=== PATIENT | male | born 1975 | race Hispanic/Latino ===

== ENCOUNTER 2020-02-06 19:10 | Inpatient (IN) | payer SELFPAY ==
[~2020-02-06] VITALS: Ht 154.9 cm; Wt 101.2 kg
[2020-02-06] MEDS ORDERED: DEXAMETHASONE SOD PHOS INJ 4 MG/ML VIAL IV ONE (19:30)
[2020-02-06] MEDS ORDERED: AZITHROMYCIN 500MG/NS 250 ML 250 ML IV ONE (19:30)
[2020-02-06] MEDS ORDERED: CEFTRIAXONE SOD 1 GM/NS 50 ML 50 ML IV ONE (19:30)
[2020-02-06] MEDS ORDERED: ACETAMINOPHEN 325 MG TAB PO ONE (19:30)
[2020-02-06 19:33] LABS: BASOPHILS % 0.2 % (0.0-1.0); HEMATOCRIT 43.2 % (38.2-49.6); HEMOGLOBIN 14.3 g/dL (14.0-18.0); LYMPHOCYTES # (AUTO) 0.8 (1.0-3.2); LYMPHOCYTES % 14.2 % (18.0-39.1); MEAN CORPUSCULAR HEMOGLOBIN 27.8 pg (28-32); MEAN CORPUSCULAR HGB CONC 33.1 g/dL (31-35); MEAN CORPUSCULAR VOLUME 83.9 fL (81-99); MONOCYTES # (AUTO) 0.2 (0.2-0.8); MONOCYTES % 3.8 % (4.4-11.3); NEUTROPHILS # (AUTO) 4.7 (2.1-6.9); NEUTROPHILS % 80.6 % (38.7-80.0); PLATELET COUNT 208 x10e3/uL (140-360); RED BLOOD COUNT 5.15 x10e6/uL (4.3-5.7); RED CELL DISTRIBUTION WIDTH 13.2 % (11.7-14.4)
[2020-02-06 19:54] LABS: ALANINE AMINOTRANSFERASE 14 IU/L (0-55); ALBUMIN 2.9 g/dL (3.5-5.0); ALBUMIN/GLOBULIN RATIO 0.6 (0.8-2.0); ALKALINE PHOSPHATASE 97 IU/L (40-150); ANION GAP 21.4 mmol/L (8-16); BLOOD UREA NITROGEN 11 mg/dL (7-26); BUN/CREATININE RATIO 9 (6-25); CALCIUM 8.8 mg/dL (8.4-10.2); CARBON DIOXIDE 21 mmol/L (22-29); CHLORIDE 91 mmol/L (98-107); CREATINE KINASE 46 IU/L (30-200); EST GLOMERULAR FILTRATION RATE > 60 ML/MIN (60-); POTASSIUM 4.4 mmol/L (3.5-5.1); SODIUM 129 mmol/L (136-145)
--- NOTE | 2020-02-06 20:02 | NUR ---
ASH PEREZ NOTIFIED AND AWARE OF CRITICAL LAB VALUE, BLOOD GLUCOSE 522.
[2020-02-06 20:08] LABS: GLUCOSE 522 mg/dL (74-118)
--- NOTE | 2020-02-06 20:09 | Emergency Department Note ---
History of Present Illnes History of Present Illness Chief Complaint: COVID PUI History of Present Illness This is a 44 year old male was recently in [facility] 2 wks ago for SOB Dx with PNA. Pt states, "I was just sitting down at home today when I start having SOB & usually it only happen at night time when Im laying down at night. PT ON 02 100% VIA NR AND OXYGEN SATURATION IS 78%. VAPOTHERM ORDERED TO BE PLACED ON PT . Historian: Patient Arrival Mode: [facility] Treatment CYLINDER INSPECTOR: IV, O2 Additional Treatment CYLINDER INSPECTOR: Patient was given Solu-Medrol 125 mg Onset (how long ago): week(s) (2) Location: CHEST Quality: SOB, COUGH Radiation: Reports non-radiation Severity: moderate Onset quality: gradual Duration (how long): week(s) (2) Timing of current episode: constant Progression: worsening Context: Reports recent illness (DIAGNOSED WITH PNEUMONIA AT [facility] 2 WEEKS AGO) Relieving factors: none Exacerbating factors: movement Associated symptoms: Reports cough, Reports fever/chills, Reports shortness of breath Treatments prior to arrival: none Past Medical/Family History Physician Review I have reviewed the patient's past medical and family history. Any updates have been documented here. Past Medical History Recent Fever: No Clinical Suspicion of Infectio: Yes New/Unexplained Change in Ment: No Past Medical History: Hypertension, Diabetes Other Medical History: Pneumonia Epilepsy Past Surgical History: None Social History Smoking Cessation: Never Smoker Alcohol Use: None Any Illegal Drug Use: No Physically hurt or threatened: No Family History Family history of heart diseas: No Other family history HTN, DM Other Last Tetanus: unknown Review of Systems Review of Systems EENTM: Reports no symptoms Cardiovascular: Reports no symptoms Respiratory: Reports as per HPI Gastrointestinal: Reports no symptoms Genitourinary: Reports no symptoms Musculoskeletal: Reports no symptoms Integumentary: Reports no symptoms Neurological: Reports no symptoms Psychological: Reports no symptoms Endocrine: Reports no symptoms Hematological/Lymphatic: Reports no symptoms Physical Exam Related Data Allergies: Coded Allergies: No Known Allergies (Unverified , 08/31/14) Triage Vital Signs Vital Signs Date Time Temp Pulse Resp B/P (MAP) Pulse Ox O2 Delivery O2 Flow Rate FiO2 02/06/20 19:30 97.9 125 25 160/83 100 Vapotherm 40.0 Vital signs reviewed: Yes Physical Exam CONSTITUTIONAL Constitutional: Present well-developed, Present well-nourished HENT HENT: Present normocephalic, Present atraumatic, Present oropharynx clear/elana st, Present nose normal HENT L/R: Present left ext ear normal, Present right ext ear normal EYES Eyes: Reports PERRL, Reports conjunctivae normal NECK Neck: Present ROM normal PULMONARY Pulmonary: Present respiratory distress (MILD WITH TACHYPNEA, RR 30), Present rhonchi (THROUGHOUT ALL 4 LUNG TURPIN) CARDIOVASCULAR Cardiovascular: Present regular rhythm, Present heart sounds normal, Present capillary refill normal, Present tachycardia (RATE 125) GASTROINTESTINAL Abdominal: Present soft, Present nontender, Present bowel sounds normal GENITOURINARY Genitourinary: Present exam deferred SKIN Skin: Present warm, Present dry MUSCULOSKELETAL Musculoskeletal: Present ROM normal NEUROLOGICAL Neurological: Present alert, Present oriented x 3, Present no gross motor or sensory deficits PSYCHOLOGICAL Psychological: Present mood/affect normal, Present judgement normal Results Laboratory Result Diagram: 02/06/201916 Laboratory Laboratory Tests Test 02/06/20 19:48 02/06/20 19:17 White Blood Count 5.78 x10e3/uL (4.8-10.8) Red Blood Count 5.15 x10e6/uL (4.3-5.7) Hemoglobin 14.3 g/dL (14.0-18.0) Hematocrit 43.2 % (38.2-49.6) Mean Corpuscular Volume 83.9 fL (81-99) Mean Corpuscular Hemoglobin 27.8 pg (28-32) Mean Corpuscular Hemoglobin Concent 33.1 g/dL (31-35) Red Cell Distribution Width 13.2 % (11.7-14.4) Platelet Count 208 x10e3/uL (140-360) Neutrophils (%) (Auto) 80.6 % (38.7-80.0) Lymphocytes (%) (Auto) 14.2 % (18.0-39.1) Monocytes (%) (Auto) 3.8 % (4.4-11.3) Eosinophils (%) (Auto) 0.0 % (0.0-6.0) Basophils (%) (Auto) 0.2 % (0.0-1.0) Neutrophils # (Auto) 4.7 (2.1-6.9) Lymphocytes # (Auto) 0.8 (1.0-3.2) Monocytes # (Auto) 0.2 (0.2-0.8) Eosinophils # (Auto) 0.0 (0.0-0.4) Basophils # (Auto) 0.0 (0.0-0.1) Absolute Immature Granulocyte (auto 0.07 x10e3/uL (0-0.1) Sodium Level 129 mmol/L (136-145) Potassium Level 4.4 mmol/L (3.5-5.1) Chloride Level 91 mmol/L (98-107) Carbon Dioxide Level 21 mmol/L (22-29) Anion Gap 21.4 mmol/L (8-16) Blood Urea Nitrogen 11 mg/dL (7-26) Creatinine 1.20 mg/dL (0.72-1.25) Estimat Glomerular Filtration Rate > 60 ML/MIN (60-) BUN/Creatinine Ratio 9 (6-25) Glucose Level 522 mg/dL (74-118) Calcium Level 8.8 mg/dL (8.4-10.2) Total Bilirubin 0.7 mg/dL (0.2-1.2) Aspartate Amino Transf (AST/SGOT) 29 IU/L (5-34) Alanine Aminotransferase (ALT/SGPT) 14 IU/L (0-55) Alkaline Phosphatase 97 IU/L (40-150) Creatine Kinase 46 IU/L (30-200) Creatine Kinase MB 0.60 ng/mL (0-5.0) Troponin I 0.004 ng/mL (0-0.300) Total Protein 7.4 g/dL (6.5-8.1) Albumin 2.9 g/dL (3.5-5.0) Globulin 4.5 g/dL (2.3-3.5) Albumin/Globulin Ratio 0.6 (0.8-2.0) Laboratory Tests Test 02/06/20 19:17 White Blood Count 5.78 x10e3/uL (4.8-10.8) Red Blood Count 5.15 x10e6/uL (4.3-5.7) Hemoglobin 14.3 g/dL (14.0-18.0) Hematocrit 43.2 % (38.2-49.6) Mean Corpuscular Volume 83.9 fL (81-99) Mean Corpuscular Hemoglobin 27.8 pg (28-32) Mean Corpuscular Hemoglobin Concent 33.1 g/dL (31-35) Red Cell Distribution Width 13.2 % (11.7-14.4) Platelet Count 208 x10e3/uL (140-360) Neutrophils (%) (Auto) 80.6 % (38.7-80.0) Lymphocytes (%) (Auto) 14.2 % (18.0-39.1) Monocytes (%) (Auto) 3.8 % (4.4-11.3) Eosinophils (%) (Auto) 0.0 % (0.0-6.0) Basophils (%) (Auto) 0.2 % (0.0-1.0) Neutrophils # (Auto) 4.7 (2.1-6.9) Lymphocytes # (Auto) 0.8 (1.0-3.2) Monocytes # (Auto) 0.2 (0.2-0.8) Eosinophils # (Auto) 0.0 (0.0-0.4) Basophils # (Auto) 0.0 (0.0-0.1) Absolute Immature Granulocyte (auto 0.07 x10e3/uL (0-0.1) Lab results reviewed: Yes Imaging Imaging results reviewed: Yes Impressions Procedure: [id number] DX/CHEST SINGLE (PORTABLE) Exam Date: 02/06/20 Exam Time: 1944 REPORT STATUS: Signed EXAMINATION: CHEST SINGLE (PORTABLE) INDICATION: Shortness of breath and cough. COMPARISON: None FINDINGS: TUBES and LINES: None. LUNGS: Low lung volumes with diffuse patchy airspace opacities. PLEURA: There is probable bilateral pleural effusion. No pneumothorax. HEART AND MEDIASTINUM: The cardiomediastinal silhouette obscured by multifocal airspace opacities. BONES AND SOFT TISSUES: No acute osseous lesion. Soft tissues are unremarkable. UPPER ABDOMEN: No free air under the diaphragm. IMPRESSION: Multifocal patchy airspace opacities throughout both lungs which most likely represents multifocal pneumonia. Recommend follow-up chest radiographs in 6-8 weeks to ensure Signed by: Kirit Jolly MD on 02/06/2020 8:16 PM Procedures 12 Lead ECG Interpretation ECG Interpretation : ECG: ECG 1 Dry Room Operator: Interpreted by ED physician Date: Feb 06, 2020 Time: 19:13 Rhythm: sinus tachycardia Ectopy: infrequent PVC's Rate: tachycardia BPM: 130 QRS axis: normal ST segments normal: Yes T waves normal: Yes Other findings: no other findings Clinical Impression: dysrhythmia - atrial (SINUS TACHYCARDIA) Critical Care Time Critcal care necessary due to: respiratory failure Critcal care time spent by me: blood dram for specimens, develop tx plan w patient/surrogate, discussion w consultants, evaluation patient response to tx, examination of patient, obtaining hx from patient/surrogate, order/perform tx or interventions, order/review laboratory studies, order/review radiographic studies, pulse oximetry, re-evaluation of patient condition Assessment & Plan Medical Decision Making MDM PT WITH REPORTED DIAGNOSIS OF PNEUMONIA 2 WEEKS AGO WITH SOB AND HYPOXIA, HIGHLY SUSPICIOUS FOR COVID 19 VIRAL PNEUMONIA PT OXYGEN SATURATION ON 100% NR IS 78%, PT PLACED ON VAPO THERM FIO2 100% 40LPM AND OXYGEN SATURATION NOW 95 TO 98%. CBC, CMP, BLOOD CULTURES, COVID 19, CXR, EKG, CARDIAC ENZYMES ORDERED TO EVAL FOR VIRAL PNEUMONIA, ELECTROLYTE ABNORMALITY, COVID 19, MYOCARDIAL INFARCTION, PULMONARY EDEMA ROCEPHIN 1 GRAM IV ORDERED ZITHROMAX 500 MG IV ORDERED DEXAMETHASONE 6 MG IV ORDERED TYLENOL 975 MG PO ORDERED PT WITH BLOOD SUGAR OF 522, REGULAR INSULIN 15 UNITS SQ ORDERED I SPOKE WITH DR GALLEGOS, DR MANNING AND DR FERNANDEZ, ADMIT TO ICU Assessment & Plan Final Impression: (1) Viral pneumonia (2) Hypoxemia requiring supplemental oxygen (3) Suspected COVID-19 virus infection Depart Disposition: ADMITTED Last Vital Signs Date Time Temp Pulse Resp B/P (MAP) Pulse Ox O2 Delivery O2 Flow Rate FiO2 02/06/20 19:30 97.9 125 25 160/83 100 Vapotherm 40.0 Home Meds No Active Prescriptions or Reported Meds Medications in the ED Ceftriaxone Sodium 50 ml @ 100 mls/hr ONCE ONCE IV ; Start 02/06/20 at 19:30; Stop 02/06/20 at 19:59; Status DC Acetaminophen 975 mg ONCE ONCE PO ; Start 02/06/20 at 19:30; Stop 02/06/20 at 19:34; Status DC Azithromycin 250 ml @ 200 mls/hr NOW ONCE IV ; Start 02/06/20 at 19:30; Stop 02/06/20 at 20:44 Dexamethasone Sodium Phosphate 6 mg ONCE ONCE IV ; Start 02/06/20 at 19:30; Stop 02/06/20 at 19:34; Status DC FIDENCIO CINTRON MD Feb 06, 2020 20:09
[2020-02-06] MEDS ORDERED: INSULIN REGULAR, HUMAN 100 UNIT/1 ML 3ML VIAL SQ ONE (20:15)
--- NOTE | 2020-02-06 20:20 | Diagnostic Imaging Report ---
EXAMINATION: CHEST SINGLE (PORTABLE) INDICATION: Shortness of breath and cough. COMPARISON: None FINDINGS: TUBES and LINES: None. LUNGS: Low lung volumes with diffuse patchy airspace opacities. PLEURA: There is probable bilateral pleural effusion. No pneumothorax. HEART AND MEDIASTINUM: The cardiomediastinal silhouette obscured by multifocal airspace opacities. BONES AND SOFT TISSUES: No acute osseous lesion. Soft tissues are unremarkable. UPPER ABDOMEN: No free air under the diaphragm. IMPRESSION: Multifocal patchy airspace opacities throughout both lungs which most likely represents multifocal pneumonia. Recommend follow-up chest radiographs in 6-8 weeks to ensure Signed by: Kirit Jolly MD on 02/06/2020 8:16 PM
[2020-02-06] MEDS ORDERED: SODIUM CHLORIDE 0.9% 1000ML 1,000 ML IV ONE (22:15)
[2020-02-06] MEDS ORDERED: DEXTROSE 50% SYRINGE 50 ML IV PRN (22:15)
[2020-02-06] MEDS ORDERED: ACETAMINOPHEN 325 MG TAB PO PRN (22:15)
[2020-02-06] MEDS ORDERED: MELATONIN 5 MG TABLET PO PRN (23:45)
[2020-02-06] MEDS ORDERED: HYDRALAZINE HCL 20 MG/ML VIAL IV PRN (23:45)
[2020-02-06] MEDS ORDERED: DOCUSATE SODIUM 100 MG CAP PO PRN (23:45)
[2020-02-06] MEDS ORDERED: ONDANSETRON HCL INJ 2MG/ML 2ML 2 MG/ML VIAL IV PRN (23:45)
[2020-02-07] VITALS (11 sets, daily range): BP systolic 79–150; BP diastolic 44–103
--- NOTE | 2020-02-07 00:20 | NUR ---
Patient sleeping comfortably on bed, laying at left side. Sats 96% on vapotherm 40L ,100%
[2020-02-07] MEDS: AZITHROMYCIN 500MG/SOD CHL 0.9% 250ML BAG IV SCH ×2 (00:51→23:34)
[2020-02-07] MEDS: PIPER-TAZ 3.375 GM 50 ML IV SCH ×4 (00:59→18:54)
[2020-02-07] MEDS: INSULIN GLARGINE 100 UNITS/ML VIAL SQ SCH ×2 (01:02→08:41)
[2020-02-07] MEDS: ENOXAPARIN 30 MG/0.3 ML SYR SC SCH ×3 (01:06→17:12)
[2020-02-07] MEDS: VANCOMYCIN HCL 1GM/NS 250 ML BAG IV SCH ×2 (02:20→23:24)
[2020-02-07 03:33] LABS: CREATINE KINASE MB 0.5 ng/mL (0-5.0)
[2020-02-07 04:16] LABS: ABG HCO3 24 mmol/L (22-26); ABG PCO2 46 mmHg (35-45); ABG PH 7.33 (7.35-7.45); ABG PO2 47 mmHg (80-105); ABG TCO2 26
--- NOTE | 2020-02-07 07:02 | NUR ---
Handoff report given to Steven READ
[2020-02-07] MEDS: INSULIN REGULAR, HUMAN 100 UNIT/1 ML 3ML VIAL SQ SCH ×2 (08:40→12:22)
[2020-02-07] MEDS: ASCORBIC ACID 500 MG TAB PO SCH ×2 (08:41→16:56)
[2020-02-07 09:16] LABS: BASOPHILS % 0.1 % (0.0-1.0); HEMATOCRIT 46.2 % (38.2-49.6); HEMOGLOBIN 14.9 g/dL (14.0-18.0); LYMPHOCYTES # (AUTO) 0.6 (1.0-3.2); LYMPHOCYTES % 8.7 % (18.0-39.1); MEAN CORPUSCULAR HEMOGLOBIN 27.5 pg (28-32); MEAN CORPUSCULAR HGB CONC 32.3 g/dL (31-35); MEAN CORPUSCULAR VOLUME 85.2 fL (81-99); MONOCYTES # (AUTO) 0.1 (0.2-0.8); MONOCYTES % 1.7 % (4.4-11.3); NEUTROPHILS # (AUTO) 6.1 (2.1-6.9); NEUTROPHILS % 88.6 % (38.7-80.0); PLATELET COUNT 239 x10e3/uL (140-360); RED BLOOD COUNT 5.42 x10e6/uL (4.3-5.7); RED CELL DISTRIBUTION WIDTH 13.4 % (11.7-14.4)
[2020-02-07 09:35] LABS: ALANINE AMINOTRANSFERASE 14 IU/L (0-55); ALBUMIN 2.8 g/dL (3.5-5.0); ALBUMIN/GLOBULIN RATIO 0.6 (0.8-2.0); ALKALINE PHOSPHATASE 97 IU/L (40-150); ANION GAP 20.7 mmol/L (8-16); BLOOD UREA NITROGEN 17 mg/dL (7-26); BUN/CREATININE RATIO 17 (6-25); CALCIUM 8.6 mg/dL (8.4-10.2); CARBON DIOXIDE 23 mmol/L (22-29); CHLORIDE 98 mmol/L (98-107); CREATININE, SERUM 1.03 mg/dL (0.72-1.25); EST GLOMERULAR FILTRATION RATE > 60 ML/MIN (60-); POTASSIUM 4.7 mmol/L (3.5-5.1); SODIUM 137 mmol/L (136-145)
[2020-02-07 09:41] LABS: GLUCOSE 428 mg/dL (74-118)
[2020-02-07 09:47] LABS: CREATINE KINASE 68 IU/L (30-200)
--- NOTE | 2020-02-07 10:40 | NUR ---
covid positive confirmed by phone by [facility] at [phone]
[2020-02-07] MEDS ORDERED: INSULIN GLARGINE 100 UNITS/ML VIAL SQ SCH (12:45)
[2020-02-07] MEDS ORDERED: DEXTROSE 50% SYRINGE 50 ML IV PRN (16:30)
[2020-02-07] MEDS: INSULIN REGULAR, HUMAN 3ML VL 100 UNIT in SODIUM CHLORIDE 0.9% 99 ML IV SCH ×2 (17:11)
[2020-02-07 17:12] LABS: ABG HCO3 24 mmol/L (22-26); ABG PCO2 41 mmHg (35-45); ABG PH 7.38 (7.35-7.45); ABG PO2 43 mmHg (80-105); ABG TCO2 25
[2020-02-07] MEDS ORDERED: MIDAZOLAM HCL 2 MG/2 ML VIAL ONE ×2 (17:37→18:02)
[2020-02-07] MEDS ORDERED: MIDAZOLAM HCL 50 MG in SODIUM CHLORIDE 0.9% 100 ML 90 ML IV PRN (18:30)
[2020-02-07] MEDS ORDERED: SODIUM CHLORIDE 0.9% 1000ML 2,000 ML ONE (18:43)
--- NOTE | 2020-02-07 18:50 | Consultation ---
DATE OF CONSULTATION: REASON FOR CONSULTATION: Respiratory failure. HISTORY OF PRESENT ILLNESS: This patient is a 44-year-old male who was in [facility] two weeks ago with pneumonia. He was given antibiotic and discharged home, he has been okay, but now still has shortness of breath and came back to the emergency room here. He is currently on non-rebreather 100%, admitted to intensive care unit. He is on Vapotherm at present time. PAST MEDICAL HISTORY: Obesity. PAST SURGICAL HISTORY: Denies. ALLERGIES: NKA. SOCIAL HISTORY: There is no smoking, drug abuse, or alcohol abuse. FAMILY HISTORY: Unremarkable. MEDICATIONS: Discussed with the medical team. He is currently on Zosyn, vancomycin, azithromycin, and Lovenox as well as dexamethasone. LABORATORY DATA: White count 6.9 and hemoglobin 14. Sodium 137, potassium 4.4 with a glucose 128. IMPRESSION AND PLAN: 1. Respiratory failure. 2. Diabetes mellitus, controlled. Continue antibiotic as ordered. Continue steroid as well as anticoagulation and strict control of his diabetes. The patient is not a candidate for remdesivir since he has been sick for more than 2 weeks. MD JOSE Torres/MODL /[id number]
--- NOTE | 2020-02-07 19:13 | Diagnostic Imaging Report ---
EXAM: Abdomen Radiograph 1 View(s) INDICATION: Enteric tube placement. COMPARISON: None FINDINGS: No abnormalities in the lower chest. There is an enteric tube which coils within the gastric fundus and terminates in the expected location of the pylorus. Normal volume of stool in the colon. No dilated loops of small bowel. No abnormal abdominal calcifications.. No abnormal soft tissue masses. No radiographic evidence of pneumoperitoneum. No acute osseous abnormality. Mild degenerative changes in the lumbar spine and pelvis. IMPRESSION: 1. Enteric tube which terminates in the expected location of the gastric pylorus. 2. No acute abdominal radiographic abnormality. Signed by: Kirit Jolly MD on 02/07/2020 7:09 PM
--- NOTE | 2020-02-07 19:18 | Diagnostic Imaging Report ---
EXAMINATION: CHEST SINGLE (PORTABLE) INDICATION: Endotracheal tube placement. COMPARISON: Chest x-ray from 02/06/2020. FINDINGS: TUBES and LINES: There has been interval placement of an endotracheal tube. Initial imaging demonstrates terminal point at the level of the michael. The repeat imaging demonstrates terminal point approximately 6 cm above the michael. No interval changes in radiographic appearance of the lungs with multifocal patchy airspace opacities. No interval changes in cardiomediastinal silhouette. No interval changes in osseous or soft tissue structures. IMPRESSION: 1. Interval placement of endotracheal tube. Initial imaging demonstrates terminal point at the level of the michael. However, repeat imaging demonstrates terminal point approximately 6 cm above the michael. 2. No interval change in radiographic appearance of the lungs. Signed by: Kirit Jolly MD on 02/07/2020 7:14 PM
[2020-02-07] MEDS ORDERED: PHENOBARBITAL SOD 65 MG/ML VIAL IV ONE (19:30)
[2020-02-07] MEDS: MIDAZOLAM HCL 2 MG/2 ML VIAL IV SCH ×2 (20:24→21:49)
[2020-02-07] MEDS ORDERED: SODIUM CHLORIDE 0.9% IV ONE (20:30)
[2020-02-07] MEDS ORDERED: PHENOBARBITAL SOD IV ONE (20:30)
[2020-02-07] MEDS: FENTANYL 2000MCG/NS 250 250 ML IV PRN (20:33)
[2020-02-07] MEDS: MIDAZOLAM HCL 5MG/ML 10ML VIAL 100 ML IV PRN ×2 (20:33→21:50)
[2020-02-07] MEDS ORDERED: SODIUM CHLORIDE 0.9% 500ML 500 ML IV ONE ×2 (20:45→21:45)
--- NOTE | 2020-02-07 22:01 | Consultation ---
DATE OF CONSULTATION: Pulmonary Critical Care Consultation CHIEF COMPLAINT: Shortness of breath for 4 to 5 days. HISTORY OF PRESENT ILLNESS: The patient is a 44-year-old man. He has a history of diabetes and takes insulin at home. He reports dyspnea for the past 4 to 5 days. He has a cough. He does not complain of fevers or chest pain. He is not reporting nausea or vomiting. PAST MEDICAL HISTORY: 1. Diabetes. 2. No prior respiratory problems. 3. No prior cardiac disease. PAST SURGICAL HISTORY: No prior surgeries. SOCIAL HISTORY: The patient was a smoker up until several months ago. He is not an active drinker. ALLERGIES: THERE ARE NO KNOWN DRUG ALLERGIES. FAMILY HISTORY: Family history is noncontributory. REVIEW OF SYSTEMS: The patient is a febrile. He does not complain of headache or neck pain. He is not having any chest pain. He does note dyspnea and cough. He is not having any abdominal pain. He has no nausea or vomiting. He has no leg swelling. PHYSICAL EXAMINATION: VITAL SIGNS: The patient is afebrile. The patient is saturating in the mid 80s and his respiratory rate is in the low 30s. His pulse is 106 and his blood pressure is 131/87. He is currently on Vapotherm at 40 L with 100% FiO2. He has a non-rebreather superimposed over the top. HEENT: Shows no facial swelling or erythema. CARDIAC: Reveals regular rate and rhythm with normal S1 and S2. LUNGS: Auscultation of lungs reveals crackles at the bases. There is no wheezing. ABDOMEN: Soft and nontender. There is no rebound or guarding. EXTREMITIES: Shows no leg edema or calf tenderness. There is no cyanosis or clubbing. SKIN: Shows no rashes. NEUROLOGICAL: Shows no focal abnormalities. LABORATORY DATA: White blood cell count is 6.9 and the hemoglobin is 14.9. The platelet count is 239. The BUN to creatinine ratio is 17 to 1.03. Other electrolytes are within normal limits. His anion gap is increased to 20. His blood sugar is 454 and his hemoglobin A1c is 14.7. Albumin is 2.8. RADIOGRAPHIC DATA: Chest x-ray shows patchy bilateral infiltrates. IMPRESSION: 1. Acute respiratory failure. 2. Viral pneumonia and COVID-19 infection. 3. Diabetic ketoacidosis. 4. Acute kidney injury. PLAN: 1. Continue Vapotherm and non-rebreather for now. Check stat ABG. 2. Begin insulin drip. 3. Intravenous fluids. 4. Dexamethasone 6 mg IV daily. 5. Continue current antibiotics. 6. Evaluate the patient for remdesivir. Deshaun Roberson MD LM/MODL /[id number]
[2020-02-07 22:23] LABS: ABG HCO3 26 mmol/L (22-26); ABG PCO2 57 mmHg (35-45); ABG PH 7.26 (7.35-7.45); ABG PO2 59 mmHg (80-105); ABG TCO2 27
[2020-02-07] MEDS: NOREPINEPHRINE 8 MG/D5W 250 ML 250 ML IV SCH (22:55)
--- NOTE | 2020-02-07 23:51 | Operative Report ---
DATE OF PROCEDURE: SURGEON: Deshaun Roberson MD PROCEDURE: Endotracheal intubation with GlideScope. PREOPERATIVE DIAGNOSIS: Respiratory failure. POSTOPERATIVE DIAGNOSIS: Respiratory failure. CONSENT: Consent was obtained from the patient. MEDICATIONS: Versed 1 mg IV, etomidate 20 mg IV, and succinylcholine 100 mg IV. DESCRIPTION OF PROCEDURE: The patient was placed in supine position. He was desaturating into the low 80s despite being on Vapotherm at 40 L with 100% on a non-rebreather superimposed over the Vapotherm. He received 1 mg of Versed. He is Ambu bagging gently. He then received succinylcholine and etomidate. A 3.0 Mac blade was used to visualize the glottis. An 8.0 endotracheal tube was passed on the first attempt. There was good CO2 return and equal breath sounds bilaterally. The patient was then connected to a ventilator at a rate of 28 with a PEEP of 14 and tidal volume of 380. FiO2 is set at 100%. COMPLICATIONS: None. ESTIMATED BLOOD LOSS: None. Deshaun Roberson MD [facility]/MODL /[id number]
[2020-02-08] VITALS (20 sets, daily range): BP systolic 79–140; BP diastolic 45–90
--- NOTE | 2020-02-08 02:36 | Diagnostic Imaging Report ---
EXAMINATION: CHEST SINGLE (PORTABLE) INDICATION: Respiratory failure COMPARISON: same-day chest x-ray FINDINGS: TUBES and LINES: ET tube tip 5.2 cm above michael. Left upper extremity PICC tip in the right atrium. Enteric tube courses into abdomen, tip out of field of view. LUNGS: Extensive bilateral lung haziness. PLEURA: No pleural effusion or pneumothorax. HEART AND MEDIASTINUM: The cardiomediastinal silhouette is unremarkable. BONES AND SOFT TISSUES: No acute osseous lesion. Soft tissues are unremarkable. UPPER ABDOMEN: No free air under the diaphragm. IMPRESSION: ET tube tip 5.2 cm above michael. Left upper extremity PICC tip in the right atrium. Extensive airspace disease. Signed by: Isacc Arredondo DO on 02/08/2020 2:33 AM
--- NOTE | 2020-02-08 02:36 | Diagnostic Imaging Report ---
EXAMINATION: CHEST XRAY LINE PLACEMENT INDICATION: PICC line placement, verify position COMPARISON: Chest x-ray 02/07/2020 FINDINGS: TUBES and LINES: ET tube tip 4.8 cm above michael. New left upper extremity PICC terminates in the right atrium. Enteric tube courses into abdomen, tip out of field of view. LUNGS: Extensive bilateral lung haziness. PLEURA: No pleural effusion or pneumothorax. HEART AND MEDIASTINUM: The cardiomediastinal silhouette is unremarkable. BONES AND SOFT TISSUES: No acute osseous lesion. Soft tissues are unremarkable. UPPER ABDOMEN: No free air under the diaphragm. IMPRESSION: New left upper extremity PICC tip terminates in the right atrium. Extensive airspace disease. Signed by: Isacc Arredondo DO on 02/08/2020 2:33 AM
--- NOTE | 2020-02-08 02:36 | History and Physical ---
CHIEF COMPLAINT: Cough, congestion. The patient was seen and evaluated at noon today at 12 p.m. HISTORY OF PRESENT ILLNESS: This is a 44-year-old male, underlying obesity, has uncontrolled type 2 diabetes. He comes in with cough, congestion, subjective fever, found to have COVID-19 pneumonia. The patient was also found to be hypoxic prompting Pulmonary and ID consultation. The patient was seen and evaluated at bedside on the medical floor. He is currently doing relatively okay, still prompting significant amount of oxygen. REVIEW OF SYSTEMS: Cough, congestion, fever. The rest of 14-point review of systems are reviewed with the patient and are negative. ALLERGIES: NO KNOWN DRUG ALLERGIES. HOME MEDICATIONS: None. PAST MEDICAL HISTORY: Uncontrolled type 2 diabetes. PAST SURGICAL HISTORY: Reports none. FAMILY HISTORY: Hypertension and diabetes. SOCIAL HISTORY: No drugs. No alcohol. Does not smoke. Good social support. PHYSICAL EXAMINATION: VITAL SIGNS: Temperature 98.8, pulse is 105, respiratory rate is 27, blood pressure 132/79. He is on Vapotherm 40 L, FiO2 of 100% with an O2 saturation of 100%. GENERAL: During my evaluation, he was alert, awake, and oriented. He was still requiring significant amount of oxygen. PULMONARY: He was on Vapotherm. He was tachypneic, but he was relatively stable despite having significant amount of oxygen. CARDIOVASCULAR: Positive S1 and S2. No murmurs, rubs, or gallops appreciated. ABDOMEN: Soft, nondistended, and nontender to palpation. Bowel sounds present. MUSCULOSKELETAL: Strength is 5/5 throughout. No evidence of any muscle deficits on examination. No weakness appreciated. NEUROLOGIC: Cranial nerve II through XII grossly intact. No evidence of any neurological deficits on exam. SKIN: Intact. Warm to touch. Good cap refill. PSYCHIATRIC: Normal affect and mood. EXTREMITIES: No edema. Good range of motion throughout. LABORATORY DATA: Show white count 6.9, hemoglobin 14.9, hematocrit is 46, platelets of 339. Chemistry; sodium 137, potassium 4.7, Chloride 98, bicarb 23, anion gap of 20, BUN 17, creatinine is 1, has a glucose of 428, and hemoglobin A1c 14.7. LFTs within normal range. Troponins were all negative. Albumin 2.8. SEROLOGY: Coronavirus is pending. MICROBIOLOGY: Blood cultures were no growth to-date. IMAGING STUDIES: Chest x-ray on admission, multifocal patchy airspace opacities throughout both lungs, which most likely represent multifocal pneumonia. IMPRESSION: 1. Acute respiratory distress, secondary to coronavirus disease-2019 pneumonia. 2. Viral pneumonia secondary to coronavirus disease 2019. 3. Uncontrolled type 2 diabetes. 4. Acute kidney injury. PLAN: At this time, continue with steroids, antibiotics, high doses of vitamins and consult with Pulmonary and ID. Put on full-dose anticoagulation therapy. The patient is on significant amount of oxygen. The patient will eventually be intubated at some point if he does not improve. He is morbidly obese, has uncontrolled type 2 diabetes, and has risk factors. Continue with IV antibiotic therapy. Avoid volume if possible. Continue follow with the rest of the consultants. MD MONICA Luong/MODL /[id number]
--- NOTE | 2020-02-08 02:37 | Diagnostic Imaging Report ---
EXAMINATION: CHEST XRAY LINE PLACEMENT INDICATION: PICC placement, verify position COMPARISON: Same-day chest x-ray FINDINGS: TUBES and LINES: Slight retraction of the left upper extremity PICC, tip now in the superior cavoatrial junction. ET tube and enteric tube unchanged. LUNGS: Extensive bilateral lung haziness. PLEURA: No pleural effusion or pneumothorax. HEART AND MEDIASTINUM: The cardiomediastinal silhouette is unremarkable. BONES AND SOFT TISSUES: No acute osseous lesion. Soft tissues are unremarkable. UPPER ABDOMEN: No free air under the diaphragm. IMPRESSION: Slight retraction of the left upper extremity PICC, tip now in the superior cavoatrial junction. Extensive bilateral airspace disease/pneumonia. Signed by: Isacc Arredondo DO on 02/08/2020 2:34 AM
[2020-02-08] MEDS: MIDAZOLAM HCL 5MG/ML 10ML VIAL 100 ML IV PRN ×3 (03:22→13:06)
[2020-02-08 05:17] LABS: HEMOGLOBIN 12.7 g/dL (14.0-18.0); LYMPHOCYTES # (AUTO) 0.6 (1.0-3.2); MEAN CORPUSCULAR HEMOGLOBIN 30.5 pg (28-32); MEAN CORPUSCULAR HGB CONC 34.3 g/dL (31-35); MEAN CORPUSCULAR VOLUME 88.9 fL (81-99); MONOCYTES # (AUTO) 0.3 (0.2-0.8); MONOCYTES % 3.1 % (4.4-11.3); NEUTROPHILS % 89.3 % (38.7-80.0); PLATELET COUNT 172 x10e3/uL (140-360); RED BLOOD COUNT 4.16 x10e6/uL (4.3-5.7); RED CELL DISTRIBUTION WIDTH 15.3 % (11.7-14.4)
[2020-02-08 05:25] LABS: CLARITY,URINE CLEAR (CLEAR); COLOR,URINE YELLOW (YELLOW)
[2020-02-08 05:27] LABS: LEUKOCYTE ESTERASE ,URINE NEGATIVE (NEGATIVE); NITRITE,URINE NEGATIVE (NEGATIVE); PROTEIN,URINE DIPSTICK 2+ (NEGATIVE)
[2020-02-08 05:28] LABS: BACTERIA,URINE RARE /HPF; BILIRUBIN,URINE SMALL (NEGATIVE); KETONES,URINE NEGATIVE (NEGATIVE); URINE UROBILINOGEN 0.2 mg/dL (0.2 - 1)
[2020-02-08 05:29] LABS: EPITHELIAL CELLS,URINE FEW /LPF
[2020-02-08 05:52] LABS: ALANINE AMINOTRANSFERASE 12 IU/L (0-55); ALBUMIN 2.3 g/dL (3.5-5.0); ALBUMIN/GLOBULIN RATIO 0.6 (0.8-2.0); ALKALINE PHOSPHATASE 83 IU/L (40-150); BLOOD UREA NITROGEN 19 mg/dL (7-26); BUN/CREATININE RATIO 25 (6-25); CALCIUM 7.6 mg/dL (8.4-10.2); CARBON DIOXIDE 26 mmol/L (22-29); CHLORIDE 105 mmol/L (98-107); CREATININE, SERUM 0.75 mg/dL (0.72-1.25); EST GLOMERULAR FILTRATION RATE > 60 ML/MIN (60-); GLUCOSE 212 mg/dL (74-118); SODIUM 137 mmol/L (136-145)
[2020-02-08] MEDS: PIPER-TAZ 3.375 GM 50 ML IV SCH ×3 (06:15→21:16)
[2020-02-08] MEDS: FENTANYL 2000MCG/NS 250 250 ML IV PRN ×2 (07:51→18:31)
--- NOTE | 2020-02-08 08:44 | NUR ---
GAVE PACKET OF INFORMATION WITH [employer] [employer] FOR ASSISTANCE WITH LOW TO NO INCOME TO PATIENT. RESOURCES THAT PATIENT MAY BE ABLE TO FOLLOW UP UPON DISCHARGE. PT EDUCATED ON EACH RESOURCE AND UNDERSTANDING HOW TO FOLLOW UP TO SEE IF QUALIFIED FOR EACH RESOURCE.
[2020-02-08] MEDS ORDERED: ENOXAPARIN 30 MG/0.3 ML SYR SC SCH (09:00)
[2020-02-08] MEDS: DEXAMETHASONE SOD PHOS INJ 4 MG/ML VIAL IV SCH (09:06)
[2020-02-08] MEDS: ENOXAPARIN SOD INJ 40 MG/0.4 ML SYR SC SCH ×2 (09:06→17:09)
[2020-02-08] MEDS: ASCORBIC ACID 500 MG TAB PO SCH ×2 (09:07→17:08)
--- NOTE | 2020-02-08 09:33 | Progress Note ---
DATE: SUBJECTIVE: The patient is currently on a PRVC mode of ventilation at a rate of 28 with a tidal volume of 370 and a PEEP of 13. The FiO2 is set at 90%. He is on Levophed at mcg. He is on fentanyl and Versed. The patient is also on insulin drip. PHYSICAL EXAMINATION: VITAL SIGNS: The blood pressure is 106/70 and the saturation is 97%. The pulse is 94. HEENT: Shows no facial swelling or erythema. LYMPHATIC: Shows no submandibular, cervical, or supraclavicular adenopathy. CARDIAC: Reveals regular rate and rhythm with normal S1 and S2. LUNGS: Auscultation of lungs reveals rhonchorous breath sounds bilaterally. There is no wheezing. ABDOMEN: Soft and nontender. There is no rebound or guarding. EXTREMITIES: Shows some leg edema. LABORATORY DATA: White blood cell count is 8.9, hemoglobin is 12.7. The platelet count is 172. The BUN to creatinine ratio is 19 to 0.75. The other electrolytes are within normal limits. The blood sugars 200 to 215. Albumin is 2.3. RADIOGRAPHIC DATA: Chest x-ray shows bilateral infiltrates. IMPRESSION: 1. Acute respiratory failure. 2. Viral pneumonia and COVID-19 infection. 3. Diabetes controlled. 4. Acute kidney injury. PLAN: 1. Begin rocuronium today in addition to Versed and fentanyl. 2. Place the patient in prone position. 3. Continue Lovenox twice daily. 4. Continue antibiotics. 5. Dexamethasone for 10 days. 6. Evaluate the patient for remdesivir. 7. Case discussed with nursing staff, Respiratory, Infectious Disease, Internal Medicine, and family. Greater than 35 minutes in direct critical care time apart from any procedures performed. Deshaun Roberson MD [facility]/MODL /[id number]
[2020-02-08] MEDS: ROCURONIUM BROMIDE 250 MG in SODIUM CHLORIDE 0.9% 250ML 225 ML IV SCH ×3 (10:01→21:00)
[2020-02-08] MEDS ORDERED: MIDAZOLAM HCL 2 MG/2 ML VIAL ONE (14:12)
[2020-02-08] MEDS ORDERED: ETOMIDATE 2 MG/ML 10 ML INJ IV ONE (14:12)
[2020-02-08] MEDS ORDERED: SUCCINYLCHOLINE CHLORIDE 20 MG/ML 10ML VIAL ONE (14:12)
[2020-02-08] MEDS ORDERED: ROCURONIUM BROMIDE 10 MG/ML 5ML VIAL IV ONE (14:12)
--- NOTE | 2020-02-08 14:48 | NUR ---
Patient's family member Ashley to picker patient's cell phone and hold onto it.
--- NOTE | 2020-02-08 14:52 | NUR ---
Nutrition Intervention Note RD Recommendation(s) for Physician: -Recommend modifying tube feeding to Vital AF 1.2 @ goal rate of 45 mL/hr (provides 1296 kcal, 81 g protein) -Water/fluid management per MD Plan of Care: RD following, monitoring for tolerance and adequacy, tube feed recommendation Nutrition reason for involvement: enteral nutrition RD Assessment (02/08/20) Pt is a 44 year old male admitted with hypoxia, COVID-19, and viral pneumonia. Pt is currently intubated; therefore, unable to obtain nutrition history from pt at this time. Tube feeding was ordered this morning per chart. Recommendations provided. Will continue to monitor. Principal Problems/Diagnoses: hypoxia, COVID-19, and viral pneumonia PMH: uncontrolled type 2 diabetes GI: round, non-tender, soft abdomen, no BM recorded Skin: intact Labs: (02/07) Na 137, K 4.0, BUN 19, Cr 0.75, Glu 212, Ca 7.6 Meds: rocuronium, vitamin C, dexmethasone, fentanyl, antibiotics, norepinephrine, insulin, colace, zofran Ht: 61 in Wt: 219 lbs BMI: 41.4 kg/m2 IBW: 112 lbs Malnutrition Evaluation (02/08/20) Unable to assess due to isolation precautions.. Will re-evaluate at follow-up as appropriate. Nutrition Prescription (Diet Order): Glucerna 1.2 @ 30 mL/hr (provides 864 kcal, 43 g protein Estimated Nutritional Needs: 4567-7828 calories/day (22-25 kcal/kg IBW) 76-102 g protein/day (1.5-2 g pro/kg IBW) Diet Adequacy: Not meeting calorie needs, Not meeting protein needs Tolerance: Tolerance pending Diet Education Needs Assessment: Diet education not indicated, patient is intubated Nutrition Care Level: high Nutrition Diagnosis: Inadequate oral intake related to acute respiratory failure/mechanical ventilation as evidenced by pt requiring enteral nutrition Goal: Patient will meet 75-100% of estimated needs by follow up Progress: N/A Interventions: -Composition, Rate, Route, Recommended Modifications Monitoring/Evaluation: -Total energy intake, Total protein intake, Formula/Solution, Weight change Signed: Marleen Elias RD, S[place]
[2020-02-08 17:42] LABS: ABG HCO3 24 mmol/L (22-26); ABG PCO2 44 mmHg (35-45); ABG PH 7.34 (7.35-7.45); ABG PO2 73 mmHg (80-105); ABG TCO2 25
--- NOTE | 2020-02-08 19:20 | Progress Note ---
DATE: SUBJECTIVE: Mr. Agosto remains in intensive care unit. This is day #2. He is currently intubated and sedated. OBJECTIVE: HEENT: Normocephalic. CHEST: Few crackles. HEART: S1, S2. ABDOMEN: Soft. He is already on vasopressors. IMPRESSION: Respiratory failure, viral pneumonia, and diabetes mellitus. The patient has been sick for 3 weeks before he came here, now with superimposed bacterial pneumonia and he is currently on Zosyn, dexamethasone, azithromycin, and vancomycin. Continue with supportive care. We will follow. MD JOSE Torres/MODL /[id number]
[2020-02-08] MEDS: MIDAZOLAM HCL 2 MG/2 ML VIAL IV SCH (21:00)
[2020-02-08] MEDS: AZITHROMYCIN 500MG/NS 250 ML 250 ML IV SCH (22:57)
[2020-02-08] MEDS: VANCOMYCIN 1GM/NS 250 ML 250 ML IV SCH (23:19)
[2020-02-08] MEDS: NOREPINEPHRINE 8 MG/D5W 250 ML 250 ML IV SCH (23:19)
[2020-02-09] VITALS (26 sets, daily range): BP systolic 101–145; BP diastolic 63–85
[2020-02-09] MEDS: INSULIN REGULAR, HUMAN 3ML VL 100 UNIT in SODIUM CHLORIDE 0.9% 99 ML IV SCH ×2 (00:05)
--- NOTE | 2020-02-09 00:51 | Progress Note ---
DATE: 02/08/2020 Medicine Progress Note SUBJECTIVE: The patient was seen and evaluated approximately 1:50 p.m. this afternoon. The patient is intubated. He is on pressors for blood pressure support. He is relatively doing well. He is still in ICU Critical Care on mechanical ventilator. OBJECTIVE: VITAL SIGNS: Temperature was 97.8, pulse , respiratory rate 20, blood pressure 117/78, pulse ox 100% on mechanical ventilator. GENERAL: Intubated and sedated. PULMONARY: Intubated and sedated. CARDIOVASCULAR: Positive S1 and S2. No murmurs, rubs, or gallops appreciated. ABDOMEN: Soft, nondistended, and nontender to palpation. Bowel sounds were present. MUSCULOSKELETAL: Unable to assess. NEUROLOGICAL: Unable to assess. He is sedated. LABORATORY DATA: CBC reviewed, stable. Chemistry reviewed, stable. Glucose is 263. Blood and urine cultures, no growth to date. Chest x-ray this morning shows PICC line tip in the right atrium. The ETT is 5.2 cm above the michael. IMPRESSION: 1. Acute respiratory failure secondary to COVID-19 pneumonia. 2. Viral pneumonia. 3. Uncontrolled type 2 diabetes. 4. Acute kidney injury. PLAN: At this time, the patient is intubated and sedated. He is on high dose steroid, antibiotics and vitamins. Pulmonary Critical Care and ID is following. His glucose is better controlled. He is on full dose anticoagulation. Continue with IV antibiotic therapy. Continue following with the rest of consultants. He is on IV pressors. We will continue to monitor him very closely. MD MONICA Luong/MODL /[id number]
[2020-02-09] MEDS: MIDAZOLAM HCL 2 MG/2 ML VIAL IV SCH ×2 (03:30→23:54)
[2020-02-09] MEDS: FENTANYL 2000MCG/NS 250 250 ML IV PRN ×3 (03:35→21:00)
[2020-02-09 04:32] LABS: BASOPHILS % 0.1 % (0.0-1.0); HEMATOCRIT 38.8 % (38.2-49.6); HEMOGLOBIN 12.4 g/dL (14.0-18.0); LYMPHOCYTES # (AUTO) 0.5 (1.0-3.2); LYMPHOCYTES % 7.1 % (18.0-39.1); MEAN CORPUSCULAR HEMOGLOBIN 27.7 pg (28-32); MEAN CORPUSCULAR VOLUME 86.6 fL (81-99); MONOCYTES # (AUTO) 0.5 (0.2-0.8); MONOCYTES % 6.6 % (4.4-11.3); NEUTROPHILS # (AUTO) 6.2 (2.1-6.9); NEUTROPHILS % 85.2 % (38.7-80.0); PLATELET COUNT 236 x10e3/uL (140-360); RED BLOOD COUNT 4.48 x10e6/uL (4.3-5.7); RED CELL DISTRIBUTION WIDTH 13.9 % (11.7-14.4)
[2020-02-09 04:54] LABS: ALANINE AMINOTRANSFERASE 10 IU/L (0-55); ALBUMIN 2.2 g/dL (3.5-5.0); ALBUMIN/GLOBULIN RATIO 0.6 (0.8-2.0); ALKALINE PHOSPHATASE 90 IU/L (40-150); ANION GAP 11.3 mmol/L (8-16); BLOOD UREA NITROGEN 18 mg/dL (7-26); BUN/CREATININE RATIO 23 (6-25); CALCIUM 7.5 mg/dL (8.4-10.2); CARBON DIOXIDE 25 mmol/L (22-29); CHLORIDE 109 mmol/L (98-107); CREATININE, SERUM 0.77 mg/dL (0.72-1.25); EST GLOMERULAR FILTRATION RATE > 60 ML/MIN (60-); GLUCOSE 250 mg/dL (74-118); POTASSIUM 4.3 mmol/L (3.5-5.1); SODIUM 141 mmol/L (136-145)
[2020-02-09] MEDS: ROCURONIUM BROMIDE 250 MG in SODIUM CHLORIDE 0.9% 250ML 225 ML IV SCH ×4 (05:00→21:20)
[2020-02-09] MEDS: PIPER-TAZ 3.375 GM 50 ML IV SCH ×3 (06:00→21:31)
[2020-02-09] MEDS: ENOXAPARIN SOD INJ 40 MG/0.4 ML SYR SC SCH ×2 (10:01→17:09)
[2020-02-09] MEDS: ASCORBIC ACID 500 MG TAB PO SCH ×2 (10:01→17:09)
[2020-02-09] MEDS: DEXAMETHASONE SOD PHOS INJ 4 MG/ML VIAL IV SCH (10:01)
[2020-02-09] MEDS: MIDAZOLAM HCL 5MG/ML 10ML VIAL 100 ML IV PRN ×3 (10:03→21:30)
--- NOTE | 2020-02-09 12:48 | Progress Note ---
DATE: SUBJECTIVE: The patient remains on a mechanical ventilator. He is now on a PRVC at a rate of 28 with 75% and PEEP of 12 and a tidal volume of 380. He remains on Versed and fentanyl along with rocuronium. PHYSICAL EXAMINATION: VITAL SIGNS: The patient is afebrile. The blood pressure is 125/71, saturation is still 100% on the above-mentioned settings. There is an oral endotracheal tube. LYMPHATIC: No submandibular, cervical, or supraclavicular adenopathy. CARDIAC: Regular rate and rhythm with normal S1, S2. LUNGS: Auscultation of lungs show rhonchorous breath sounds bilaterally. There is no wheezing. ABDOMEN: Soft, nontender. There is no rebound or guarding. EXTREMITIES: No leg edema or calf tenderness. LABORATORY DATA: White blood cell count is 7.22, hemoglobin is 12.4, and the platelet count is 236. The BUN to creatinine ratio is normal. The other electrolytes are within normal limits. The blood sugars are 240-300. Albumin is 2.2. IMPRESSION: 1. Acute respiratory failure. 2. Viral pneumonia and coronavirus disease-19 infection. 3. Acute kidney injury. 4. Diabetes that is poorly controlled. 5. Anemia, unspecified. PLAN: 1. Continue current ventilator settings. 2. Continue Lovenox. 3. Complete dexamethasone. 4. Complete antibiotics. 5. Continue insulin drip. Greater than 35 minutes in direct critical care time apart from any procedures performed. Deshaun Roberson MD [facility]/MOD[facility] /[id number]
[2020-02-09 13:27] LABS: ABG HCO3 27 mmol/L (22-26); ABG PCO2 46 mmHg (35-45); ABG PH 7.37 (7.35-7.45); ABG PO2 207 mmHg (80-105); ABG TCO2 28
--- NOTE | 2020-02-09 17:18 | NUR ---
he patient remains on a mechanical ventilator. He is now on a PRVC at a rate of 28 with 75% and PEEP of 12 and a tidal volume of 380. He remains on Versed and fentanyl along with rocuronium. PHYSICAL EXAMINATION: VITAL SIGNS: The patient is afebrile. The blood pressure is 125/71, saturation is still 100% on the above-mentioned settings. There is an oral endotracheal tube. LYMPHATIC: No submandibular, cervical, or supraclavicular adenopathy. CARDIAC: Regular rate and rhythm with normal S1, S2. LUNGS: Auscultation of lungs show rhonchorous breath sounds bilaterally. There is no wheezing. ABDOMEN: Soft, nontender. There is no rebound or guarding. EXTREMITIES: No leg edema or calf tenderness. LABORATORY DATA: White blood cell count is 7.22, hemoglobin is 12.4, and the platelet count is 236. The BUN to creatinine ratio is normal. The other electrolytes are within normal limits. The blood sugars are 240-300. Albumin is 2.2. [id number]
[2020-02-09] MEDS: NOREPINEPHRINE 8 MG/D5W 250 ML 250 ML IV SCH (21:31)
[2020-02-09] MEDS: AZITHROMYCIN 500MG/NS 250 ML 250 ML IV SCH (22:30)
[2020-02-09] MEDS: VANCOMYCIN 1GM/NS 250 ML 250 ML IV SCH (23:24)
--- NOTE | 2020-02-09 23:32 | Progress Note ---
DATE: SUBJECTIVE: Mr. Agosto remains in intensive care unit intubated and sedated. OBJECTIVE: VITAL SIGNS: Stable, afebrile. HEENT: He is not icteric. NECK: Supple. CHEST: Few crackles. HEART: S1, S2. No murmurs. ABDOMEN: Soft. IMPRESSION: Remains tachycardic, respiratory failure, coronavirus disease-19, acute kidney injury, diabetes mellitus. Continue supportive care. Discussed with medical team. We will follow. MD JOSE Torres/MODL /[id number]
--- NOTE | 2020-02-09 23:46 | Progress Note ---
DATE: 02/09/2020 Medicine Progress Note SUBJECTIVE: The patient was evaluated a little over after 2 p.m. The patient is still intubated and sedated on a mechanical ventilator. No change from yesterday. PHYSICAL EXAMINATION: VITAL SIGNS: Temperature is 99.5, his pulse was 54, respiratory rate is 28, blood pressure was 131/81, saturating 98% on mechanical ventilator. GENERAL: Intubated and sedated. PULMONARY: Intubated and sedated. CARDIOVASCULAR: Positive S1 and S2. No murmurs, rubs, or gallops appreciated. ABDOMEN: Soft, nondistended, and nontender to palpation. Bowel sounds present. MUSCULOSKELETAL: Unable to assess. NEUROLOGIC: Unable to assess. SKIN: Intact. Warm to touch. Good cap refill. EXTREMITIES: No edema appreciated. LABORATORY FINDINGS: Show white count 7.2, hemoglobin 12.4, hematocrit is 38, platelets of 236. Chemistries; sodium 141, potassium 4.3 chloride 109, bicarb 25, anion gap of 11, BUN is 18, creatinine 0.77, glucose is 250. MICROBIOLOGY: Blood and urine cultures no growth. IMAGING STUDIES: None today. IMPRESSION: 1. Acute respiratory failure secondary to coronavirus disease-2019 pneumonia. 2. Viral pneumonia. 3. Uncontrolled type 2 diabetes. 4. Acute kidney injury. PLAN: At this time, the patient continues to be intubated on the ventilator, on sedation. Continue with steroids, antibiotics, vitamins. Continue with the insulin in relation to his uncontrolled type 2 diabetes. Continue following with Pulmonary/Critical Care and ID. We will continue same plan of care. Monitor closely. He is on Lovenox for DVT prophylaxis. Get a.m. labs. MD MONICA Luong/MODL /[id number]
[2020-02-10] VITALS (25 sets, daily range): BP systolic 116–145; BP diastolic 67–88
[2020-02-10] MEDS: MIDAZOLAM HCL 5MG/ML 10ML VIAL 100 ML IV PRN ×3 (02:30→13:08)
[2020-02-10] MEDS: FENTANYL 2000MCG/NS 250 250 ML IV PRN ×3 (03:00→18:26)
[2020-02-10 04:40] LABS: BASOPHILS % 0.2 % (0.0-1.0); HEMATOCRIT 37.5 % (38.2-49.6); HEMOGLOBIN 11.7 g/dL (14.0-18.0); LYMPHOCYTES # (AUTO) 0.8 (1.0-3.2); LYMPHOCYTES % 12.9 % (18.0-39.1); MEAN CORPUSCULAR HEMOGLOBIN 27.5 pg (28-32); MEAN CORPUSCULAR HGB CONC 31.2 g/dL (31-35); MEAN CORPUSCULAR VOLUME 88.2 fL (81-99); MONOCYTES # (AUTO) 0.5 (0.2-0.8); MONOCYTES % 7.6 % (4.4-11.3); NEUTROPHILS # (AUTO) 4.6 (2.1-6.9); NEUTROPHILS % 78.5 % (38.7-80.0); PLATELET COUNT 215 x10e3/uL (140-360); RED BLOOD COUNT 4.25 x10e6/uL (4.3-5.7)
[2020-02-10 04:58] LABS: ANION GAP 12.5 mmol/L (8-16); BLOOD UREA NITROGEN 17 mg/dL (7-26); BUN/CREATININE RATIO 23 (6-25); CALCIUM 7.6 mg/dL (8.4-10.2); CARBON DIOXIDE 26 mmol/L (22-29); CHLORIDE 111 mmol/L (98-107); CREATININE, SERUM 0.74 mg/dL (0.72-1.25); EST GLOMERULAR FILTRATION RATE > 60 ML/MIN (60-); GLUCOSE 109 mg/dL (74-118); POTASSIUM 3.5 mmol/L (3.5-5.1); SODIUM 146 mmol/L (136-145)
[2020-02-10] MEDS: PIPER-TAZ 3.375 GM 50 ML IV SCH ×3 (05:00→20:33)
[2020-02-10] MEDS: ROCURONIUM BROMIDE 250 MG in SODIUM CHLORIDE 0.9% 250ML 225 ML IV SCH ×3 (06:13→20:47)
[2020-02-10] MEDS: MIDAZOLAM HCL 2 MG/2 ML VIAL IV SCH (07:00)
[2020-02-10] MEDS ORDERED: DEXTROSE 50% SYRINGE 50 ML IV ONE (07:19)
[2020-02-10 07:45] LABS: LYMPHOCYTES % (MANUAL) 14 % (19-48); MONOCYTES % (MANUAL) 5 % (3.4-9.0); NEUTROPHILS % (MANUAL) 81 % (40-74); PLATELET ESTIMATE ADEQUATE; PLATELET MORPHOLOGY COMMENT RARE EDTA CLUMPING; RBC MORPHOLOGY COMMENT NORMAL
[2020-02-10 08:38] LABS: ABG HCO3 27 mmol/L (22-26); ABG PCO2 43 mmHg (35-45); ABG PH 7.41 (7.35-7.45); ABG PO2 162 mmHg (80-105); ABG TCO2 29
[2020-02-10] MEDS: ASCORBIC ACID 500 MG TAB PO SCH ×2 (08:54→18:05)
[2020-02-10] MEDS: ENOXAPARIN SOD INJ 40 MG/0.4 ML SYR SC SCH ×2 (08:54→18:05)
[2020-02-10] MEDS: DEXAMETHASONE SOD PHOS INJ 4 MG/ML VIAL IV SCH (08:54)
--- NOTE | 2020-02-10 08:58 | Progress Note ---
DATE: SUBJECTIVE: The patient has been in the prone position overnight. He remains on Versed, fentanyl, and rocuronium. He is also on the insulin drip. He is on low-dose Levophed. His Levophed has been weaned off. He is on a PRVC mode of ventilation at a rate of 28 with a tidal volume of 370 and PEEP of 12. His FiO2 is at 65%. PHYSICAL EXAMINATION: VITAL SIGNS: Blood pressure is 124/73, pulse rate is 50 to 60. HEENT: Shows no facial swelling or erythema. There is an oral endotracheal tube. LYMPHATIC: Shows no submandibular, cervical, or supraclavicular adenopathy. CARDIAC: Reveals regular rate and rhythm. Normal S1 and S2. LUNGS: Auscultation of lungs reveals crackles at the bases. There is no wheezing. ABDOMEN: Soft and nontender. There is no rebound or guarding. There is no leg edema. LABORATORY DATA: White blood cell count is 5.9 and hemoglobin is 11.7. The platelet count is 215. BUN to creatinine ratio is 17 to 0.74. Sodium is 146. RADIOGRAPHIC DATA: Chest x-ray shows bilateral infiltrates. IMPRESSION: 1. Acute respiratory failure. 2. Viral pneumonia and COVID-19 infection. 3. Diabetic ketoacidosis. 4. Acute kidney injury. 5. Anemia, unspecified. PLAN: 1. Continue to wean oxygen and ventilator settings as tolerated. Repeat ABG. 2. Continue insulin drip with monitoring of blood sugars and anion gap. 3. Continue dexamethasone for a full 10-day course. 4. Complete antibiotics. 5. Place the patient back in the supine position later today. 6. Case discussed with Respiratory, nursing, Internal Medicine, Infectious Disease, and family. Greater than 35 minutes in direct critical care time. Deshaun Roberson MD [facility]/MODL /[id number]
--- NOTE | 2020-02-10 16:02 | NUR ---
Nutrition Intervention Note RD Recommendation(s) for Physician: -Recommend modifying tube feeding to Vital AF 1.2 @ goal rate of 45 mL/hr (provides 1296 kcal, 81 g protein) -Water/fluid management per MD Plan of Care: RD following, monitoring for tolerance and adequacy, tube feed recommendation Nutrition reason for involvement: enteral nutrition RD Assessment 02/09: Follow up. Pt remains intubated and sedated. Pt was in the prone position overnight per chart. Pts last recorded tube feed rate was 20 mL/hr yesterday morning. Current recommendations remain appropriate. Will continue to monitor. (02/08/20) Pt is a 44 year old male admitted with hypoxia, COVID-19, and viral pneumonia. Pt is currently intubated; therefore, unable to obtain nutrition history from pt at this time. Tube feeding was ordered this morning per chart. Recommendations provided. Will continue to monitor. Principal Problems/Diagnoses: hypoxia, COVID-19, and viral pneumonia PMH: uncontrolled type 2 diabetes GI: round, non-tender, soft abdomen, no BM recorded Skin: intact Labs: 02/09: Na 146, K 3.5, BUN 17, Cr 0.74, Glu 109, Ca 7.6 (02/07) Na 137, K 4.0, BUN 19, Cr 0.75, Glu 212, Ca 7.6 Meds: rocuronium, vitamin C, dexmethasone, antibiotics, insulin, norepinephrine, colace, zofran Ht: 61 in Wt: 221 lbs (02/08) 219 lbs (02/07) BMI: 41.4 kg/m2 - using wt of 219 lbs IBW: 112 lbs Malnutrition Evaluation (02/08/20) Unable to assess due to isolation precautions.. Will re-evaluate at follow-up as appropriate. Nutrition Prescription (Diet Order): Glucerna 1.2 @ 30 mL/hr (provides 864 kcal, 43 g protein) infusing at 20 mL/hr Estimated Nutritional Needs: 8845-5779 calories/day (22-25 kcal/kg IBW) 76-102 g protein/day (1.5-2 g pro/kg IBW) Diet Adequacy: Not meeting calorie needs, Not meeting protein needs Tolerance: tolerating TF Diet Education Needs Assessment: Diet education not indicated, patient is intubated Nutrition Care Level: high Nutrition Diagnosis: Inadequate oral intake related to acute respiratory failure/mechanical ventilation as evidenced by pt requiring enteral nutrition Goal: Patient will meet 75-100% of estimated needs by follow up Progress: goal not met Interventions: -Composition, Rate, Route, Recommended Modifications Monitoring/Evaluation: -Total energy intake, Total protein intake, Formula/Solution, Weight change Signed: Marleen Elias RD, LD
--- NOTE | 2020-02-10 16:44 | NUR ---
progress note infectious disease progress note The patient has been in the prone position overnight. He remains on Versed, fentanyl, and rocuronium. He is also on the insulin drip. He is on low-dose Levophed. His Levophed has been weaned off. He is on a PRVC mode of ventilation at a rate of 28 with a tidal volume of 370 and PEEP of 12. His FiO2 is at 65%. PHYSICAL EXAMINATION: VITAL SIGNS: Blood pressure is 124/73, pulse rate is 50 to 60. HEENT: Shows no facial swelling or erythema. There is an oral endotracheal tube. LYMPHATIC: Shows no submandibular, cervical, or supraclavicular adenopathy. CARDIAC: Reveals regular rate and rhythm. Normal S1 and S2. LUNGS: Auscultation of lungs reveals crackles at the bases. There is no wheezing. ABDOMEN: Soft and nontender. There is no rebound or guarding. There is no leg edema. LABORATORY DATA: White blood cell count is 5.9 and hemoglobin is 11.7. The platelet count is 215. BUN to creatinine ratio is 17 to 0.74. Sodium is 146. RADIOGRAPHIC DATA: Chest x-ray shows bilateral infiltrates. IMPRESSION: 1. Acute respiratory failure. 2. Viral pneumonia and COVID-19 infection. 3. Diabetic ketoacidosis. 4. Acute kidney injury. 5. Anemia, unspecified. cont same discussed with medical team
--- NOTE | 2020-02-10 18:28 | NUR ---
TURNED BACK TO SUPINE POSITION 4 RNS AND RT AT [facility] DURING FLIP, PT TOLERATED WELL WILL MONITOR CLOSELY
--- OUTSIDE RECORDS SUMMARY | 2020-02-10 19:01 | XMS REPORT | Continuity of Care Document ---
Author Author [facility] t Organization [facility] t Address [address] [place] [address] Phone Unavailable Care Team Providers Care Home Health Administrator Name Role Phone Nova Wheeler DO PCP DAJHONNY, S JIRIES Attphys Unavailable Zachary Carter Attphys Liam Nova Attphys Dmitry QUIGLEY, Macrina Attphys Unavailable [facility], Iesha Stratton Attphys Anastasiya PEREZ, Zachary Saini Attphys Virgil PEREZ, N Andrea Attphys Moshe PEREZ, Rea Jacobo Attphys Francisco RN, Michelle Graves Attphys Unavailable Alcon PEREZ, Heidi Attphys Giuseppe PEREZ, Raquel Frazier Attphys Dez PEREZ, Yariel Barroso Attphys Tiffani PEREZ, Shelley Attphys ELYariel Admphys Unavailable Payers Payer Name Policy Type Policy Number Effective Date Expiration Date Yariel barraza [facility] [id number] [id number] [place] [address] xxxxxxx 2019 00:00:00 2029 2 3:59:59 [facility] Problems Condition Name Condition Details Condition Category Status Onset Date Resolution Date Last Treatment Date Treating Clinician Comments Source Pneumonia of both lungs due to infectious organism Pne umonia of both lungs due to infectious organism Disease Active [facility] Respiratory acidosis Respiratory acidosis Disease Active [facility] Type 2 diabetes mellitus with hyperglyce alta, with long-term current use of insulin Type 2 diabetes mellitus with hyperglyce alta, with long-term current use of insulin Disease Active [facility] Viral URI with cough Viral URI with cough Disease Active [facility] Morbid obesity due to excess calories Morbid obesity due to excess calories Disease [facility] JUAN treated with BiPAP JUAN treated with BiPAP Disease Active [facility] History of Past Illness Condition Name Condition Details Condition Category Status Onset Date Resolution Date Last Treatment Date Treating Clinician Comments Source Encounter for orogastric (OG) tube placement Encounter for orogastric (OG) tube placement Disease Resolved 2019-09-20 00:00:00 2019-09-26 00:00:00 2 17:35:20 [facility] Respiratory failure with hypoxia and hypercapnia Respi ratory failure with hypoxia and hypercapnia Disease Resolved 2019-09-19 00:00:00 2019 00:00:00 2019-09-26 17:35:25 [facility] assisted ventilation On mechanically assiste d ventilation Disease Resolved 2019-09-26 00:00:00 2019-09-26 17:35:22 [facility] Acute respiratory failure with hypercapnia Acute respi ratory failure with hypercapnia Disease Resolved 2019-09-26 00:00:00 2019-09-26 17:35:25 [facility] Allergies, Adverse Reactions, Alerts Allergy Name Allergy Type Status Severity Reaction(s) Onset Date Inacti ve Date Treating Clinician Comments Source No Known Allergies DA Active U 2019-04-04 00:00:00 [facility] No Known Allergies DA Active U 2018-12-18 00:00:00 [facility] No Known Allergies DA Active U 2017-07-01 00:00:00 [facility] No Known Allergies DA Active U 2015-03-05 00:00:00 [facility] Family History Family Member Diagnosis Comments Start Date Stop Date Source Natural brother Diabetes [facility] Natural brother Hypertension [facility] Social History Social Habit Start Date Stop Date Quantity Comments Source Sex Assigned At [facility] Exposure to SARS-CoV-2 (event) Not sure [facility] Alcohol intake 2019-12-29 00:00:00 2019-12-29 00:00:00 Ex-drinker (fi nding) [facility] History SDOH Food Worry 2019-10-03 00:00:00 2019-10-03 00:00:00 3 [facility] Food Scarcity 2019-10-03 00:00:00 2019-10-03 00:00:00 3 [facility] History of tobacco use 2019-09-04 00:00:00 Current smoker [facility] Tobacco Comment 2017-09-08 00:00:00 2017-09-08 00:00:00 10 cig a week . [facility] Alcohol Comment 2017-09-08 00:00:00 2017-09-08 00:00:00 social [facility] Smoking Status Start Date Stop Date Source Former smoker 2019-12-29 00:00:00 2019-12-29 00:00:00 [facility] Medications Ordered Medication Name Filled Medication Name Start Date Stop Da te Current Medication? Ordering Clinician Indication Dosage Frequency Signature (SIG) Comments Components Source furosemide (LASIX) 20 mg tablet 2019-12-29 00:00:00 Yes Heart failure, unspecified HF chronicity, unspecified heart failure type 20mg QD Take 1 tablet by mouth daily. [facility] ibuprofen (MOTRIN) 800 mg tablet 2019-12-29 00:00:00 Yes Arthralgia, unspecified joint 800mg Take 1 tablet by marcelina th every 8 hours as needed for Pain. [facility] metFORMIN (GLUCOPHAGE XR) 500 mg ER extended release tablet 2019-12-29 00:00:00 Yes Type 2 diabetes mellitus with hyperglycemia, with long-term current use of insulin 500mg Q.5D Take 1 tablet by mouth 2 times jefferson hernández [facility] insulin REGULAR 100 unit/mL injection 2019-12-28 00:00:00 Yes Type 2 diabetes mellitus with hyperglycemia, with long-term current use of insulin 10U [id number] Inject 10 Units under the skin 3 times d aily (before meals). [facility] metFORMIN (GLUCOPHAGE XR) 500 mg ER extended release tablet 2019-12-28 00:00:00 2019-12-29 00:00:00 No Type 2 diabe denise mellitus with hyperglycemia, with long-term current use of insulin 500mg Q.5D Ta ke 1 tablet by mouth 2 times daily. [facility] furosemide (LASIX) 20 mg tablet 2019-12-28 00:00:00 00:00:00 No Heart failure, unspecified HF chronicity, unspecified heart failure type 20mg QD Take 1 tablet by mouth daily. [facility] tropicamide (MYDRIACYL) 0.5 % ophthalmic solution 2019-12-28 00:00:00 2019-12-28 23:59:00 No Type 2 diabetes angie itus with hyperglycemia, with long- term current use of insulin 1[drp] Instill 1 Dr op in each eye once as needed for up to 1 dose (for poor retina scan image). [facility] sertraline (ZOLOFT) 50 mg tablet 2019-12-20 00:00:00 Yes Anxiety 50mg QD Take 1 tablet by mouth daily Half pill daily for one week and then one pill daily. [facility] Nebulizer & Compressor For Neb Sandra 2019-12-08 00:00:00 Yes Bronchospasm 1{device} 1 Device by [facility].(Non-Drug; Combo Route) route 4 times daily. [facility] ipratropium-albuteroL 0.5 mg-3 mg(2.5 mg base)/3 mL Nebu 2019-12-08 00:00:00 Yes Bronchospasm 3mL Inhale 3 mL by mouth every 4 hours as needed for Shortness of Breath or Wheezing (AND JUAN). [facility] gabapentin (NEURONTIN) 100 mg capsule 2019-12-08 00:00:00 Yes Neuropathy 100mg Take 1 capsule by mouth 3 times daily. [facility] ibuprofen (MOTRIN) 800 mg tablet 2019-12-08 00:00:00 2019-12 00:00:00 No Arthralgia, unspecified joint 800mg Take 1 tab let by mouth every 8 hours as needed for Pain. [facility] insulin detemir U-100 (LEVEMIR FLEXTOUCH) 100 unit/mL (3 mL) Pen 2019-12-07 00:00:00 Yes Type 2 diabetes mellitus with hyperglycemia, with long-term current use of insulin 15U Q.5D Inject 15 Units under the skin 2 times daily. [facility] metFORMIN (GLUCOPHAGE XR) 500 mg ER extended release tablet 2019-12-07 00:00:00 2019-12-28 00:00:00 No Type 2 diabe denise mellitus with hyperglycemia, with long-term current use of insulin 500mg QD Ta ke 1 tablet by mouth daily (with breakfast). [facility] insulin REGULAR 100 unit/mL injection 2019-12-07 00:00 :00 2019-12-28 00:00:00 No Type 2 diabetes mellitus wit h hyperglycemia, with long-term current use of insulin 5U [id number] Inject 5 Units un dary the skin 3 times daily (before meals). [facility] losartan (COZAAR) 50 mg tablet 2019-11-30 00:00:00 Yes Heart failure, unspecified HF chronicity, unspecified heart failure type 50mg QD Take 1 tablet by mouth daily. [facility] albuterol 90 mcg/actuation inhaler 2019-11-30 00:00:00 Y es Cough 2{puff} Inhale 2 Puffs by mouth 4 times daily as needed for Shortness of Breath. [facility] insulin detemir U-100 (LEVEMIR FLEXTOUCH) 100 unit/mL (3 mL) Pen 2019-11-30 00:00:00 2019-12-07 00:00:00 No Type 2 diabe denise mellitus with hyperglycemia, with long-term current use of insulin 13U Q.5D In ject 13 Units under the skin 2 times daily. [facility] benzonatate (TESSALON PERLES) 100 mg capsule 202 00:00:00 2019-12-07 23:59:00 No Cough 100mg Take 1 capsule by mouth 3 times daily as needed for up to 7 days for Cough. [facility] pen needle, diabetic 31 gauge x 3/16" needles 2019-11-09 00: 00:00 Yes Type 2 diabetes mellitus with hyperglycemia, with long-term current use of insulin Inject under the skin 4 times daily. [facility] INSULIN SYRINGE 0.5 mL 30GX5/16" (MONOJE CT ULTRACOMFORT INSULIN SYR 0.5ML 30GX5/16") syringe-needle 2019-11-09 00:00:00 Yes Type 2 diabetes mellitus with hyperglycemia, with long-term current use of insulin Use to inject medication 4 times daily. Use a new syringe each time. [facility] insulin REGULAR 100 unit/mL injection 2019-11-09 00:00 :00 2019-12-07 00:00:00 No Type 2 diabetes mellitus wit h hyperglycemia, with long-term current use of insulin 3U [id number] Inject 3 Units un dary the skin 3 times daily (before meals). [facility] insulin detemir U-100 (LEVEMIR FLEXTOUCH) 100 unit/mL (3 mL) Pen 2019-11-09 00:00:00 2019-11-30 00:00:00 No Type 2 diabe denise mellitus with hyperglycemia, with long-term current use of insulin 10U Q.5D In ject 10 Units under the skin 2 times daily. [facility] losartan (COZAAR) 25 mg tablet 2019-11-09 00:00:00 2019-11-12 0 00:00:00 No Heart failure, unspecified HF chronicity, unspecified heart failure type 25mg QD Take 1 tablet by mouth daily. [facility] aspirin (ASPIRIN) 81 mg chewable tablet 2019-09-27 00:00:00 Yes Type 2 diabetes mellitus with hyperglycemia, with long-term current use of insulin 81mg QD Chew and swallow 1 tablet by mouth daily. [facility] atorvastatin (LIPITOR) 20 mg tablet 2019-09-26 00:00:00 Yes Type 2 diabetes mellitus with hyperglycemia, with long-term current use of insulin 20mg Take 1 tablet by mouth at bedtime nightly. [facility] blood glucose test strips 2019-09-26 00:00:00 Yes Type 2 diabetes mellitus with hyperglycemia, with long-term current use of insulin Use 2 times weekly (once per day on Thu,) to test blood sugar. [facility] lancets 28 gauge 2019-09-26 00:00:00 Yes Type 2 diabetes mellitus with hyperglycemia, with long-term current use of insulin by MISCELLANEOUS route 2 times weekly Use 2 times weekly as directed. [facility] insulin detemir U-100 (LEVEMIR FLEXTOUCH) 100 unit/mL (3 mL) Pen 2019-09-26 00:00:00 2019-11-09 00:00:00 No Type 2 diabe denise mellitus with hyperglycemia, with long-term current use of insulin 10U Q.5D In ject 10 Units under the skin 2 times daily. [facility] pen needle, diabetic 31 gauge x 3/16" needles 20 30-09-15 00:00:00 2019-11-09 00:00:00 No Type 2 diabetes angie itus with hyperglycemia, with long-term current use of insulin Inject under the skin 4 times daily . [facility] insulin REGULAR 100 unit/mL injection 2019-09-26 00:00 :00 2019-11-09 00:00:00 No Type 2 diabetes mellitus wit h hyperglycemia, with long-term current use of insulin 3U [id number] Inject 3 Units un dary the skin 3 times daily (before meals). [facility] INSULIN SYRINGE 0.5 mL 30GX5/16" (MONOJE CT ULTRACOMFORT INSULIN SYR 0.5ML 30GX5/16") syringe-needle 2019-09-26 00:00:00 2019-11-09 00:00:00 No Type 2 diabetes mellitus with hyperglycemia, with long-term current use of insulin Use to inject medication 4 times daily. Use a new syringe each time. [facility] dexlansoprazole (DEXILANT) 30 mg delayed release capsule 2017-09-08 00:00:00 Yes Gastroesophageal reflux disease without esophag itis 30mg QD Take 1 capsule by mouth daily. [facility] hydroCHLOROthiazide (HYDRODIURIL) 25 mg tablet 2017-09-08 00 :00:00 Yes Essential hypertension, benign 25mg QD Take 1 tablet by mouth jefferson hernández [facility] sertraline (ZOLOFT) 100 mg tablet 2017-09-08 00:00:00 2019 00:00:00 No Reactive depression 100mg QD Take 1 tablet by mouth daily. [facility] Immunizations Ordered Immunization Name Filled Immunization Name Date Status Comments Source Tdap (Tetanus Toxoid, Reduced Diphtheria Toxoid And Acellular Pertussis, Absorbed) 2017-09-08 00:00:00 Completed [facility] Vital Signs Vital Name Observation Time Observation Value Comments Source Systolic blood pressure 2019-12-08 09:19:00 152 mm[Hg] [facility] Diastolic blood pressure 2019-12-08 09:19:00 82 mm[Hg] [facility] Heart rate 2019-12-08 09:19:00 110 /min [facility] Body temperature 2019-12-08 09:19:00 36.83 Elsy [facility] Respiratory rate 2019-12-08 09:19:00 18 /min Candida is [facility] Body height 2019-12-08 09:19:[address] [facility] Body weight 2019-12-08 09:19:[address] [facility] BMI 2019-12-08 09:19:00 43.84 kg/m2 [facility] Oxygen saturation in Arterial blood by Pulse oximetry 12-07 09:19:00 91 /min [facility] Procedures Procedure Date / Time Performed Performing Clinician Sourc e CREATININE 2019-12-08 10:29:00 Chayito Stahl [facility] ELECTROLYTES 2019-12-08 10:29:00 [facility] HEMO[facility] A1C 2019-12-08 10:29:00 Chayito Sthal [facility] XRAY CHEST 2 VIEWS 2019-11-30 10:37:22 Nova Wheeler alth NONINVASV OXYGEN SATUR;SINGLE 2019-11-30 09:55:51 Nova Wheeler [facility] GLUCOSE POC 2019-09-26 17:48:00 [facility] 2019-09-26 14:59:00 Shelley Nixon [facility] GLUCOSE POC 2019-09-26 13:35:00 Shelley Nixon [facility] GLUCOSE POC 2019-09-26 12:06:00 Shelley Nixon [facility] GLUCOSE POC 2019-09-26 09:01:00 Shelley Nixon [facility] BASIC METABOLIC PANEL 2019-09-26 03:52:00 Franklin Lobo [facility] CBC/DIFF 2019-09-26 03:52:00 Franklin Lobo [facility] MAGNESIUM 2019-09-26 03:52:00 Alejandro Lemos [facility] PHOSPHORUS 2019-09-26 03:52:00 Alejandro Lemos [facility] CBC 2019-09-26 03:52:00 Franklin Lobo [facility] LIPID PROFILE 2019-09-26 03:52:00 Elie David [facility] GLUCOSE POC 2019-09-25 20:41:00 Dez Dharmesh Saldivar [facility] GLUCOSE POC 2019-09-25 16:48:00 Dez Dharmesh Saldivar [facility] SEQUENTIAL COMPRESSION PUMP 2019-09-25 13:06:26 Dez Dharmesh Saldivar [facility] INFUSION PUMP 2019-09-25 13:03:04 Dez Dharmesh Saldivar [facility] GLUCOSE POC 2019-09-25 12:20:00 Dez Dharmesh Saldivar [facility] GLUCOSE POC 2019-09-25 08:09:[address] [facility] BASIC METABOLIC PANEL 2019-09-25 02:05:00 Franklin Lobo [facility] CBC/DIFF 2019-09-25 02:05:00 Franklin Lobo [facility] CBC 2019-09-25 02:05:00 Franklin Lobo [facility] MAGNESIUM 2019-09-25 02:05:00 Alejandro Lemos [facility] PHOSPHORUS 2019-09-25 02:05:00 IluoreAlejandro [facility] GLUCOSE POC 2019-09-24 21:36:[address] [facility] GLUCOSE POC 2019-09-24 17:02:[address] [facility] CORONAVIRUS, COVID-19, SHAKILA 2019-09-24 15:55:00 Sheela Prieto [facility] COMMODE AT BEDSIDE 2019-09-24 14:45:04 Fiorella Prieto [facility] GLUCOSE POC 2019-09-24 12:00:[address] [facility] GLUCOSE POC 2019-09-24 07:30:[address] [facility] BASIC METABOLIC PANEL 2019-09-24 02:26:00 [facility] CBC/DIFF 2019-09-24 02:26:00 Franklin Lobo [facility] CBC 2019-09-24 02:26:00 Franklin Lobo [facility] MAGNESIUM 2019-09-24 02:26:00 Kurt Ashley Mcadams [facility] PHOSPHORUS 2019-09-24 02:26:00 Ashley Hicks [facility] GLUCOSE POC 2019-09-23 21:07:00 Kash Chin [facility]alt GLUCOSE POC 2019-09-23 17:35:00 Kash [facility] GLUCOSE POC 2019-09-23 11:12:00 Kash Chin [facility] GLUCOSE POC 2019-09-23 07:44:00 Kash Chin [facility] ABG POC 2019-09-23 06:55:00 Kash [facility]DIFF 2019-09-23 06:53:00 Franklin Lobo [facility] CBC 2019-09-23 06:53:00 Franklin Lobo [facility] BASIC METABOLIC PANEL 2019-09-23 02:26:00 Franklin Lobo [facility] GLUCOSE POC 2019-09-22 20:58:00 Kash Chin [facility] 2019-09-22 17:34:00 Kash Chin [facility] GLUCOSE POC 2019-09-22 12:13:00 Kash Chin [facility] ABG POC 2019-09-22 11:08:00 Kash Chin [facility] BASIC METABOLIC PANEL 2019-09-22 10:52:00 [facility] LACTATE DEHYDROGENASE (LDH) 2019-09-22 10:52:00 Melina Hanley [facility] B-TYPE NATRIURETIC PEPTIDE (BNP) 2019-09-22 10:52:00 Raquel Hanley [facility] GLUCOSE POC 2019-09-22 06:21:00 Kash Chin [facility] ABG POC 2019-09-22 02:22:00 Kash Chin [facility] VANCOMYCIN, RANDOM 2019-09-22 02:16:00 Shelley Nixon [facility] CBC (WITHOUT DIFFERENTIAL) 2019-09-22 02:16:00 Ashley Hicks [facility] GLUCOSE POC 2019-09-21 23:55:00 Kash Chin ealt GLUCOSE POC 2019-09-21 15:20:00 Kash Chin ealt XRAY CHEST 1 VIEW 2019-09-21 10:28:41 Tiago Mendez He alth ABG POC 2019-09-21 09:33:00 Kash Chin ealth GLUCOSE POC 2019-09-21 09:03:00 Kash Chin ealth GLUCOSE POC 2019-09-21 06:13:00 [facility] ABG POC 2019-09-21 02:09:00 Kash Chin ealth CBC/DIFF 2019-09-21 02:08:00 Tiago Mendez [facility] COMPREHENSIVE METABOLIC PANEL 2019-09-21 02:08:00 Tiago Mendez [facility] CBC 2019-09-21 02:08:00 Tiago Mendez [facility] DIFFERENTIAL, MANUAL-WAM 2019-09-21 02:08:00 Tiago Mendez [facility] GLUCOSE POC 2019-09-21 00:06:00 [facility] LOWER RESPIRATORY CULTURE AND GRAM STAIN 2019-09-20 22:52:00 Tiago Rosen [facility] GLUCOSE POC 2019-09-20 17:40:00 Kash Chin ealt ENTERAL FEEDING PUMP 2019-09-20 16:40:39 Kash Chin [facility] VANCOMYCIN, TROUGH 2019-09-20 16:40:00 Dominick Walter ealth CELL COUNT, FLUID 2019-09-20 13:10:00 Jasper Muir [facility] CELL COUNT, BODY FLUID 2019-09-20 13:10:00 Jasper Muir [facility] DIFFERENTIAL, CELL COUNT 2019-09-20 13:10:00 Jasper Muir [facility] RESPIRATORY VIRUS SCREEN 2019-09-20 13:10:00 [facility] 2019-09-20 13:10:00 Jasper Muir [facility] GLUCOSE POC 2019-09-20 11:36:00 Kash Chin [facility]CHG PULMONARY PROC BRONCHO REGID&FLEX W/BRON ALVEO LAVAGE 2019-09-20 09:09:00 [facility] ECHOCARDIOGRAM 2-D W/O CONTRAST (PROSOLVE) 2019-09-20 08:00:00 Guerda [facility] GLUCOSE POC 2019-09-20 05:14:00 Kash Chin ealt XRAY CHEST 1 VIEW 2019-09-20 03:06:00 Terrance Croft [facility] ABG POC 2019-09-20 02:18:00 Kash Chin [facility] CBC/DIFF 2019-09-20 02:17:00 [facility] BASIC MET[facility]OLIC PANEL 2019-09-20 02:17:00 Guerda [facility] MAGNESIUM 2019-09-20 02:17:00 Terrance Croft [facility] h PT/INR 2019-09-20 02:17:00 Guerda [facility] LIVER PROFILE 2019-09-20 02:17:00 Guerda [facility] CBC 2019-09-20 02:17:00 Guerda [facility] PHOSPHORUS 2019-09-20 02:17:00 Ashley Hicks [facility] DIFFERENTIAL, MANUAL (NO MORPHOLOGY)-WAM 2019-09-20 02:17:00 Trina squires [facility] GLUCOSE POC 2019-09-20 01:44:00 Kash Chin ealth ABG POC 2019-09-20 00:09:00 Kash Chin [facility]alt GLUCOSE POC 2019-09-20 00:06:00 Kash Chin ealth SEQUENTIAL COMPRESSION PUMP 2019-09-19 23:50:14 Hugo Chin i [facility] GLUCOSE POC 2019-09-19 22:19:00 Kash Chin ealt LOWER RESPIRATORY CULTURE AND GRAM STAIN 2019-09-19 21:17:00 Trina squires [facility] INFUSION PUMP 2019-09-19 19:23:47 Kash Chin [facility]alt XRAY CHEST 1 VIEW - POST LINE PLACEMENT 2019-09-19 19:10:00 Kash Hampton [facility] BETA-HYDROXYBUTYRATE 2019-09-19 17:54:00 Guerda [facility] VBG POC 2019-09-19 17:50:00 Kash Chin [facility] LEGIONELLA ANTIGEN, URINE 2019-09-19 17:49:00 Terrance Croft [facility] URINE DRUG SCREEN 2019-09-19 17:45:00 Guerda Terrance [facility] HEMOGLOBIN A1C 2019-09-19 17:42:00 Terrance Croft [facility] STREP PNEUMO AG, UR 2019-09-19 17:39:00 Terrance Croft [facility] URINALYSIS 2019-09-19 17:38:00 Fritz Simental [facility] URINALYSIS 2019-09-19 17:38:00 Fritz Simental [facility] GLUCOSE POC 2019-09-19 17:34:00 Kash Chin [facility]alt INFUSION PUMP 2019-09-19 17:32:43 Kash Chin [facility] CHEST W/O CONTRAST 2019-09-19 16:57:36 Guerda [facility] GLUCOSE POC 2019-09-19 14:43:00 Heidi Rico [facility] XRAY CHEST 1 VIEW 2019-09-19 14:37:07 Heidi Rico [facility] BLOOD CULTURE 2019-09-19 13:26:00 Heidi Rico [facility] h BLOOD CULTURE 2019-09-19 13:25:00 Heidi Rico [facility] h BLOOD GAS, VENOUS 2019-09-19 13:10:00 Heidi Rico [facility] BLOOD GAS, VENOUS 2019-09-19 11:13:00 Heidi Rico [facility] ECHG EKG PROC 12 LEAD EKG; TRACING ONLY 2019-09-19 10:33:09 Mirza nixon [facility] TROPONIN I POC 2019-09-19 10:26:00 [facility] 2019-09-19 10:23[facility] POC 2019-09-19 10:23:00 [facility] BMP POC 2019-09-19 10:22[facility]/RNA AMP PROBE, FLURSV 2019-09-19 10:12:00 [facility]REP S[facility]EN 2019-09-19 10:12:00 Zeinali [facility] THROAT CULTURE 2019-09-19 10:12:00 [facility] CBC/DIFF 2019-09-19 10:11:00 ZeinaliHeidi [facility] h MAGNESIUM 2019-09-19 10:11:00 [facility]Heidi [facility]OS[facility]US 2019-09-19 10:11:00 [facility] CBC 2019-09-19 10:11:00 [facility] DIFFERENTIAL, MANUAL-WAM 2019-09-19 10:11[facility]ACT[facility]ID 2019-09-19 10:10:00 [facility] Plan of Care Planned Activity Planned Date Details Comments Source Future Scheduled Test 2020-12-07 00:00:00 Hemoglobin A1c karyn surement (procedure) [code = 72031741] [facility] Scheduled Test 2020-04-12 00:00:00 IMM Influenza Seas onal Apr to September (>/= 19 yrs) [code = IMM Influenza Seasonal Apr to September (>/= 19 yrs)] [facility] Scheduled Test 1994 00:00:00 DM Foot Exam (Year ly) [code = DM Foot Exam (Yearly)] [facility] Scheduled Test 1994 00:00:00 DM Retinal Exam (Y early) [code = DM Retinal Exam (Yearly)] [facility] Encounters Start Date/Time End Date/Time Encounter Type Admission Type [facility] Care Department Encounter ID Source 2017-10-21 00:00:00 2017-10-21 00:00:[address] [facility] [id number] [facility] 2017-10-14 00:00:00 2017-10-14 00:00:[address] [facility] [id number] [facility] 2017-09-16 00:00:00 2017-09-16 00:00:[address] [facility] [id number] [facility] 2017-09-16 00:00:00 2017-09-16 00:00:[address] [facility] [id number] [facility] 2017-09-16 00:00:00 2017-09-16 00:00:[address] [facility] [id number] [facility] 2017-09-15 00:00:00 2017-09-15 00:00:[address] [facility] [id number] [facility] 2017-09-15 00:00:00 2017-09-15 00:00:[address] [facility] [id number] [facility] 2017-09-15 00:00:00 2017-09-15 00:00:[address] [facility] [id number] [facility] 2017-09-09 00:00:00 2017-09-09 00:00:[address] [facility] [id number] [facility] 2017-09-08 14:11:03 2017-09-08 14:11:[address] [facility] [id number] [facility] 2017-09-08 10:21:02 2017-09-08 10:21:[address] [facility] [id number] [facility] 2017-09-08 00:00:00 2017-09-08 00:00:[address] [facility] [id number] [facility] Results Test Description Test Time Test Comments Results Result Comments Source CHEST XRAY LINE PLACEMENT 2020-02-08 02:33:00 [place] [address] Patient Name: NANCY ROMAN MR #: [id number] : 1975 Age/Sex: 44/M Req #: [id number] [facility] Physician: FAUZIA GALLEGOS MD Ordered by: JUNIOR MANNING MD Report #: [id number] Location: [facility] Room/Bed: [place] [address] Procedure: [id number] DX/CHEST XRAY LINE PLACEMENT Exam Date: 02/08/20 Exam Time: 0115 REPORT STATUS: Signed EXAMINATION: CHEST XRAY LINE PLACEMENT INDICATION: PICC placement, verify position COMPARISON: Same-day chest x-ray FINDINGS: TUBES and LINES: Slight retraction of the left upper extremity PICC, tip now in the superior c avoatrial junction. ET tube and enteric tube unchanged. LUNGS: Extensive bilateral lung haziness. PLEURA: No pleural effusion or pneumothorax. HEART AND MEDIASTINUM: The cardiomediastinal silhouette is unremarkable. BONES AND SOFT TISSUES: No acute osseous lesion. Soft tissues are unremarkable. UPPER ABDOMEN: No free air under the diaphragm. IMPRESSION: Slight retraction of the left upper extremity PICC, tip now in the superior cavoatrial junction. Extensive bilateral airspace disease/pneumonia. Signed by: Isacc Lambert DO on 02/08/2020 2:34 AM Dictated By: ISACC LAMBERT DO 3 Transcribed By: ALEXSANDER on 02/08/20233 COPY TO: JUNIOR MANNING MD CHEST SINGLE (PORTABLE) 2020-02-08 02:30:00 [place] [address] Patient Name: NANCY ROMAN MR #: [id number] : 1975 Age/Sex: 44/M Req #: [id number] Adm Physician: FAUZIA GALLEGOS MD Ordered by: JUNIOR MANNING MD Report #: [id number] Location: [facility] Room/Bed: [place] [address] Procedure: [id number] DX/CHEST SINGLE (PORTABLE) Exam Date: 02/08/20 Exam Time: 0025 REPORT STATUS: Signed EXAMINATION: CHEST SINGLE (PORTABLE) INDICATION: Respiratory failure COMPARISON: same- day chest x-ray FINDINGS: TUBES and LINES: ET tube tip 5.2 cm above michael. Left upper extremity PICC tip in the right atrium. Enteric t ube courses into abdomen, tip out of field of view. LUNGS: Extensive bilateral lung haziness. PLEURA: No pleural effusion or pneumothorax. HEART AND MEDIASTINUM: The cardiomediastinal silhouette is unremarkable. BONES AND SOFT TISSUES: No acute osseous lesion. Soft tissues are unremarkable. UPPER ABDOMEN: No free air under the diaphragm. IMPRESSION: ET tube tip 5.2 cm above michael. Left upper extremity PICC tip in the right atrium. Extensive airspace disease. Signed by: Isacc Lambert DO on 02/08/2020 2:33 AM Dictated By: ISACC LAMBERT DO 2 Transcribed By: ALEXSANDER on 02/08/20232 COPY TO: JUNIOR MANNING MD CHEST XRAY LINE PLACEMENT 2020-02-08 02:28:00 [place] [address] Patient Name: NANCY ROMAN MR #: [id number] : 1975 Age/Sex: 44/M Req #: [id number] [facility] Physician: FAUZIA GALLEGOS MD Ordered by: JUNIOR MANNING MD Report #: [id number] Location: [facility] Room/Bed: [place] [address] Procedure: [id number] DX/CHEST XRAY LINE PLACEMENT Exam Date: 02/08/20 Exam Time: 0030 REPORT STATUS: Signed EXAMINATION: CHEST XRAY LINE PLACEMENT INDICATION: PICC line placement, verify position COMPARISON: Chest x-ray 02/07/2020 FINDINGS: TUBES and LINES: ET tube tip 4.8 cm above michael. New left upper extremity PICC terminates in the right atrium. Enteric tube courses into abdomen, tip out of field of view. LUNGS: Extensive bilateral lung haziness. PLEURA: No pleural effusion or pneumothorax. HEART AND MEDIASTINUM: The cardiomediastinal silhouette is unremarkable. BONES AND SOFT TISSUES: No acute osseous lesion. Soft tissues are unremarkable. UPPER ABDOMEN: No free air under the diaphragm. IMPRESSION: New left upper extremity PICC tip terminates in the right atrium. Extensive airspace disease. Signed by: Isacc Lambert DO on 02/08/2020 2:33 AM Dictated By: ISACC LAMBERT DO 2 Transcribed By: ALEXSANDER on 02/08/20232 COPY TO: JUINOR MANNING MD CHEST SINGLE (PORTABLE) 2020-02-07 19:09:00 [place] [address] Patient Name: NANCY ROMAN MR #: [id number] : 1975 Age/Sex: 44/M Req #: [id number] Adm Physician: FAUZIA GALLEGOS MD Ordered by: JUNIOR MANNING MD Report #: [id number] Location: [facility] Room/Bed: [place] [address] Procedure: [id number] DX/CHEST SINGLE (PORTABLE) Exam Date: 02/07/20 Exam Time: 1844 REPORT STATUS: Signed EXAMINATION: CHEST SINGLE (PORTABLE) INDICATION: Endotracheal tube placement. COMPARISON: Chest x-ray from 02/06/2020. FINDINGS: TUBES and LINES: There has been interval placement of an endotracheal tube. Initial imaging demonstr ates terminal point at the level of the michael. The repeat imaging demonstrates terminal point approximately 6 cm above the michael. No interval changes in radiographic appearance of the lungs with multifocal patchy airspace opacities. No interval changes in cardiomediastinal silhouette. No interval changes in osseous or soft tissue structures. IMPRESSION: 1. Interval placement of endotracheal tube. Initial imaging demonstrates terminal point at the level of the michael. However, repeat imaging demonstrates terminal point approximately 6 cm above the michael. 2. No interval change in radiographic appearance of the lungs. Signed by: Kirit Huerta MD on 02/07/2020 7:14 PM Dictated By: KIRIT HUERTA MD 13 Transcribed By: ALEXSANDER on 02/07/201913 COPY TO: JUNIOR MANNING MD ABDOMEN-1VIEW (KUB) 2020-02-07 19:07:00 [place] [address] Patient Name: NANCY ROMAN MR #: [id number] : 1975 Age/Sex: 44/M Req #: [id number] Adm Physician: FAUZIA GALLEGOS MD Ordered by: JUNIOR MANNING MD Report #: [id number] Location: [facility] Room/Bed: [place] [address] Procedure: [id number] DX/ABDOMEN-1VIEW (KUB) Exam Date: Exam Time: REPORT STATUS: Signed EXAM: Abdomen Radiograph 1 View(s) INDICATION: Enteric tube placement. COMPARISON: None FINDINGS: No abnormalities in the lower chest. There is an enteric tube which coils within the gastric fundus and terminates in the expected location of the pylorus. Normal volume of stool in the colon. No dilated loops of small bowel. No abnormal abdominal calcifications.. No abnormal soft tissue masses. No radiographic evidence of pneumoperitoneum. No acute osseous abnormality. Mild degenerative changes in the lumbar spine and pelvis. IMPRESSION: 1. Enteric tube which terminates in the expected location of the gastric pylo david. 2. No acute abdominal radiographic abnormality. Signed by: Kirit Huerta MD on 02/07/2020 7:09 PM Dictated By: KIRIT HUERTA MD 08 Transcribed By: ALEXSANDER on 02/07/201908 COPY TO: JUNIOR MANNING MD CHEST SINGLE (PORTABLE) 2020-02-06 20:15:00 [place] [address] Patient Name: NANCY ROMAN MR #: [id number] : 1975 Age/Sex: 44/M Req #: [id number] Adm Physician: Ordered by: FIDENCIO CINTRON MD Report #: [id number] Location: ER Room/Bed: Procedure: [id number] DX/CHEST SINGLE (PORTABLE) Exam Date: 02/06/20 Exam Time: 1944 REPORT STATUS: Signed EXAMINATION: CHEST SINGLE (PORTABLE) INDICATION: Shortness of breath and cough. COMPARISON: None FINDINGS: TUBES and LINES: None. LUNGS: Low lung volumes with diffuse patchy airspace opacities. PLEURA: There is probable bilateral pleural effusion. No pneumothorax. HEART AND MEDIASTINUM: The cardiomediastinal silhouette obscured by multifocal airspace opacities. BONES AND SOFT TISSUES: No acute osseous lesion. Soft tissues are unremarkable. UPPER ABDOMEN: No free air under the diaphragm. IMPRESSION: Multifocal patchy airspace opacities throughout both lungs which most likely represents multifocal pneumonia. Recommend follow-up chest radiographs in 6-8 weeks to ensure Signed by: Kirit Huerta MD on 02/06/2020 8:16 PM Dictated By: KIRIT HUERTA MD 15 Transcribed By: ALEXSANDER on 02/06/202015 COPY TO: FIDENCIO CINTRON MD XRAY CHEST 2 VIEWS 2019-11-30 14:01:28 IMPRESSIO N: No acute thoracic abnormality. Dictated By: Tevin Barron MD, 11/30/2019 10:45 AM I have reviewed the study and agree with the findings in this report. Signed By: Domi Esteban MD, 11/30/2019 2:01 PM Interface, Rad/Mammog In - 11/30/2019 2:06 PM CDTEXAMINATION: XRAY CHEST 2 VIEWS INDICATION: chronic cough COMPARISON: Chest x-ray 09/21/2019 FINDINGS: PA and lateral viewsTUBES and LINES: NoneLUNGS: Low lung volumes. No consolidations or edema. PLEURA: No effusions. No pneumothorax. HEART AND MEDIASTINUM: Normal for technique. BONES AND SOFT TISSUES: The bones are unremarkable. Soft tissues areunremarkable.UPPER ABDOMEN: No free air under the diaphragm. IMPRESSIONIMPRESSION: No acute thoracic abnormality.Dictated By: Tevin Barron MD, 11/30/2019 10:45 AMI have reviewed the study and agree with the findings in this report.Signed By: Domi Esteban MD, 11/30/2019 2:01 PM [facility] Fungus Stain & Culture 2019-10-19 09:00:00 Test Item Fungus Culture (test code = 580-1) No fungus isolated in 4 weeks [facility] CoVID-19 ([facility])2019-10-04 07:08:00* Test Item Value Reference Range Interpretation Comments CoVID-19 (SARS-CoV-2) (test code = 81089-4) Not Detected Not Detect ed Testing was performed using the joanna(R) SARS-CoV-2 test.This test was developed and its performance characteristics determinedby [employer]. This test has not been FDA cleared orapproved. This test has been authorized by FDA under an Emergency UseAuthorization (EUA). This test is only authorized for the duration oftime the declaration that circumstances exist justifying theauthorization of the emergency use of in vitro diagnostic tests fordetection of SARS-CoV-2 virus and/or diagnosis of COVID-19 infectionunder section 564(b)(1) of the Act, 21 U.S.C. 360bbb-3(b)(1), unlessthe authorization is terminated or revoked sooner. DONATO (test code = DONATO) Performed at: [address] [place] [address] [id number] Director: Colten Kauffman MD, Phone: [phone] [facility] GLUCOSE POC docked [id number] 18:01:00* Test Item Value Reference Range Interpretation Comments Glucose POC (test code = 17479501) 215 mg/dL 74-106 H Lab Interpretation (test code = 33926-7) Abnormal [facility] ABG POC docked bnrwbm2055-06-55 15:03:00* Test Item Value Reference Range Interpretation Comments pH, Art POC (test code = 62029645) 7.48 7.35-7.45 H pCO2, Arterial POC (test code = 89730350) 43.5 32- 45 mmHg pO2, Arterial POC (test code = 80811573) 72 72- 104 mmHg Ionized Calcium POC (test code = 58947795) 1.18 mmol/L 1.15-1.29 Base Excss Art POC (test code = 72390004) 8 mmol/L HCO3, Arterial POC (test code = 18134387) 32 mmol/L 22-26 H % Sat, Art POC (test code = 67028455) 95 % TCO2, ART POC (test code = 62994897) 34 mmol/L 21-32 H Ye's Test (test code = 31370366) POSITI Sample Type (test code = 46099722) IART Site (test code = 96671325) RRADIA FiO2 (test code = 32421263) 21 O2 Delivery Device (test code = 31439948) [facility] Physician Notified Lab Interpretation (test code = 30400-2) [facility]normal [facility] Zahghxn3354-56-91 13:53:00* Test Item Value Reference Range Interpretation Comments Cholesterol (test code = 2093-3) 129.0 mg/dL <=200.0 Desirable: < 200.0 mg/dLBorderline: 200 - 240 mg/dLHigh Risk: > 240 mg/dL Triglyceride (test code = 73351778) 163 mg/dL <150 H Normal: < 150.0 mg/dL Borderline: 150-199 mg/dL High: 200-499 mg/dL Very High: >= 500 mg/dL HDL (test code = 2085-9) 34.0 mg/dL See Reference Range Narrative . Increased CHD Risk: < 40.0 mg/dL Decreased CHD Risk: > 60 mg/dL LDL (test code = 16414-8) 62 mg/dL <100 Op timal: < 100.0 mg/dLNear Optimal: 120-129 mg/dLBorderline: 130-159 mg/dLHigh: 160-189 mg/dLVery High: >=190 mg/dL Patient Fasting? (test code = 18447081) Lab Interpretation (test code = 80044-3) [facility]11 12:56:00* Test Item Value Reference Range Interpretation Comments WBC (test code = 6690-2) 10.8 K/uL 4.5-12 RBC (test code = 789-8) 4.30 4.60- 6.20 M/uL L Hemoglobin (test code = 718-7) 12.1 g/dL 14-18 L Hematocrit (test code = 4544-3) 36.9 % 40-54 L MCV (test code = 787-2) 85.8 fL 82-92 MCH (test code = 785-6) 28.1 pg 27-31 MCHC (test code = 786-4) 32.8 g/dL 32-36 RDW (test code = 55366-1) 38.5 fL 35.1-43.9 Platelet (test code = 777-3) 253 K/uL 150-400 Mean Platelet Volume (test code = 85045-6) 11.2 fL 9.4-12.4 Percent NRBC (test code = 65487105) 0.0 % Neutrophil (test code = 770-8) 79.4 % 34-67.9 H Lymphs (test code = 736-9) 12.2 % 21.8-50 L Monocytes (test code = 5905-5) 5.8 % 5.3-12 Eos (test code = 713-8) 1.7 % 0.8-5 Basos (test code = 706-2) 0.3 % 0.2-1.2 Immature Granulocytes (test code = 37535824) 0.6 % 0-0.5 H Neutrophils (Absolute) (test code = 55659787) 8.55 K/uL 1.78-5.3 6 H Lymphs (Absolute) (test code = 65486137) 1.32 K/uL 1.32-3.57 Monocytes(Absolute) (test code = 78658950) 0.63 K/uL 0.3-0.82 Eos (Absolute) (test code = 84106082) 0.18 K/uL 0.04-0.54 Baso (Absolute) (test code = 52349644) 0.03 K/uL 0.01-0.08 Immature Grans (Abs) (test code = 71784796) 0.07 K/uL 0-0.03 H Absolute NRBC (test code = 94785883) 0.00 K/uL Lab Interpretation (test code = 13268-1) Abnormal [facility] Metabolic Uhrjg3176-18-11 05:44:00* Test Item Value Reference Range Interpretation Comments Sodium (test code = 2951-2) 133 mmol/L 136-145 L Potassium (test code = 2823-3) 4.3 mmol/L 3.5-5.1 Chloride (test code = 2075-0) 95 mmol/L 98-107 L CO2 (test code = 58278171) 31 mmol/L 21-31 Urea Nitrogen (test code = 30346708) 11.0 mg/dL 7-25 Creatinine (test code = 09118096) 0.7 mg/dL 0.7-1.3 Glucose (test code = 83932967) 194 mg/dL 70-110 H Calcium (test code = 98909885) 8.2 mg/dL 8.6-10.3 L GFR, Estimated (test code = 28178025) >90 >=90 mL/min/1.73 m2 Anion Gap (test code = 21624034) 7 mmol/L 5-16 Lab Interpretation (test code = 65365-2) [facility]normal [facility]ard[facility]qohzLqsqzqlqo1330-98-97 05:44:00* Test Item Value Reference Range Interpretation Comments Magnesium (test code = 61517397) 2.0 mg/dL 1.9-2.7 Lab Interpretation (test code = 11770-7) Normal [facility]ardRrjidmNhmxzzqtnf5979-54-87 05:44:00* Test Item Value Reference Range Interpretation Comments Phosphorus (test code = 2777-1) 4.2 mg/dL 2.5-5 Lab Interpretation (test code = 48901-0) Normal [facility] - 2 non-specific wfifc5824-54-47 17:01:00* Test Item Value Reference Range Interpretation Comments Blood Culture (test code = 600-7) No growth 5 days [facility] RESPIRATORY CULTURE AND GRAM STAIN Wsizia1781-94-36 13:20:00 * Test Item Value Reference Range Interpretation Comments Lower Respiratory Culture (test code = 75866-5) No growth 3 days Gram Stain (test code = 664-3) No organisms seen [facility] [B-Type Natriuretic Peptide]2019-09-22 13:01:00* Test Item Value Reference Range Interpretation Comments B Natriuretic Peptide (BNP) (test code = 18468723) 48 pg/mL <=1 00 Lab Interpretation (test code = 04943-5) Normal [facility] [Lactate Dehydrogenase]2019-09-22 12:33:00* Test Item Value Reference Range Interpretation Comments LDH (test code = 95565125) 166 U/L 140-271 Lab Interpretation (test code = 76084-5) Normal [facility]ard[facility] Lkstwet1483-20-40 08:38:00* Test Item Value Reference Range Interpretation Comments Throat Culture (test code = 626-2) Normal chrissy; no Be ta-hemolytic Streptococcus isolated. [facility] (without differential)2019-09-22 04:24:00* Test Item Value Reference Range Interpretation Comments WBC (test code = 6690-2) 8.7 K/uL 4.5-12 RBC (test code = 789-8) 3.72 4.60- 6.20 M/uL L Hemoglobin (test code = 718-7) 11.8 g/dL 14-18 L Hematocrit (test code = 4544-3) 33.5 % 40-54 L MCV (test code = 787-2) 90.1 fL 82-92 MCH (test code = 785-6) 31.7 pg 27-31 H MCHC (test code = 786-4) 35.2 g/dL 32-36 RDW (test code = 50900-4) 40.6 fL 35.1-43.9 Platelet (test code = 777-3) 259 K/uL 150-400 Mean Platelet Volume (test code = 46307-9) 10.5 fL 9.4-12.4 Percent NRBC (test code = 98390813) 0.0 % Lab Interpretation (test code = 11786-5) Abnormal [facility]ard[facility], Imqrda4296-80-13 03:23:00* Test Item Value Reference Range Interpretation Comments Vancomycin, Random (test code = 32223655) 15.7 ug/mL 10-20 Lab Interpretation (test code = 44595-6) Normal [facility] [id number] 13:35:34IMPRESSION: 1. Bibasilar opacities likely represent a combination of developingpneumonia and superimposed pulmonary edema.2. Right IJ CVC distal tip overlies midline. This may be related topatient rotation, however exact location cannot be determined on thisexam. Recommend repeat chest radiograph in neutral position. Dictated By: Kalpesh Burgess MD, 09/21/2019 10:35 AM I have reviewed the study and agree with the findings in this report. Signed By: Domi Esteban MD, 09/21/2019 1:35 PM Interface, Rad/Mammog In - 09/21/2019 1:40 PM CDTEXAM: XRAY CHEST 1 VIEW, 09/21/2019 at 1023 hours INDICATION: intubated COMPARISON: Chest radiograph 09/20/2019 at 0305 hours FINDINGS:The exam is partially li mited by patient rotation.TUBES and LINES: * Endotracheal tube tip in stable p osition above the michael.* Right IJ CVC tip overlies midline, however this may be due to patientrotation.* Subdiaphragmatic enteric tube with tip overlying th e gastric body.LUNGS/PLEURA: Low lung volumes. Persistent bibasilar interstitial airspace opacities. Probable small left pleural effusion. Nopneumothorax.HEART A ND MEDIASTINUM: Incompletely evaluated due to obscured heartborders.BONES AND S OFT TISSUES: No acute osseous lesion. Soft tissues areunremarkable.UPPER ABDOME N: No free air under the diaphragm.IMPRESSIONIMPRESSION: 1. Bibasilar opacities likely represent a combination of developingpneumonia and superimposed pulmonary edema.2. Right IJ CVC distal tip overlies midline. This may be related topati ent rotation, however exact location cannot be determined on thisexam. Recommend repeat chest radiograph in neutral position.Dictated By: Kalpesh Burgess MD, 09/21/2019 10:35 AMI have reviewed the study and agree with the findings in this report.Signed By: Domi Esteban MD, 09/21/2019 1:35 [facility] Respiratory Virus Dxhqvy2756-97-16 13:22:00* Test Item Value Reference Range Interpretation Comments Specimen Adequacy: (test code = 19492803) Satisfactory Respiratory Virus Result: (test code = 17615-2) No Inf luenza A, Influenza B, Respiratory Syncytial Virus, Adenovirus, Parainfluenza type 1, Parainfluenza type 2, or Parainfluenza type 3 viral antigens detected by DFA on the direct specimen No Influenza A, Influenza B, Respiratory Syncytial Virus, Adenovirus, Parainfluenza type 1, Parainfluenza type 2, or Parainfluenza type 3 viral antigens detected by DFA on the direct specimen DONATO (test code = DONATO) Direct specimen testing was performed using the D3 Ultra DFA Respiratory Virus Screening and ID Kit. Negative results do not preclude respiratory virus infection and should not be used as the sole basis for diagnosis. [facility]ard[facility], Mouzfz7590-68-53 10:03:00* Test Item Value Reference Range Interpretation Comments Neutrophil (test code = 91477080) 80.0 % 34-67.9 H Lymphs (test code = 42979880) 14.0 % 21.8-50 L Monocytes (test code = 99382583) 3.0 % 5.3-12 L Eos (test code = 91331696) 2.0 % 0.8-5 Basos (test code = 10992146) 0.0 % 0.2-1.2 L Myelocyte (test code = 38553038) 1.0 % Neutrophils (Absolute) (test code = 31148167) 7.22 K/uL 1.78-5.3 6 H Lymphs (Absolute) (test code = 63544596) 1.26 K/uL 1.32-3.57 L Monocytes(Absolute) (test code = 54657768) 0.27 K/uL 0.3-0.82 L Eos (Absolute) (test code = 96056284) 0.18 K/uL 0.04-0.54 Baso (Absolute) (test code = 90681775) 0.00 K/uL 0.01-0.08 L Platelet Clumps (test code = 33300408) Present None seen A Agglutinated RBCs (test code = 63212132) 2+ None seen A Cells Counted (test code = 53105077) Lab Interpretation (test code = 17720-0) [facility] Met[facility] Ynwmw5202-60-72 03:07:00* Test Item Value Reference Range Interpretation Comments Sodium (test code = 2951-2) 142 mmol/L 136-145 Potassium (test code = 2823-3) 4.0 mmol/L 3.5-5.1 Chloride (test code = 2075-0) 104 mmol/L 98-107 CO2 (test code = 19457210) 29 mmol/L 21-31 Glucose (test code = 38212659) 146 mg/dL 70-110 H Calcium (test code = 95531250) 7.9 mg/dL 8.6-10.3 L Urea Nitrogen (test code = 28670459) 18.0 mg/dL 7-25 Creatinine (test code = 31916698) 0.7 mg/dL 0.7-1.3 Alkaline Phosphatase (test code = 81582859) 100 U/L 34-104 ALT (test code = 97820812) 17 U/L 7-52 AST (test code = 17171835) 10 U/L 13-39 L Total Protein (test code = 2885-2) 5.6 g/dL 6-8.3 L GFR, Estimated (test code = 84908851) >90 >=90 mL/min/1.73 m2 Albumin (test code = 57139-7) 2.8 g/dL 4.2-5.5 L Anion Gap (test code = 95172903) 9 mmol/L 5-16 Lab Interpretation (test code = 24254-5) [facility]normal [facility], Eukjha2671-94-18 18:17:00* Test Item Value Reference Range Interpretation Comments Vancomycin, Trough (test code = 02175159) 19.4 ug/mL - Lab Interpretation (test code = 15042-9) Normal [facility]2019-09-20 15:46:00TRANSTHORACIC ECHO (TTE) Transthoracic Echo Report NANCY GOFF Age: 44 Gender: M : 1975 Exam Date: 09/20/2019 08:00 Exam Location: [facility] Echo Ordering Phys: KASH CHIN Referring Phys: [id number] Reading Phys: Milvia Pickard MD Fellow Phys: Fellow Phys: Scorer Single: Dustin Miller Reason For Exam: Indications: shock, CHF, CHF ICD-9 Codes: I50.9 Exam Type: TRANSTHORACIC ECHO (TTE) Procedure CPT: 10407 Addtional CPT: C8929 Ht (in): BSA: HR: 86 Rhythm: Sinus rhythm Wt (lb): 240 BP: 121 / 66 Technical Quality: Technically difficult study History: MEASUREMENTS Normal ranges based on 95% confidence intervals for adults, some normal patients may fall outside of this range especially when indexing for BSA 2D ECHO LV Diastolic Diameter PLAX 6.4 cm 4.2-5.8 (M) / 3.8-5.2 (F) LV Systolic Diameter PLAX 5.5 cm 2.5-4.0 (M) / 2.2-3.5 (F) LV Fractional Shortening PLAX 15.2 % IVS Diastolic Thickness 1.3 cm 0.6-1.0 (M) / 0.6-0.9 (F) LVPW Skinner tolic Thickness 1.4 cm 0.6-1.0 (M) / 0.6-0.9 (F) LV Rel ative Wall Thickness 0.43 <= 0.42 LVOT Diameter 2.4 cm LV Diastolic Volume MOD BP 228 cm 62-150 cm (M) / 46-106 cm (F) LV Mass by linear method 426 g DOPPLER LVOT Peak Velocity 133 cm/s LVOT Peak Gradient 7 mmHg LVOT Mean Velocity 80.2 cm/s LVOT Mean Gradient 2.6 mmHg LVOT Velocity Time Integral 20 cm LVOT Stroke Volume 93.5 cm FINDINGS Left Ventricle Ultrasound contrast was used for LV opacification. Severe left ventricular dilatation. Left ventricular wall thickness mildly increased. Moderately reduced global left ventricular systolic function. Left ventricular ejection fraction is 35%. Inferior/septum are severely hypokinetic, cannot exclude CAD. Impaired relaxation, markedly increased LV filling pressures. Right Ventricle Mild right ventricular dilatation. Normal right ventricular function. Right Atrium Right atrium not well visualized. Left Atrium Mild left atrial dilatation. IAS Mitral Valve Grossly normal mitral valve. no significant MR seen Aortic Valve Grossly normal aortic valve. No significant aortic stenosis or regurgitation by Doppler assessment. Tricuspid Valve Structurally normal tricuspid valve without significant stenosis. There is trace tricuspid regurgitation. Pulmonic Valve Pulmonic valve not well visualized. No significant pulmonic stenosis or regurgitation by Doppler assessment. Pericardium No pericardial effusion. Aorta Normal aortic root for body surface area. IVC The inferior vena cava is mildly plethoric. RA pr essure is 5-10 mmHg. CONCLUSIONS Ultrasound contrast was used for LV opacific ation. Severe left ventricular dilatation. Moderately reduced global left v entricular systolic function. Left ventricular ejection fraction is 35%. Infe rior/septum are severely hypokinetic, cannot exclude CAD. Impaired relaxation, markedly increased LV filling pressures. Mild right ventricular dilatation. Normal right ventricular function. No significant valve abnormalities. No prior study for comparison. Milvia Pickard MD (Electronically Signed) Final Alan e: 20 September 2019 15:45 2D ECHO LV Diastolic Diameter PLAX 6.4 cm 4.2-5.8 (M) / 3.8-5.2 (F) LV Systolic Diamete r PLAX 5.5 cm 2.5-4.0 (M) / 2.2-3.5 (F) LV Fractional Sh ortening PLAX 15.2 % IVS Diastolic Thickness 1.3 cm 0.6-1.0 (M) / 0.6-0.9 (F) LVPW Diastolic Thickness 1 .4 cm 0.6-1.0 (M) / 0.6-0.9 (F) LV Relative Wall Thickness 0.43 <= 0.42 LVOT Diameter 2.4 cm LV Diastolic Volume MOD BP 228 cm 62-150 cm (M) / 46-106 cm (F) LV Mass by linear method 426 g DOPPLER LVOT Peak Velocity 133 cm/s LVOT Peak Gradient 7 mmHg LVOT Mean Velocity 80.2 cm/s LVOT Mean Gradient 2.6 mmHg LVOT Velocity Time Integral 20 cm LVOT Stroke Volume 93.5 cm [facility] 2019-09-20 14:36:00* Test Item Value Reference Range Interpretation Comments Neutrophil (test code = 98363777) 75 % Lymphocyte (test code = 80447207) 4 % Monocyte (test code = 80890560) 2 % Eosinophil (test code = 50307441) 1 % Macrophage (test code = 18804231) 18 % Cells Counted (test code = 90540896) 100 [facility], [id number] 14:28:00* Test Item Value Reference Range Interpretation Comments Volume (test code = 10420788) 3 mL Appearance (test code = 43981559) Cloudy Clear A Calculated RBC-Body Fluid (test code = 35346472) 34643 /uL None seen WBC Body Fluid (test code = 55995928) 2750 /uL Clots? (test code = 77063964) Specimen contains clot. Resul ts may be affected. Lab Interpretation (test code = 45749-8) [facility]normal [facility]ardDifferential, [id number] 09:13:00* Test Item Value Reference Range Interpretation Comments Neutrophil (test code = 24173144) 67.0 % 34-67.9 Lymphs (test code = 81631787) 20.0 % 21.8-50 L Monocytes (test code = 97833192) 9.0 % 5.3-12 Eos (test code = 43052869) 3.0 % 0.8-5 Basos (test code = 34999372) 0.0 % 0.2-1.2 L Metamyel (test code = 93737227) 1.0 % <=0.0 H Neutrophils (Absolute) (test code = 19694964) 5.65 K/uL 1.78-5.3 6 H Lymphs (Absolute) (test code = 80741052) 1.69 K/uL 1.32-3.57 Monocytes(Absolute) (test code = 79551532) 0.76 K/uL 0.3-0.82 Eos (Absolute) (test code = 40652166) 0.25 K/uL 0.04-0.54 Baso (Absolute) (test code = 85911871) 0.00 K/uL 0.01-0.08 L Cells Counted (test code = 00952292) Lab Interpretation (test code = 61181-9) Abnormal [facility] BallardSsxekkVxlgzrdaihis1197-35-80 09:09:00TEXTPatient Name NANCY GOFF MDate of 1975Record Number [id number]/Time of Procedure 09/20/2019, 9:09:00 JERRY Case #Business Leader Ar Sanford MD./Fellow Jasper Muir ASA Classification: Procedure Performed: Bronchoscopy - W/ bronchial alveolar lavage Indications for Exam: Abnormal Chest CT Instruments: [id number] Blood Loss: None Blood Products Administered: NoVisualization: GoodTolerance: GoodComplications: NoneComments: Medications: Propofol 80 mg, Fentanyl 200 mcg, Lidocaine 1% Inj. 10 mL Extent of Exam: All airways examined to the segmental level.. Limitations: All segments visualized to subsegmental level Technically Difficult Exam: NoImplant(s) /Graft(s): None Procedure Technique: Flexible bronchoscopy: A physical exam was performed. Informed consent was obtained from the patient after explaining the procedure and its risks, benefits, and alternatives. Blood pressure, heart rate, and oxygen saturation were monitored continuously through the procedure. 10 cc of 1% Lidocaine was given for topical anesthesia. The bronchoscope was inserted via the endotracheal tube. Systematic inspection of the tracheobronchial tree was performed. Findings: Moderate amount of clear and thick mucoid secretions, m ainly from LLL, with some repoolingBAL performed in the lingula, infused 150 mL of saline and suctioned back 30 mL, with the presence of several small black par ticulesNo endobronchial lesions, tumor, or bleeding Bronchoscopic Techniques: Br onchoalveolar Lavage: Yes - lingula Specimen Removed: No Post Operative Diagnosi s: Acute Respiratory Failure - hypoxemicAbnormal CT scan Procedure Outcome: Good Recommendations: Continue care per MICU team I was present during the entire viewing portion of the procedure. I personally reviewed the images and report prepared by the resident or fellow and agree with the findings. After the proc edure was completed, the patient was taken to the recovery in good condition. Th is report is considered preliminary unless an electronic signature appears below .This Procedure was electronically signed of on :09/21/2019 11:57:43 AM By Coy Silverman [facility] [id number] 03:09:00* Test Item Value Reference Range Interpretation Comments Bilirubin, Total (test code = 2885-2) 0.4 mg/dL 0.2-1.2 L Alkaline Phosphatase (test code = 43729887) 121 U/L 34-104 H AST (test code = 17327734) 11 U/L 13-39 L Direct Bilirubin (test code = 1968-7) 0.1 mg/dL 0-0.2 ALT (test code = 89115230) 21 U/L 7-52 Albumin (test code = 01130-0) 2.8 g/dL 4.2-5.5 L Lab Interpretation (test code = 34929-9) Abnormal [facility]PT/[id number] 02:47:00* Test Item Value Reference Range Interpretation Comments PT (test code = 5902-2) 13.8 11.8- 15.0 Seconds INR (test code = 32188476) 1.1 Refer to INR ranges 2.0 - 3.0 for moderate intensity anticoagulation2.5 - 3.5 for high intensity anticoagulation Lab Interpretation (test code = 15786-6) [facility]ard[facility] 1 VIEW - POST LINE [id number] 02:21:39 IMPRESSION: 1. New right IJ central venous catheter with tip overlying the SVC. Nopneumothorax. No guidewire.2. Hazy airspace opacities at bilateral lung bases suggestive ofpneumonia are visualized in correlation chest CT dated 09/19/2019. D ictated By: Adrian Bellamy MD, 09/20/2019 2:19 AM I have reviewed the study and agree with the findings in this report. Signed By: Katalina Monroe MD, 09/20/2019 2:21 AM I sybil, Rad/Mammog In - 09/20/2019 2:26 AM CDTEXAM: XR CHEST 1 VIEWDATE: 2019 7:16 PM INDICATION: Post right IJ central line placement. Acute respiratory failure with hypoxia and hypercapnia COMPARISON: Chest radiograph dated 09/19/[address] date09/19/2019.TECHNIQUE: AP chest FINDINGS: NEW CVC LINE: Approach: Right IJTip: Tip overlies the superior vena cavaPneumothorax: No pneum othorax is identified. Guidewire: AbsentOther Lines, tubes and hardware: Endotra cheal tube with distal tipmeasuring 2.7 cm above the level of the michael. Enteri c tube coursesinto the stomach, the tip is not seen.Lungs and pleura: Hazy airsp alex opacities in the bilateral lung bases.Low lung volumes.Heart and mediastinum : Mild enlargement of the cardiomediastinalsilhouette is likely accentuated by l ow lung volumes.Bones: No acute bony abnormality.IMPRESSIONIMPRESSION: 1. New r ight IJ central venous catheter with tip overlying the SVC. Nopneumothorax. No g uidewire.2. Hazy airspace opacities at bilateral lung bases suggestive ofpneumon ia are visualized in correlation chest CT dated 09/19/2019.Dictated By: Adrian Bellamy MD, 09/20/2019 2:19 AMI have reviewed the study and agree with the findings in t his report.Signed By: Katalina Monroe MD, 09/20/2019 2:21 [facility] CHEST W/O [id number] 21:29:59IMPRESSION: 1. Large left lower lobe consolidation and bilateral keckmgdkjugxg-ud-cvn opacities most likely represent multifocal pneumonia. 2. Reactive mediastinal lymphadenopathy. 3. Suspected hepatomegaly and steatosis. Dictated By: Nova Barrientos MD, 09/19/2019 7:36 PM I have reviewed the study and agree with the findings in this report. Signed By: Stoney Mendez, 09/19/2019 9:29 PM Harry, Rad/Mammog In - 09/19/2019 9:35 PM CDTEXAM: CT Chest WITHOUT contrastINDICATION: Acute resp illness, > 40 years old ADDITIONAL HISTORY PER EPIC: ?44y.o.?male?with history of obesity, T2DM,HTN, GERD, previous cocaine use, depression who presented to the withcomplaints of cough x 1 week of green sputum, CP, and dyspnea along withsubjective fevers/chills. COMPARISON: Chest radiograph 09/19/2019TECHNIQUE:Chest was scanned utilizing a multidetector helical scanner from thelung apex through the level of the adrenal glands without administrationof IV contrast. Absence of intravenous contrast decreases sensitivityfor detection of lymphadenopathy and vascular p athology. Coronal andsagittal reformations were obtained. Routine protocol was p erformed. IV CONTRAST: NoneCOMPLICATIONS: None RADIATION DOSE: Total DLP: 477 mGy*cm Estimated effective dose: (DLP x 0.014 x size factor) mSv CTDIvol has been reviewed. It is below the limits set by theRadiation Protocol Committee (RPC). FINDINGS:LINES/ TUBES: Endotracheal tube with tip ab ove the michael. Enteric tubewith tip in the stomach body.LUNGS AND AIRWAYS: Oanh r complete left lower lobe consolidation with airbronchograms and scattered tree -in-bud opacities in each lung. Diffuseperibronchial wall thickening.PLEURA: No pleural effusions. No pneumothorax.LYMPH NODES: A 1.1 cm right paratracheal lym ph node (series 2, image28). A 1.1 cm gastroesophageal lymph node (series 2, vandana ge 65). A 0.9 cmsubcarinal lymph node (series 2, image 39). No axillary lymphade nopathy.There is suspected left hilar lymphadenopathy but hilar lymph nodescanno t be adequately assessed due to the lack of IV contrast.THYROID/BASE OF NECK: Vi sualized portions are normal.HEART AND MEDIASTINUM: The heart is normal in siz e.. There is nopericardial effusion. UPPER ABDOMEN: The liver appears enlarged w ith decreased attenuationsuggestive of steatosis. 6 mm anterior splenule.BONES: Mild degenerative changes of the thoracic spine.SOFT TISSUES: Unremarkable.IMPRE SSIONIMPRESSION:1. Large left lower lobe consolidation and bilateral scatteredt ree-in-bud opacities most likely represent multifocal pneumonia.2. Reactive me diastinal lymphadenopathy.3. Suspected hepatomegaly and steatosis. Dictated By: Nova Barrientos MD, 09/19/2019 7:36 PMI have reviewed the study and agree with the f indings in this report.Signed By: Stoney Mendez, 09/19/2019 9:29 [facility] [place], [id number] 18:55:00* Test Item Value Reference Range Interpretation Comments Legionella Ag, Ur (test code = 67642-7) Negative Negative Lab Interpretation (test code = 74902-5) Normal [facility]ardEyaniuLuow-Fesbgakioalsvst0775-09-09 18:40:00* Test Item Value Reference Range Interpretation Comments Beta Hydroxy Butyrate (test code = 04133278) 0.10 mmol/L 0.02-0.27 Lab Interpretation (test code = 31444-8) Normal [facility] BallardUrine Drug [id number] 18:37:00* Test Item Value Reference Range Interpretation Comments Opiate, Ur (test code = 44048-0) Negative Negative Calibrated Standard: Morphine Positive if urine level > or = 300 ng/dL Amphetamine (test code = 58519-6) Negative Negative Calibrated Standard: D- Methamphetamine Positive if urine level > or = 1000 ng/mL Barbiturate (test code = 95042-4) Negative Negative Calibrated Standard: Secobarbital Positive if urine level is > or = 200 ng/mL Benzodiazepine (test code = 27501-4) Positive Negative A Calibrated Standard: Lormethazepam Positive if urine level is > or = 200 ng/mL Cocaine (test code = 20059-5) Negative Negative Calibrated Standard: Benzoylecgonine Positive if urine level > or = 300 ng/dL PCP (test code = 51789-7) Negative Negative C alibrated Standard: Phencyclidine Positive if urine level > or = 25 ng/dL Cannabinoid (test code = 30007-7) Negative Negative Calibrated Standard: 11 nor-delta(9)-THC carboxylic acid Positive if urine level > or = 50 ng/mL Lab Interpretation (test code = 22341-9) Abnormal [facility] BallardZmkjydYpqjskibyi9378-98-66 18:37:00* Test Item Value Reference Range Interpretation Comments Color (test code = 87959890) Yellow Colorless, Straw, Yellow Clarity (test code = 96722067) Hazy Clear A Spec Arlee, Ur (test code = 84245466) 1.025 1.001-1.035 pH, Ur (test code = 62310447) 5.0 5.0-8.0 Protein, Ur (test code = 12295321) 2+ Negative mg/dL A Glucose, Ur (test code = 05444765) 3+ Negative mg/dL A Ketone, Ur (test code = 41033527) Negative Negative mg/dL Bilirubin, Ur (test code = 47291687) Negative Negative mg/dL Nitrite, Ur (test code = 40098629) Negative Negative Leukocyte (test code = 67923346) Negative Negative mg/dL Blood, Ur (test code = 13449044) 3+ Negative mg/dL A RBC (test code = 41584220) >182 0- 4 /HPF H WBC (test code = 23522434) 2 0- 5 /HPF Mucous (test code = 67620849) Present None seen /HPF A Hyaline Cast (test code = 43001007) 1 0- 2 /LPF Urobilinogen, Ur (test code = 48486960) <1.0 <1.0 EU/dL Lab Interpretation (test code = 15809-4) Abnormal [facility] Pneumo Ag, [id number] 18:31:00* Test Item Value Reference Range Interpretation Comments S. pneumo Ur Antigen (test code = 32510-1) Negative Negative Lab Interpretation (test code = 39759-9) Normal [facility] VBG POC docked vnmtwx5074-45-23 18:04:00* Test Item Value Reference Range Interpretation Comments pH, Nilesh POC (test code = 70006001) 7.30 7.33-7.43 L pCO2,Nilesh POC (test code = 95002954) 69.8 38- 50 mmHg H PO2, Venous POC (BKR) (test code = 76041233) 74 50- 75 mm Hg Ionized Calcium POC (test code = 43405166) 1.21 mmol/L 1.15-1.29 HCO3, Nilesh POC (test code = 40010666) 34 mmol/L 22-26 H TCO2 POC (test code = 84717688) 36 mmol/L 21-32 H Base Excess Nilesh POC (test code = 53512403) 5 mmol/L Ye's Test (test code = 62944260) MILLA Sample Type (test code = 44546222) IVEN Site (test code = 67323730) HEELST FiO2 (test code = 03635557) 40 O2 Delivery Device (test code = 59062605) IVENT Physician Notified % Sat, Nilesh POC (test code = 18445176) 92 % Lab Interpretation (test code = 77065-0) Abnormal [facility], Lqbapo7491-67-98 13:45:00* Test Item Value Reference Range Interpretation Comments Temperature (test code = 88793153) 37.0 degree C pH, Venous (test code = 16960126) 7.20 7.33-7.43 L pCO2, Venous (test code = 70531980) 85.3 38- 50 mm Hg HH pO2, Venous (test code = 97147527) 168 50- 75 mm Hg H Base Excess, Venous (test code = 85979040) 4.5 mmol/L -2.5-2.5 H HCO3, Venous (test code = 64362357) 32.1 mmol/L 22-26 H % Sat, Venous (test code = 84694925) 98.7 % 60-85 H Lab Interpretation (test code = 84371-7) Abnormal [facility] HealthInfluenza A/B and RSV [id number] 13:13:00* Test Item Value Reference Range Interpretation Comments Influenza A (test code = 65914-3) Not detected Not detected Influenza B (test code = 32619-0) Not detected Not detected RSV (test code = 30181-1) Not detected Not detected DONATO (test code = DONATO) This test utilizes FDA clear ed Edwardo joanna Influenza A/B & RSV real-time RT-PCR assay for qualitative detection and discrimination of Influenza A virus, Influenza B virus and Respiratory Syncytial virus (RSV). Additional testing is required to differentiate any specific Influenza A subtypes or strains or specific RSV subgroups. Lab Interpretation (test code = 43411-4) Normal [facility]ardGroup A Strep Qsglbj2642-97-33 12:09:00* Test Item Value Reference Range Interpretation Comments Group A Strep (test code = 95415628) Negative Negative A negative Rapid Group A Strep Screen does not decisively eliminate the possibility of Group A Strep pharyngitis. It is recommended that a reflex culture test be ordered on all negative rapid screen results. Lab Interpretation (test code = 09030-4) Normal [facility]12 LEAD [id number] 11:15:3112 LEAD EKG FOR [facility] Test Date: 8443-24-57Pbn Name: NNACY GOFF Department: 5520Patient ID: [id number] Room: Gender: M Ui Ux Developer: [id number]: 1975 Requested By: HEIDI RICO Order Number: [id number] Reading MD: Maura MIDDLETON M.D. MeasurementsIntervals [place] Rate: 121 P: 69PR: 149 QRS: -3QRSD: 92 T: 62QT: 286 QTc: 406 Interpretive StatementsSINUS TACHYCARDIAABNORMAL RHYTHM ECGElectronically Signed On 09-19-2019 11:15:27 CDT by Maura MIDDLETON M.D.[facility] HealthLactic Uwyc2069-04-72 10:49:00* Test Item Value Reference Range Interpretation Comments Lactic Acid (test code = 24896701) 1.8 mmol/L 0.5-2.2 Lab Interpretation (test code = 51779-5) Normal [facility] CREATININE POC docked [id number] 10:41:00* Test Item Value Reference Range Interpretation Comments Creatinine POC (test code = 89520448) 0.7 mg/dL 0.6-1.3 Physician Notified GFR, Estimated (test code = 59979177) >90 >=90 mL/min/1.73 m2 Lab Interpretation (test code = 49034-7) Normal [facility] TROPONIN I POC docked avvhbd9219-29-71 10:41:00* Test Item Value Reference Range Interpretation Comments Troponin POC (test code = 30016713) 0.00 ng/mL 0-0.08 Lab Interpretation (test code = 09357-8) Normal [facility] BMP POC docked [id number] 10:31:00* Test Item Value Reference Range Interpretation Comments Sodium POC (test code = 61430916) 132 mmol/L 136-145 L Potassium POC (test code = 48768900) 5.5 mmol/L 3.5-5.1 H Chloride POC (test code = 80994361) 92 mmol/L 98-107 L TCO2 POC (test code = 04809164) 38 mmol/L 21-32 H Physician Notified Urea Nitrogen POC (test code = 44681239) 16 mg/dL 7-18 Glucose POC (test code = 28799520) 470 mg/dL 74-106 HH Hemoglobin POC (test code = 77988456) 15.6 g/dL 12-16 Hematocrit POC (test code = 68415603) 46.0 % 37-47 Lab Interpretation (test code = 43277-7) Abnormal [facility] BallardRuviefMzrerqjbpk3924-70-80 10:23:48Heidi Rico MD 09/19/2019 4:54 PMIntubationDate/Time: 09/19/2019 1:55 PMPerformed by: Heidi Rico MDAuthorized by: Heidi Rico MD Consent: Consent obtained: Verbal Consent given by: Patient Risks discussed: Hypoxia and deathPre-procedure details: Patient status: Awake Mallampati score: IV Pretreatment meds: etomidate. Paralytics: SuccinylcholineProcedure details: Preoxygenation: BiPAP CPR in progress: no Intubation method: Oral Oral intubation technique: Video-assisted Laryngoscope blade: Mac 4 Tube size (mm): 7.5 Tube type: Cuffed Number of attempts: 1 Ventilation between attempts: no Cricoid pressure: yes Tube visualized through cords: yes Placement asses sment: ETT to lip: 23 Tube secured with: ETT romo Breath sounds: Equal and absent over the epigastrium Placement verification: chest rise, equal breat h sounds and ETCO2 detector Post-procedure details: Patient tolerance of proc edure: Tolerated well, no immediate complicationsAdditional documentation:: N o specimens removed Estimated blood loss (ml): 0 No prosthetic devices, gra fts, tissues, transplants or devices implanted [facility] BallardPwtnbeNOSGFS1941-15-06 12:40:00* Test Item Value Reference Range Interpretation Comments GLUBED (test code = GLUBED) 189 mg/dL 74-106 H Performed by certified remelt pan tank operator at [facility] BASIC METABOLIC [id number] 09:02:00* Test Item Value Reference Range Interpretation Comments SODIUM (test code = NA) 133 mmol/L 136-145 L POTASSIUM (test code = K) 3.8 mmol/L 3.5-5.1 N CHLORIDE (test code = CL) 98.0 mmol/L 98-107 N CARBON DIOXIDE (test code = CO2) 27.0 mmol/L 21-32 N ANION GAP (test code = GAP) 11.8 10-20 N GLUCOSE (test code = GLU) 357 mg/dL 74-106 H BLOOD UREA NITROGEN (test code = BUN) 12 mg/dL 7-18 N GLOMERULAR FILTRATION RATE (test code = GFR) > 60 mL/min >=60 Estimated GFR by using Modified MDRD formula.Chronic kidney disease is defined as either kidney damageor GFR <60 mL/min/1.73 m2 for >3 months. CREATININE (test code = CREAT) 1.00 mg/dL 0.7-1.3 N BUN/CREATININE RATIO (test code = BUN/CREA) 12.0 10-20 N CALCIUM (test code = CA) 8.1 mg/dL 8.5-10.1 L CREATINE KINASE (CK)2018-12-18 09:02:00* Test Item Value Reference Range Interpretation Comments CREATINE KINASE (CK) (test code = CK) 302 IUnit/L 26-208 H [id number] 09:02:00* Test Item Value Reference Range Interpretation Comments MAGNESIUM (test code = MAG) 2.0 mg/dL 1.8-2.4 N BASIC METABOLIC [id number] 08:58:00* Test Item Value Reference Range Interpretation Comments SODIUM (test code = NA) 133 mmol/L 136-145 L POTASSIUM (test code = K) 3.8 mmol/L 3.5-5.1 N CHLORIDE (test code = CL) 98.0 mmol/L 98-107 N CARBON DIOXIDE (test code = CO2) mmol/L 21-32 ANION GAP (test code = GAP) 10-20 GLUCOSE (test code = GLU) mg/dL 74-106 BLOOD UREA NITROGEN (test code = BUN) mg/dL 7-18 GLOMERULAR FILTRATION RATE (test code = GFR) mL/min >=60 CREATININE (test code = CREAT) mg/dL 0.7-1.3 BUN/CREATININE RATIO (test code = BUN/CREA) 10-20 CALCIUM (test code = CA) mg/dL 8.5-10.1 CREATINE KINASE (CK)2018-12-18 08:58:00* Test Item Value Reference Range Interpretation Comments CREATINE KINASE (CK) (test code = CK) IUnit/L 26-208 [id number] 08:58:00* Test Item Value Reference Range Interpretation Comments MAGNESIUM (test code = MAG) mg/dL 1.8-2.4 [id number] 08:34:00* Test Item Value Reference Range Interpretation Comments GLUBED (test code = GLUBED) 370 mg/dL 74-106 H Performed by certified remelt pan tank operator at [facility] [id number] 02:14:00* Test Item Value Reference Range Interpretation Comments GLUBED (test code = GLUBED) 204 mg/dL 74-106 H Performed by certified remelt pan tank operator at [facility] [id number] 19:08:00* Test Item Value Reference Range Interpretation Comments GLUBED (test code = GLUBED) 231 mg/dL 74-106 H Performed by certified remelt pan tank operator at [facility] CREATINE KINASE (CK)2018-12-17 17:45:00* Test Item Value Reference Range Interpretation Comments CREATINE KINASE (CK) (test code = CK) 335 U/L 39-308 H [id number] 17:45:00* Test Item Value Reference Range Interpretation Comments CKMB (test code = CKMBT) 4.5 ng/mL 0.0-5.0 N [id number] 17:24:00* Test Item Value Reference Range Interpretation Comments ACETAMINOPHEN (test code = ACET) < 10 mcg/mL 0-30 N A RANGE OF 10-30 UG/ML IS A THERAPEUTIC RANGE. TOXIC CONCENTRATIONS: >150 UG/ML AFTER 4 HOURS OF INGESTION > 50 UG/ML AFTER 12 HOURS OF INGESTION [id number] 17:24:00* Test Item Value Reference Range Interpretation Comments SALICYLATE (test code = RAUL) 0.9 mg/dL 2.8-20.0 L [id number] 17:24:00* Test Item Value Reference Range Interpretation Comments ALCOHOL (test code = ALC) < 3 mg/dL 0.0-3.0 N -- INTERPRETIVE DATA NOTE: POSITIVE SCREENING RESULTS SHOULD BE CONSIDERED PRESUMPTIVE.WHEN COLLECTED FOR MEDICAL PURPOSES ONLY. SPECIMEN WILL NOTBE COLLECTED BY CHAIN OF CUSTODY.IF A CONFIRMATION OF POSITIVE RESULTS IS DESIRED, ACONFIRMATION TEST MUST BE REQUESTED BY THE PHYSICIAN AT ANADDITIONAL CHARGE TO THE PATIENT. LACTIC [id number] 16:56:00* Test Item Value Reference Range Interpretation Comments LACTIC ACID (test code = LACT) 1.7 MMOL/L 0.4-1.9 N COMPREHENSIVE METABOLIC [id number] 16:49:00* Test Item Value Reference Range Interpretation Comments SODIUM (test code = NA) 131 mmol/L 136-145 L POTASSIUM (test code = K) 3.7 mmol/L 3.5-5.1 N CHLORIDE (test code = CL) 94 mmol/L 101-109 L CARBON DIOXIDE (test code = CO2) 28.3 mmol/L 21-32 N ANION GAP (test code = GAP) 12 mmol/L 10-20 N GLUCOSE (test code = GLU) 337 mg/dL 74-106 H BLOOD UREA NITROGEN (test code = BUN) 10 mg/dL 3-21 N CREATININE (test code = CREAT) 1.00 mg/dL 0.55-1.3 N BUN/CREATININE RATIO (test code = BUN/CREA) 10.0 10-20 N TOTAL PROTEIN (test code = PROT) 7.0 g/dL 6.5-8.4 N ALBUMIN (test code = ALB) 3.2 g/dL 3.4-4.8 L GLOBULIN (test code = GLOB) 3.8 G/DL 1-10 N ALBUMIN/GLOBULIN RATIO (test code = A/G) 0.84 RATIO 0.75-1.50 N CALCIUM (test code = CA) 7.7 mg/dL 8.4-10.2 L BILIRUBIN TOTAL (test code = BILT) 0.40 mg/dL 0.0-1.0 N SGOT/AST (test code = AST) 18 U/L 6-32 N SGPT/ALT (test code = ALT) 43 U/L 12-78 N N ote: Change in REFERENCE RANGE due to new reagent method. ALKALINE PHOSPHATASE TOTAL (test code = ALKP) 123 U/L 38-126 N [id number] 16:49:00* Test Item Value Reference Range Interpretation Comments LIPASE (test code = LIP) 84 U/L 128-270 L [id number] 16:49:00* Test Item Value Reference Range Interpretation Comments TROPONIN-I (test code = TROPI) <0.015 ng/mL 0.00-0.056 N URINALYSIS [id number] 16:47:00* Test Item Value Reference Range Interpretation Comments UA COLOR (test code = COLU) DARK YELLOW YELLOW A UA APPEARANCE (test code = APPU) CLEAR CLEAR UA GLUCOSE DIPSTICK (test code = DGLUU) 1000 (3+) mg/dL NEGATIVE A UA BILIRUBIN DIPSTICK (test code = BILU) NEGATIVE mg/dL NEGATIVE UA KETONE DIPSTICK (test code = KETU) 5 (Trace) mg/dL NEGATIVE A UA SPECIFIC GRAVITY (test code = SGU) 1.025 1.001-1.035 UA BLOOD DIPSTICK (test code = BENITO) 10 (Trace) Donny/uL NEGATIVE A UA PH DIPSTICK (test code = PRUDENCE) 5.0 5.0-8.0 UA PROTEIN DIPSTICK (test code = PROU) 30 (1+) mg/dL Neg-15 A UA UROBILINIOGEN DIPSTICK (test code = URO) norm mg/dL 0.0-0.2 UA NITRITE DIPSTICK (test code = JUWAN) NEGATIVE NEGATIVE UA LEUKOCYTE ESTERASE DIPSTICK (test code = LEUU) 25 Vargas/uL (Tra ce) uL NEGATIVE A UA WBC (test code = WBCU) 0-5 per HPF 0-5 UA RBC (test code = RBCU) NONE SEEN per HPF 0-5 UA EPITHELIAL CELLS (test code = EPIU) Rare (0-1/hpf) per HPF Few UA BACTERIA (test code = BACU) FEW per HPF NONE Urine Source? Clean CatchDRUGS OF ABUSE SCREEN [id number] 16:47:00* Test Item Value Reference Range Interpretation Comments URN COCAINE (test code = COCAURN) POSITIVE NEGATIVE A URN CANNABINOIDS (test code = CANNABURN) NEGATIVE NEGATIVE URN AMPHETAMINE (test code = AMPHETURN) NEGATIVE NEGATIVE URN BARBITURATE (test code = BARBITURN) NEGATIVE NEGATIVE URN BENZODIAZEPINE (test code = BENZOURN) NEGATIVE NEGATIVE URN OPIATES (test code = OPIATURN) NEGATIVE NEGATIVE URN PHENCYCLIDINE (PCP) (test code = PHENCURN) NEGATIVE NEGATIV E Urine Source? Clean CatchURINALYSIS [id number] 16:46:00* Test Item Value Reference Range Interpretation Comments UA COLOR (test code = COLU) DARK YELLOW YELLOW A UA APPEARANCE (test code = APPU) CLEAR CLEAR UA GLUCOSE DIPSTICK (test code = DGLUU) 1000 (3+) mg/dL NEGATIVE A UA BILIRUBIN DIPSTICK (test code = BILU) NEGATIVE mg/dL NEGATIVE UA KETONE DIPSTICK (test code = KETU) 5 (Trace) mg/dL NEGATIVE A UA SPECIFIC GRAVITY (test code = SGU) 1.025 1.001-1.035 UA BLOOD DIPSTICK (test code = BENITO) 10 (Trace) Donny/uL NEGATIVE A UA PH DIPSTICK (test code = PRUDENCE) 5.0 5.0-8.0 UA PROTEIN DIPSTICK (test code = PROU) 30 (1+) mg/dL Neg-15 A UA UROBILINIOGEN DIPSTICK (test code = URO) norm mg/dL 0.0-0.2 UA NITRITE DIPSTICK (test code = JUWAN) NEGATIVE NEGATIVE UA LEUKOCYTE ESTERASE DIPSTICK (test code = LEUU) 25 Vargas/uL (Tra ce) uL NEGATIVE A UA WBC (test code = WBCU) per HPF 0-5 UA RBC (test code = RBCU) per HPF 0-5 UA EPITHELIAL CELLS (test code = EPIU) per HPF Few UA BACTERIA (test code = BACU) per HPF NONE Urine Source? Clean CatchDRUGS OF ABUSE SCREEN [id number] 16:46:00* Test Item Value Reference Range Interpretation Comments URN COCAINE (test code = COCAURN) POSITIVE NEGATIVE A URN CANNABINOIDS (test code = CANNABURN) NEGATIVE NEGATIVE URN AMPHETAMINE (test code = AMPHETURN) NEGATIVE NEGATIVE URN BARBITURATE (test code = BARBITURN) NEGATIVE NEGATIVE URN BENZODIAZEPINE (test code = BENZOURN) NEGATIVE NEGATIVE URN OPIATES (test code = OPIATURN) NEGATIVE NEGATIVE URN PHENCYCLIDINE (PCP) (test code = PHENCURN) NEGATIVE NEGATIV E Urine Source? Clean CatchURINALYSIS [id number] 16:44:00* Test Item Value Reference Range Interpretation Comments UA COLOR (test code = COLU) DARK YELLOW YELLOW A UA APPEARANCE (test code = APPU) CLEAR CLEAR UA GLUCOSE DIPSTICK (test code = DGLUU) 1000 (3+) mg/dL NEGATIVE A UA BILIRUBIN DIPSTICK (test code = BILU) NEGATIVE mg/dL NEGATIVE UA KETONE DIPSTICK (test code = KETU) 5 (Trace) mg/dL NEGATIVE A UA SPECIFIC GRAVITY (test code = SGU) 1.025 1.001-1.035 UA BLOOD DIPSTICK (test code = BENITO) 10 (Trace) Donny/uL NEGATIVE A UA PH DIPSTICK (test code = PRUDENCE) 5.0 5.0-8.0 UA PROTEIN DIPSTICK (test code = PROU) 30 (1+) mg/dL Neg-15 A UA UROBILINIOGEN DIPSTICK (test code = URO) norm mg/dL 0.0-0.2 UA NITRITE DIPSTICK (test code = JUWAN) NEGATIVE NEGATIVE UA LEUKOCYTE ESTERASE DIPSTICK (test code = LEUU) 25 Vargas/uL (Tra ce) uL NEGATIVE A UA WBC (test code = WBCU) per HPF 0-5 UA RBC (test code = RBCU) per HPF 0-5 UA EPITHELIAL CELLS (test code = EPIU) per HPF Few UA BACTERIA (test code = BACU) per HPF NONE Urine Source? Clean CatchDRUGS OF ABUSE SCREEN [id number] 16:44:00* Test Item Value Reference Range Interpretation Comments URN COCAINE (test code = COCAURN) NEGATIVE URN CANNABINOIDS (test code = CANNABURN) NEGATIVE URN AMPHETAMINE (test code = AMPHETURN) NEGATIVE URN BARBITURATE (test code = BARBITURN) NEGATIVE URN BENZODIAZEPINE (test code = BENZOURN) NEGATIVE URN OPIATES (test code = OPIATURN) NEGATIVE URN PHENCYCLIDINE (PCP) (test code = PHENCURN) NEGATIV E Urine Source? Clean CatchCOMPREHENSIVE METABOLIC [id number] 16:44:00* Test Item Value Reference Range Interpretation Comments SODIUM (test code = NA) 131 mmol/L 136-145 L POTASSIUM (test code = K) 3.7 mmol/L 3.5-5.1 N CHLORIDE (test code = CL) 94 mmol/L 101-109 L CARBON DIOXIDE (test code = CO2) 28.3 mmol/L 21-32 N ANION GAP (test code = GAP) 12 mmol/L 10-20 N GLUCOSE (test code = GLU) 337 mg/dL 74-106 H BLOOD UREA NITROGEN (test code = BUN) 10 mg/dL 3-21 N CREATININE (test code = CREAT) 1.00 mg/dL 0.55-1.3 N BUN/CREATININE RATIO (test code = BUN/CREA) 10.0 10-20 N TOTAL PROTEIN (test code = PROT) gram/dL 6.4-8.2 ALBUMIN (test code = ALB) g/dL 3.4-5.0 GLOBULIN (test code = GLOB) g/dL 2.7-4.2 ALBUMIN/GLOBULIN RATIO (test code = A/G) 0.75-1.50 CALCIUM (test code = CA) 7.7 mg/dL 8.4-10.2 L BILIRUBIN TOTAL (test code = BILT) mg/dL 0.2-1.2 SGOT/AST (test code = AST) IUnit/L 15-37 SGPT/ALT (test code = ALT) U/L 10-69 ALKALINE PHOSPHATASE TOTAL (test code = ALKP) IUnit/L 45-117 [id number] 16:44:00* Test Item Value Reference Range Interpretation Comments LIPASE (test code = LIP) Unit/L 144-286 [id number] 16:44:00* Test Item Value Reference Range Interpretation Comments TROPONIN-I (test code = TROPI) ng/mL 0-0.045 CBC W/AUTO [id number] 16:32:00* Test Item Value Reference Range Interpretation Comments WHITE BLOOD CELL (test code = WBC) 11.2 K/mm3 4.5-12.5 N RED BLOOD CELL (test code = RBC) 5.34 mill/mm3 4.0-5.8 N HEMOGLOBIN (test code = HGB) 15.4 gram/dL 13.0-17.5 N HEMATOCRIT (test code = HCT) 44.9 % 42.0-52.0 N MEAN CELL VOLUME (test code = MCV) 84.1 fL 80-98 N MEAN CELL HGB (test code = MCH) 28.8 picogram 27.0-33.0 N MEAN CELL HGB CONCETRATION (test code = MCHC) 34.3 gram/dL 33.0-36. 0 N RED CELL DISTRIBUTION WIDTH (test code = RDW) 12.4 % 11.6-16. 2 N RED CELL DISTRIBUTION WIDTH SD (test code = RDW-SD) 39.0 fL 37 .0-51.0 N PLATELET COUNT (test code = PLT) 239 K/mm3 150-450 N MEAN PLATELET VOLUME (test code = MPV) 10.7 fL 6.7-11.0 N NEUTROPHIL % (test code = NT%) 73.3 % 39.0-69.0 H LYMPHOCYTE % (test code = LY%) 17.7 % 25.0-55.0 L MONOCYTE % (test code = MO%) 7.8 % 0.0-10.0 N EOSINOPHIL % (test code = EO%) 0.6 % 0.0-5.0 N BASOPHIL % (test code = BA%) 0.2 % 0.0-1.0 N NEUTROPHIL # (test code = NT#) 8.21 K/mm3 1.8-7.7 H LYMPHOCYTE # (test code = LY#) 1.99 K/mm3 1.0-5.0 N MONOCYTE # (test code = MO#) 0.88 K/mm3 0-0.8 H EOSINOPHIL # (test code = EO#) 0.07 K/mm3 0.0-0.5 N BASOPHIL # (test code = BA#) 0.02 K/mm3 0.0-0.2 N MANUAL DIFF REQUIRED (test code = MDIFF) NO - CT HEAD/BRAIN W/O [id number] 16:28:00 Name: NANCY ROMAN [facility] : 1975 Age/S: 43 / M [address] [facility] Unit #: [id number] Loc: [place] [address] Phys: Lance Mckeon MD Acct: [id number] Dis Date: Status: PRE ER PHONE #: [phone] Exam Date: 12/17/2018 162 FAX #: [phone] Reason: SLURRED SPEECH HEADACHE EXAMS: CPT CODE: [id number] CT HEAD/BRAIN W/O CONT [id number] REASON FOR EXAM: SLURRED SPEECH HEADACHE EXAM ORDER DATE: 12/17/2018 4:16 PM Ordering M.DKusum: Lance Mckeon MD PROCEDURE: - CT HEAD/BRAIN W/O CONT COMPARISON: FINDINGS: CT images of the brain were obtained without IV contrast. Dose modulation, iterative reconstruction, and/or weight based adjustment of the MA/KV was utilized to reduce the radiation dose to as low as reasonably achievable. The brain parenchyma is within normal limits. The slaughter-white matter delineation is unremarkable. The ventricles, cisterns, and sulci are unremarkable. There is no evidence of hemorrhage, mass, mass effect. There is no evidence of acute or old infarct. The calvarium is intact. IMPRESSION: Unremarkable brain. at 1629 Reported and signed by: Blayne Restrepo M.D. CC: Lance Mckeon MD Technologist:SUZI CHEN, RT(R),CT CTDI: DLP: Trnscb Date/Time: 12/17/2018 (1622) [facility] Orig Print D/T: S: 12/17/2018 (6482) PAGE 1 Signed Report
--- OUTSIDE RECORDS SUMMARY | 2020-02-10 19:01 | XMS REPORT | Clinical Summary ---
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 capsuleIndications: Gastroesophageal reflux disease without esophagitis Active hydroCHLOROthiazide Take 1 tablet 30 tablet 3 08/14 (HYDRODIURIL) 25 mg by mouth 8 tabletIndications: daily. Essential hypertension, benign Active aspirin (ASPIRIN) 81 mg Chew and 90 tablet 3 chewable swallow 1 0 tabletIndications: Type 2 tablet by diabetes mellitus with mouth daily. hyperglycemia, with long-term current use of insulin Active atorvastatin (LIPITOR) 20 Take 1 tablet 90 tablet 3 mg tabletIndications: by mouth at 0 Type 2 diabetes mellitus bedtime with hyperglycemia, with nightly. long-term current use of insulin Active blood glucose test Use 2 times 50 Each 3 09/25/2 02 stripsIndications: Type 2 weekly (once 0 diabetes mellitus with per day on hyperglycemia, with Mon,Thurs) to long-term current use of test blood insulin sugar. Active lancets 28 by 100 Each 1 gaugeIndications: Type 2 MISCELLANEOUS 0 diabetes mellitus with route 2 times hyperglycemia, with weekly Use 2 long-term current use of times weekly insulin as directed. Active pen needle, diabetic 31 Inject under 1 Box 3 0 gauge x 09/25" the skin 4 0 needlesIndications: Type times daily. 2 diabetes mellitus with hyperglycemia, with long-term current use of insulin Active INSULIN SYRINGE 0.5 mL Use to inject 1 Box 3 0 30GX5/16" (MONOJECT medication 4 0 ULTRACOMFORT INSULIN SYR times daily. 0.5ML 30GX5/16") Use a new syringe-needleIndications syringe each : Type 2 diabetes time. mellitus with hyperglycemia, with long-term current use of insulin Active losartan (COZAAR) 50 mg Take 1 tablet 90 tablet 1 tabletIndications: Heart by mouth 0 failure, unspecified HF daily. chronicity, unspecified heart failure type Active albuterol 90 Inhale 2 8.5 g 1 mcg/actuation Puffs by 0 inhalerIndications: Cough mouth 4 times daily as needed for Shortness of Breath. Active insulin detemir U-100 Inject 15 9 Pen 2 11/11 (LEVEMIR FLEXTOUCH) 100 Units under 0 unit/mL (3 mL) the skin 2 PenIndications: Type 2 times daily. diabetes mellitus with hyperglycemia, with long-term current use of insulin Active Nebulizer & Compressor 1 Device by 1 Device 0 For Neb DeviIndications: Misc.(Non-Amaury 0 JUAN (obstructive sleep g; Combo apnea), Bronchospasm Route) route 4 times daily. Active ipratropium-albuteroL 0.5 Inhale 3 mL 300 mL 3 mg-3 mg(2.5 mg base)/3 mL by mouth 0 NebuIndications: JUAN every 4 hours (obstructive sleep as needed for apnea), Bronchospasm Shortness of Breath or Wheezing (AND JUAN). Active gabapentin (NEURONTIN) Take 1 90 capsule 2 100 mg capsule by 0 capsuleIndications: mouth 3 times Neuropathy daily. Active sertraline (ZOLOFT) 50 mg Take 1 tablet 30 tablet 2 tabletIndications: by mouth 0 Depression, unspecified daily Half depression type, Anxiety pill daily for one week and then one pill daily. Active insulin REGULAR 100 Inject 10 20 mL 3 unit/mL Units under 0 injectionIndications: the skin 3 Type 2 diabetes mellitus times daily with hyperglycemia, with (before long-term current use of meals). insulin Active furosemide (LASIX) 20 mg Take 1 tablet 30 tablet 3 tabletIndications: Heart by mouth 0 failure, unspecified HF daily. chronicity, unspecified heart failure type Active ibuprofen (MOTRIN) 800 mg Take 1 tablet 90 tablet 3 tabletIndications: by mouth 0 Arthralgia, unspecified every 8 hours joint as needed for Pain. Active metFORMIN (GLUCOPHAGE XR) Take 1 tablet 180 tablet 3 500 mg ER extended by mouth 2 0 release times daily. tabletIndications: Type 2 diabetes mellitus with hyperglycemia, with long-term current use of insulin 12/20/2019 Discontinued (Dose adjustmen t) sertraline (ZOLOFT) 100 Take 1 tablet 30 tablet 1 mg tabletIndications: by mouth 8 Reactive depression daily. 11/09/2019 Discontinued (Reorder) insulin detemir U-100 Inject 10 18 mL 3 09/10 (LEVEMIR FLEXTOUCH) 100 Units under 0 unit/mL (3 mL) the skin 2 PenIndications: Type 2 times daily. diabetes mellitus with hyperglycemia, with long-term current use of insulin 11/09/2019 Discontinued (Reorder) pen needle, diabetic 31 Inject under 1 Box 3 0 gauge x 09/25" the skin 4 0 needlesIndications: Type times daily. 2 diabetes mellitus with hyperglycemia, with long-term current use of insulin 11/09/2019 Discontinued (Reorder) insulin REGULAR 100 Inject 3 9 mL 3 unit/mL Units under 0 injectionIndications: the skin 3 Type 2 diabetes mellitus times daily with hyperglycemia, with (before long-term current use of meals). insulin 11/09/2019 Discontinued (Reorder) INSULIN SYRINGE 0.5 mL Use to inject 1 Box 3 0 30GX5/16" (MONOJECT medication 4 0 ULTRACOMFORT INSULIN SYR times daily. 0.5ML 30GX5/16") Use a new syringe-needleIndications syringe each : Type 2 diabetes time. mellitus with hyperglycemia, with long-term current use of insulin 11/30/2019 Discontinued (Reorder) insulin detemir U-100 Inject 10 18 mL 3 10/12 (LEVEMIR FLEXTOUCH) 100 Units under 0 unit/mL (3 mL) the skin 2 PenIndications: Type 2 times daily. diabetes mellitus with hyperglycemia, with long-term current use of insulin 12/07/2019 Discontinued (Reorder) insulin REGULAR 100 Inject 3 9 mL 3 unit/mL Units under 0 injectionIndications: the skin 3 Type 2 diabetes mellitus times daily with hyperglycemia, with (before long-term current use of meals). insulin 11/30/2019 Discontinued (Reorder) losartan (COZAAR) 25 mg Take 1 tablet 90 tablet 1 tabletIndications: Heart by mouth 0 failure, unspecified HF daily. chronicity, unspecified heart failure type 12/07/2019 Discontinued (Reorder) insulin detemir U-100 Inject 13 18 mL 3 11/11 (LEVEMIR FLEXTOUCH) 100 Units under 0 unit/mL (3 mL) the skin 2 PenIndications: Type 2 times daily. diabetes mellitus with hyperglycemia, with long-term current use of insulin 12/07/2019 benzonatate (TESSALON Take 1 20 capsule 0 11/11 PERLES) 100 mg capsule by 0 capsuleIndications: Cough mouth 3 times daily as needed for up to 7 days for Cough. 12/28/2019 Discontinued (Reorder) metFORMIN (GLUCOPHAGE XR) Take 1 tablet 180 tablet 0 500 mg ER extended by mouth 0 release daily (with tabletIndications: Type 2 breakfast). diabetes mellitus with hyperglycemia, with long-term current use of insulin 12/28/2019 Discontinued (Reorder) insulin REGULAR 100 Inject 5 20 mL 3 unit/mL Units under 0 injectionIndications: the skin 3 Type 2 diabetes mellitus times daily with hyperglycemia, with (before long-term current use of meals). insulin 12/29/2019 Discontinued (Reorder) ibuprofen (MOTRIN) 800 mg Take 1 tablet 90 tablet 2 tabletIndications: by mouth 0 Arthralgia, unspecified every 8 hours joint as needed for Pain. 12/29/2019 Discontinued (Reorder) metFORMIN (GLUCOPHAGE XR) Take 1 tablet 180 tablet 0 500 mg ER extended by mouth 2 0 release times daily. tabletIndications: Type 2 diabetes mellitus with hyperglycemia, with long-term current use of insulin 12/29/2019 Discontinued (Reorder) furosemide (LASIX) 20 mg Take 1 tablet 30 tablet 0 tabletIndications: Heart by mouth 0 failure, unspecified HF daily. chronicity, unspecified heart failure type 12/28/2019 tropicamide (MYDRIACYL) Instill 1 15 mL 0 0.5 % ophthalmic Drop in each 0 solutionIndications: Type eye once as 2 diabetes mellitus with needed for up hyperglycemia, with to 1 dose long-term current use of (for poor insulin retina scan image). Active Problems Problem Noted Date Pneumonia of both lungs due to infectio us organism Respiratory acidosis Type 2 diabetes mellitus with hyperglyc emia, with long-term current use of insulin Viral URI with cough Morbid obesity due to excess calories JUAN treated with BiPAP Resolved Problems Problem Noted Date Resolved Date Encounter for orogastric (OG) tube placement 09/20/2019 09/26/2019 Respiratory failure with hypoxia and hypercapnia 0 09/26/2019 On mechanically assisted ventilation 09/26/2019 Acute respiratory failure with hypercapnia 09/26/19 20 Encounters Care Team Description Date Type Specialty Pretty Carter MDD (major depressive disorder), recurre nt episode, moderate (Primary Dx); Anxiety 01/26/2020 Telemedicine Psychology Chayito Stahl [facility] 01/11/2020 Telephonic Clinical Pharmacy Encounter Nova Wheeler DO Liu, Jie, LD 01/06/2020 Telephonic Nutrition Encounter Nova Wheeler DO Type 2 diabetes mellitus with hyperglyce alta, with long-term current use of insulin 01/05/2020 Orders Only Family Practice Pretty Carter MDD (major depressive disorder), recurre nt episode, moderate (Primary Dx); Anxiety 01/03/2020 Telephonic Psychology Encounter Yeny Langford MD Canceled (Other) 12/29/2019 Telephonic Cardiology Encounter Andrea Herman MD Heart failure, unspecified HF chronicity , unspecified heart failure type; Arthralgia, unspecified joint; Type 2 diabetes mellitus with hyperglycemia, with long-term current use of insulin 12/29/2019 Telephonic Pulmonology Encounter Nova Wheeler DO Type 2 diabetes mellitus with hyperglyce alta, with long-term current use of insulin (Primary Dx); Essential hypertension; JUAN (obstructive sleep apnea); Heart failure, unspecified HF chronicity, unspecified heart failure type 12/28/2019 Telephonic Family Practice Encounter Nova Wheeler DO Iqbal, Syed Z, MD Depression, unspecified depression type (Primary Dx); Anxiety 12/20/2019 Telephonic Psychiatry Encounter Andrea Herman MD JUAN (obstructive sleep apnea) (Primary D x); Morbid obesity with alveolar hypoventilation; Chronic respiratory failure with hypoxia and hypercapnia; Bronchospasm; Neuropathy; Arthralgia, unspecified joint 12/08/2019 Office Visit Pulmonology Nova Wheeler DO Cantieri, Tara Lynn, [facility] Type 2 diabetes mellitus with hyperglyce alta, with long- term current use of insulin (Primary Dx) 12/07/2019 Telephonic Clinical Pharmacy Encounter Nova Wheeler DO Cough 11/30/2019 Ancillary Radiology Procedure Nova Wheeler DO Cough (Primary Dx); Heart failure, unspecified HF chronicity, unspecified heart failure type; Type 2 diabetes mellitus with hyperglycemia, with long-term current use of insulin; Essential hypertension 11/30/2019 Office Visit [facility] Nova Wheeler DO Type 2 diabetes mellitus with hyperglyce alta, with long-term current use of insulin 11/30/2019 Orders Only [facility] Nova Wheeler DO Type 2 diabetes mellitus with hyperglyce alta, with long-term current use of insulin (Primary Dx); JUAN treated with BiPAP; Hospital discharge follow-up; Heart failure, unspecified HF chronicity, unspecified heart failure type; Reactive depression; Morbid obesity due to excess calories; Excessive daytime sleepiness 11/09/2019 Telephonic [facility] Encounter Noav Wheeler DO Type 2 diabetes mellitus with hyperglyce alta, with long-term current use of insulin; Reactive depression 11/09/2019 Orders Only [facility] Star Singh, JACEK 10/05/2019 Clinical Case House Call Mgt Nova Wheeler DO Viral URI with cough; Acute respiratory failure with hypercapnia; Type 2 diabetes mellitus with hyperglycemia, with long-term current use of insulin; JUAN treated with BiPAP 10/03/2019 Office Visit [facility] Nury Rico MD Narendra, Dharani K, MD McCants, David S, MD Sargsyan, Zaven, MD Viral URI with cough (Primary Dx); Acute respiratory failure with hypercapnia; Type 2 diabetes mellitus with hyperglycemia, with long-term current use of insulin; Respiratory acidosis; Acute respiratory failure with hypoxia and hypercapnia; Pneumonia of both lungs due to infectious organism, unspecified part of lung; Encounter for orogastric (OG) tube placement; JUAN treated with BiPAP 09/19/2019 Hospital - Encounter 09/26/2019 after 02/05/2019 Immunizations Name Administration Dates Next Due Influenza Vaccine, 09/08/2017 (Deferred: Vacci ne Unavailable) Seasonal, Injectable Tdap (Tetanus Toxoid, 09/08/2017 Reduced Diphtheria Toxoid And Acellular Pertussis, Absorbed) Family History Medical History Relation Name Comments Diabetes Brother Hypertension Brother Relation Name Status Comments Brother Alive 4-brothers Father Alive Mother Alive Sister Alive Social History Date Tobacco Use Types Packs/Day Years Used Quit: 09/04/2019 Former Smoker 25 Smokeless Tobacco: Never Used Comments: 10 cig a week. Drinks/Week oz/Week Comments Alcohol Use social Not Currently Food Insecurity Answer Date Recorded Within the past 12 months, you worried that your Often robby e 10/03/2019 food would run out before you got money to buy more. Within the past 12 months, the food you bought Often true 10/03/2019 just didn't last and you didn't have mo ana to get more. Sex Assigned at Date Recorded Not on file Industry Job Start Date Occupation Not on file Not on file Not on file Travel End Travel History Travel Start No recent travel history available. Date Recorded COVID-19 Exposure Response 01/25/2020 3:19 PM CDT In the last month, have you been in contact with No / Unsure someone who was confirmed or suspected to have Coronavirus / COVID-19? Last Filed Vital Signs Reading Time Taken Comments Vital Sign 152/82 12/08/2019 9:19 AM CDT Blood Pressure 110 12/08/2019 9:19 AM CDT Pulse 36.8 C (98.3 F) 12/08/2019 9:19 AM CDT Temperature 18 12/08/2019 9:19 AM CDT Respiratory Rate 91% 12/08/2019 9:19 AM CDT Oxygen Saturation - - Inhaled Oxygen Concentration 105.2 kg (232 lb) 12/08/2019 9:19 AM CDT Weight 154.9 cm (5' 1") 12/08/2019 9:19 AM CDT Height 43.84 12/08/2019 9:19 AM CDT Body Mass Index Plan of Treatment Care Team Description Date Type Specialty Chayito Stahl, [facility] [address] [place] [address] [phone] CONSENTED BY ANIL ON 01/25/2020 02/16/2020 Telephonic Clinical Pharmacy Encounter Jacobo Mesa MD [address] [place] [address] 02/03/20 Pt requested video chat modalit ies and confirmed appt..[id number] 02/21/2020 Telemedicine Psychiatry Pretty [address]. [id number] [place] [address] [phone] video chat 02/28/2020 Telephonic Psychology Encounter Health Maintenance Due Date Last Done Comments DM Foot Exam (Yearly) 1994 DM Retinal Exam (Yearly) 1994 IMM Influenza Seasonal 04/12/2020Apr to September (>/= 19 yrs) DM HGBA1C (Yearly) 12/07/2020 12/08/2019, 09/19/2019, 09/08/2017 Goals Goal Patient Associated Recent Progress Patient-Stat Aut hor Goal Type Problems ed? Eat Healthy Lifestyle No Sridevi Davalos Eat more fruits and vegetables Self No Macrina Andres LD management Procedures Comments Procedure Name Priority Date/Time Associated Diag nosis HEMOGLOBIN A1C Routine 12/08/2019 Type 2 diabetes mellitus 10:29 AM CDT with hyperglycemia, with long-term current use of insulin ELECTROLYTES Routine 12/08/2019 Type 2 diabetes mellitus 10:29 AM CDT with hyperglycemia, with long-term current use of insulin CREATININE Routine 12/08/2019 Type 2 diabetes mellitus 10:29 AM CDT with hyperglycemia, with long-term current use of insulin XRAY CHEST 2 VIEWS DANIEL 11/30/2019 Cough 10:37 AM CDT NONINVASV OXYGEN Routine 11/30/2019 Cough SATUR;SINGLE 9:55 AM CDT GLUCOSE POC Routine 09/26/2019 5:48 PM CDT ABG POC Routine 09/26/2019 2:59 PM CDT GLUCOSE POC Routine 09/26/2019 1:35 PM CDT GLUCOSE POC Routine 09/26/2019 12:06 PM CDT GLUCOSE POC Routine 09/26/2019 9:01 AM CDT LIPID PROFILE Add-on 09/26/2019 3:52 AM CDT CBC Routine 09/26/2019 3:52 AM CDT PHOSPHORUS Routine 09/26/2019 3:52 AM CDT MAGNESIUM Routine 09/26/2019 3:52 AM CDT CBC/DIFF Routine 09/26/2019 3:52 AM CDT BASIC METABOLIC PANEL Routine 09/26/2019 3:52 AM CDT GLUCOSE POC Routine 09/25/2019 8:41 PM CDT GLUCOSE POC Routine 09/25/2019 4:48 PM CDT SEQUENTIAL COMPRESSION Routine 09/25/2019 PUMP 1:06 PM CDT INFUSION PUMP Routine 09/25/2019 1:03 PM CDT GLUCOSE POC Routine 09/25/2019 12:20 PM CDT GLUCOSE POC Routine 09/25/2019 8:09 AM CDT PHOSPHORUS Add-on 09/25/2019 2:05 AM CDT MAGNESIUM Add-on 09/25/2019 2:05 AM CDT CBC Routine 09/25/2019 2:05 AM CDT CBC/DIFF Routine 09/25/2019 2:05 AM CDT BASIC METABOLIC PANEL Routine 09/25/2019 2:05 AM CDT GLUCOSE POC Routine 09/24/2019 9:36 PM CDT GLUCOSE POC Routine 09/24/2019 5:02 PM CDT CORONAVIRUS, COVID-19, STAT 09/24/2019 SHAKILA 3:55 PM CDT COMMODE AT BEDSIDE DANIEL 09/24/2019 2:45 PM CDT GLUCOSE POC Routine 09/24/2019 12:00 PM CDT GLUCOSE POC Routine 09/24/2019 7:30 AM CDT PHOSPHORUS Routine 09/24/2019 2:26 AM CDT MAGNESIUM Routine 09/24/2019 2:26 AM CDT CBC Routine 09/24/2019 2:26 AM CDT CBC/DIFF Routine 09/24/2019 2:26 AM CDT BASIC METABOLIC PANEL Routine 09/24/2019 2:26 AM CDT GLUCOSE POC Routine 09/23/2019 9:07 PM CDT GLUCOSE POC Routine 09/23/2019 5:35 PM CDT GLUCOSE POC Routine 09/23/2019 11:12 AM CDT GLUCOSE POC Routine 09/23/2019 7:44 AM CDT ABG POC Routine 09/23/2019 6:55 AM CDT CBC STAT 09/23/2019 6:53 AM CDT CBC/DIFF STAT 09/23/2019 6:53 AM CDT BASIC METABOLIC PANEL Routine 09/23/2019 2:26 AM CDT GLUCOSE POC Routine 09/22/2019 8:58 PM CDT GLUCOSE POC Routine 09/22/2019 5:34 PM CDT GLUCOSE POC Routine 09/22/2019 12:13 PM CDT ABG POC Routine 09/22/2019 11:08 AM CDT B-TYPE NATRIURETIC STAT 09/22/2019 PEPTIDE (BNP) 10:52 AM CDT LACTATE DEHYDROGENASE STAT 09/22/2019 (LDH) 10:52 AM CDT BASIC METABOLIC PANEL Routine 09/22/2019 10:52 AM CDT GLUCOSE POC Routine 09/22/2019 6:21 AM CDT ABG POC Routine 09/22/2019 2:22 AM CDT CBC (WITHOUT Routine 09/22/2019 DIFFERENTIAL) 2:16 AM CDT VANCOMYCIN, RANDOM STAT 09/22/2019 2:16 AM CDT GLUCOSE POC Routine 09/21/2019 11:55 PM CDT GLUCOSE POC Routine 09/21/2019 3:20 PM CDT XRAY CHEST 1 VIEW Routine 09/21/2019 Acute respir atory failure 10:28 AM CDT with hypoxia and hypercapnia ABG POC Routine 09/21/2019 9:33 AM CDT GLUCOSE POC Routine 09/21/2019 9:03 AM CDT GLUCOSE POC Routine 09/21/2019 6:13 AM CDT ABG POC Routine 09/21/2019 2:09 AM CDT DIFFERENTIAL, MANUAL-WAM Add-on 09/21/2019 2:08 AM CDT CBC Routine 09/21/2019 2:08 AM CDT COMPREHENSIVE METABOLIC Routine 09/21/2019 PANEL 2:08 AM CDT CBC/DIFF Routine 09/21/2019 2:08 AM CDT GLUCOSE POC Routine 09/21/2019 12:06 AM CDT LOWER RESPIRATORY CULTURE STAT 09/20/2019 AND GRAM STAIN 10:52 PM CDT GLUCOSE POC Routine 09/20/2019 5:40 PM CDT ENTERAL FEEDING PUMP Routine 09/20/2019 4:40 PM CDT VANCOMYCIN, TROUGH Routine 09/20/2019 4:40 PM CDT FUNGUS STAIN AND CULTURE STAT 09/20/2019 1:10 PM CDT RESPIRATORY VIRUS SCREEN STAT 09/20/2019 1:10 PM CDT DIFFERENTIAL, CELL COUNT STAT 09/20/2019 1:10 PM CDT CELL COUNT, BODY FLUID STAT 09/20/2019 1:10 PM CDT CELL COUNT, FLUID STAT 09/20/2019 1:10 PM CDT GLUCOSE POC Routine 09/20/2019 11:36 AM CDT ECHG PULMONARY PROC Routine 09/20/2019 BRONCHO REGID&FLEX W/BRON 9:09 AM CDT [facility] NON-[facility]VAS[facility] STAT 09/20/2019 ECHOCARDIOGRAM 2-D W/O 8:00 AM CDT CONTRAST (PROSOLVE) GLUCOSE POC Routine 09/20/2019 5:14 AM CDT XRAY CHEST 1 VIEW Routine 09/20/2019 Acute respir atory failure 3:06 AM CDT with hypoxia and hypercapnia ABG POC Routine 09/20/2019 2:18 AM CDT DIFFERENTIAL, MANUAL (NO Add-on 09/20/2019 MORPHOLOGY)-WAM 2:17 AM CDT PHOSPHORUS STAT 09/20/2019 2:17 AM CDT CBC Routine 09/20/2019 2:17 AM CDT LIVER PROFILE Routine 09/20/2019 2:17 AM CDT PT/INR Routine 09/20/2019 2:17 AM CDT MAGNESIUM Routine 09/20/2019 2:17 AM CDT BASIC METABOLIC PANEL Routine 09/20/2019 2:17 AM CDT CBC/DIFF Routine 09/20/2019 2:17 AM CDT GLUCOSE POC Routine 09/20/2019 1:44 AM CDT ABG POC Routine 09/20/2019 12:09 AM CDT GLUCOSE POC Routine 09/20/2019 12:06 AM CDT SEQUENTIAL COMPRESSION STAT 09/19/2019 PUMP 11:50 PM CDT GLUCOSE POC Routine 09/19/2019 10:19 PM CDT LOWER RESPIRATORY CULTURE Routine 09/19/2019 AND GRAM STAIN 9:17 PM CDT INFUSION PUMP STAT 09/19/2019 7:23 PM CDT XRAY CHEST 1 VIEW - POST STAT 09/19/2019 Acute respiratory failure LINE PLACEMENT 7:10 PM CDT with hypoxia and hypercapnia BETA-HYDROXYBUTYRATE STAT 09/19/2019 5:54 PM CDT VBG POC Routine 09/19/2019 5:50 PM CDT LEGIONELLA ANTIGEN, URINE Routine 09/19/2019 5:49 PM CDT URINE DRUG SCREEN Routine 09/19/2019 5:45 PM CDT HEMOGLOBIN A1C Routine 09/19/2019 5:42 PM CDT STREP PNEUMO AG, UR Routine 09/19/2019 5:39 PM CDT URINALYSIS STAT 09/19/2019 5:38 PM CDT URINALYSIS STAT 09/19/2019 5:38 PM CDT GLUCOSE POC Routine 09/19/2019 5:34 PM CDT INFUSION PUMP STAT 09/19/2019 5:[address] CHEST W/O CONTRAST STAT 09/19/2019 Acute re spiratory failure 4:57 PM CDT with hypoxia and hypercapnia GLUCOSE POC Routine 09/19/2019 2:43 PM CDT XRAY CHEST 1 VIEW STAT 09/19/2019 Viral URI wi th cough 2:37 PM CDT Acute respiratory failure with hypercapnia BLOOD CULTURE STAT 09/19/2019 1:26 PM CDT BLOOD CULTURE STAT 09/19/2019 1:25 PM CDT BLOOD GAS, VENOUS STAT 09/19/2019 1:10 PM CDT BLOOD GAS, VENOUS STAT 09/19/2019 11:13 AM CDT ECHG EKG PROC 12 LEAD Routine 09/19/2019 EKG; TRACING ONLY 10:33 AM CDT TROPONIN I POC Routine 09/19/2019 10:26 AM CDT INTUBATION Routine 09/19/2019 Viral URI with cough 10:23 AM CDT Acute respiratory failure with hypercapnia Type 2 diabetes mellitus with hyperglycemia, with long-term current use of insulin Respiratory acidosis Acute respiratory failure with hypoxia and hypercapnia Pneumonia of both lungs due to infectious organism, unspecified part of lung CREATININE POC Routine 09/19/2019 10:23 AM CDT BMP POC Routine 09/19/2019 10:22 AM CDT THROAT CULTURE Add-on 09/19/2019 10:12 AM CDT GROUP A STREP SCREEN STAT 09/19/2019 10:12 AM CDT INFLUENZA DNA/RNA AMP STAT 09/19/2019 PROBE, FLURSV 10:12 AM CDT DIFFERENTIAL, MANUAL-WAM STAT 09/19/2019 10:11 AM CDT CBC STAT 09/19/2019 10:11 AM CDT PHOSPHORUS STAT 09/19/2019 10:11 AM CDT MAGNESIUM STAT 09/19/2019 10:11 AM CDT CBC/DIFF STAT 09/19/2019 10:11 AM CDT LACTIC ACID STAT 09/19/2019 10:10 AM CDT after 02/05/2019 Results * Creatinine (12/08/2019 10:29 AM CDT) Creatinine 0.8 0.7 - 1.3 mg/dL [facility] GFR, Estimated >90 >=90 mL/min/1.73 m2 [facility] Specimen Blood Performing Organization Address [facility] one Number [facility] [address] [place] [address] [phone] * Hemoglobin A1C (12/08/2019 10:29 AM CDT) Only the most recent of 2 results within the time period is included. Hemoglobin A1c 12.2 (H) 4.3 - 6.1 % [facility] Estimated 303 (H) 70 - 110 mg/dL [facility] Glucose [facility] Specimen Blood Performing Organization Address [facility] one Number [facility] [address] [place] [address] * Electrolytes (12/08/2019 10:29 AM CDT) Sodium 133 (L) 136 - 145 mmol/L [facility] Potassium 4.7 3.5 - 5.1 mmol/L [facility] Chloride 93 (L) 98 - 107 mmol/L [facility] CO2 29 21 - 31 mmol/L [facility] Anion Gap 11 5 - 16 mmol/L [facility] Specimen Blood Performing Organization Address [facility] one Number [facility] [address] [place] [address] * XRAY CHEST 2 VIEWS (11/30/2019 10:37 AM CDT) Specimen Impressions Performed At IMPRESSION: [facility] No acute thoracic abnormality. Dictated By: Tevin Barron MD, 0 10:45 AM I have reviewed the study and agree wit h the findings in this report. Signed By: Domi Esteban MD, 11/30/2019 2:01 PM Narrative Performed At EXAMINATION: XRAY CHEST 2 VIEWS [facility] INDICATION: chronic cough COMPARISON: Chest x-ray 09/21/2019 FINDINGS: PA and lateral views TUBES and LINES: None LUNGS: Low lung volumes. No consolidati ons or edema. PLEURA: No effusions. No pneumothorax. HEART AND MEDIASTINUM: Normal for techn ique. BONES AND SOFT TISSUES: The bones are u nremarkable. Soft tissues are unremarkable. UPPER ABDOMEN: No free air under the di aphragm. Procedure Note Interface, Rad/Mammog In - 11/30/2019 2:06 PM CDT EXAMINATION: XRAY CHEST 2 VIEWS INDICATION: chronic cough COMPARISON: Chest x-ray 09/21/2019 FINDINGS: PA and lateral views TUBES and LINES: None LUNGS: Low lung volumes. No consolidations or edema. PLEURA: No effusions. No pneumothorax. HEART AND MEDIASTINUM: Normal for technique. BONES AND SOFT TISSUES: The bones are unremarkable. Soft tissues are unremarkable. UPPER ABDOMEN: No free air under the diaphragm. IMPRESSION IMPRESSION: No acute thoracic abnormality. Dictated By: Tevin Barron MD, 11/30/2019 10:45 AM I have reviewed the study and agree with the findings in this report. Signed By: Domi Esteban MD, 11/30/2019 2:01 PM Performing Organization Address [facility] one Number [facility] * POCT GLUCOSE POC docked device (09/26/2019 5:48 PM CDT) Only the most recent of 33 results within the time period is included. Glucose POC 215 (H) 74 - 106 mg/dL [facility] Specimen Blood Performing Organization Address [facility] one Number [facility] [address] [place] [address] * POCT ABG POC docked device (09/26/2019 2:59 PM CDT) Only the most recent of 8 results within the time period is included. pH, Art POC 7.48 (H) 7.35 - 7.45 [facility] pCO2, Arterial 43.5 32 - 45 mmHg [facility] pO2, Arterial 72 72 - 104 mmHg [facility] Ionized Calcium 1.18 1.15 - 1.29 mmol/L [facility] Base Excss Art 8 mmol/L [facility] HCO3, Arterial 32 (H) 22 - 26 mmol/L [facility] % Sat, Art POC 95 % [facility] TCO2, ART POC 34 (H) 21 - 32 mmol/L [facility] Ye's Test POSITI [facility] Sample Type IART [facility] Site RRADIA [facility] FiO2 21 [facility] O2 Delivery ROOMAIComment: Physician [facility] Device Notified [facility] Specimen Blood, arterial Performing Organization Address [facility] one Number [facility] [address] [place] [address] * CBC/Diff (09/26/2019 3:52 AM CDT) Only the most recent of 7 results within the time period is included. WBC 10.8 4.5 - 12.0 K/uL [facility] RBC 4.30 (L) 4.60 - 6.20 M/uL [facility] Hemoglobin 12.1 (L) 14.0 - 18.0 g/dL [facility] Hematocrit 36.9 (L) 40.0 - 54.0 % [facility] MCV 85.8 82.0 - 92.0 fL [facility] MCH 28.1 27.0 - 31.0 pg [facility] MCHC 32.8 32.0 - 36.0 g/dL [facility] RDW 38.5 35.1 - 43.9 fL [facility] Platelet 253 150 - 400 K/uL [facility] Mean Platelet 11.2 9.4 - 12.4 fL [facility] Volume [facility] Percent NRBC 0.0 % [facility] Neutrophil 79.4 (H) 34.0 - 67.9 % [facility] Lymphs 12.2 (L) 21.8 - 50.0 % [facility] Monocytes 5.8 5.3 - 12.0 % [facility] Eos 1.7 0.8 - 5.0 % [facility] Basos 0.3 0.2 - 1.2 % [facility] Immature 0.6 (H) 0.0 - 0.5 % [facility] Granulocytes [facility] Neutrophils 8.55 (H) 1.78 - 5.36 K/uL [facility] (Absolute) [facility] Lymphs 1.32 1.32 - 3.57 K/uL [facility] (Absolute) [facility] Monocytes(Absol 0.63 0.30 - 0.82 K/uL [facility] inupiat) [facility]ORY Eos (Absolute) 0.18 0.04 - 0.54 K/uL [facility] Baso (Absolute) 0.03 0.01 - 0.08 K/uL [facility] Immature Grans 0.07 (H) 0.00 - 0.03 K/uL [facility] (Abs) [facility] Absolute NRBC 0.00 K/uL [facility] Specimen Blood Performing Organization Address [facility] one Number [facility] [address] [place] [address] [phone] * Phosphorus (09/26/2019 3:52 AM CDT) Only the most recent of 5 results within the time period is included. Phosphorus 4.2 2.5 - 5.0 mg/dL [facility] Specimen Blood Performing Organization Address [facility] Ph one Number [facility] [address] [place] [address] [phone] * Magnesium (09/26/2019 3:52 AM CDT) Only the most recent of 5 results within the time period is included. Magnesium 2.0 1.9 - 2.7 mg/dL [facility] Specimen Blood Performing Organization Address [facility] one Number [facility] [address] [place] [address] * Lipid Profile (09/26/2019 3:52 AM CDT) Cholesterol 129.0 <=200.0 mg/dL [facility] Comment: [facility] Desirable: < 200.0 mg/dL Borderline: 200 - 240 mg/dL High Risk: > 240 mg/dL Triglyceride 163 (H) <150 mg/dL [facility] Comment: [facility] Normal: < 150.0 mg/dL Borderline: 150-199 mg/dL High: 200-499 mg/dL Very High: >= 500 mg/dL HDL 34.0 See Reference Range [facility] Comment: Narrative. mg/dL [facility] Increased CHD Risk: < 40.0 mg/dL Decreased CHD Risk: > 60 mg/dL LDL 62 <100 mg/dL [facility] Comment: [facility] Optimal: < 100.0 mg/dL Near Optimal: 120-129 mg/dL Borderline: 130-159 mg/dL High: 160-189 mg/dL Very High: >=190 mg/dL Patient [facility] Fasting? [facility] Specimen Blood Performing Organization Address [facility] one Number [facility] [address] [place] [address] [phone] * Basic Metabolic Panel (09/26/2019 3:52 AM CDT) Only the most recent of 6 results within the time period is included. Sodium 133 (L) 136 - 145 mmol/L [facility] Potassium 4.3 3.5 - 5.1 mmol/L [facility] Chloride 95 (L) 98 - 107 mmol/L [facility] CO2 31 21 - 31 mmol/L [facility] Urea Nitrogen 11.0 7.0 - 25.0 mg/dL [facility] Creatinine 0.7 0.7 - 1.3 mg/dL [facility] Glucose 194 (H) 70 - 110 mg/dL [facility] Calcium 8.2 (L) 8.6 - 10.3 mg/dL [facility] GFR, Estimated >90 >=90 mL/min/1.73 m2 [facility] Anion Gap 7 5 - 16 mmol/L [facility] Specimen Blood Performing Organization Address [facility] one Number [facility] [address] [place] [address] * Coronavirus, CoVID-19 ([facility]) (09/24/2019 3:55 PM CDT) [facility] CoVID-19 Not Detected Not Detected [facility] (SARS-CoV-2) Comment: Testing was performed using the joanna(R) SARS-CoV-2 test. This test was developed and its performance characteristics determined by [facility]. This test has not been FDA cleared or approved. This test has been authorized by FDA under an Emergency Use Authorization (EUA). This test is only authorized for the duration of time the declaration that circumstances exist justifying the authorization of the emergency use of in vitro diagnostic tests for detection of SARS-CoV-2 virus and/or diagnosis of COVID-19 infection under section 564(b)(1) of the Act, 21 U.S.C. 360bbb-3(b)(1), unless the authorization is terminated or revoked sooner. Specimen Other (Specify in Comments) - Nasopharynx Narrative Performed At Performed at: 01 [facility] [address] [place] [address] Telephonic Nurse: Colten Kauffman MD, Phone : [phone] Performing Organization Address [facility] one Number [facility] [address] [place] [address] * BNP [B-Type Natriuretic Peptide] (09/22/2019 10:52 AM CDT) [facility] [address] B Natriuretic 48 <=100 pg/mL [facility] Specimen Blood Performing Organization Address [facility] one Number [facility] [address] [place] [address] [phone] * LDH [Lactate Dehydrogenase] (09/22/2019 10:52 AM CDT) [facility] [address] LDH 166 140 - 271 U/L [facility] Specimen Blood Performing Organization Address [facility] one Number [facility] [address] [place] [address] [phone] * Vancomycin, Random (09/22/2019 2:16 AM CDT) Vancomycin, 15.7 10.0 - 20.0 ug/mL [facility] Random [facility] Specimen Blood Performing Organization Address [facility] one Number [facility] [address] [place] [address] [phone] * CBC (without differential) (09/22/2019 2:16 AM CDT) WBC 8.7 4.5 - 12.0 K/uL [facility] RBC 3.72 (L) 4.60 - 6.20 M/uL [facility] Hemoglobin 11.8 (L) 14.0 - 18.0 g/dL [facility] Hematocrit 33.5 (L) 40.0 - 54.0 % [facility] MCV 90.1 82.0 - 92.0 fL [facility] MCH 31.7 (H) 27.0 - 31.0 pg [facility] MCHC 35.2 32.0 - 36.0 g/dL [facility] RDW 40.6 35.1 - 43.9 fL [facility] Platelet 259 150 - 400 K/uL [facility] Mean Platelet 10.5 9.4 - 12.4 fL [facility] Volume [facility] Percent NRBC 0.0 % [facility] Specimen Blood Performing Organization Address [facility] one Number [facility] [address] [place] [address] [phone] * XRAY CHEST 1 VIEW (09/21/2019 10:28 AM CDT) Only the most recent of 3 results within the time period is included. Specimen Impressions Performed At IMPRESSION: SMS 1. Bibasilar opacities likely represe nt a combination of developing pneumonia and superimposed pulmonary ed jaqueline. 2. Right IJ CVC distal tip overlies m idline. This may be related to patient rotation, however exact locatio n cannot be determined on this exam. Recommend repeat chest radiograph in neutral position. Dictated By: Kalpesh Burgess MD, 09/10 10:35 AM I have reviewed the study and agree wit h the findings in this report. Signed By: Domi Esteban MD, 09/21/2019 1:35 PM Narrative Performed At EXAM: XRAY CHEST 1 VIEW, 09/21/2019 at 1023 hours SMS INDICATION: intubated COMPARISON: Chest radiograph 0 at 0305 hours FINDINGS: The exam is partially limited by patien t rotation. TUBES and LINES: * Endotracheal tube tip in stable pos ition above the michael. * Right IJ CVC tip overlies midline, however this may be due to patient rotation. * Subdiaphragmatic enteric tube with tip overlying the gastric body. LUNGS/PLEURA: Low lung volumes. Persist ent bibasilar interstitial airspace opacities. Probable small left pleural effusion. No pneumothorax. HEART AND MEDIASTINUM: Incompletely e valuated due to obscured heart borders. BONES AND SOFT TISSUES: No acute osse ous lesion. Soft tissues are unremarkable. UPPER ABDOMEN: No free air under the di aphragm. Procedure Note Interface, Rad/Mammog In - 09/21/2019 1:40 PM CDT EXAM: XRAY CHEST 1 VIEW, 09/21/2019 at 1023 hours INDICATION: intubated COMPARISON: Chest radiograph 09/20/2019 at 0305 hours FINDINGS: The exam is partially limited by patient rotation. TUBES and LINES: * Endotracheal tube tip in stable position above the michael. * Right IJ CVC tip overlies midline, however this may be due to patient rotation. * Subdiaphragmatic enteric tube with tip overlying the gastric body. LUNGS/PLEURA: Low lung volumes. Persistent bibasilar interstitial airspace opacities. Probable small left pleural effusion. No pneumothorax. HEART AND MEDIASTINUM: Incompletely evaluated due to obscured heart borders. BONES AND SOFT TISSUES: No acute osseous lesion. Soft tissues are unremarkable. UPPER ABDOMEN: No free air under the diaphragm. IMPRESSION IMPRESSION: 1. Bibasilar opacities likely represent a combination of developing pneumonia and superimposed pulmonary edema. 2. Right IJ CVC distal tip overlies mid line. This may be related to patient rotation, however exact location cannot be determined on this exam. Recommend repeat chest radiograph in neutral position. Dictated By: Kalpesh Burgess MD, 09/21/2019 10:35 AM I have reviewed the study and agree with the findings in this report. Signed By: Domi Esteban MD, 09/21/2019 1:35 PM Performing Organization Address City/State/Zipcode Ph one Number SMS * Differential, Manual (09/21/2019 2:08 AM CDT) Only the most recent of 2 results within the time period is included. Neutrophil 80.0 (H) 34.0 - 67.9 % [facility] Lymphs 14.0 (L) 21.8 - 50.0 % [facility] Monocytes 3.0 (L) 5.3 - 12.0 % [facility] Eos 2.0 0.8 - 5.0 % [facility] Basos 0.0 (L) 0.2 - 1.2 % [facility] Myelocyte 1.0 % [facility] Neutrophils 7.22 (H) 1.78 - 5.36 K/uL [facility] (Absolute) [facility] Lymphs 1.26 (L) 1.32 - 3.57 K/uL [facility] ([facility]) [facility] Monocytes(Absol 0.27 (L) 0.30 - 0.82 K/uL [facility] inupiat) [facility] Eos (Absolute) 0.18 0.04 - 0.54 K/uL [facility] Baso (Absolute) 0.00 (L) 0.01 - 0.08 K/uL [facility] Platelet Clumps Present (A) None seen [facility] Agglutinated 2+ (A) None seen [facility] RBCs [facility] Cells Counted [facility] Specimen Blood Performing Organization Address [facility]State[facility] one Number [facility] [address] [place], [place] [address] [phone] * Comprehensive Metabolic Panel (09/21/2019 2:08 AM CDT) Pathologist [facility] Sodium 142 136 - 145 mmol/L [facility] Potassium 4.0 3.5 - 5.1 mmol/L [facility] Chloride 104 98 - 107 mmol/L [facility] CO2 29 21 - 31 mmol/L [facility] Glucose 146 (H) 70 - 110 mg/dL [facility] Calcium 7.9 (L) 8.6 - 10.3 mg/dL [facility] Urea Nitrogen 18.0 7.0 - 25.0 mg/dL [facility] Creatinine 0.7 0.7 - 1.3 mg/dL [facility] Alkaline 100 34 - 104 U/L [facility] Phosphatase [facility] ALT 17 7 - 52 U/L [facility] AST 10 (L) 13 - 39 U/L [facility] Bilirubin, 0.4 0.2 - 1.2 mg/dL [facility] Total [facility] Total Protein 5.6 (L) 6.0 - 8.3 g/dL [facility] GFR, Estimated >90 >=90 mL/min/1.73 m2 [facility] Albumin 2.8 (L) 4.2 - 5.5 g/dL [facility] Anion Gap 9 5 - 16 mmol/L [facility] Specimen Blood Performing Organization Address [facility] one Number [facility] [address] [place] [address] * LOWER RESPIRATORY CULTURE AND GRAM STAIN Lavage (09/20/2019 10:52 PM CDT) Only the most recent of 2 results within the time period is included. Pathologist [facility] Lower No growth 3 days [facility] Respiratory [facility]ORY Culture Gram Stain 3+ WBCs [facility] Gram Stain 1+ Epithelial cells [facility] Gram Stain No organisms seen [facility] Specimen Lavage - Bronchoalveolar lavage Performing Organization Address [facility] one Number [facility] [address] [place] [address] * Vancomycin, Trough (09/20/2019 4:40 PM CDT) Pathologist [facility] Vancomycin, 19.4 10.0 - 20.0 ug/mL [facility] Trough [facility] Specimen Blood Performing Organization Address [facility] one Number [facility] [address] [place] [address] * DIFFERENTIAL, CELL COUNT (09/20/2019 1:10 PM CDT) Pathologist [facility] Neutrophil 75 % [facility] Lymphocyte 4 % [facility] Monocyte 2 % [facility] Eosinophil 1 % [facility] Macrophage 18 % [facility] Cells Counted 100 [facility] Specimen Body Fluid - Lung, left, lingula Performing Organization Address [facility] one Number [facility] [address] [place] [address] * Cell Count, Fluid (09/20/2019 1:10 PM CDT) Volume 3 mL [facility] Appearance Cloudy (A) Clear [facility] Calculated 24,500 None seen /uL [facility] RBC-Body Fluid LAB[facility]ORY WBC Body Fluid 2,750 /uL [facility] Clots? Specimen contains clot. [facility] Results may be affected. LAB[facility]ATORY Specimen Body Fluid - Lung, left, lingula Performing Organization Address [facility] one Number [facility] [address] [place] [address] * Respiratory Virus Screen (09/20/2019 1:10 PM CDT) Specimen Satisfactory [facility] Adequacy: LABORATORY Respiratory No Influenza A, Influenza B, No Influenza A, [facility] Virus Result: Respiratory Syncytial Virus, Influenza B, L [facility] Adenovirus, Parainfluenza type Respiratory 1, Parainfluenza type 2, or Syncytial Virus, Parainfluenza type 3 viral Adenovirus, antigens detected by DFA on Parainfluenza type the direct specimen 1, Parainfluenza type 2, or Parainfluenza type 3 viral antigens detected by DFA on the direct specimen Specimen BAL - Lung, left, lingula Narrative Performed At Direct specimen testing was performed using the D3 Ul tra DFA Respiratory Virus [facility] Screening and ID Kit. Negative results do not preclude respiratory virus infection and should not be used as the sole basis for diagnosis. Performing Organization Address [facility] one Number [facility] [address] [place] [address] [phone] * Fungus Stain & Culture (09/20/2019 1:10 PM CDT) Fungus Culture No fungus isolated in 4 weeks [facility] Specimen BAL - Lung, left, lingula Performing Organization Address [facility] one Number [facility] [address] [place] [address] * Bronchoscopy (09/20/2019 9:09 AM CDT) TEXT Patient Name NANCY GOFF Date of 1975 Record Number [id number] Date/Time of Procedure 09/20/2019, 9:09:00 AM OR Case # Camp Counselor Ar Madera MD./Fellow Jasper Muir ASA Classification: Procedure Performed: Bronchoscopy - W/ bronchial alveolar lavage Indications for Exam: Abnormal Chest CT Instruments: [id number] Estimated Blood Loss: None Blood Products Administered: No Visualization: Good Tolerance: Good Complications: None Comments: Medications: Propofol 80 mg, Fentanyl 200 mcg, Lidocaine 1% Inj. 10 mL Extent of Exam: All airways examined to the segmental level.. Limitations: All segments visualized to subsegmental level Technically Difficult Exam: No Implant(s) /Graft(s): None Procedure Technique: Flexible bronchoscopy: A [...] amount of clear and thick mucoid secretions, mainly from LLL, with some repooling BAL performed in the lingula, infused 150 mL of saline and suctioned back 30 mL, with the presence of several small black particules No endobronchial lesions, tumor, or bleeding Bronchoscopic Techniques: Bronchoalveolar Lavage: Yes - lingula Specimen Removed: No Post Operative Diagnosis: Acute Respiratory Failure - hypoxemic Abnormal CT scan Procedure Outcome: Good Recommendations: Continue care per MICU team I was present during the entire viewing portion of the procedure. I personally reviewed the images and report prepared by the resident or fellow and agree with the findings. After the procedure was completed, the patient was taken to the recovery in good condition. This report is considered preliminary unless an electronic signature appears below. This Procedure was electronically signed of on : 09/21/2019 11:57:43 AM By Ar Silverman Specimen Performing Organization Address City/State/Zipcode Ph one Number SMS * TRANSTHORACIC ECHO (TTE) (09/20/2019 8:00 AM CDT) TRANSTHORACIC Transthoracic SMS ECHO (TTE) Echo Report NANCY GOFF Age: 44 Gender: M : 1975 Exam Date: 09/20/2019 08:00 Exam Location: [facility] Echo Ordering Phys: KASH MAY Referring Phys: [id number] Reading Phys: Milvia Pickard MD Fellow Phys: Fellow Phys: Bias Cutting Machine Operator: Dustin Miller Reason For Exam: Indications: shock, CHF, CHF ICD-9 Codes: I50.9 Exam Type: TRANSTHORACIC ECHO (TTE) Procedure CPT: 55089 Addtional CPT: C8929 Ht (in): BSA: HR: [...] (M) / 0.6-0.9 (F) LVPW Diastolic Thickness 1.4 cm 0.6-1.0 (M) / 0.6-0.9 [...] inferior vena cava is mildly plethoric. RA pressure is 5-10 mmHg. CONCLUSIONS Ultrasound contrast was used for LV opacification. Severe left ventricular dilatation. Moderately reduced global left ventricular systolic function. Left ventricular ejection fraction is 35%. Inferior/septum are severely hypokinetic, cannot exclude CAD. Impaired relaxation, markedly increased LV filling pressures. Mild right ventricular dilatation. Normal right ventricular function. No significant valve abnormalities. No prior study for comparison. Milvia Pickard MD (Electronically Signed) Final Date: 20 September 2019 15:45 2D ECHO LV Diastolic Diameter PLAX 6.4 cm 4.2-5.8 (M) / 3.8-5.2 (F) LV Systolic Diameter PLAX 5.5 cm 2.5-4.0 (M) / 2.2-3.5 (F) LV Fractional Shortening PLAX 15.2 % IVS Diastolic Thickness 1.3 cm 0.6-1.0 (M) / 0.6-0.9 (F) LVPW Diastolic Thickness 1.4 cm 0.6-1.0 (M) / 0.6-0.9 [...] 20 cm LVOT Stroke Volume 93.5 cm Specimen Performing Organization Address City/State/Zipcode Ph one Number SMS * Differential, Manual (09/20/2019 2:17 AM CDT) Neutrophil 67.0 34.0 - 67.9 % [facility] Lymphs 20.0 (L) 21.8 - 50.0 % [facility] Monocytes 9.0 5.3 - 12.0 % [facility] Eos 3.0 0.8 - 5.0 % [facility] Basos 0.0 (L) 0.2 - 1.2 % [facility] Metamyel 1.0 (H) <=0.0 % [facility] Neutrophils 5.65 (H) 1.78 - 5.36 K/uL [facility] (Absolute) [facility]ORY Lymphs 1.69 1.32 - 3.57 K/uL [facility] (Absolute) [facility] Monocytes(Absol 0.76 0.30 - 0.82 K/uL [facility] inupiat) LABORATORY Eos (Absolute) 0.25 0.04 - 0.54 K/uL [facility] Baso (Absolute) 0.00 (L) 0.01 - 0.08 K/uL [facility] Cells Counted [facility] Specimen Blood Performing Organization Address [facility] one Number [facility] [address] [place] [address] [phone] * PT/INR (09/20/2019 2:17 AM CDT) PT 13.8 11.8 - 15.0 Seconds [facility] INR 1.1 Refer to INR ranges [facility] Comment: LABORATORY 2.0 - 3.0 for moderate intensity anticoagulation 2.5 - 3.5 for high intensity anticoagulation Specimen Blood Performing Organization Address [facility] one Number [facility] [address] [place] [address] [phone] * Liver Profile (09/20/2019 2:17 AM CDT) Total Protein 5.5 (L) 6.0 - 8.3 g/dL [facility] Bilirubin, 0.4 0.2 - 1.2 mg/dL [facility] Total LAB[facility]ORY Alkaline 121 (H) 34 - 104 U/L [facility] Phosphatase LAB[facility]ATORY AST 11 (L) 13 - 39 U/L [facility] Direct 0.1 0.0 - 0.2 mg/dL [facility] Bilirubin LAB[facility]ATORY ALT 21 7 - 52 U/L [facility] Albumin 2.8 (L) 4.2 - 5.5 g/dL [facility] Specimen Blood Performing Organization Address [facility] one Number [facility] [address] [place] [address] [phone] * XRAY CHEST 1 VIEW - POST LINE PLACEMENT (09/19/2019 7:10 PM CDT) Specimen Impressions Performed At IMPRESSION: SMS 1. New right IJ central venous catheter with tip overlying the SVC. No pneumothorax. No guidewire. 2. Hazy airspace opacities at bilateral lung bases suggestive of pneumonia are visualized in correlation chest CT dated 09/19/2019. Dictated By: Adrian Bellamy MD, 09/20/2019 2 :19 AM I have reviewed the study and agree wit h the findings in this report. Signed By: Katalina Monroe MD, 09/20/2019 2:2 1 AM Narrative Performed At EXAM: XR CHEST 1 VIEW SMS DATE: 09/19/2019 7:16 PM INDICATION: Post right IJ central line placement. Acute respiratory failure with hypoxia and hypercapnia COMPARISON: Chest radiograph dated 2019. Correlation chest CT dated 09/19/2019. TECHNIQUE: AP chest FINDINGS: NEW CVC LINE: Approach: Right IJ Tip: Tip overlies the superior vena cav a Pneumothorax: No pneumothorax is identi fied. Guidewire: Absent Other Lines, tubes and hardware: Endotr acheal tube with distal tip measuring 2.7 cm above the level of the michael. Enteric tube courses into the stomach, the tip is not seen. Lungs and pleura: Hazy airspace opaciti es in the bilateral lung bases. Low lung volumes. Heart and mediastinum: Mild enlargement of the cardiomediastinal silhouette is likely accentuated by low lung volumes. Bones: No acute bony abnormality. Procedure Note Interface, Rad/Mammog In - 09/20/2019 2:26 AM CDT EXAM: XR CHEST 1 VIEW DATE: 09/19/2019 7:16 PM INDICATION: Post right IJ central line placement. Acute respiratory failure with hypoxia and hypercapnia COMPARISON: Chest radiograph dated 09/19/2019. Correlation chest CT dated 09/19/2019. TECHNIQUE: AP chest FINDINGS: NEW CVC LINE: Approach: Right IJ Tip: Tip overlies the superior vena cava Pneumothorax: No pneumothorax is identified. Guidewire: Absent Other Lines, tubes and hardware: Endotracheal tube with distal tip measuring 2.7 cm above the level of the michael. Enteric tube courses into the stomach, the tip is not seen. Lungs and pleura: Hazy airspace opacities in the bilateral lung bases. Low lung volumes. Heart and mediastinum: Mild enlargement of the cardiomediastinal silhouette is likely accentuated by low lung volumes. Bones: No acute bony abnormality. IMPRESSION IMPRESSION: 1. New right IJ central venous catheter with tip overlying the SVC. No pneumothorax. No guidewire. 2. Hazy airspace opacities at bilateral lung bases suggestive of pneumonia are visualized in correlation chest CT dated 09/19/2019. Dictated By: Adrian Bellamy MD, 09/20/2019 2:19 AM I have reviewed the study and agree with the findings in this report. Signed By: Katalina Monroe MD, 09/20/2019 2:21 AM Performing Organization Address [facility] one Number SMS * Beta-Hydroxybutyrate (09/19/2019 5:54 PM CDT) Beta Hydroxy 0.10 0.02 - 0.27 mmol/L [facility] Butyrate [facility] Specimen Blood Performing Organization Address [facility] one Number [facility] [address] [place] [address] [phone] * POCT VBG POC docked device (09/19/2019 5:50 PM CDT) pH, Nilesh POC 7.30 (L) 7.33 - 7.43 [facility] pCO2,Nilesh POC 69.8 (H) 38 - 50 mmHg [facility] PO2, Venous POC 74 50 - 75 mm Hg [facility] (BKR) [facility] Ionized Calcium 1.21 1.15 - 1.29 mmol/L [facility] POC [facility] HCO3, Nilesh POC 34 (H) 22 - 26 mmol/L [facility] TCO2 POC 36 (H) 21 - 32 mmol/L [facility] Base Excess Nilesh 5 mmol/L [facility] POC [facility] Ye's Test MILLA [facility] Sample Type IVEN [facility] Site HEELST [facility] FiO2 40 [facility] O2 Delivery IVENTComment: Physician [facility] Device Notified LAB[facility] % Sat, Nilesh POC 92 % [facility] Specimen Blood, venous Performing Organization Address [facility] one Number [facility] [address] [place] [address] * Legionella Ag, UR (09/19/2019 5:49 PM CDT) Legionella Ag, Negative Negative [facility] Ur [facility] Specimen Urine - Voided, urine Performing Organization Address [facility] one Number [facility] [address] [place] [address] * Urine Drug Screen (09/19/2019 5:45 PM CDT) Pathologist [facility] Opiate, Ur Negative Negative [facility] Comment: LABORATORY Calibrated Standard: Morphine Positive if urine level > or = 300 ng/dL Amphetamine Negative Negative [facility] Comment: LAB[facility] Calibrated Standard: D-Methamphetamine Positive if urine level > or = 1000 ng/mL Barbiturate Negative Negative [facility] Comment: LAB[facility] Calibrated Standard: Secobarbital Positive if urine level is > or = 200 ng/mL Benzodiazepine Positive (A) Negative [facility] Comment: LAB[facility] Calibrated Standard: Lormethazepam Positive if urine level is > or = 200 ng/mL Cocaine Negative Negative [facility] Comment: LAB[facility] Calibrated Standard: Benzoylecgonine Positive if urine level > or = 300 ng/dL PCP Negative Negative [facility] Comment: LAB[facility] Calibrated Standard: Phencyclidine Positive if urine level > or = 25 ng/dL Cannabinoid Negative Negative [facility] Comment: LAB[facility] Calibrated Standard: 11 nor-delta(9)-THC carboxylic acid Positive if urine level > or = 50 ng/mL Specimen Urine - Voided, urine Performing Organization Address [facility] one Number [facility] [address] [place] [address] [phone] * Strep Pneumo Ag, Ur (09/19/2019 5:39 PM CDT) [facility] S. pneumo Ur Negative Negative [facility] Antigen LAB[facility] Specimen Urine - Voided, urine Performing Organization Address [facility] one Number [facility] [address] [place] [address] * Urinalysis (09/19/2019 5:38 PM CDT) [facility] [address] [facility] Color Yellow Colorless, Straw, [facility] Yellow LAB[facility] Clarity Hazy (A) Clear [facility] Spec [place], 1.025 1.001 - 1.035 [facility] Ur [facility] pH, Ur 5.0 5.0 - 8.0 [facility] Protein, Ur 2+ (A) Negative mg/dL [facility] Glucose, Ur 3+ (A) Negative mg/dL [facility] Ketone, Ur Negative Negative mg/dL [facility] Bilirubin, Ur Negative Negative mg/dL [facility] Nitrite, Ur Negative Negative [facility] Leukocyte Negative Negative mg/dL [facility] Blood, Ur 3+ (A) Negative mg/dL [facility] RBC >182 (H) 0 - 4 /HPF [facility] WBC 2 0 - 5 /HPF [facility] Mucous Present (A) None seen /HPF [facility] Hyaline Cast 1 0 - 2 /LPF [facility] Urobilinogen, <1.0 <1.0 EU/dL [facility] Ur [facility] Specimen Urine Performing Organization Address City/State/Zipcode Ph one Number [facility] [address] [place] [address] [phone] * CT CHEST W/O CONTRAST (09/19/2019 4:57 PM CDT) Specimen Impressions Performed At IMPRESSION: SMS 1. Large left lower lobe consolidatio n and bilateral scattered tree-in-bud opacities most likely repre sent multifocal pneumonia. 2. Reactive mediastinal lymphadenopat hy. 3. Suspected hepatomegaly and steatos is. Dictated By: Nova Barrientos MD, 09/19/2019 7:36 PM I have reviewed the study and agree wit h the findings in this report. Signed By: Stoney Mendez, 09/19/2019 9: 29 PM Narrative Performed At EXAM: CT Chest WITHOUT contrast SMS INDICATION: Acute resp illness, > 40 ye ars old ADDITIONAL HISTORY PER EPIC: ?44y.o.?ma le?with history of obesity, T2DM, HTN, GERD, previous cocaine use, depres edinson who presented to the [facility] with complaints of cough x 1 week of green s putum, CP, and dyspnea along with subjective fevers/chills. COMPARISON: Chest radiograph 09/19/2019 TECHNIQUE: Chest was scanned utilizing a multidete ctor helical scanner from the lung apex through the level of the adre nal glands without administration of IV contrast. Absence of intravenous contrast decreases sensitivity for detection of lymphadenopathy and va scular pathology. Coronal and sagittal reformations were obtained. Ro utine protocol was performed. IV CONTRAST: None COMPLICATIONS: None RADIATION DOSE: Total DLP: 477 mGy*cm Estimated effective dose: (DLP x 0.014 x size factor) mSv CTDIvol has been reviewed. It is below the limits set by the Radiation Protocol Committee (RPC). FINDINGS: LINES/ TUBES: Endotracheal tube with ti p above the michael. Enteric tube with tip in the stomach body. LUNGS AND AIRWAYS: Near complete left lower lobe consolidation with air bronchograms and scattered tree-in-bud opacities in each lung. Diffuse peribronchial wall thickening. PLEURA: No pleural effusions. No pneumo thorax. LYMPH NODES: A 1.1 cm right paratrachea l lymph node (series 2, image 28). A 1.1 cm gastroesophageal lymph no de (series 2, image 65). A 0.9 cm subcarinal lymph node (series 2, image 39). No axillary lymphadenopathy. There is suspected left hilar lymphaden opathy but hilar lymph nodes cannot be adequately assessed due to th e lack of IV contrast. THYROID/BASE OF NECK: Visualized portio ns are normal. HEART AND MEDIASTINUM: The heart is normal in size.. There is no pericardial effusion. UPPER ABDOMEN: The liver appears enlarg ed with decreased attenuation suggestive of steatosis. 6 mm anterior splenule. BONES: Mild degenerative changes of the thoracic spine. SOFT TISSUES: Unremarkable. Procedure Note Interface, Rad/Mammog In - 09/19/2019 9:35 PM CDT EXAM: CT Chest WITHOUT contrast INDICATION: Acute resp illness, > 40 years old ADDITIONAL HISTORY PER EPIC: ?44y.o.?male?with history of obesity, T2DM, HTN, GERD, previous cocaine use, depression who presented to the [facility] with complaints of cough x 1 week of green sputum, CP, and dyspnea along with subjective fevers/chills. COMPARISON: Chest radiograph 09/19/2019 TECHNIQUE: Chest was scanned utilizing a multidetector helical scanner from the lung apex through the level of the adrenal glands without administration of IV contrast. Absence of intravenous contrast decreases sensitivity for detection of lymphadenopathy and vascular pathology. Coronal and sagittal reformations were obtained. Routine protocol was performed. IV CONTRAST: None COMPLICATIONS: None RADIATION DOSE: Total DLP: 477 mGy*cm Estimated effective dose: (DLP x 0.014 x size factor) mSv CTDIvol has been reviewed. It is below the limits set by the Radiation Protocol Committee (RPC). FINDINGS: LINES/ TUBES: Endotracheal tube with tip above the michael. Enteric tube with tip in the stomach body. LUNGS AND AIRWAYS: Near complete left lower lobe consolidation with air bronchograms and scattered tree-in-bud opacities in each lung. Diffuse peribronchial wall thickening. PLEURA: No pleural effusions. No pneumothorax. LYMPH NODES: A 1.1 cm right paratracheal lymph node (series 2, image 28). A 1.1 cm gastroesophageal lymph nod e (series 2, image 65). A 0.9 cm subcarinal lymph node (series 2, image 39). No axillary lymphadenopathy. There is suspected left hilar lymphadenopathy but hilar lymph nodes cannot be adequately assessed due to the lack of IV contrast. THYROID/BASE OF NECK: Visualized portions are normal. HEART AND MEDIASTINUM: The heart is normal in size.. There is no pericardial effusion. UPPER ABDOMEN: The liver appears enlarged with decreased attenuation suggestive of steatosis. 6 mm anterior splenule. BONES: Mild degenerative changes of the thoracic spine. SOFT TISSUES: Unremarkable. IMPRESSION IMPRESSION: 1. Large left lower lobe consolidation and bilateral scattered tree-in-bud opacities most likely represent multifocal pneumonia. 2. Reactive mediastinal lymphadenopathy . 3. Suspected hepatomegaly and steatosis . Dictated By: Nova Barrientos MD, 09/19/2019 7:36 PM I have reviewed the study and agree with the findings in this report. Signed By: Stoney Mendez, 09/19/2019 9:29 PM Performing Organization Address [facility] one Number SMS * Blood Culture x2 - 2 non-specific sites (09/19/2019 1:26 PM CDT) Only the most recent of 2 results within the time period is included. Blood Culture No growth 5 days [facility] Specimen Blood - Peripheral Blood Performing Organization Address [facility] one Number [facility] [address] [place] [address] * Blood Gas, Venous (09/19/2019 1:10 PM CDT) Only the most recent of 2 results within the time period is included. Temperature 37.0 degree C [facility] pH, Venous 7.20 (L) 7.33 - 7.43 [facility] pCO2, Venous 85.3 (HH) 38 - 50 mm Hg [facility] pO2, Venous 168 (H) 50 - 75 mm Hg [facility] Base Excess, 4.5 (H) -2.5 - 2.5 mmol/L [facility] Venous LAB[facility] HCO3, Venous 32.1 (H) 22 - 26 mmol/L [facility] % Sat, Venous 98.7 (H) 60 - 85 % [facility] Specimen Blood, venous Performing Organization Address [facility] one Number [facility] [address] [place] [address] * 12 LEAD EKG (09/19/2019 10:33 AM CDT) [address] [facility] Test Date: 2019-09-19 Pat Name: NANCY GOFF Department: 5520 Room: Gender: M Manager Sterile: [id number] : 1975 Requested By: NURY RICO Order Number: [id number] Reading MD: Maura MIDDLETON M.D. Measurements Intervals [place] Rate: 121 P: 69 [place]: 149 QRS: -3 QRSD: 92 T: 62 QT: 286 QTc: 406 Interpretive Statements SINUS TACHYCARDIA ABNORMAL RHYTHM ECG Electronically Signed On 09-19-2019 11:15:27 CDT by Maura MIDDLETON M.D. Specimen Performing Organization Address [facility] one Number [facility] * POCT TROPONIN I POC docked device (09/19/2019 10:26 AM CDT) Troponin POC 0.00 0.00 - 0.08 ng/mL [facility] Specimen Blood, venous Performing Organization Address [facility] one Number [facility] [address] [place] [address] * Intubation (09/19/2019 10:23 AM CDT) Narrative Performed At Nury Rico MD 09/19/2019 4:5 4 PM Intubation Date/Time: 09/19/2019 1:55 PM Performed by: Nury Rico MD Authorized by: Nury Rico MD Consent: Consent obtained: Verbal Consent given by: Patient Risks discussed: Hypoxia and Pre-procedure details: Patient status: Awake Mallampati score: IV Pretreatment meds: etomidate. Paralytics: Succinylcholine Procedure details: Preoxygenation: BiPAP CPR in progress: no Intubation method: Oral Oral intubation technique: Video-as sisted Laryngoscope blade: Mac 4 Tube size (mm): 7.5 Tube type: Cuffed Number of attempts: 1 Ventilation between attempts: no Cricoid pressure: yes Tube visualized through cords: yes Placement assessment: ETT to lip: 23 Tube secured with: ETT romo Breath sounds: Equal and absent ove r the epigastrium Placement verification: chest rise, e qual breath sounds and ETCO2 detector Post-procedure details: Patient tolerance of procedure: Jose erated well, no immediate complications Additional documentation:: No specimens removed Estimated blood loss (ml): 0 No prosthetic devices, grafts, tissue s, transplants or devices implanted * POCT CREATININE POC docked device (09/19/2019 10:23 AM CDT) [facility] Creatinine POC 0.7Comment: Physician Notified 0.6 - 1.3 mg/dL [facility] GFR, Estimated >90 >=90 mL/min/1.73 m2 [facility] Specimen Blood, venous Performing Organization Address [facility] one Number [facility] [address] [place] [address] [phone] * POCT BMP POC docked device (09/19/2019 10:22 AM CDT) [facility] Sodium POC 132 (L) 136 - 145 mmol/L [facility] Potassium POC 5.5 (H) 3.5 - 5.1 mmol/L [facility] Chloride POC 92 (L) 98 - 107 mmol/L [facility] TCO2 POC 38 (H)Comment: Physician 21 - 32 mmol/L [facility]EV[facility] T AUB Notified LABORATORY Urea Nitrogen 16 7 - 18 mg/dL [facility] POC [facility] Glucose POC 470 (HH) 74 - 106 mg/dL [facility] Hemoglobin POC 15.6 12 - 16 g/dL [facility] Hematocrit POC 46.0 37.0 - 47.0 % [facility] Specimen Blood, venous Performing Organization Address [facility] one Number [facility] [address] [place] [address] [phone] * Influenza A/B and RSV PCR (09/19/2019 10:12 AM CDT) [facility] Influenza A Not detected Not detected [facility] Influenza B Not detected Not detected [facility] RSV Not detected Not detected [facility] Specimen Nasal/Nasopharyngeal Swab - Nasopharynx Narrative Performed At This test utilizes FDA cleared Edwardo co bas Influenza A/B & RSV real-time RT-PCR [facility] assay for qualitative detection and dis crimination of Influenza A virus, Influenza B virus and Respiratory Syncy tial virus (RSV). Additional testing is required to differentiate any specific Influenza A subtypes or strains or specific RSV subgroups. Performing Organization Address [facility] one Number [facility] [address] [place] [address] * Group A Strep Screen (09/19/2019 10:12 AM CDT) Group A Strep NegativeComment: A negative Negative BE N [facility] Rapid Group A Strep Screen LABORATORY does not decisively eliminate the possibility of Group A Strep pharyngitis. It is recommended that a reflex culture test be ordered on all negative rapid screen results. Specimen Throat - Throat Performing Organization [facility] one Number [facility] [address] [place] [address] * Throat Culture (09/19/2019 10:12 AM CDT) Throat Culture Normal chrissy; no [facility] Beta-hemolytic Streptococcus LABORATORY isolated. Specimen Throat - Throat Performing Organization Address [facility] one Number [facility] [address] [place] [address] * Lactic Acid (09/19/2019 10:10 AM CDT) Lactic Acid 1.8 0.5 - 2.2 mmol/L [facility] Specimen Blood Performing Organization [facility] one Number [facility] [address] [place] [address] after 02/05/2019 Insurance Type Payer Benefit Subscriber ID Effective Phone Address Plan / Dates Group HC SELF-PAY SELF-PAY xxxxxxx 2019- [phone] [address] [place] [address] Advance Directives Date Inactivated Comments Code Status Date Activated 09/26/2019 10:19 PM Full Code 09/19/2019 3:45 PM
--- OUTSIDE RECORDS SUMMARY | 2020-02-10 19:04 | XMS REPORT | Clinical Summary ---
Author Author [facility] Organization [facility] Address Unknown Phone Unavailable Care Team Providers Care Bridge Teacher Name Role Phone Nova Wheeler PCP Allergies [...] Dx); Anxiety 01/26/2020 Telemedicine Psychology Chayito Stahl [facility] 01/11/2020 Telephonic Clinical Pharmacy Encounter [...] Pulmonology Nova Wheeler DO Cantieri, Tara Lynn, [facility] Type 2 diabetes mellitus with [...] Essential hypertension 11/30/2019 Office Visit [facility] Nova Wheeler DO Type 2 diabetes mellitus with hyperglyce alta, with long-term current use of insulin 11/30/2019 Orders Only [facility] Nova Wheeler DO Type 2 diabetes mellitus with hyperglyce alta, with long-term current use of insulin (Primary Dx); JUAN treated with BiPAP; Hospital discharge follow-up; Heart failure, unspecified HF chronicity, unspecified heart failure type; Reactive depression; Morbid obesity due to excess calories; Excessive daytime sleepiness 11/09/2019 Telephonic [facility] Practice Encounter Nova Wheeler DO Type 2 diabetes mellitus with hyperglyce alta, with long-term current use of insulin; Reactive depression 11/09/2019 Orders Only [facility] Star Singh, JACEK 10/05/2019 Clinical Case House Call Mgt Nova Wheeler DO Viral URI with cough; Acute respiratory failure with hypercapnia; Type 2 diabetes mellitus with hyperglycemia, with long-term current use of insulin; JUAN treated with BiPAP 10/03/2019 Office Visit [facility] Nury Rico MD Narendra, Dharani K, MD [...] Team Description Date Type Specialty Chayito Stahl, [facility] [address] [place] [address] [phone] CONSENTED BY ANIL ON 01/25/2020 02/16/2020 Telephonic Clinical Pharmacy Encounter Jacobo Mesa MD [address] [place] [address] 02/03/20 Pt requested video chat modalit ies and confirmed appt..[id number] 02/21/2020 Telemedicine Psychiatry Pretty Carter. [id number] [place] [address] [phone] video chat 02/28/2020 Telephonic Psychology Encounter Health [...] REGID&FLEX W/BRON 9:09 AM CDT [facility]AS[facility] STAT 09/20/2019 ECHOCARDIOGRAM 2-D W/O [...] [facility] Specimen Blood Performing Organization Address [facility] one Number [facility] [address] [place] [address] [phone] * Hemoglobin A1C (12/08/2019 10:29 AM CDT) Only the most recent of 2 results within the time period is included. Hemoglobin A1c 12.2 (H) 4.3 - 6.1 % [facility] Estimated 303 (H) 70 - 110 mg/dL [facility] Average Glucose LAB[facility]ORY Specimen Blood Performing Organization Address [facility] one Number [facility] [address] [place] [address] [phone] * Electrolytes (12/08/2019 10:29 AM CDT) Sodium 133 (L) 136 - 145 mmol/L [facility] Potassium 4.7 3.5 - 5.1 mmol/L [facility] Chloride 93 (L) 98 - 107 mmol/L [facility] CO2 29 21 - 31 mmol/L [facility] Anion Gap 11 5 - 16 mmol/L [facility] Specimen Blood Performing Organization Address [facility] one Number [facility] [address] [place] [address] * XRAY CHEST 2 VIEWS (11/30/2019 10:37 AM CDT) Specimen Impressions Performed At IMPRESSION: [facility] No acute thoracic abnormality. Dictated By: Tevin Barron MD, 0 10:45 AM I have reviewed the study and agree wit h the findings in this report. Signed By: Domi Esteban MD, 11/30/2019 2:01 PM Narrative Performed At EXAMINATION: XRAY CHEST 2 VIEWS [facility] INDICATION: chronic cough COMPARISON: Chest x-ray 09/21/2019 [...] MD, 11/30/2019 2:01 PM Performing Organization Address [facility] one Number [facility] * POCT GLUCOSE POC docked device (09/26/2019 5:48 PM CDT) Only the most recent of 33 results within the time period is included. Glucose POC 215 (H) 74 - 106 mg/dL [facility] Specimen Blood Performing Organization Address [facility] one Number [facility] [address] [place] [address] * POCT ABG POC docked device (09/26/2019 [...] LABORATORY Specimen Blood, arterial Performing Organization Address [facility] one Number [facility] [address] [place] [address] * CBC/Diff (09/26/2019 3:52 AM CDT) Only [...] LABORATORY Platelet 253 150 - 400 K/uL [facility] Mean Platelet 11.2 9.4 - [...] 0.63 0.30 - 0.82 K/uL [facility] [place] Eos (Absolute) 0.18 0.04 - 0.54 K/uL [facility] Baso (Absolute) 0.03 0.01 - 0.08 K/uL [facility] Immature Grans 0.07 (H) 0.00 - 0.03 K/uL [facility] (Abs) [facility] Absolute NRBC 0.00 K/uL [facility] Specimen Blood Performing Organization Address [facility] one Number [facility] [address] [place] [address] * Phosphorus (09/26/2019 3:52 AM CDT) Only the most recent of 5 results within the time period is included. Phosphorus 4.2 2.5 - 5.0 mg/dL [facility] Specimen Blood Performing Organization Address [facility] one Number [facility] [address] [place] [address] * Magnesium (09/26/2019 3:52 AM CDT) Only the most recent of 5 results within the time period is included. Magnesium 2.0 1.9 - 2.7 mg/dL [facility] Specimen Blood Performing Organization Address [facility] one Number [facility] [address] [place] [address] * Lipid Profile (09/26/2019 3:52 AM CDT) [...] Fasting? LABORATORY Specimen Blood Performing Organization Address [facility] one Number [facility] [address] [place] [address] * Basic Metabolic Panel (09/26/2019 3:52 AM [...] [facility] Specimen Blood Performing Organization Address [facility] one Number [facility] [address] [place] [address] * Coronavirus, CoVID-19 ([facility]) (09/24/2019 3:55 PM CDT) [facility] CoVID-19 Not Detected Not Detected [facility] (SARS-CoV-2) Comment: Testing was performed using the joanna(R) SARS-CoV-2 test. This test was developed and its performance characteristics determined by [facility]. This test has not been FDA cleared [...] Nasopharynx Narrative Performed At Performed at: 01 [facility] [address] [place] [address] 8401 Taximeter Repairer: Colten Kauffman MD, Phone : [phone] Performing Organization Address [facility] one Number [facility] [address] [place] [address] * BNP [B-Type Natriuretic Peptide] (09/22/2019 10:52 AM CDT) [facility] B Natriuretic 48 <=100 pg/mL [facility] Peptide (BNP) LAB[facility] Specimen Blood Performing Organization Address [facility] one Number [facility] [address] [place] [address] [phone] * LDH [Lactate Dehydrogenase] (09/22/2019 10:52 AM CDT) [facility] LDH 166 140 - 271 U/L [facility] Specimen Blood Performing Organization Address [facility] one Number [facility] [address] [place] [address] * Vancomycin, Random (09/22/2019 2:16 AM CDT) Vancomycin, 15.7 10.0 - 20.0 ug/mL [facility] Random [facility] Specimen Blood Performing Organization Address [facility] one Number [facility] [address] [place] [address] [phone] * CBC (without differential) (09/22/2019 2:16 AM [...] [facility] Specimen Blood Performing Organization Address [facility] one Number [facility] [address] [place] [address] * XRAY CHEST 1 VIEW (09/21/2019 10:28 [...] (L) 0.30 - 0.82 K/uL [facility] [place] Eos (Absolute) 0.18 0.04 - 0.54 K/uL [facility] Baso (Absolute) 0.00 (L) 0.01 - 0.08 K/uL [facility] Platelet Clumps Present (A) None seen [facility] Agglutinated 2+ (A) None seen [facility] RBCs [facility] Cells Counted [facility] Specimen Blood Performing Organization Address [facility] one Number [facility] [address] [place], [place] [phone] * Comprehensive Metabolic Panel (09/21/2019 2:08 AM CDT) Pathologist [facility] Sodium 142 136 - 145 mmol/L [facility] [...] [facility] Specimen Blood Performing Organization Address [facility] one Number [facility] [address] [place] [address] * LOWER RESPIRATORY CULTURE AND GRAM STAIN Lavage (09/20/2019 10:52 PM CDT) Only the most recent of 2 results within the time period is included. Pathologist [facility] Lower No growth 3 days [facility] Respiratory [facility]ORY Culture Gram Stain 3+ WBCs [facility] Gram Stain 1+ Epithelial cells [facility] Gram Stain No organisms seen [facility] Specimen Lavage - Bronchoalveolar lavage Performing Organization Address [facility] one Number [facility] [address] [place] [address] * Vancomycin, Trough (09/20/2019 4:40 PM CDT) Pathologist [facility] Vancomycin, 19.4 10.0 - 20.0 ug/mL [facility] Trough [facility] Specimen Blood Performing Organization Address [facility] one Number [facility] [address] [place] [address] [phone] * DIFFERENTIAL, CELL COUNT (09/20/2019 1:10 PM CDT) Pathologist [facility] Neutrophil 75 % [facility] Lymphocyte 4 % [facility] Monocyte 2 % [facility] Eosinophil 1 % [facility] Macrophage 18 % [facility] Cells Counted 100 [facility] Specimen Body Fluid - Lung, left, lingula Performing Organization Address [facility] one Number [facility] [address] [place] [address] * Cell Count, Fluid (09/20/2019 1:10 PM CDT) Volume 3 mL [facility] Appearance Cloudy (A) Clear [facility] Calculated 24,500 None seen /uL [facility] RBC-Body Fluid [facility] WBC Body Fluid 2,750 /uL [facility] Clots? Specimen contains clot. [facility] Results may be affected. LABORATORY Specimen Body Fluid - Lung, left, lingula Performing Organization Address [facility] one Number [facility] [address] [place] [address] [phone] * Respiratory Virus Screen (09/20/2019 1:10 PM [...] the D3 Ul tra DFA Respiratory Virus [facility] Screening and ID Kit. Negative results do not preclude respiratory virus infection and should not be used as the sole basis for diagnosis. Performing Organization Address [facility] one Number [facility] [address] [place] [address] [phone] * Fungus Stain & Culture (09/20/2019 1:10 PM CDT) Fungus Culture No fungus isolated in 4 weeks [facility] Specimen BAL - Lung, left, lingula Performing Organization Address [facility] one Number [facility] [address] [place] [address] [phone] * Bronchoscopy (09/20/2019 9:09 AM CDT) TEXT Patient Name NANCY GOFF Date of 1975 Record Number [id number] Date/Time of Procedure 09/20/2019, 9:09:00 AM OR Case # Toggle Press Folder And Feeder Ar Madera MD./Fellow Jasper Muir ASA Classification: Procedure Performed: Bronchoscopy - W/ bronchial alveolar lavage Indications for Exam: Abnormal Chest CT Instruments: [id number] Estimated Blood Loss: None Blood Products Administered: [...] 1975 Exam Date: 09/20/2019 08:00 Exam Location: [facility] Echo Ordering Phys: KASH MAY Referring Phys: [id number] Reading Phys: Milvia Pickard MD Fellow Phys: Fellow Phys: Stamping Machine Operator: Dustin Miller Reason For Exam: Indications: shock, CHF, CHF ICD-9 Codes: I50.9 Exam Type: TRANSTHORACIC ECHO (TTE) Procedure CPT: 06462 Addtional CPT: C8929 Ht (in): BSA: HR: [...] 0.76 0.30 - 0.82 K/uL [facility] [place] Eos (Absolute) 0.25 0.04 - 0.54 K/uL [facility] Baso (Absolute) 0.00 (L) 0.01 - 0.08 K/uL [facility] Cells Counted [facility] Specimen Blood Performing Organization Address [facility] one Number [facility] [address] [place] [address] * PT/INR (09/20/2019 2:17 AM CDT) PT 13.8 11.8 - 15.0 Seconds [facility] INR 1.1 Refer to INR ranges [facility] Comment: LABORATORY 2.0 - 3.0 for moderate intensity anticoagulation 2.5 - 3.5 for high intensity anticoagulation Specimen Blood Performing Organization Address [facility] one Number [facility] [address] [place] [address] [phone] * Liver Profile (09/20/2019 2:17 AM CDT) [...] [facility] Specimen Blood Performing Organization Address [facility] one Number [facility] [address] [place] [address] [phone] * XRAY CHEST 1 VIEW - POST [...] MD, 09/20/2019 2:21 AM Performing Organization Address [facility] one Number SMS * Beta-Hydroxybutyrate (09/19/2019 5:54 PM CDT) Beta Hydroxy 0.10 0.02 - 0.27 mmol/L [facility] Butyrate LABORATORY Specimen Blood Performing Organization Address [facility] one Number [facility] [address] [place] [address] * POCT VBG POC docked device (09/19/2019 [...] LABORATORY Specimen Blood, venous Performing Organization Address [facility] one Number [facility] [address] [place] [address] [phone] * Legionella Ag, UR (09/19/2019 5:49 PM CDT) Legionella Ag, Negative Negative [facility] Ur [facility] Specimen Urine - Voided, urine Performing Organization Address [facility] one Number [facility] [address] [place] [address] [phone] * Urine Drug Screen (09/19/2019 5:45 PM CDT) Pathologist [facility] Opiate, Ur Negative Negative [facility] Comment: [...] Urine - Voided, urine Performing Organization Address [facility] one Number [facility] [address] [place] [address] [phone] * Strep Pneumo Ag, Ur (09/19/2019 5:39 PM CDT) [facility] S. pneumo Ur Negative Negative [facility] Antigen [facility] Specimen Urine - Voided, urine Performing Organization Address [facility] one Number [facility] [address] [place] [address] * Urinalysis (09/19/2019 5:38 PM CDT) [facility] Color Yellow Colorless, Straw, [facility] Yellow [facility] Clarity Hazy (A) Clear [facility] Spec [place], 1.025 1.001 - 1.035 [facility] Ur [facility] pH, Ur 5.0 5.0 - 8.0 [facility] Protein, Ur 2+ (A) Negative [...] [facility] Urobilinogen, <1.0 <1.0 EU/dL [facility] Ur [facility] Specimen Urine Performing Organization Address City/State/Zipcode Ph one Number [facility] [address] [place] [address] * CT CHEST W/O CONTRAST (09/19/2019 4:57 [...] Mendez, 09/19/2019 9:29 PM Performing Organization Address [facility] one Number SMS * Blood Culture x2 - 2 non-specific sites (09/19/2019 1:26 PM CDT) Only the most recent of 2 results within the time period is included. Blood Culture No growth 5 days [facility] Specimen Blood - Peripheral Blood Performing Organization Address [facility] one Number [facility] [address] [place] [address] * Blood Gas, Venous (09/19/2019 1:10 PM [...] LABORATORY Specimen Blood, venous Performing Organization Address [facility] one Number [facility] [address] [place] [address] * 12 LEAD EKG (09/19/2019 10:33 AM CDT) 12 LEAD EKG FOR [facility] Test Date: 2019-09-19 Pat Name: NANCY GOFF Department: 5520 Room: Gender: M Household Personal Assistant: [id number] : 1975 Requested By: NURY RICO Order Number: [id number] Reading MD: Maura MIDDLETON M.D. Measurements Intervals [place] Rate: 121 P: 69 GA: 149 QRS: -3 QRSD: 92 T: 62 QT: 286 QTc: 406 Interpretive Statements SINUS TACHYCARDIA ABNORMAL RHYTHM ECG Electronically Signed On 09-19-2019 11:15:27 CDT by Maura MIDDLETON M.D. Specimen Performing Organization Address [facility] one Number [facility] * POCT TROPONIN I POC docked device (09/19/2019 10:26 AM CDT) Troponin POC 0.00 0.00 - 0.08 ng/mL [facility] Specimen Blood, venous Performing Organization Address [facility] one Number [facility] [address] [place] [address] * Intubation (09/19/2019 10:23 AM CDT) Narrative [...] POC docked device (09/19/2019 10:23 AM CDT) [facility] Creatinine POC 0.7Comment: Physician Notified 0.6 - 1.3 mg/dL [facility] GFR, Estimated >90 >=90 mL/min/1.73 m2 [facility] Specimen Blood, venous Performing Organization Address [facility] one Number [facility] [address] [place] [address] * POCT BMP POC docked device (09/19/2019 10:22 AM CDT) [facility] Sodium POC 132 (L) 136 - 145 [...] LABORATORY Specimen Blood, venous Performing Organization Address [facility] one Number [facility] [address] [place] [address] [phone] * Influenza A/B and RSV PCR (09/19/2019 10:12 AM CDT) [facility] Influenza A Not detected Not detected [facility] [...] or specific RSV subgroups. Performing Organization Address [facility] one Number [facility] [address] [place] [address] * Group A Strep Screen (09/19/2019 10:12 AM CDT) Group A Strep NegativeComment: A negative Negative BE N [facility] Rapid Group A Strep Screen LABORATORY does not decisively eliminate the possibility of Group A Strep pharyngitis. It is recommended that a reflex culture test be ordered on all negative rapid screen results. Specimen Throat - Throat Performing Organization [facility] one Number [facility] [address] [place] [address] [phone] * Throat Culture (09/19/2019 10:12 AM CDT) Throat Culture Normal chrissy; no [facility] Beta-hemolytic Streptococcus LABORATORY isolated. Specimen Throat - Throat Performing Organization Address [facility] one Number [facility] [address] [place] [address] * Lactic Acid (09/19/2019 10:10 AM CDT) Lactic Acid 1.8 0.5 - 2.2 mmol/L [facility] Specimen Blood Performing Organization [facility] one Number [facility] [address] [place] [address] after 02/05/2019 Insurance Type Payer Benefit Subscriber ID Effective Phone Address Plan / Dates Group HC SELF-PAY SELF-PAY xxxxxxx 2019- [phone] [address] [place] [address] Advance Directives Date Inactivated Comments Code Status Date Activated 09/26/2019 10:19 PM Full Code 09/19/2019 3:45 PM
--- OUTSIDE RECORDS SUMMARY | 2020-02-10 19:05 | XMS REPORT | Continuity of Care Document ---
Author Author [facility] t Organization [facility] t Address [address] [place] [address] Phone Unavailable Care Team Providers Care Iridologist Name Role Phone Nova Wheeler DO PCP DAJHONNY, S JIRIES Attphys Unavailable Zachary Carter Attphys Liam Nova Attphys Dmitry QUIGLEY, Macrina Attphys Unavailable [facility], Iesha Stratton Attphys Anastasiya PEREZ, Zachary Saini Attphys Virgil PEREZ, N Andrea Attphys Moshe PEREZ, Rea Jacobo Attphys Francisco RN, Michelle Graves Attphys Unavailable Alcon PEREZ, Heidi Attphys Giuseppe PEREZ, Raquel Frazier Attphys Dez PEREZ, Yariel Barroso Attphys Tiffani PEREZ, Shelley Attphys ELYariel Admphys Unavailable Payers Payer Name Policy Type Policy Number Effective Date Expiration Date Yariel barraza [facility] [id number] [id number] [id number] [place] [address] xxxxxxx 2019 00:00:00 2029 2 3:59:59 [facility] Problems Condition Name Condition Details Condition Category Status Onset Date Resolution Date Last Treatment Date Treating Clinician Comments Source Pneumonia of both lungs due to infectious organism Pne umonia of both lungs due to infectious organism Disease Active [facility] Respiratory acidosis Respiratory acidosis Disease Active [facility] Type 2 diabetes mellitus with hyperglyce alta, with long-term current use of insulin Type 2 diabetes mellitus with hyperglyce alta, with long-term current use of insulin Disease Active [facility] Viral URI with cough Viral URI with cough Disease Active [facility] Morbid obesity due to excess calories Morbid obesity due to excess calories Disease Active [facility] JUAN treated with BiPAP JUAN treated with BiPAP Disease Active [facility] History of Past Illness Condition Name Condition Details Condition Category Status Onset Date Resolution Date Last Treatment Date Treating Clinician Comments Source Encounter for orogastric (OG) tube placement Encounter for orogastric (OG) tube placement Disease Resolved 2019-09-20 00:00:00 2019-09-26 00:00:00 2 17:35:20 [facility] Respiratory failure with hypoxia and hypercapnia Respi ratory failure with hypoxia and hypercapnia Disease Resolved 2019-09-19 00:00:00 2019 00:00:00 2019-09-26 17:35:25 [facility] mechanically assisted ventilation On mechanically assiste d ventilation Disease Resolved 2019-09-26 00:00:00 2019-09-26 17:35:22 [facility] Acute respiratory failure with hypercapnia Acute respi ratory failure with hypercapnia Disease Resolved 2019-09-26 00:00:00 2019-09-26 17:35:25 [facility] Allergies, Adverse Reactions, Alerts Allergy Name Allergy Type Status Severity Reaction(s) Onset Date Inacti ve Date Treating Clinician Comments Source No Known Allergies DA Active U 2019-04-04 00:00:00 [facility] No Known Allergies DA Active U 2018-12-18 00:00:00 [facility] No Known Allergies DA Active U 2017-07-01 00:00:00 [facility] No Known Allergies DA Active U 2015-03-05 00:00:00 [facility] Family History Family Member Diagnosis Comments Start Date Stop Date Source Natural brother Diabetes [facility] Natural brother Hypertension [facility] Social History Social Habit Start Date Stop Date Quantity Comments Source Sex Assigned At [facility] Exposure to SARS-CoV-2 (event) Not sure [facility] Alcohol intake 2019-12-29 00:00:00 2019-12-29 00:00:00 Ex-drinker (fi nding) [facility] History SDOH Food Worry 2019-10-03 00:00:00 2019-10-03 00:00:[address] [facility] Food Scarcity 2019-10-03 00:00:00 2019-10-03 00:00:00 3 [facility] History of tobacco use 2019-09-04 00:00:00 Current smoker [facility] Tobacco Comment 2017-09-08 00:00:00 2017-09-08 00:00:00 10 cig a week . [facility] Alcohol Comment 2017-09-08 00:00:00 2017-09-08 00:00:00 social [facility] Smoking Status Start Date Stop Date Source Former smoker 2019-12-29 00:00:00 2019-12-29 00:00:00 [facility]alt Medications Ordered Medication Name Filled Medication Name Start Date Stop Da te Current Medication? Ordering Clinician Indication Dosage Frequency Signature (SIG) Comments Components Source furosemide (LASIX) 20 mg tablet 2019-12-29 00:00:00 Yes Heart failure, unspecified HF chronicity, unspecified heart failure type 20mg QD Take 1 tablet by mouth daily. [facility] ibuprofen (MOTRIN) 800 mg tablet 2019-12-29 00:00:00 Yes Arthralgia, unspecified joint 800mg Take 1 tablet by marcelina th every 8 hours as needed for Pain. [facility] metFORMIN (GLUCOPHAGE XR) 500 mg ER extended release tablet 2019-12-29 00:00:00 Yes Type 2 diabetes mellitus with hyperglycemia, with long-term current use of insulin 500mg Q.5D Take 1 tablet by mouth 2 times jefferson hernández [facility] insulin REGULAR 100 unit/mL injection 2019-12-28 00:00:00 Yes Type 2 diabetes mellitus with hyperglycemia, with long-term current use of insulin 10U [id number] Inject 10 Units under the skin 3 times d aily (before meals). [facility] metFORMIN (GLUCOPHAGE XR) 500 mg ER extended release tablet 2019-12-28 00:00:00 2019-12-29 00:00:00 No Type 2 diabe denise mellitus with hyperglycemia, with long-term current use of insulin 500mg Q.5D Ta ke 1 tablet by mouth 2 times daily. [facility] furosemide (LASIX) 20 mg tablet 2019-12-28 00:00:00 00:00:00 No Heart failure, unspecified HF chronicity, unspecified heart failure type 20mg QD Take 1 tablet by mouth daily. [facility] tropicamide (MYDRIACYL) 0.5 % ophthalmic solution 2019-12-28 00:00:00 2019-12-28 23:59:00 No Type 2 diabetes angie itus with hyperglycemia, with long- term current use of insulin 1[drp] Instill 1 Dr op in each eye once as needed for up to 1 dose (for poor retina scan image). [facility] sertraline (ZOLOFT) 50 mg tablet 2019-12-20 00:00:00 Yes Anxiety 50mg QD Take 1 tablet by mouth daily Half pill daily for one week and then one pill daily. [facility] Nebulizer & Compressor For Neb Sandra 2019-12-08 00:00:00 Yes Bronchospasm 1{device} 1 Device [place] [facility] [place] [facility]Non-D[place]; Combo Route) route 4 times daily. [facility] ipratropium-albuteroL 0.5 mg-3 mg(2.5 mg base)/3 mL Nebu 2019-12-08 00:00:00 Yes Bronchospasm 3mL Inhale 3 mL by mouth every 4 hours as needed for Shortness of Breath or Wheezing (AND JUAN). [facility] gabapentin (NEURONTIN) 100 mg capsule 2019-12-08 00:00:00 Yes Neuropathy 100mg Take 1 capsule by mouth 3 times daily. [facility] ibuprofen (MOTRIN) 800 mg tablet 2019-12-08 00:00:00 2019-12 00:00:00 No Arthralgia, unspecified joint 800mg Take 1 tab let by mouth every 8 hours as needed for Pain. [facility] insulin detemir U-100 (LEVEMIR FLEXTOUCH) 100 unit/mL (3 mL) Pen 2019-12-07 00:00:00 Yes Type 2 diabetes mellitus with hyperglycemia, with long-term current use of insulin 15U Q.5D Inject 15 Units under the skin 2 times daily. [facility] metFORMIN (GLUCOPHAGE XR) 500 mg ER extended release tablet 2019-12-07 00:00:00 2019-12-28 00:00:00 No Type 2 diabe denise mellitus with hyperglycemia, with long-term current use of insulin 500mg QD Ta ke 1 tablet by mouth daily (with breakfast). [facility] insulin REGULAR 100 unit/mL injection 2019-12-07 00:00 :00 2019-12-28 00:00:00 No Type 2 diabetes mellitus wit h hyperglycemia, with long-term current use of insulin 5U [id number] Inject 5 Units un dary the skin 3 times daily (before meals). [facility] losartan (COZAAR) 50 mg tablet 2019-11-30 00:00:00 Yes Heart failure, unspecified HF chronicity, unspecified heart failure type 50mg QD Take 1 tablet by mouth daily. [facility] albuterol 90 mcg/actuation inhaler 2019-11-30 00:00:00 Y es Cough 2{puff} Inhale 2 Puffs by mouth 4 times daily as needed for Shortness of Breath. [facility] insulin detemir U-100 (LEVEMIR FLEXTOUCH) 100 unit/mL (3 mL) Pen 2019-11-30 00:00:00 2019-12-07 00:00:00 No Type 2 diabe denise mellitus with hyperglycemia, with long-term current use of insulin 13U Q.5D In ject 13 Units under the skin 2 times daily. [facility] benzonatate (TESSALON PERLES) 100 mg capsule 202 00:00:00 2019-12-07 23:59:00 No Cough 100mg Take 1 capsule by mouth 3 times daily as needed for up to 7 days for Cough. [facility] pen needle, diabetic 31 gauge x 3/16" needles 2019-11-09 00: 00:00 Yes Type 2 diabetes mellitus with hyperglycemia, with long-term current use of insulin Inject under the skin 4 times daily. [facility] INSULIN SYRINGE 0.5 mL 30GX5/16" (MONOJE CT ULTRACOMFORT INSULIN SYR 0.5ML 30GX5/16") syringe-needle 2019-11-09 00:00:00 Yes Type 2 diabetes mellitus with hyperglycemia, with long-term current use of insulin Use to inject medication 4 times daily. Use a new syringe each time. [facility] insulin REGULAR 100 unit/mL injection 2019-11-09 00:00 :00 2019-12-07 00:00:00 No Type 2 diabetes mellitus wit h hyperglycemia, with long-term current use of insulin 3U [id number] Inject 3 Units un dary the skin 3 times daily (before meals). [facility] insulin detemir U-100 (LEVEMIR FLEXTOUCH) 100 unit/mL (3 mL) Pen 2019-11-09 00:00:00 2019-11-30 00:00:00 No Type 2 diabe denise mellitus with hyperglycemia, with long-term current use of insulin 10U Q.5D In ject 10 Units under the skin 2 times daily. [facility] losartan (COZAAR) 25 mg tablet 2019-11-09 00:00:00 2019-11-12 0 00:00:00 No Heart failure, unspecified HF chronicity, unspecified heart failure type 25mg QD Take 1 tablet by mouth daily. [facility] aspirin (ASPIRIN) 81 mg chewable tablet 2019-09-27 00:00:00 Yes Type 2 diabetes mellitus with hyperglycemia, with long-term current use of insulin 81mg QD Chew and swallow 1 tablet by mouth daily. [facility] atorvastatin (LIPITOR) 20 mg tablet 2019-09-26 00:00:00 Yes Type 2 diabetes mellitus with hyperglycemia, with long-term current use of insulin 20mg Take 1 tablet by mouth at bedtime nightly. [facility] blood glucose test strips 2019-09-26 00:00:00 Yes Type 2 diabetes mellitus with hyperglycemia, with long-term current use of insulin Use 2 times weekly (once per day on Thu,) to test blood sugar. [facility] lancets 28 gauge 2019-09-26 00:00:00 Yes Type 2 diabetes mellitus with hyperglycemia, with long-term current use of insulin by MISCELLANEOUS route 2 times weekly Use 2 times weekly as directed. [facility] insulin detemir U-100 (LEVEMIR FLEXTOUCH) 100 unit/mL (3 mL) Pen 2019-09-26 00:00:00 2019-11-09 00:00:00 No Type 2 diabe denise mellitus with hyperglycemia, with long-term current use of insulin 10U Q.5D In ject 10 Units under the skin 2 times daily. [facility] pen needle, diabetic 31 gauge x 3/16" needles 20 30-09-15 00:00:00 2019-11-09 00:00:00 No Type 2 diabetes angie itus with hyperglycemia, with long-term current use of insulin Inject under the skin 4 times daily . [facility] insulin REGULAR 100 unit/mL injection 2019-09-26 00:00 :00 2019-11-09 00:00:00 No Type 2 diabetes mellitus wit h hyperglycemia, with long-term current use of insulin 3U [id number] Inject 3 Units un dary the skin 3 times daily (before meals). [facility] INSULIN SYRINGE 0.5 mL 30GX5/16" (MONOJE CT ULTRACOMFORT INSULIN SYR 0.5ML 30GX5/16") syringe-needle 2019-09-26 00:00:00 2019-11-09 00:00:00 No Type 2 diabetes mellitus with hyperglycemia, with long-term current use of insulin Use to inject medication 4 times daily. Use a new syringe each time. [facility] dexlansoprazole (DEXILANT) 30 mg delayed release capsule 2017-09-08 00:00:00 Yes Gastroesophageal reflux disease without esophag itis 30mg QD Take 1 capsule by mouth daily. [facility] hydroCHLOROthiazide (HYDRODIURIL) 25 mg tablet 2017-09-08 00 :00:00 Yes Essential hypertension, benign 25mg QD Take 1 tablet by mouth jefferson hernández [facility] sertraline (ZOLOFT) 100 mg tablet 2017-09-08 00:00:00 2019 00:00:00 No Reactive depression 100mg QD Take 1 tablet by mouth daily. [facility] Immunizations Ordered Immunization Name Filled Immunization Name Date Status Comments Source Tdap (Tetanus Toxoid, Reduced Diphtheria Toxoid And Acellular Pertussis, Absorbed) 2017-09-08 00:00:00 Completed [facility] ealt Vital Signs Vital Name Observation Time Observation Value Comments Source Systolic blood pressure 2019-12-08 09:19:00 152 mm[Hg] [facility] Diastolic blood pressure 2019-12-08 09:19:00 82 mm[Hg] [facility] Heart rate 2019-12-08 09:19:00 110 /min [facility] Body temperature 2019-12-08 09:19:00 36.83 Elsy [facility] Respiratory rate 2019-12-08 09:19:00 18 /min Candida is [facility] Body height 2019-12-08 09:19:00 154.9 cm [facility] Body weight 2019-12-08 09:19:00 105.235 kg [facility] BMI 2019-12-08 09:19:00 43.84 kg/m2 [facility] Oxygen saturation in Arterial blood by Pulse oximetry 12-07 09:19:00 91 /min [facility] Procedures Procedure Date / Time Performed Performing Clinician Sourc e CREATININE 2019-12-08 10:29:00 Chayito Stahl [facility] ELECTROLYTES 2019-12-08 10:29:00 Chayito Stahl [facility] HEMOGLOBIN A1C 2019-12-08 10:29:00 Chayito Stahl [facility] XRAY CHEST 2 VIEWS 2019-11-30 10:37:22 Nova Wheeler alth NONINVASV OXYGEN SATUR;SINGLE 2019-11-30 09:55:51 Nova Wheeler [facility] GLUCOSE POC 2019-09-26 17:48:00 Shelley Nixon [facility] ABG POC 2019-09-26 14:59:00 Shelley Nixon [facility] GLUCOSE POC 2019-09-26 13:35:00 Shelley Nixon [facility] GLUCOSE POC 2019-09-26 12:06:00 Shelley Nixon [facility] GLUCOSE POC 2019-09-26 09:01:00 Shelley Nixon [facility] BASIC METABOLIC PANEL 2019-09-26 03:52:00 Franklin Lobo [facility] CBC/DIFF 2019-09-26 03:52:00 Franklin Lobo [facility] MAGNESIUM 2019-09-26 03:52:00 Alejandro Lemos [facility] PHOSPHORUS 2019-09-26 03:52:00 Alejandro Lemos [facility] CBC 2019-09-26 03:52:00 Franklin Lobo [facility] LIPID PROFILE 2019-09-26 03:52:00 Elie David [facility] GLUCOSE POC 2019-09-25 20:41:00 Dez Dharmesh Saldivar [facility] GLUCOSE POC 2019-09-25 16:48:00 Dez Dharmesh Saldivar [facility] SEQUENTIAL COMPRESSION PUMP 2019-09-25 13:06:26 Dez Dharmesh Saldivar [facility] INFUSION PUMP 2019-09-25 13:03:04 Dez Dharmesh Saldivar [facility] GLUCOSE POC 2019-09-25 12:20:00 Dez Dharmesh Saldivar [facility] GLUCOSE POC 2019-09-25 08:09:00 Kash Chin [facility] BASIC METABOLIC PANEL 2019-09-25 02:05:00 Franklin Lobo [facility] CBC/DIFF 2019-09-25 02:05:00 Franklin Lobo [facility] CBC 2019-09-25 02:05:00 Franklin Lobo [facility] MAGNESIUM 2019-09-25 02:05:00 Alejandro Lemos [facility] PHOSPHORUS 2019-09-25 02:05:00 IluoreAlejandro [facility] GLUCOSE POC 2019-09-24 21:36:00 Kash Chin [facility] GLUCOSE POC 2019-09-24 17:02:00 Kash Chin [facility] CORONAVIRUS, COVID-19, SHAKILA 2019-09-24 15:55:00 Sheela Prieto [facility] COMMODE AT BEDSIDE 2019-09-24 14:45:04 Fiorella Prieto [facility] GLUCOSE POC 2019-09-24 12:00:00 Kash Chin [facility] GLUCOSE POC 2019-09-24 07:30:00 Kash Chin [facility] BASIC METABOLIC PANEL 2019-09-24 02:26:00 [facility] CBC/DIFF 2019-09-24 02:26:00 Franklin Lobo [facility] CBC 2019-09-24 02:26:00 Franklin Lobo [facility] MAGNESIUM 2019-09-24 02:26:00 Kurt Ashley Mcadams [facility] lth PHOSPHORUS 2019-09-24 02:26:00 Ashley Hicks [facility] GLUCOSE POC 2019-09-23 21:07:00 Kash Chin [facility] ealt GLUCOSE POC 2019-09-23 17:35:00 Kash [facility] GLUCOSE POC 2019-09-23 11:12:00 Kash [facility] GLUCOSE POC 2019-09-23 07:44:00 Kash Chin [facility]alt ABG POC 2019-09-23 06:55:00 Kash Chin [facility] CBC/DIFF 2019-09-23 06:53:00 Franklin Lobo [facility] CBC 2019-09-23 06:53:00 Franklin Lobo [facility] BASIC METABOLIC PANEL 2019-09-23 02:26:00 Franklin Lobo [facility] GLUCOSE POC 2019-09-22 20:58:00 Kash Chin [facility] GLUCOSE POC 2019-09-22 17:34:00 Kash Chin [facility]alt GLUCOSE POC 2019-09-22 12:13:00 Kash Chin [facility]alt ABG POC 2019-09-22 11:08:00 Kash Chin [facility] BASIC METABOLIC PANEL 2019-09-22 10:52:00 [facility] LACTATE DEHYDROGENASE (LDH) 2019-09-22 10:52:00 Melina Hanley [facility] B-TYPE NATRIURETIC PEPTIDE (BNP) 2019-09-22 10:52:00 Raquel Hanley [facility] GLUCOSE POC 2019-09-22 06:21:00 Kash Chin [facility]alt ABG POC 2019-09-22 02:22:00 Kash Chin [facility]alt VANCOMYCIN, RANDOM 2019-09-22 02:16:00 Shelley Nixon [facility] CBC (WITHOUT DIFFERENTIAL) 2019-09-22 02:16:00 Ashley Hicks [facility] GLUCOSE POC 2019-09-21 23:55:00 Kash Chin ealt GLUCOSE POC 2019-09-21 15:20:00 Kash Chin ealt XRAY CHEST 1 VIEW 2019-09-21 10:28:41 Tiago Mendez He alth ABG POC 2019-09-21 09:33:00 Kash Chin ealth GLUCOSE POC 2019-09-21 09:03:00 Kash Chin ealth GLUCOSE POC 2019-09-21 06:13:00 Kash Chin [facility] ABG POC 2019-09-21 02:09:00 Kash Chin ealth CBC/DIFF 2019-09-21 02:08:00 Tiago Mendez [facility] COMPREHENSIVE METABOLIC PANEL 2019-09-21 02:08:00 Tiago Mendez [facility] CBC 2019-09-21 02:08:00 Tiago Mendez [facility] DIFFERENTIAL, MANUAL-WAM 2019-09-21 02:08:00 Tiago Mendez [facility] Health GLUCOSE POC 2019-09-21 00:06:00 Kash Chin [facility] LOWER RESPIRATORY CULTURE AND GRAM STAIN 2019-09-20 22:52:00 Tiago Rosen [facility] GLUCOSE POC 2019-09-20 17:40:00 Kash Chin ealt ENTERAL FEEDING PUMP 2019-09-20 16:40:39 Kash Chin [facility] VANCOMYCIN, TROUGH 2019-09-20 16:40:00 Dominick Walter [facility] CELL COUNT, FLUID 2019-09-20 13:10:00 Jasper Muir [facility] CELL COUNT, BODY FLUID 2019-09-20 13:10:00 Jasper Muir [facility] Health DIFFERENTIAL, CELL COUNT 2019-09-20 13:10:00 Jasper Muir [facility] RESPIRATORY VIRUS SCREEN 2019-09-20 13:10:00 [facility]URE 2019-09-20 13:10:00 Jasper Muir [facility] GLUCOSE POC 2019-09-20 11:36:00 aKsh Chin [facility] E[facility] PULMONARY PROC BRONCHO REGID&FLEX W/BRON ALVEO LAVAGE 2019-09-20 09:09:00 [facility] ECHOCARDIOGRAM 2-D W/O CONTRAST (PROSOLVE) 2019-09-20 08:00:00 Guerda [facility] GLUCOSE POC 2019-09-20 05:14:00 Kash Chin ealt XRAY CHEST 1 VIEW 2019-09-20 03:06:00 Terrance Croft [facility] ABG POC 2019-09-20 02:18:00 Kash Chin [facility] CBC/DIFF 2019-09-20 02:17[facility]OL[facility] PANEL 2019-09-20 02:17:00 Guerda [facility] Health MAGNESIUM 2019-09-20 02:17:00 Terrance Croft [facility] h PT/INR 2019-09-20 02:17:00 Guerda [facility] h LIVER PROFILE 2019-09-20 02:17:00 Guerda [facility] CBC 2019-09-20 02:17:00 Guerda [facility] h PHOSPHORUS 2019-09-20 02:17:00 Ashley Hicks [facility] DIFFERENTIAL, MANUAL (NO MORPHOLOGY)-WAM 2019-09-20 02:17:00 Trina squires [facility] GLUCOSE POC 2019-09-20 01:44:00 Kash Chin ealth ABG POC 2019-09-20 00:09:00 Kash Chin [facility] ealt GLUCOSE POC 2019-09-20 00:06:00 Kash Chin ealth SEQUENTIAL COMPRESSION PUMP 2019-09-19 23:50:14 Hugo Chin i [facility] GLUCOSE POC 2019-09-19 22:19:00 Kash Chin ealt LOWER RESPIRATORY CULTURE AND GRAM STAIN 2019-09-19 21:17:00 Trina squires [facility] INFUSION PUMP 2019-09-19 19:23:47 Kash Chin [facility] ealt XRAY CHEST 1 VIEW - POST LINE PLACEMENT 2019-09-19 19:10:00 Kash Hampton [facility] BETA-HYDROXYBUTYRATE 2019-09-19 17:54:00 Guerda [facility] VBG POC 2019-09-19 17:50:00 Kash Chin [facility] LEGIONELLA ANTIGEN, URINE 2019-09-19 17:49:00 Terrance Croft [facility] URINE DRUG SCREEN 2019-09-19 17:45:00 Guerda Terrance [facility] HEMOGLOBIN A1C 2019-09-19 17:42:00 Terrance Croft [facility] STREP PNEUMO AG, UR 2019-09-19 17:39:00 Terrance Croft [facility] URINALYSIS 2019-09-19 17:38:00 Fritz Simental [facility] URINALYSIS 2019-09-19 17:38:00 Fritz Simental [facility] GLUCOSE POC 2019-09-19 17:34:00 Kash Chin [facility] ealt INFUSION PUMP 2019-09-19 17:32:43 Kash Chin [facility] CHEST W/O CONTRAST 2019-09-19 16:57:36 Guerda [facility] GLUCOSE POC 2019-09-19 14:43:00 Heidi Rico [facility] XRAY CHEST 1 VIEW 2019-09-19 14:37:07 Heidi Rico [facility] BLOOD CULTURE 2019-09-19 13:26:00 Heidi Rico [facility] h BLOOD CULTURE 2019-09-19 13:25:00 Heidi Rico [facility] h BLOOD GAS, VENOUS 2019-09-19 13:10:00 Heidi Rico [facility] BLOOD GAS, VENOUS 2019-09-19 11:13:00 Heidi Rico [facility] ECHG EKG PROC 12 LEAD EKG; TRACING ONLY 2019-09-19 10:33:09 Mirza nixon [facility] TROPONIN I POC 2019-09-19 10:26:00 [facility]-09-19 [facility]:23[facility] 2019-09-19 10:23[facility] BMP POC 2019-09-19 10:22:00 [facility]/RNA AMP PROBE, FLURSV 2019-09-19 10:12:00 [facility] 2019-09-19 10:12:00 Zeinali [facility] THROAT CULTURE 2019-09-19 10:12:00 [facility] CBC/DIFF 2019-09-19 10:11:00 ZeinaliHeidi [facility] h MAGNESIUM 2019-09-19 10:11:00 ZeinaliHeidi [facility] 2019-09-19 10:11:[facility] 2019-09-19 10:11[facility] DIFFERENTIAL, [facility]UAL-WAM 2019-09-19 10:11:00 [facility] 2019-09-19 10:10:00 [facility] Plan of Care Planned Activity Planned Date Details Comments Source Future Scheduled Test 2020-12-07 00:00:00 Hemoglobin A1c karyn surement (procedure) [code = 59171280] [facility] Scheduled Test 2020-04-12 00:00:00 IMM Influenza Seas onal Apr to September (>/= 19 yrs) [code = IMM Influenza Seasonal Apr to September (>/= 19 yrs)] [facility] Scheduled Test 1994 00:00:00 DM Foot Exam (Year ly) [code = DM Foot Exam (Yearly)] [facility] Scheduled Test 1994 00:00:00 DM Retinal Exam (Y early) [code = DM Retinal Exam (Yearly)] [facility] Encounters Start Date/Time End Date/Time Encounter Type Admission Type Attendi [facility] Care Department Encounter ID Source 2017-10-21 00:00:00 2017-10-21 00:00:00 Outpatient [facility] [id number] [facility] 2017-10-14 00:00:00 2017-10-14 00:00:00 Outpatient [facility] [id number] [facility] 2017-09-16 00:00:00 2017-09-16 00:00:00 Outpatient [facility] [id number] [facility] 2017-09-16 00:00:00 2017-09-16 00:00:00 Outpatient [facility] [id number] [facility] 2017-09-16 00:00:00 2017-09-16 00:00:00 Outpatient [facility] [id number] [facility] 2017-09-15 00:00:00 2017-09-15 00:00:00 Outpatient [facility] [id number] [facility] 2017-09-15 00:00:00 2017-09-15 00:00:00 Outpatient [facility] [id number] [facility] 2017-09-15 00:00:00 2017-09-15 00:00:00 Outpatient [facility] [id number] [facility] 2017-09-09 00:00:00 2017-09-09 00:00:00 Outpatient [facility] [id number] [facility] 2017-09-08 14:11:03 2017-09-08 14:11:03 Outpatient [facility] [id number] [facility] 2017-09-08 10:21:02 2017-09-08 10:21:02 Outpatient [facility] [id number] [facility] 2017-09-08 00:00:00 2017-09-08 00:00:00 Outpatient [facility] [id number] [facility] Results Test Description Test Time Test Comments Results Result Comments Source CHEST XRAY LINE PLACEMENT 2020-02-08 02:33:00 [place] [address] Patient Name: NANCY ROMAN MR #: [id number] : 1975 Age/Sex: 44/M Req #: [id number] [facility] Physician: FAUZIA GALLEGOS MD Ordered by: JUNIOR MANNING MD Report #: [id number] Location: [facility] Room/Bed: [place] [address] Procedure: [id number] DX/CHEST XRAY LINE PLACEMENT Exam Date: 02/08/20 [...] MANNING MD CHEST SINGLE (PORTABLE) 2020-02-08 02:30:00 [place] [address] Patient Name: NANCY ROMAN MR #: [id number] : 1975 Age/Sex: 44/M Req #: [id number] Adm Physician: FAUZIA GALLEGOS MD Ordered by: JUNIOR MANNING MD Report #: [id number] Location: [facility] Room/Bed: [place] [address] Procedure: [id number] DX/CHEST SINGLE (PORTABLE) Exam Date: 02/08/20 Exam [...] MD CHEST XRAY LINE PLACEMENT 2020-02-08 02:28:00 [place] [address] Patient Name: NANCY ROMAN MR #: [id number] : 1975 Age/Sex: 44/M Req #: [id number] [facility] Physician: FAUZIA GALLEGOS MD Ordered by: JUNIOR MANNING MD Report #: [id number] Location: [facility] Room/Bed: [place] [address] Procedure: [id number] DX/CHEST XRAY LINE PLACEMENT Exam Date: 02/08/20 [...] 02/08/20232 COPY TO: JUNIOR MANNING MD CHEST SINGLE (PORTABLE) 2020-02-07 19:09:00 [place] [address] Patient Name: NANCY ROMAN MR #: [id number] : 1975 Age/Sex: 44/M Req #: [id number] Adm Physician: FAUZIA GALLEGOS MD Ordered by: JUNIOR MANNING MD Report #: [id number] Location: [facility] Room/Bed: [place] [address] Procedure: [id number] DX/CHEST SINGLE (PORTABLE) Exam Date: 02/07/20 Exam [...] JUNIOR MANNING MD ABDOMEN-1VIEW (KUB) 2020-02-07 19:07:00 [place] [address] Patient Name: NANCY ROMAN MR #: [id number] : 1975 Age/Sex: 44/M Req #: [id number] Adm Physician: FAUZIA GALLEGOS MD Ordered by: JUNIOR MANNING MD Report #: [id number] Location: [facility] Room/Bed: [place] [address] Procedure: [id number] DX/ABDOMEN-1VIEW (KUB) Exam Date: Exam Time: REPORT [...] MANNING MD CHEST SINGLE (PORTABLE) 2020-02-06 20:15:00 [place] [address] Patient Name: NANCY ROMAN MR #: [id number] : 1975 Age/Sex: 44/M Req #: [id number] Adm Physician: Ordered by: FIDENCIO CINTRON MD Report #: [id number] Location: ER Room/Bed: Procedure: [id number] DX/CHEST SINGLE (PORTABLE) Exam Date: 02/06/20 Exam [...] By: Domi Esteban MD, 11/30/2019 2:01 PM [facility] Fungus Stain & Culture 2019-10-19 09:00:00 Test Item Fungus Culture (test code = 580-1) No fungus isolated in 4 weeks [facility] CoVID-19 ([facility])2019-10-04 07:08:00* Test Item Value Reference Range Interpretation Comments CoVID-19 (SARS-CoV-2) (test code = 15319-9) Not Detected Not Detect ed Testing was performed using the joanna(R) SARS-CoV-2 test.This test was developed and its performance characteristics determinedby [employer]. This test has not been FDA cleared [...] DONATO (test code = DONATO) Performed at: [address] [place] [address] [id number] Director: Colten Kauffman MD, Phone: [phone] [facility] GLUCOSE POC docked gwkrxy7615-30-98 18:01:00* Test Item Value Reference Range Interpretation Comments Glucose POC (test code = 59770682) 215 mg/dL 74-106 H Lab Interpretation (test code = 43772-9) Abnormal [facility] ABG POC docked bhgqps3628-10-42 15:03:00* Test Item Value Reference Range Interpretation Comments pH, Art POC (test code = 86840152) 7.48 7.35-7.45 H pCO2, Arterial POC (test code = 65998535) 43.5 32- 45 mmHg pO2, Arterial POC (test code = 60203807) 72 72- 104 mmHg Ionized Calcium POC (test code = 24175182) 1.18 mmol/L 1.15-1.29 Base Excss Art POC (test code = 54319799) 8 mmol/L HCO3, Arterial POC (test code = 92484033) 32 mmol/L 22-26 H % Sat, Art POC (test code = 78524078) 95 % TCO2, ART POC (test code = 45490224) 34 mmol/L 21-32 H Ye's Test (test code = 17856510) POSITI Sample Type (test code = 97409503) IART Site (test code = 82580516) RRADIA FiO2 (test code = 90066816) 21 O2 Delivery Device (test code = 87067909) [facility] Physician Notified Lab Interpretation (test code = 68878-2) Abnormal [facility] HospitalLipid Ldofcut5971-42-67 13:53:00* Test Item Value Reference Range Interpretation Comments Cholesterol (test code = 2093-3) 129.0 mg/dL <=200.0 Desirable: < 200.0 mg/dLBorderline: 200 - 240 mg/dLHigh Risk: > 240 mg/dL Triglyceride (test code = 32175813) 163 mg/dL <150 H Normal: < 150.0 mg/dL Borderline: 150-199 mg/dL High: 200-499 mg/dL Very High: >= 500 mg/dL HDL (test code = 2085-9) 34.0 mg/dL See Reference Range Narrative . Increased CHD Risk: < 40.0 mg/dL Decreased CHD Risk: > 60 mg/dL LDL (test code = 73183-4) 62 mg/dL <100 Op timal: < 100.0 mg/dLNear Optimal: 120-129 mg/dLBorderline: 130-159 mg/dLHigh: 160-189 mg/dLVery High: >=190 mg/dL Patient Fasting? (test code = 35896021) Lab Interpretation (test code = 62918-3) Abnormal [facility]/Pahn7664-39-31 12:56:00* Test Item Value Reference Range Interpretation [...] 32.8 g/dL 32-36 RDW (test code = 48078-5) 38.5 fL 35.1-43.9 Platelet (test code = 777-3) 253 K/uL 150-400 Mean Platelet Volume (test code = 00483-1) 11.2 fL 9.4-12.4 Percent NRBC (test code = 05256294) 0.0 % Neutrophil (test code = 770-8) 79.4 % 34-67.9 H Lymphs (test code = 736-9) 12.2 % 21.8-50 L Monocytes (test code = 5905-5) 5.8 % 5.3-12 Eos (test code = 713-8) 1.7 % 0.8-5 Basos (test code = 706-2) 0.3 % 0.2-1.2 Immature Granulocytes (test code = 41141430) 0.6 % 0-0.5 H Neutrophils (Absolute) (test code = 29363569) 8.55 K/uL 1.78-5.3 6 H Lymphs (Absolute) (test code = 73223781) 1.32 K/uL 1.32-3.57 Monocytes(Absolute) (test code = 61419986) 0.63 K/uL 0.3-0.82 Eos (Absolute) (test code = 02141855) 0.18 K/uL 0.04-0.54 Baso (Absolute) (test code = 53439926) 0.03 K/uL 0.01-0.08 Immature Grans (Abs) (test code = 92995406) 0.07 K/uL 0-0.03 H Absolute NRBC (test code = 27163029) 0.00 K/uL Lab Interpretation (test code = 23666-1) Abnormal [facility] Metabolic Iugir7043-20-62 05:44:00* Test Item Value Reference Range Interpretation Comments Sodium (test code = 2951-2) 133 mmol/L 136-145 L Potassium (test code = 2823-3) 4.3 mmol/L 3.5-5.1 Chloride (test code = 2075-0) 95 mmol/L 98-107 L CO2 (test code = 45203738) 31 mmol/L 21-31 Urea Nitrogen (test code = 31153973) 11.0 mg/dL 7-25 Creatinine (test code = 76077431) 0.7 mg/dL 0.7-1.3 Glucose (test code = 64709471) 194 mg/dL 70-110 H Calcium (test code = 24247718) 8.2 mg/dL 8.6-10.3 L GFR, Estimated (test code = 70883705) >90 >=90 mL/min/1.73 m2 Anion Gap (test code = 57476446) 7 mmol/L 5-16 Lab Interpretation (test code = 44865-5) Abnormal [facility] HospitalWaykbpOcyocgacr8015-38-23 05:44:00* Test Item Value Reference Range Interpretation Comments Magnesium (test code = 01825132) 2.0 mg/dL 1.9-2.7 Lab Interpretation (test code = 43308-5) Normal [facility] HospitalVoohseEyppgwsrbk2205-28-23 05:44:00* Test Item Value Reference Range Interpretation Comments Phosphorus (test code = 2777-1) 4.2 mg/dL 2.5-5 Lab Interpretation (test code = 36830-1) Normal [facility] HospitalBlood Culture x2 - 2 non-specific ixyke5919-77-04 17:01:00* Test Item Value Reference Range Interpretation Comments Blood Culture (test code = 600-7) No growth 5 days [facility] RESPIRATORY CULTURE AND GRAM STAIN Dgploe0004-46-93 13:20:00 * Test Item Value Reference Range Interpretation Comments Lower Respiratory Culture (test code = 43076-3) No growth 3 days Gram Stain (test code = 664-3) No organisms seen [facility] HospitalBNP [B-Type Natriuretic Peptide]2019-09-22 13:01:00* Test Item Value Reference Range Interpretation Comments B Natriuretic Peptide (BNP) (test code = 64134690) 48 pg/mL <=1 00 Lab Interpretation (test code = 78525-9) Normal [facility] HospitalLDH [Lactate Dehydrogenase]2019-09-22 12:33:00* Test Item Value Reference Range Interpretation Comments LDH (test code = 10604297) 166 U/L 140-271 Lab Interpretation (test code = 84607-1) Normal [facility] HospitalThroat Yjdhiij2470-51-76 08:38:00* Test Item Value Reference Range Interpretation Comments Throat Culture (test code = 626-2) Normal chrissy; no Be ta-hemolytic Streptococcus isolated. [facility] HospitalCBC (without differential)2019-09-22 04:24:00* Test Item Value Reference [...] 35.2 g/dL 32-36 RDW (test code = 10887-5) 40.6 fL 35.1-43.9 Platelet (test code = 777-3) 259 K/uL 150-400 Mean Platelet Volume (test code = 98847-3) 10.5 fL 9.4-12.4 Percent NRBC (test code = 46718072) 0.0 % Lab Interpretation (test code = 16073-2) Abnormal [facility] HospitalVancomycin, Bjqtcc7766-96-99 03:23:00* Test Item Value Reference Range Interpretation Comments Vancomycin, Random (test code = 28011486) 15.7 ug/mL 10-20 Lab Interpretation (test code = 31779-8) Normal [facility] CHEST 1 KEZH5465-73-92 13:35:34IMPRESSION: 1. Bibasilar opacities likely represent a [...] repeat chest radiograph in neutral position.Dictated By: Kalpehs Burgess MD, 09/21/2019 10:35 AMI have reviewed the study and agree with the findings in this report.Signed By: Domi Esteban MD, 09/21/2019 1:35 [facility] Respiratory Virus Wlemgm1718-11-36 13:22:00* Test Item Value Reference Range Interpretation Comments Specimen Adequacy: (test code = 71412678) Satisfactory Respiratory Virus Result: (test code = 95075-6) No Inf luenza A, Influenza B, Respiratory [...] used as the sole basis for diagnosis. [facility] HospitalDifferential, Rstbxl1627-55-95 10:03:00* Test Item Value Reference Range Interpretation Comments Neutrophil (test code = 62862716) 80.0 % 34-67.9 H Lymphs (test code = 85292311) 14.0 % 21.8-50 L Monocytes (test code = 75504854) 3.0 % 5.3-12 L Eos (test code = 24357679) 2.0 % 0.8-5 Basos (test code = 03315187) 0.0 % 0.2-1.2 L Myelocyte (test code = 39225839) 1.0 % Neutrophils (Absolute) (test code = 31087991) 7.22 K/uL 1.78-5.3 6 H Lymphs (Absolute) (test code = 32126939) 1.26 K/uL 1.32-3.57 L Monocytes(Absolute) (test code = 77200003) 0.27 K/uL 0.3-0.82 L Eos (Absolute) (test code = 54786353) 0.18 K/uL 0.04-0.54 Baso (Absolute) (test code = 41890765) 0.00 K/uL 0.01-0.08 L Platelet Clumps (test code = 35047942) Present None seen A Agglutinated RBCs (test code = 95366234) 2+ None seen A Cells Counted (test code = 00672138) Lab Interpretation (test code = 73996-3) [facility] Metabolic Gxxkf8013-75-00 03:07:00* Test Item Value Reference Range Interpretation Comments Sodium (test code = 2951-2) 142 mmol/L 136-145 Potassium (test code = 2823-3) 4.0 mmol/L 3.5-5.1 Chloride (test code = 2075-0) 104 mmol/L 98-107 CO2 (test code = 55724982) 29 mmol/L 21-31 Glucose (test code = 27179593) 146 mg/dL 70-110 H Calcium (test code = 37792065) 7.9 mg/dL 8.6-10.3 L Urea Nitrogen (test code = 50318237) 18.0 mg/dL 7-25 Creatinine (test code = 80187529) 0.7 mg/dL 0.7-1.3 Alkaline Phosphatase (test code = 35876896) 100 U/L 34-104 ALT (test code = 53994607) 17 U/L 7-52 AST (test code = 19542638) 10 U/L 13-39 L Total Protein (test code = 2885-2) 5.6 g/dL 6-8.3 L GFR, Estimated (test code = 49561244) >90 >=90 mL/min/1.73 m2 Albumin (test code = 28650-9) 2.8 g/dL 4.2-5.5 L Anion Gap (test code = 27674486) 9 mmol/L 5-16 Lab Interpretation (test code = 95033-3) Abnormal [facility] HospitalVancomycin, Ifcbhl8622-08-79 18:17:00* Test Item Value Reference Range Interpretation Comments Vancomycin, Trough (test code = 29813621) 19.4 ug/mL - Lab Interpretation (test code = 64824-0) Normal [facility] HospitalTRANSTHORACIC ECHO (TTE)2019-09-20 15:46:00TRANSTHORACIC ECHO (TTE) Transthoracic Echo Report NANCY GOFF Age: 44 Gender: M : 1975 Exam Date: 09/20/2019 08:00 Exam Location: [facility] Echo Ordering Phys: KASH CHIN Referring Phys: [id number] Reading Phys: Milvia Pickard MD Fellow Phys: Fellow Phys: Customer Sales Specialist: Dustin Miller Reason For Exam: Indications: shock, CHF, CHF ICD-9 Codes: I50.9 Exam Type: TRANSTHORACIC ECHO (TTE) Procedure CPT: 10115 Addtional CPT: C8929 Ht (in): BSA: HR: [...] 20 cm LVOT Stroke Volume 93.5 cm [facility] 2019-09-20 14:36:00* Test Item Value Reference Range Interpretation Comments Neutrophil (test code = 74710816) 75 % Lymphocyte (test code = 96427852) 4 % Monocyte (test code = 12287220) 2 % Eosinophil (test code = 60892472) 1 % Macrophage (test code = 53554154) 18 % Cells Counted (test code = 48132019) 100 [facility] HospitalCell Count, Yujlv5989-41-22 14:28:00* Test Item Value Reference Range Interpretation Comments Volume (test code = 07079217) 3 mL Appearance (test code = 26473526) Cloudy Clear A Calculated RBC-Body Fluid (test code = 22182846) 99069 /uL None seen WBC Body Fluid (test code = 34594915) 2750 /uL Clots? (test code = 75305131) Specimen contains clot. Resul ts may be affected. Lab Interpretation (test code = 46179-2) Abnormal [facility] HospitalDifferential, Tugdnh7917-12-78 09:13:00* Test Item Value Reference Range Interpretation Comments Neutrophil (test code = 00936096) 67.0 % 34-67.9 Lymphs (test code = 18404768) 20.0 % 21.8-50 L Monocytes (test code = 76254720) 9.0 % 5.3-12 Eos (test code = 16388958) 3.0 % 0.8-5 Basos (test code = 60563098) 0.0 % 0.2-1.2 L Metamyel (test code = 89996574) 1.0 % <=0.0 H Neutrophils (Absolute) (test code = 97323192) 5.65 K/uL 1.78-5.3 6 H Lymphs (Absolute) (test code = 03916770) 1.69 K/uL 1.32-3.57 Monocytes(Absolute) (test code = 97960185) 0.76 K/uL 0.3-0.82 Eos (Absolute) (test code = 99027580) 0.25 K/uL 0.04-0.54 Baso (Absolute) (test code = 22511141) 0.00 K/uL 0.01-0.08 L Cells Counted (test code = 69751200) Lab Interpretation (test code = 59236-5) Abnormal [facility] HospitalFkcdvjQibjaqcewobm0857-03-50 09:09:00TEXTPatient Name NANCY GOFF MDate of 1975Record Number [id number]/Time of Procedure 09/20/2019, 9:09:00 JERRY Case #Director Franchise Sales Ar Sanford MD./Fellow Jasper Muir ASA Classification: Procedure Performed: Bronchoscopy - W/ bronchial alveolar lavage Indications for Exam: Abnormal Chest CT Instruments: [id number] Blood Loss: None Blood Products Administered: NoVisualization: [...] on :09/21/2019 11:57:43 AM By Coy Silverman [employer] Wtqssdn3925-49-23 03:09:00* Test Item Value Reference Range Interpretation Comments Bilirubin, Total (test code = 2885-2) 0.4 mg/dL 0.2-1.2 L Alkaline Phosphatase (test code = 78652654) 121 U/L 34-104 H AST (test code = 90502203) 11 U/L 13-39 L Direct Bilirubin (test code = 1968-7) 0.1 mg/dL 0-0.2 ALT (test code = 60109165) 21 U/L 7-52 Albumin (test code = 17301-3) 2.8 g/dL 4.2-5.5 L Lab Interpretation (test code = 02560-7) Abnormal [facility] HealthPT/CRR2780-81-54 02:47:00* Test Item Value Reference Range Interpretation Comments PT (test code = 5902-2) 13.8 11.8- 15.0 Seconds INR (test code = 37880025) 1.1 Refer to INR ranges 2.0 - 3.0 for moderate intensity anticoagulation2.5 - 3.5 for high intensity anticoagulation Lab Interpretation (test code = 46563-5) Normal [facility] HospitalXRAY CHEST 1 VIEW - POST LINE CVEOKHXSF2548-23-63 02:21:39 IMPRESSION: 1. New right IJ central [...] report.Signed By: Katalina Monroe MD, 09/20/2019 2:21 [facility] CHEST W/O AAEAQYCG0804-35-86 21:29:59IMPRESSION: 1. Large left lower lobe consolidation and bilateral mymwbugtwfksu-bz-lmb opacities most likely represent multifocal pneumonia. 2. [...] this report.Signed By: Stoney Mendez, 09/19/2019 9:29 [facility] Legionella Ag, SH2712-99-60 18:55:00* Test Item Value Reference Range Interpretation Comments Legionella Ag, Ur (test code = 57487-9) Negative Negative Lab Interpretation (test code = 90821-0) Normal [facility] HospitalLwsymnVstr-Zuotmzeviszbwfa5413-77-09 18:40:00* Test Item Value Reference Range Interpretation Comments Beta Hydroxy Butyrate (test code = 55089594) 0.10 mmol/L 0.02-0.27 Lab Interpretation (test code = 37781-8) Normal [facility] HospitalUrine Drug Pxxaqk2277-35-92 18:37:00* Test Item Value Reference Range Interpretation Comments Opiate, Ur (test code = 19065-5) Negative Negative Calibrated Standard: Morphine Positive if urine level > or = 300 ng/dL Amphetamine (test code = 77260-1) Negative Negative Calibrated Standard: D- Methamphetamine Positive if urine level > or = 1000 ng/mL Barbiturate (test code = 75693-9) Negative Negative Calibrated Standard: Secobarbital Positive if urine level is > or = 200 ng/mL Benzodiazepine (test code = 09012-4) Positive Negative A Calibrated Standard: Lormethazepam Positive if urine level is > or = 200 ng/mL Cocaine (test code = 51225-9) Negative Negative Calibrated Standard: Benzoylecgonine Positive if urine level > or = 300 ng/dL PCP (test code = 87804-7) Negative Negative C alibrated Standard: Phencyclidine Positive if urine level > or = 25 ng/dL Cannabinoid (test code = 69400-3) Negative Negative Calibrated Standard: 11 nor-delta(9)-THC carboxylic acid Positive if urine level > or = 50 ng/mL Lab Interpretation (test code = 33491-8) Abnormal [facility] HospitalYsedobMfvtrifcec3912-54-44 18:37:00* Test Item Value Reference Range Interpretation Comments Color (test code = 88472690) Yellow Colorless, Straw, Yellow Clarity (test code = 80764930) Hazy Clear A Spec [place], Ur (test code = 56737644) 1.025 1.001-1.035 pH, Ur (test code = 60517072) 5.0 5.0-8.0 Protein, Ur (test code = 74313683) 2+ Negative mg/dL A Glucose, Ur (test code = 88266869) 3+ Negative mg/dL A Ketone, Ur (test code = 69596264) Negative Negative mg/dL Bilirubin, Ur (test code = 83517373) Negative Negative mg/dL Nitrite, Ur (test code = 93439975) Negative Negative Leukocyte (test code = 12985323) Negative Negative mg/dL Blood, Ur (test code = 19728029) 3+ Negative mg/dL A RBC (test code = 59222958) >182 0- 4 /HPF H WBC (test code = 23001211) 2 0- 5 /HPF Mucous (test code = 39716480) Present None seen /HPF A Hyaline Cast (test code = 49524425) 1 0- 2 /LPF Urobilinogen, Ur (test code = 34642165) <1.0 <1.0 EU/dL Lab Interpretation (test code = 45734-4) Abnormal [facility] Pneumo Ag, Xw9124-72-36 18:31:00* Test Item Value Reference Range Interpretation Comments S. pneumo Ur Antigen (test code = 31855-2) Negative Negative Lab Interpretation (test code = 91994-4) Normal [facility] VBG POC docked aupzqi8262-18-54 18:04:00* Test Item Value Reference Range Interpretation Comments pH, Nilesh POC (test code = 53460783) 7.30 7.33-7.43 L pCO2,Nilesh POC (test code = 74981135) 69.8 38- 50 mmHg H PO2, Venous POC (BKR) (test code = 14378482) 74 50- 75 mm Hg Ionized Calcium POC (test code = 69924101) 1.21 mmol/L 1.15-1.29 HCO3, Nilesh POC (test code = 75835339) 34 mmol/L 22-26 H TCO2 POC (test code = 67630056) 36 mmol/L 21-32 H Base Excess Nilesh POC (test code = 11606887) 5 mmol/L Ye's Test (test code = 60929095) MILLA Sample Type (test code = 08085283) IVEN Site (test code = 00281998) HEELST FiO2 (test code = 50373233) 40 O2 Delivery Device (test code = 50215938) IVENT Physician Notified % Sat, Nilesh POC (test code = 25355216) 92 % Lab Interpretation (test code = 97681-7) Abnormal [facility] HealthBlood Gas, Vqwulg3172-64-54 13:45:00* Test Item Value Reference Range Interpretation Comments Temperature (test code = 03936810) 37.0 degree C pH, Venous (test code = 43580594) 7.20 7.33-7.43 L pCO2, Venous (test code = 78030623) 85.3 38- 50 mm Hg HH pO2, Venous (test code = 72804508) 168 50- 75 mm Hg H Base Excess, Venous (test code = 78812455) 4.5 mmol/L -2.5-2.5 H HCO3, Venous (test code = 29909880) 32.1 mmol/L 22-26 H % Sat, Venous (test code = 58715991) 98.7 % 60-85 H Lab Interpretation (test code = 43016-9) Abnormal [facility] HealthInfluenza A/B and RSV CEJ6399-41-28 13:13:00* Test Item Value Reference Range Interpretation Comments Influenza A (test code = 24861-4) Not detected Not detected Influenza B (test code = 40279-4) Not detected Not detected RSV (test code = 31237-8) Not detected Not detected DONATO (test code = DONATO) This test utilizes FDA clear ed Edwardo joanna Influenza A/B & RSV real-time RT-PCR assay for qualitative detection and discrimination of Influenza A virus, Influenza B virus and Respiratory Syncytial virus (RSV). Additional testing is required to differentiate any specific Influenza A subtypes or strains or specific RSV subgroups. Lab Interpretation (test code = 88556-2) Normal [facility] HospitalGroup A Strep Ejqkgo1588-28-33 12:09:00* Test Item Value Reference Range Interpretation Comments Group A Strep (test code = 83770963) Negative Negative A negative Rapid Group A Strep Screen does not decisively eliminate the possibility of Group A Strep pharyngitis. It is recommended that a reflex culture test be ordered on all negative rapid screen results. Lab Interpretation (test code = 11401-1) Normal [facility]12 LEAD HUW4089-15-30 11:15:3112 LEAD EKG FOR [facility] Test Date: 5716-69-92Ltz Name: NANCY GOFF Department: 5520Patient ID: [id number] Room: Gender: M Laboratory Animal Care Veterinarian: [id number]: 1975 Requested By: HEIDI RICO Order Number: [id number] Reading MD: Maura MIDDLETON M.D. MeasurementsIntervals [place] Rate: 121 P: 69PR: 149 QRS: -3QRSD: 92 T: 62QT: 286 QTc: 406 Interpretive StatementsSINUS TACHYCARDIAABNORMAL RHYTHM ECGElectronically Signed On 09-19-2019 11:15:27 CDT by Maura MIDDLETON M.D.[facility] HealthLactic Zbwr0933-29-31 10:49:00* Test Item Value Reference Range Interpretation Comments Lactic Acid (test code = 52063229) 1.8 mmol/L 0.5-2.2 Lab Interpretation (test code = 75055-1) Normal [facility] CREATININE POC docked [id number] 10:41:00* Test Item Value Reference Range Interpretation Comments Creatinine POC (test code = 19000295) 0.7 mg/dL 0.6-1.3 Physician Notified GFR, Estimated (test code = 83769595) >90 >=90 mL/min/1.73 m2 Lab Interpretation (test code = 12076-9) Normal [facility] TROPONIN I POC docked [id number] 10:41:00* Test Item Value Reference Range Interpretation Comments Troponin POC (test code = 68182887) 0.00 ng/mL 0-0.08 Lab Interpretation (test code = 15551-5) Normal [facility] BMP POC docked [id number] 10:31:00* Test Item Value Reference Range Interpretation Comments Sodium POC (test code = 04461699) 132 mmol/L 136-145 L Potassium POC (test code = 15716580) 5.5 mmol/L 3.5-5.1 H Chloride POC (test code = 19630950) 92 mmol/L 98-107 L TCO2 POC (test code = 97578398) 38 mmol/L 21-32 H Physician Notified Urea Nitrogen POC (test code = 97192705) 16 mg/dL 7-18 Glucose POC (test code = 77225689) 470 mg/dL 74-106 HH Hemoglobin POC (test code = 67734211) 15.6 g/dL 12-16 Hematocrit POC (test code = 41029844) 46.0 % 37-47 Lab Interpretation (test code = 61309-7) [facility]:23:48Heidi Rico MD 09/19/2019 4:54 PMIntubationDate/Time: 09/19/2019 [...] gra fts, tissues, transplants or devices [facility]HY6323[facility] 12:40:00* Test Item Value Reference Range Interpretation Comments GLUBED (test code = GLUBED) 189 mg/dL 74-106 H Performed by certified collet making machine operator at [facility] BASIC METABOLIC [id number] 09:02:00* Test Item Value Reference Range Interpretation [...] code = CK) 302 IUnit/L 26-208 H [id number] 09:02:00* Test Item Value Reference Range Interpretation Comments MAGNESIUM (test code = MAG) 2.0 mg/dL 1.8-2.4 N BASIC METABOLIC [id number] 08:58:00* Test Item Value Reference Range Interpretation [...] (CK) (test code = CK) IUnit/L 26-208 [id number] 08:58:00* Test Item Value Reference Range Interpretation Comments MAGNESIUM (test code = MAG) mg/dL 1.8-2.4 [id number] 08:34:00* Test Item Value Reference Range Interpretation Comments GLUBED (test code = GLUBED) 370 mg/dL 74-106 H Performed by certified collet making machine operator at [facility] TEQRNU8911-01-21 02:14:00* Test Item Value Reference Range Interpretation Comments GLUBED (test code = GLUBED) 204 mg/dL 74-106 H Performed by certified collet making machine operator at [facility] [id number] 19:08:00* Test Item Value Reference Range Interpretation Comments GLUBED (test code = GLUBED) 231 mg/dL 74-106 H Performed by certified collet making machine operator at [facility] CREATINE KINASE (CK)2018-12-17 17:45:00* Test Item Value Reference Range Interpretation Comments CREATINE KINASE (CK) (test code = CK) 335 U/L 39-308 H [id number] 17:45:00* Test Item Value Reference Range Interpretation Comments CKMB (test code = CKMBT) 4.5 ng/mL 0.0-5.0 N [id number] 17:24:00* Test Item Value Reference Range Interpretation Comments ACETAMINOPHEN (test code = ACET) < 10 mcg/mL 0-30 N A RANGE OF 10-30 UG/ML IS A THERAPEUTIC RANGE. TOXIC CONCENTRATIONS: >150 UG/ML AFTER 4 HOURS OF INGESTION > 50 UG/ML AFTER 12 HOURS OF INGESTION [id number] 17:24:00* Test Item Value Reference Range Interpretation Comments SALICYLATE (test code = RAUL) 0.9 mg/dL 2.8-20.0 L [id number] 17:24:00* Test Item Value Reference Range Interpretation [...] AT ANADDITIONAL CHARGE TO THE PATIENT. LACTIC [id number] 16:56:00* Test Item Value Reference Range Interpretation Comments LACTIC ACID (test code = LACT) 1.7 MMOL/L 0.4-1.9 N COMPREHENSIVE METABOLIC [id number] 16:49:00* Test Item Value Reference Range Interpretation [...] code = ALKP) 123 U/L 38-126 N [id number] 16:49:00* Test Item Value Reference Range Interpretation Comments LIPASE (test code = LIP) 84 U/L 128-270 L [id number] 16:49:00* Test Item Value Reference Range Interpretation Comments TROPONIN-I (test code = TROPI) <0.015 ng/mL 0.00-0.056 N URINALYSIS [id number] 16:47:00* Test Item Value Reference Range Interpretation [...] Urine Source? Clean CatchDRUGS OF ABUSE SCREEN [id number] 16:47:00* Test Item Value Reference Range Interpretation [...] NEGATIVE NEGATIV E Urine Source? Clean CatchURINALYSIS [id number] 16:46:00* Test Item Value Reference Range Interpretation [...] Urine Source? Clean CatchDRUGS OF ABUSE SCREEN [id number] 16:46:00* Test Item Value Reference Range Interpretation [...] NEGATIVE NEGATIV E Urine Source? Clean CatchURINALYSIS [id number] 16:44:00* Test Item Value Reference Range Interpretation [...] Urine Source? Clean CatchDRUGS OF ABUSE SCREEN [id number] 16:44:00* Test Item Value Reference Range Interpretation [...] NEGATIV E Urine Source? Clean CatchCOMPREHENSIVE METABOLIC [id number] 16:44:00* Test Item Value Reference Range Interpretation [...] TOTAL (test code = ALKP) IUnit/L 45-117 [id number] 16:44:00* Test Item Value Reference Range Interpretation Comments LIPASE (test code = LIP) Unit/L 144-286 [id number] 16:44:00* Test Item Value Reference Range Interpretation Comments TROPONIN-I (test code = TROPI) ng/mL 0-0.045 CBC W/AUTO [id number] 16:32:00* Test Item Value Reference Range Interpretation [...] = MDIFF) NO - CT HEAD/BRAIN W/O [id number] 16:28:00 Name: NANCY ROMAN [facility] : 1975 Age/S: 43 / M [address] [facility] Unit #: [id number] Loc: [place] [address] Phys: Lance Mckeon MD Acct: [id number] Dis Date: Status: PRE ER PHONE #: [phone] Exam Date: 12/17/2018 1626 FAX #: [phone] Reason: SLURRED SPEECH HEADACHE EXAMS: CPT CODE: [id number] CT HEAD/BRAIN W/O CONT 00841 REASON FOR EXAM: SLURRED SPEECH HEADACHE EXAM [...] calvarium is intact. IMPRESSION: Unremarkable brain. at 162 Reported and signed by: Blayne Restrepo M.D. CC: Lance Mckeon MD Technologist:SUZI CHEN, RT(R),CT CTDI: DLP: Trnscb Date/Time: 12/17/2018 (1626) Zulay Orig Print D/T: S: 12/17/2018 (3508) PAGE 1 Signed Report
[2020-02-10] MEDS: AZITHROMYCIN 500MG/NS 250 ML 250 ML IV SCH (21:30)
[2020-02-10] MEDS: NOREPINEPHRINE 8 MG/D5W 250 ML 250 ML IV SCH (22:53)
[2020-02-10] MEDS: VANCOMYCIN 1GM/NS 250 ML 250 ML IV SCH (22:53)
--- NOTE | 2020-02-10 23:16 | Progress Note ---
DATE: 02/10/2020 Medicine Progress Note SUBJECTIVE: The patient is still intubated and sedated. No change from overnight. His oxygen requirement is only 50%. PHYSICAL EXAMINATION: VITAL SIGNS: Temperature is 97.2, pulse 53, respiratory rate is 28, blood pressure 144/86, pulse ox 93% on mechanical ventilator, FiO2 of 50%. GENERAL: Intubated and sedated. PULMONARY: Intubated and sedated. CARDIOVASCULAR: Positive S1 and S2. No murmurs, rubs, or gallops appreciated. ABDOMEN: Soft, nondistended, and nontender to palpation. Bowel sounds present. MUSCULOSKELETAL: Unable to assess. NEUROLOGIC: Unable to assess, currently sedated. SKIN: Intact, warm to touch. Good cap refill. EXTREMITIES: Trace edema appreciated. LABORATORY DATA: Labs show CBC reviewed and stable. Chemistry reviewed and stable. IMPRESSION: 1. Acute respiratory failure secondary to coronavirus disease 2019 pneumonia. 2. Viral pneumonia. 3. Uncontrolled type 2 diabetes. 4. Acute kidney injury, resolved. PLAN: At this time, the patient continues to be intubated on a mechanical ventilator. He is only requiring 50% FiO2. He is on steroids, antibiotics, and vitamins. ID and Pulmonary Critical Care are following. As far his type 2 diabetes, it is currently much more controlled. He is on insulin. Get morning labs. Lovenox for DVT prophylaxis. MD MONICA Luong/MODL /[id number]
[2020-02-11] VITALS (22 sets, daily range): BP systolic 130–164; BP diastolic 73–98
[2020-02-11] MEDS: INSULIN REGULAR, HUMAN 3ML VL 100 UNIT in SODIUM CHLORIDE 0.9% 99 ML IV SCH ×2 (00:25)
[2020-02-11] MEDS: MIDAZOLAM HCL 5MG/ML 10ML VIAL 100 ML IV PRN ×4 (00:50→21:40)
[2020-02-11] MEDS: FENTANYL 2000MCG/NS 250 250 ML IV PRN ×4 (01:33→22:56)
[2020-02-11] MEDS: PIPER-TAZ 3.375 GM 50 ML IV SCH ×3 (05:30→21:14)
[2020-02-11 05:33] LABS: BASOPHILS % 0.1 % (0.0-1.0); EOSINOPHILS % 0.1 % (0.0-6.0); HEMATOCRIT 38.2 % (38.2-49.6); HEMOGLOBIN 12.1 g/dL (14.0-18.0); LYMPHOCYTES # (AUTO) 1.1 (1.0-3.2); LYMPHOCYTES % 13.6 % (18.0-39.1); MEAN CORPUSCULAR HEMOGLOBIN 28.5 pg (28-32); MEAN CORPUSCULAR HGB CONC 31.7 g/dL (31-35); MEAN CORPUSCULAR VOLUME 89.9 fL (81-99); MONOCYTES # (AUTO) 0.5 (0.2-0.8); MONOCYTES % 5.6 % (4.4-11.3); NEUTROPHILS # (AUTO) 6.3 (2.1-6.9); NEUTROPHILS % 79.1 % (38.7-80.0); PLATELET COUNT 222 x10e3/uL (140-360); RED BLOOD COUNT 4.25 x10e6/uL (4.3-5.7); RED CELL DISTRIBUTION WIDTH 13.7 % (11.7-14.4)
[2020-02-11] MEDS: ROCURONIUM BROMIDE 250 MG in SODIUM CHLORIDE 0.9% 250ML 225 ML IV SCH ×2 (05:45→19:54)
[2020-02-11 06:19] LABS: ALANINE AMINOTRANSFERASE 11 IU/L (0-55); ALBUMIN/GLOBULIN RATIO 0.6 (0.8-2.0); ALKALINE PHOSPHATASE 100 IU/L (40-150); BLOOD UREA NITROGEN 20 mg/dL (7-26); BUN/CREATININE RATIO 28 (6-25); CALCIUM 7.7 mg/dL (8.4-10.2); CARBON DIOXIDE 26 mmol/L (22-29); CHLORIDE 108 mmol/L (98-107); CREATININE, SERUM 0.71 mg/dL (0.72-1.25); EST GLOMERULAR FILTRATION RATE > 60 ML/MIN (60-); GLUCOSE 207 mg/dL (74-118); SODIUM 141 mmol/L (136-145)
--- NOTE | 2020-02-11 07:45 | NUR ---
PT SERRATO DRAINING AND LOTS OF SEDIMENT NOTED IN LINE, SERRATO CHANGED
--- NOTE | 2020-02-11 08:01 | Diagnostic Imaging Report ---
EXAMINATION: CHEST SINGLE (PORTABLE) INDICATION: Respiratory failure. COMPARISON: Multiple prior chest x-rays including most recent on 02/07/2020. FINDINGS: TUBES and LINES: Endotracheal tube which terminatesr approximately 3 cm above the michael. Nasogastric tube which courses below the diaphragm, beyond field of view. Right PICC which projects over the distal SVC. LUNGS: Slight interval improvement of multifocal patchy airspace opacities throughout both lungs. PLEURA: There is probable small bilateral pleural effusion. HEART AND MEDIASTINUM: The cardiomediastinal silhouette is obscured by multifocal patchy airspace opacities. BONES AND SOFT TISSUES: No acute osseous or soft tissue finding.. UPPER ABDOMEN: No free air under the diaphragm. IMPRESSION: 1. Support lines and tubes as above. 2. Slight interval improvement in multifocal patchy airspace opacities throughout both lungs. Signed by: Kirit Jolly MD on 02/11/2020 7:57 AM
[2020-02-11] MEDS: ASCORBIC ACID 500 MG TAB PO SCH ×2 (09:35→16:53)
[2020-02-11] MEDS: ENOXAPARIN SOD INJ 40 MG/0.4 ML SYR SC SCH ×2 (09:35→16:53)
[2020-02-11] MEDS: DEXAMETHASONE SOD PHOS INJ 4 MG/ML VIAL IV SCH (09:35)
[2020-02-11 10:30] LABS: ABG HCO3 26 mmol/L (22-26); ABG PCO2 45 mmHg (35-45); ABG PH 7.37 (7.35-7.45); ABG PO2 54 mmHg (80-105); ABG TCO2 27
--- NOTE | 2020-02-11 12:33 | Progress Note ---
DATE: SUBJECTIVE: The patient remains on mechanical ventilation. He is currently sedated with Versed and fentanyl. He remains on rocuronium. The patient is also on an insulin drip. He is on a PRVC mode of ventilation. His rate is set at 28 and his tidal volume is set of 400. His PEEP is set at 12 and his FiO2 is set at 60%. PHYSICAL EXAMINATION: VITAL SIGNS: Blood pressure is 145/90 and the pulse is 60. HEENT: No facial swelling or erythema. The patient has an oral endotracheal tube. There is a PICC line in place. CARDIAC: Regular rate and rhythm with normal S1, S2. LUNGS: Auscultation of lungs reveals crackles at the bases. There is no wheezing. ABDOMEN: Soft, nontender. There is no rebound or guarding. EXTREMITIES: No leg edema or calf tenderness. There is no cyanosis or clubbing. SKIN: No rashes. NEUROLOGICAL: The patient to be sedated. LABORATORY DATA: BUN to creatinine ratio is 20 to 0.71. Other electrolytes are within normal limits and the glucose is 170 to 200. Albumin is 2.0. White blood cell count is 7.9, hemoglobin is 12.1, and the platelet count is 222. RADIOGRAPHIC DATA: Chest x-ray shows bilateral infiltrates. IMPRESSION: 1. Acute respiratory failure. 2. Viral pneumonia and coronavirus disease-19 infection. 3. Diabetic ketoacidosis. 4. Acute kidney injury. 5. Anemia. PLAN: 1. Give albumin and Lasix today to remove fluid. 2. Continue current ventilator settings and repeat ABG. 3. Complete dexamethasone. 4. Complete antibiotics. 5. Continue insulin drip and adjust as needed. 6. Place the patient in prone position as needed. 7. Case discussed with the mother. He is aware of the serious prognosis. Case also discussed with nursing, Respiratory, administration, Internal Medicine, and Infectious Disease. Greater than 35 minutes in direct critical care time apart from any procedures performed. Deshaun Roberson MD [facility]/MODL /[id number]
[2020-02-11] MEDS: ALBUMIN 25% 25GM 100ML 0.25 GM/ML BTL IV SCH ×2 (13:07→19:55)
[2020-02-11 15:32] LABS: ABG HCO3 24 mmol/L (22-26); ABG PCO2 31 mmHg (35-45); ABG PH 7.41 (7.35-7.45); ABG PO2 68 mmHg (80-105); ABG TCO2 24
--- NOTE | 2020-02-11 16:44 | Operative Report ---
DATE OF PROCEDURE: SURGEON: Deshaun Roberson MD PROCEDURE: Arterial line placement under ultrasound guidance. PREOPERATIVE DIAGNOSIS: Respiratory failure. POSTOPERATIVE DIAGNOSIS: Respiratory failure. CONSENT: Consent was obtained from the family. MEDICATIONS: The patient was on Versed and fentanyl at the time of the procedure. PROCEDURE IN DETAIL: The right wrist was prepped sterilely with chlorhexidine. Sterile drapes, a mask, and sterile gloves were used. An ultrasound machine was used to locate radial artery. The radial artery was cannulated under direct visualization with a 20-gauge needle. A wire was then passed through the needle and a 20-gauge catheter was passed over the wire by the Seldinger technique. COMPLICATIONS: None. ESTIMATED BLOOD LOSS: 5 mL. Deshaun Roberson MD H/MODL /[id number]
--- NOTE | 2020-02-11 19:20 | Progress Note ---
DATE: SUBJECTIVE: Mr. Agosto remains intubated and sedated. OBJECTIVE: GENERAL: Obese. HEENT: Normocephalic. CHEST: Crackles. HEART: S1, S2. ABDOMEN: Soft. LABORATORY DATA: Reviewed. IMPRESSION: 1. Respiratory failure. 2. COVID-19. 3. Obesity. 4. Diabetes mellitus. 5. Ketoacidosis. 6. Acute kidney injury. 7. Anemia. LABORATORY DATA: His blood cultures are negative. His white count is 7.97 and hemoglobin 12. His sodium 141 and creatinine 0.77. The patient is currently on Lovenox. He was on Zosyn. The patient is day #5. We can discontinue his antibiotic. Continue 10 days of dexamethasone. We will stop his antibiotic tomorrow. He is on vancomycin, Zosyn, and azithromycin. I am going to stop his azithromycin today. I am going to stop his vancomycin today. We will stop Zosyn tomorrow. MD JOSE Torres/FREDDY /[id number]
[2020-02-11] MEDS: FUROSEMIDE INJ 10 MG/ML 4 ML VIAL IV SCH (21:14)
[2020-02-11] MEDS: NOREPINEPHRINE 8 MG/D5W 250 ML 250 ML IV SCH (21:15)
[2020-02-11] MEDS: PROPOFOL IV EMULSION 10MG/ML 100 ML IV PRN (22:00)
[2020-02-12] VITALS (52 sets, daily range): BP systolic 115–176; BP diastolic 66–93
[2020-02-12] MEDS: ROCURONIUM BROMIDE 250 MG in SODIUM CHLORIDE 0.9% 250ML 225 ML IV SCH ×6 (00:15→22:55)
[2020-02-12] MEDS: ALBUMIN 25% 25GM 100ML 0.25 GM/ML BTL IV SCH (00:32)
--- NOTE | 2020-02-12 01:26 | Progress Note ---
DATE: 02/11/2020 Medicine Progress Note SUBJECTIVE: The patient is still intubated and sedated. No overnight changes. PHYSICAL EXAMINATION: VITAL SIGNS: Temperature is 98.4, pulse 50, respiratory rate is 28, blood pressure was 145/88, and pulse ox 98% on room air. GENERAL: Intubated and sedated. PULMONARY: Intubated and sedated. CARDIOVASCULAR: Positive S1, S2. No murmurs, rubs, or gallops appreciated. ABDOMEN: Soft, nondistended, and nontender palpation. Bowel sounds present. MUSCULOSKELETAL: Unable to assess. NEUROLOGIC: Unable to assess. SKIN: Intact. Warm to touch. Good cap refill. EXTREMITIES: No edema appreciated. LABORATORY DATA: Show CBC stable. Reviewed. Chemistry, reviewed, stable. Microbiology, all cultures were negative. IMAGING STUDIES: Chest x-ray did show multifocal patchy airspace opacity. IMPRESSION: 1. Acute respiratory failure secondary to coronavirus pneumonia. 2. Viral pneumonia. 3. Uncontrolled type 2 diabetes. 4. Acute kidney injury. PLAN: At this time, the patient is still intubated on a mechanical ventilator and requiring significant amount of oxygen. Continue with steroids, antibiotics, and vitamins. Continue with insulin in relation to uncontrolled type 2 diabetes. Pulmonary, Critical Care, and ID are following. Lovenox for DVT prophylaxis. MD MONICA Luong/MODL /[id number]
[2020-02-12] MEDS: PROPOFOL IV EMULSION 10MG/ML 100 ML IV PRN ×3 (01:58→13:48)
[2020-02-12] MEDS: MIDAZOLAM HCL 5MG/ML 10ML VIAL 100 ML IV PRN ×4 (02:53→20:00)
[2020-02-12] MEDS: PIPER-TAZ 3.375 GM 50 ML IV SCH ×2 (05:08→13:30)
[2020-02-12 06:12] LABS: BASOPHILS % 0.2 % (0.0-1.0); EOSINOPHILS % 0.1 % (0.0-6.0); HEMATOCRIT 35.5 % (38.2-49.6); HEMOGLOBIN 11.5 g/dL (14.0-18.0); LYMPHOCYTES # (AUTO) 0.9 (1.0-3.2); MEAN CORPUSCULAR HEMOGLOBIN 27.9 pg (28-32); MEAN CORPUSCULAR HGB CONC 32.4 g/dL (31-35); MONOCYTES # (AUTO) 0.5 (0.2-0.8); NEUTROPHILS # (AUTO) 6.8 (2.1-6.9); NEUTROPHILS % 80.6 % (38.7-80.0); PLATELET COUNT 237 x10e3/uL (140-360); RED BLOOD COUNT 4.12 x10e6/uL (4.3-5.7); RED CELL DISTRIBUTION WIDTH 13.4 % (11.7-14.4)
[2020-02-12 06:13] LABS: MEAN CORPUSCULAR VOLUME 86.2 fL (81-99)
[2020-02-12] MEDS: FENTANYL 2000MCG/NS 250 250 ML IV PRN ×3 (06:50→21:05)
[2020-02-12 07:19] LABS: ALANINE AMINOTRANSFERASE 19 IU/L (0-55); ALBUMIN 3.1 g/dL (3.5-5.0); ALKALINE PHOSPHATASE 113 IU/L (40-150); BLOOD UREA NITROGEN 17 mg/dL (7-26); BUN/CREATININE RATIO 24 (6-25); CALCIUM 8.1 mg/dL (8.4-10.2); CARBON DIOXIDE 28 mmol/L (22-29); CHLORIDE 100 mmol/L (98-107); CREATININE, SERUM 0.72 mg/dL (0.72-1.25); EST GLOMERULAR FILTRATION RATE > 60 ML/MIN (60-); GLUCOSE 225 mg/dL (74-118); SODIUM 138 mmol/L (136-145)
[2020-02-12] MEDS: DEXAMETHASONE SOD PHOS INJ 4 MG/ML VIAL IV SCH (08:46)
[2020-02-12] MEDS: ASCORBIC ACID 500 MG TAB PO SCH ×2 (08:47→16:17)
[2020-02-12] MEDS: ENOXAPARIN SOD INJ 40 MG/0.4 ML SYR SC SCH ×2 (08:47→16:17)
[2020-02-12] MEDS: FUROSEMIDE INJ 10 MG/ML 4 ML VIAL IV SCH ×2 (08:47→21:04)
[2020-02-12 09:18] LABS: ABG HCO3 27 mmol/L (22-26); ABG PCO2 44 mmHg (35-45); ABG PH 7.39 (7.35-7.45); ABG PO2 75 mmHg (80-105)
[2020-02-12 09:19] LABS: ABG TCO2 28
--- NOTE | 2020-02-12 12:01 | Diagnostic Imaging Report ---
EXAMINATION: CHEST SINGLE (PORTABLE) INDICATION: Respiratory failure COMPARISON: Multiple prior chest radiographs including most recent on 02/11/2020. FINDINGS: TUBES and LINES: Stable ET tube which terminates approximately 3 cm above the michael, subdiaphragmatic nasogastric tube which courses below the diaphragm, beyond field of view and left PICC which projects over the distal SVC. LUNGS: No significant interval changes and multifocal patchy airspace opacities throughout both lungs. PLEURA: There is probable small bilateral pleural effusion. HEART AND MEDIASTINUM: The cardiomediastinal silhouette is obscured by multifocal patchy airspace opacities. BONES AND SOFT TISSUES: No acute osseous or soft tissue finding.. UPPER ABDOMEN: No free air under the diaphragm. IMPRESSION: 1. No significant interval changes in multifocal patchy airspace opacities throughout both lungs. 2. Stable support lines/tubes as above. Signed by: Kirit Jolly MD on 02/12/2020 11:58 AM
--- NOTE | 2020-02-12 12:12 | Progress Note ---
DATE: Pulmonary Critical Care Progress Note. SUBJECTIVE: The patient is afebrile. He remains on mechanical ventilation. He is in a prone position. PHYSICAL EXAMINATION: VITAL SIGNS: Blood pressure is 155/80, heart rate is 60 to 70. He is on a PRVC mode of ventilation at a rate of 28 with a tidal volume of 370 and FiO2 of 70%. His PEEP is set at 14. HEENT: Shows no facial swelling or erythema. There is an oral endotracheal tube. He has a nasogastric feeding tube. He has a PICC line in place. He has radial arterial line. CARDIAC: Reveals regular rate and rhythm with a normal S1, S2. LUNGS: Auscultation of lungs reveals crackles at the bases. There is no wheezing. ABDOMEN: Soft and nontender. There is no rebound or guarding. EXTREMITIES: Shows 1 to 2+ leg edema. LABORATORY DATA: White blood cell count is 8.4, hemoglobin is 11.5, the platelet is 237. BUN to creatinine ratio is normal. Other electrolytes are within normal limits. Blood sugar is 240 to 250. Albumin is 2.1. IMPRESSION: 1. Acute respiratory failure. 2. Viral pneumonia and COVID-19 infection. 3. Diabetes. 4. Acute kidney injury. 5. Anemia. PLAN: 1. Continue current ventilator settings and monitor ABG. 2. Continue to keep patient in prone position. 3. Continue dexamethasone. 4. Complete antibiotics. 5. Continue insulin drip. 6. Continue to use Lasix as needed. 7. Case discussed with nursing, Respiratory, Nephrology, Internal Medicine, Infectious Disease, and family. 8. Greater than 35 minutes in direct critical care time. Deshaun Roberson MD [facility]/MODL /[id number]
--- NOTE | 2020-02-12 13:46 | NUR ---
INFECTIOUS DISEASE PROGRESS NOTE DR FERNANDEZ SUBJECTIVE: Mr. Agosto remains intubated and sedated. PHYSICAL EXAM: OBJECTIVE: GENERAL: Obese. HEENT: Normocephalic. CHEST: Crackles. HEART: S1, S2. ABDOMEN: Soft. RADIOLOGY: REVIEWED LABORATORY DATA: Reviewed. IMPRESSION: 1. Respiratory failure. 2. COVID-19. 3. Obesity. 4. Diabetes mellitus. 5. Ketoacidosis. 6. Acute kidney injury. 7. Anemia. PLAN: The patient is currently on Lovenox. He was on Zosyn. The patient is day #5. We can discontinue his antibiotic. Continue 10 days of dexamethasone. PT SEEN AND EVALUATED BY DR FERNANDEZ
--- NOTE | 2020-02-12 16:44 | Progress Note ---
DATE: 02/12/2020 Medicine Progress Note SUBJECTIVE: The patient is still intubated and sedated. He did have some evidence of some hypoxia at some point, but he seems to have rebound. PHYSICAL EXAMINATION: VITAL SIGNS: Temperature is 98.2, pulse 52, respiratory rate is 28, blood pressure is 153/79, pulse ox 96%, he is on FiO2 of 70%. In's and Out's; the patient reportedly is still net positive. GENERAL: Intubated and sedated. PULMONARY: Intubated and sedated. CARDIOVASCULAR: Positive S1, S2. No murmurs, rubs, or gallops. GI: Abdomen is soft, nondistended, nontender to palpation. Bowel sounds present. MUSCULOSKELETAL: Unable to assess. NEUROLOGICAL: Unable to assess. SKIN: Intact. Warm to touch. Good cap refill. EXTREMITIES: Has trace 1+ edema appreciated. LABORATORY DATA: White count 8.4, hemoglobin 11.5, hematocrit is 35, and platelets of 237. Chemistry; sodium 138, potassium 4, chloride 100, bicarb 28, anion gap of 14, BUN 17, creatinine 0.72. Glucose is 225. MICROBIOLOGY: Blood cultures; no growth. Urine cultures; no growth. Repeat urine cultures collected. IMAGING STUDIES: Chest x-ray this morning shows no significant interval changes and multifocal patchy airspace opacities throughout both lungs. IMPRESSION: 1. Acute respiratory failure, secondary Coronavirus pneumonia. 2. Viral pneumonia. 3. Uncontrolled type 2 diabetes. 4. Acute kidney injury. PLAN: At this time, the patient is intubated on a mechanical ventilator, requiring significant amount of oxygen. Continue with steroids, antibiotics, and vitamins. He is on insulin for underlying uncontrolled type 2 diabetes. We will continue following with all the consultants. Pulmonary Critical Care and ID are following. Lovenox for DVT prophylaxis. MD MONICA Luong/MODL /[id number]
[2020-02-12] MEDS: NOREPINEPHRINE 8 MG/D5W 250 ML 250 ML IV SCH (20:20)
[2020-02-13] VITALS (27 sets, daily range): BP systolic 129–185; BP diastolic 68–97
[2020-02-13] MEDS: PROPOFOL IV EMULSION 10MG/ML 100 ML IV PRN ×7 (00:30→23:51)
[2020-02-13] MEDS: ROCURONIUM BROMIDE 250 MG in SODIUM CHLORIDE 0.9% 250ML 225 ML IV SCH ×6 (03:00→23:38)
[2020-02-13] MEDS: MIDAZOLAM HCL 5MG/ML 10ML VIAL 100 ML IV PRN ×4 (05:00→21:06)
[2020-02-13 05:24] LABS: BASOPHILS % 0.1 % (0.0-1.0); EOSINOPHILS % 0.3 % (0.0-6.0); HEMATOCRIT 36.4 % (38.2-49.6); HEMOGLOBIN 12.1 g/dL (14.0-18.0); LYMPHOCYTES % 8.5 % (18.0-39.1); MEAN CORPUSCULAR HEMOGLOBIN 28.4 pg (28-32); MEAN CORPUSCULAR HGB CONC 33.2 g/dL (31-35); MEAN CORPUSCULAR VOLUME 85.4 fL (81-99); MONOCYTES # (AUTO) 0.8 (0.2-0.8); NEUTROPHILS # (AUTO) 9.2 (2.1-6.9); NEUTROPHILS % 81.7 % (38.7-80.0); PLATELET COUNT 272 x10e3/uL (140-360); RED BLOOD COUNT 4.26 x10e6/uL (4.3-5.7); RED CELL DISTRIBUTION WIDTH 13.1 % (11.7-14.4)
[2020-02-13 06:11] LABS: ALANINE AMINOTRANSFERASE 16 IU/L (0-55); ALBUMIN 2.6 g/dL (3.5-5.0); ALBUMIN/GLOBULIN RATIO 0.8 (0.8-2.0); ALKALINE PHOSPHATASE 96 IU/L (40-150); ANION GAP 12.9 mmol/L (8-16); BLOOD UREA NITROGEN 17 mg/dL (7-26); BUN/CREATININE RATIO 25 (6-25); CALCIUM 8.3 mg/dL (8.4-10.2); CARBON DIOXIDE 29 mmol/L (22-29); CHLORIDE 97 mmol/L (98-107); CREATININE, SERUM 0.68 mg/dL (0.72-1.25); EST GLOMERULAR FILTRATION RATE > 60 ML/MIN (60-); GLUCOSE 211 mg/dL (74-118); POTASSIUM 3.9 mmol/L (3.5-5.1); SODIUM 135 mmol/L (136-145)
[2020-02-13] MEDS: FENTANYL 2000MCG/NS 250 250 ML IV PRN ×3 (06:50→20:36)
[2020-02-13] MEDS: ENOXAPARIN SOD INJ 40 MG/0.4 ML SYR SC SCH ×2 (09:15→20:36)
[2020-02-13] MEDS: DEXAMETHASONE SOD PHOS INJ 4 MG/ML VIAL IV SCH (09:15)
[2020-02-13] MEDS: ASCORBIC ACID 500 MG TAB PO SCH ×2 (09:15→17:46)
[2020-02-13 10:05] LABS: ABG HCO3 30 mmol/L (22-26); ABG PCO2 40 mmHg (35-45); ABG PH 7.47 (7.35-7.45); ABG PO2 83 mmHg (80-105); ABG TCO2 31
--- NOTE | 2020-02-13 10:20 | NUR ---
Can Tender returned call from pt's mother, Leeann, asking for prayer. Pt's mom states she attends [employer] in [place] and the quaker is supporting during this time. Can Tender reminded pt's mom of availability of advance scout and how to reach advance scout, if needed. Will continue to follow as able. [facility] O: [phone]
--- NOTE | 2020-02-13 10:48 | Progress Note ---
DATE: SUBJECTIVE: The patient remains on mechanical ventilation. He is on a PRVC mode of ventilation at a rate of 28 with a tidal volume of 380 and FiO2 of 60%. His PEEP is set at 12. He remains on rocuronium, fentanyl and Versed. PHYSICAL EXAMINATION: VITAL SIGNS: The blood pressure is 146/72, saturation is 96% on the above settings. HEENT: Shows no facial swelling or erythema. The oropharynx is normal. LYMPHATIC: Shows no submandibular, cervical, or supraclavicular adenopathy. LUNGS: Crackles at the bases, there is no wheezing. CARDIAC: Reveals a regular rate and rhythm with a normal S1, S2. ABDOMEN: Soft and nontender. There is no rebound or guarding. EXTREMITIES: Shows no leg edema or calf tenderness. There is no cyanosis or clubbing. SKIN: Shows no rashes. NEUROLOGICAL: Shows the patient to be sedated. LABORATORY DATA: White blood cell count 11.2 and hemoglobin is 12.1, the platelet count is 272. The BUN to creatinine ratio is normal. The sodium is 135 and the blood sugars 230-250 range. Albumin is 2.6. RADIOGRAPHIC DATA: Cyst x-ray shows multifocal pneumonia. IMPRESSION: 1. Acute respiratory failure. 2. Viral pneumonia and COVID-19 infection. 3. Diabetes. 4. Acute kidney injury. 5. Anemia. PLAN: 1. Complete dexamethasone. 2. Continue insulin drip. 3. Continue to monitor ventilated settings and repeat ABG. 4. Complete antibiotics. 5. Wean sedation as tolerated. 6. Case discussed with Respiratory, Nursing, Infectious Disease, and Internal Medicine. 7. Greater than 35 minutes in direct critical care time. Deshaun Roberson MD [facility]/MODL /[id number]
--- NOTE | 2020-02-13 16:16 | NUR ---
NFECTIOUS DISEASE PROGRESS NOTE DR FERNANDEZ he patient remains on mechanical ventilation. He is on a PRVC mode of ventilation at a rate of 28 with a tidal volume of 380 and FiO2 of 60%. His PEEP is set at 12. He remains on rocuronium, fentanyl and Versed. SUBJECTIVE: Mr. Agosto remains intubated and sedated. day 7 chart reviewed labs noted discussed with medical team PHYSICAL EXAM: OBJECTIVE: GENERAL: Obese. HEENT: Normocephalic. CHEST: Crackles. HEART: S1, S2. ABDOMEN: Soft. RADIOLOGY: REVIEWED LABORATORY DATA: Reviewed. IMPRESSION: 1. Respiratory failure. 2. COVID-19. 3. Obesity. 4. Diabetes mellitus. 5. Ketoacidosis. 6. Acute kidney injury. 7. Anemia. PLAN: The patient is currently on Lovenox. He was on Zosyn. The patient is day #5. We can discontinue his antibiotic. Continue 10 days of dexamethasone.
--- NOTE | 2020-02-13 16:20 | NUR ---
during repostioning of patient head and arms in prone postion. right ear noted with dti and right cheek skin tear. wound care consult placed. venelex ointment ordered.
[2020-02-13] MEDS ORDERED: BALSAM PERU/CASTOR OIL 60 GM OINT...G. TP PRN (16:30)
[2020-02-13] MEDS: FLUCONAZOLE 200 MG/100 ML 100 ML IV SCH (18:01)
[2020-02-13] MEDS: NOREPINEPHRINE 8 MG/D5W 250 ML 250 ML IV SCH (23:15)
[2020-02-14] VITALS (26 sets, daily range): BP systolic 96–264; BP diastolic 5–264
--- NOTE | 2020-02-14 00:41 | Progress Note ---
DATE: 02/13/2020 Medicine Progress Note SUBJECTIVE: The patient is still intubated today, requiring significant amount of oxygen. He is now on 50% FiO2, much improved compared to yesterday. PHYSICAL EXAMINATION: VITAL SIGNS: Temperature is 97.6, pulse 52, respiratory rate 20, blood pressure 161/82, pulse ox 98% on a mechanical ventilator, FiO2 50%. GENERAL: He is intubated and sedated. PULMONARY: Intubated and sedated. CARDIOVASCULAR: Positive S1, S2. No murmurs, rubs, or gallops. GI: Abdomen is soft, nondistended, nontender to palpation. Bowel sounds present. MUSCULOSKELETAL: Unable to assess. He is sedated. NEUROLOGICAL: He is intubated and sedated. SKIN: Intact. Warm to touch. Good cap refill. PSYCHIATRIC: Intubated and sedated. EXTREMITIES: He does have some trace edema appreciated. LABORATORY FINDINGS: Show white count 11.2, hemoglobin is 12.1, hematocrit 36.4, platelets of 272. Chemistry reviewed, stable. MICROBIOLOGY: Urine culture showed yeast. Initial urine culture was negative. Blood cultures negative x2. IMAGING STUDIES: None. IMPRESSION: 1. Acute respiratory failure secondary to coronavirus pneumonia, intubated and sedated on a mechanical ventilator. 2. Viral pneumonia. 3. Uncontrolled type 2 diabetes. 4. Acute kidney injury-improved. PLAN: At this time, the patient has continued to be intubated and sedated on mechanical ventilator. His oxygen requirement has decreased to 50% FiO2. Continue with steroids, antibiotics, and vitamins. He is on insulin for his uncontrolled type 2 diabetes. Repeat labs in the morning. Follow with Pulmonary Critical Care and ID. Cardona for DVT prophylaxis. MD MONICA Luong/MODL /[id number]
[2020-02-14] MEDS: MIDAZOLAM HCL 5MG/ML 10ML VIAL 100 ML IV PRN ×4 (02:32→16:54)
[2020-02-14] MEDS: FENTANYL 2000MCG/NS 250 250 ML IV PRN ×3 (02:41→16:52)
[2020-02-14] MEDS: PROPOFOL IV EMULSION 10MG/ML 100 ML IV PRN ×5 (02:41→20:28)
[2020-02-14] MEDS: ROCURONIUM BROMIDE 250 MG in SODIUM CHLORIDE 0.9% 250ML 225 ML IV SCH ×2 (03:54→07:59)
[2020-02-14 05:45] LABS: BASOPHILS % 0.2 % (0.0-1.0); EOSINOPHILS # (AUTO) 0.1 (0.0-0.4); EOSINOPHILS % 0.7 % (0.0-6.0); HEMATOCRIT 35.7 % (38.2-49.6); HEMOGLOBIN 12.4 g/dL (14.0-18.0); LYMPHOCYTES % 10.2 % (18.0-39.1); MEAN CORPUSCULAR HEMOGLOBIN 30.5 pg (28-32); MEAN CORPUSCULAR HGB CONC 34.7 g/dL (31-35); MEAN CORPUSCULAR VOLUME 87.9 fL (81-99); MONOCYTES # (AUTO) 0.8 (0.2-0.8); MONOCYTES % 7.7 % (4.4-11.3); NEUTROPHILS # (AUTO) 7.8 (2.1-6.9); NEUTROPHILS % 78.6 % (38.7-80.0); PLATELET COUNT 252 x10e3/uL (140-360); RED BLOOD COUNT 4.06 x10e6/uL (4.3-5.7); RED CELL DISTRIBUTION WIDTH 14.4 % (11.7-14.4)
[2020-02-14] MEDS: INSULIN REGULAR, HUMAN 3ML VL 100 UNIT in SODIUM CHLORIDE 0.9% 99 ML IV SCH ×2 (05:46)
[2020-02-14 06:19] LABS: ALANINE AMINOTRANSFERASE 16 IU/L (0-55); ALBUMIN 2.5 g/dL (3.5-5.0); ALBUMIN/GLOBULIN RATIO 0.7 (0.8-2.0); ALKALINE PHOSPHATASE 106 IU/L (40-150); ANION GAP 11.3 mmol/L (8-16); BLOOD UREA NITROGEN 13 mg/dL (7-26); BUN/CREATININE RATIO 20 (6-25); CARBON DIOXIDE 27 mmol/L (22-29); CHLORIDE 100 mmol/L (98-107); CREATININE, SERUM 0.64 mg/dL (0.72-1.25); EST GLOMERULAR FILTRATION RATE > 60 ML/MIN (60-); GLUCOSE 191 mg/dL (74-118); POTASSIUM 4.3 mmol/L (3.5-5.1); SODIUM 134 mmol/L (136-145)
[2020-02-14] MEDS: ENOXAPARIN SOD INJ 40 MG/0.4 ML SYR SC SCH ×2 (08:45→20:14)
[2020-02-14] MEDS: ASCORBIC ACID 500 MG TAB PO SCH ×2 (08:45→17:50)
[2020-02-14] MEDS: DEXAMETHASONE SOD PHOS INJ 4 MG/ML VIAL IV SCH (08:45)
--- NOTE | 2020-02-14 09:07 | Progress Note ---
DATE: SUBJECTIVE: The patient remains in the prone position. He is still on rocuronium as well as Versed and fentanyl. He remains on an insulin drip. His FiO2 has been decreased to 50% and his PEEP is 10. His respiratory rate is 26 with the PRVC and his tidal volume is 450. PHYSICAL EXAMINATION: VITAL SIGNS: Blood pressure is 138/85. His saturation is 96% on the above settings. His heart rate is 50 to 60. HEENT: Shows no facial swelling or erythema. There is an oral endotracheal tube. He has a PICC line in place. He also has an arterial line on the right side. CARDIAC: Reveals a regular rate and rhythm with normal S1 and S2. LUNGS: Auscultation of lungs reveals rhonchorous breath sounds bilaterally. There is no wheezing. ABDOMEN: Soft and nontender. There is no rebound or guarding. EXTREMITIES: Shows no leg edema or calf tenderness. There is no cyanosis or clubbing. SKIN: Shows no rashes. NEUROLOGICAL: Shows the patient to be sedated and paralyzed. LABORATORY DATA: The blood gas is 211 to 240. The BUN to creatinine ratio is normal. The other electrolytes are within normal limits. Albumin is 2.5. The white blood cell count is 9.9 and hemoglobin is 12.4. The platelet count is 252. RADIOGRAPHIC DATA: There are bilateral airspace opacities. IMPRESSION: 1. Acute respiratory failure. 2. Viral pneumonia and COVID-19 infection. 3. Diabetes. 4. Acute kidney injury. PLAN: 1. Place the patient in the supine position. 2. Stop rocuronium and decrease Versed to 7. 3. Continue fentanyl and propofol. 4. Continue to monitor ABGs and wean ventilator. 5. Complete dexamethasone. 6. Complete antibiotics. 7. Continue Lovenox. 8. Case discussed with Respiratory, nursing, Internal Medicine and Nephrology. Greater than 35 minutes in direct critical care time. Deshaun Roberson MD [facility]/MODL /[id number]
[2020-02-14 09:54] LABS: ABG HCO3 28 mmol/L (22-26); ABG PCO2 39 mmHg (35-45); ABG PH 7.46 (7.35-7.45); ABG PO2 91 mmHg (80-105); ABG TCO2 29
[2020-02-14] MEDS ORDERED: HYDROCODONE/CHLORPHENIRAMINE 5 ML LIQCR ONE (12:57)
--- NOTE | 2020-02-14 13:05 | NUR ---
WOUND CARE CONSULT FOR 44 YO MALE HX OF TONI LUZ MARIA 12 ON STRICT PUP STATUS AND INTERVENTIONS AND ALTERNATING PRESSURE MATTRESS LABS: WBC-9.95 HGB_12.4 GLUCOSE-191 SKIN ASSESSMENT COMPLETE PATIENT PRESENTS WITH RIGHT EAR DTI UPPER AND LOWER ASPECT 2 AREAS MEASURE [id number] DARK PURPLE RIGHT CHEEK DTI DARK PURPLE MEASURES 1.5CM X2CM RECOMMENDATIONS: NURSING TO CONTINUE TO MAINTAIN STRICT PUP STATUS AND INTERVENTIONS AND ALTERNATING PRESSURE MATTRESS NURSING TO CONTINUE TO ASSIST PATIENT OUT OF BED FOR MEALS AND MUCH TOLERATED NURSING TO CONTINUE TO ASSIST PATIENT NEEDED WITH MEALS AND NUTRITIONAL SUPPLEMENTS TO ENSURE PROPER REQUIREMENTS FOR HEALING NURSING TO CONTINUE TO OFFLOAD FEET AND HEELS NEEDED WITH PILLOW SUSPENSION WHEN IN BED NURSING TO CLEAN RIGHT EAR DTI UPPER AND LOWER ASPECT AND RIGHT CHEEK DTI WITH NORMAL SALINE DAILY AND APPLY VENELEX OINTMENT AND ALLEVYN FOAM DRESSING Addendum: 02/14/20 at 1315 by Arben Zapata RN Amended: Links added.
--- NOTE | 2020-02-14 14:59 | NUR ---
Nutrition Intervention Note RD Recommendation(s) for Physician: -Recommend modifying tube feeding order to Vital AF 1.2 @ goal rate of 45 mL/hr (provides 1296 kcal, 81 g protein) -If pt continues to require high dose Propofol, recommend changing TF to Vital HP with goal rate of 40 ml/hr (960 kcal and 84 gm protein). Remaining kcal provided by Propofol. -Water/fluid management per MD -Propofol providing 847 lipid kcal/day Plan of Care: RD following, monitoring for tolerance and adequacy, tube feed recommendation Nutrition reason for involvement: follow up RD Assessment 02/13: Follow up. Pt remains intubated and sedated on high dose Propofol. Pt requiring to be placed in prone position. TF of Vital AF infusing at 45 ml/hr- current TF meeting needs. No BM recorded. Chart reviewed. Will continue to monitor. 02/09: Follow up. Pt remains intubated and sedated. Pt was in the prone position overnight per chart. Pts last recorded tube feed rate was 20 mL/hr yesterday morning. Current recommendations remain appropriate. Will continue to monitor. (02/08/20) Pt is a 44 year old male admitted with hypoxia, COVID-19, and viral pneumonia. Pt is currently intubated; therefore, unable to obtain nutrition history from pt at this time. Tube feeding was ordered this morning per chart. Recommendations provided. Will continue to monitor. Principal Problems/Diagnoses: hypoxia, COVID-19, and viral pneumonia PMH: uncontrolled type 2 diabetes GI: round, non-tender, soft abdomen, no BM recorded Skin: DTI R cheek Labs: 02/13: Na 134, K 4.3, BUN 13, Cr 0.64, Gluc 191, POC Gluc 211-232 02/09: Na 146, K 3.5, BUN 17, Cr 0.74, Glu 109, Ca 7.6 (02/07) Na 137, K 4.0, BUN 19, Cr 0.75, Glu 212, Ca 7.6 Meds: decadron, vitamin C, colace, zofran IVF/Drips: Propofol at 32.1 ml/hr (847 lipid kcal), Insulin drip at 2 units/hr, Levophed at 1 mcg/min, Fentanyl drip, Versed drip Ht: 61 in Wt: 221 lbs (02/08) 219 lbs (02/07) BMI: 41.4 kg/m2 - using wt of 219 lbs IBW: 112 lbs Malnutrition Evaluation (02/08/20) Unable to assess due to isolation precautions.. Will re-evaluate at follow-up as appropriate. Nutrition Prescription (Diet Order): Vital AF at 60 mL/hr, infusing at 45 ml/hr (1296 kcal and 81 gm protein) Estimated Nutritional Needs: 8708-3336 calories/day (22-25 kcal/kg IBW) 76-102 g protein/day (1.5-2 g pro/kg IBW) Diet Adequacy: meeting calorie needs, meeting protein needs Tolerance: tolerating TF Diet Education Needs Assessment: Diet education not indicated, patient is intubated Nutrition Care Level: moderate Nutrition Diagnosis: Inadequate oral intake related to acute respiratory failure/mechanical ventilation as evidenced by pt requiring enteral nutrition Goal: Patient will meet 75-100% of estimated needs by follow up Progress: goal met Interventions: -Composition, Rate, Route, Recommended Modifications Monitoring/Evaluation: -Total energy intake, Total protein intake, Formula/Solution, Weight change Signed: Leda Zurita RD, LD, CNSC
--- NOTE | 2020-02-14 15:08 | NUR ---
The patient remains in the prone position. He is still on rocuronium as well as Versed and fentanyl. He remains on an insulin drip. His FiO2 has been decreased to 50% and his PEEP is 10. His respiratory rate is 26 with the PRVC and his tidal volume is 450. PHYSICAL EXAMINATION: VITAL SIGNS: Blood pressure is 138/85. His saturation is 96% on the above settings. His heart rate is 50 to 60. HEENT: Shows no facial swelling or erythema. There is an oral endotracheal tube. He has a PICC line in place. He also has an arterial line on the right side. CARDIAC: Reveals a regular rate and rhythm with normal S1 and S2. LUNGS: Auscultation of lungs reveals rhonchorous breath sounds bilaterally. There is no wheezing. ABDOMEN: Soft and nontender. There is no rebound or guarding. EXTREMITIES: Shows no leg edema or calf tenderness. There is no cyanosis or clubbing. SKIN: Shows no rashes. NEUROLOGICAL: Shows the patient to be sedated and paralyzed. LABORATORY DATA: The blood gas is 211 to 240. The BUN to creatinine ratio is normal. The other electrolytes are within normal limits. Albumin is 2.5. The white blood cell count is 9.9 and hemoglobin is 12.4. The platelet count is 252.
[2020-02-14] MEDS: FLUCONAZOLE 200 MG/100 ML 100 ML IV SCH (16:25)
[2020-02-14] MEDS ORDERED: LACTULOSE SYRUP 20 GM/30 ML UDC PO PRN (18:00)
--- NOTE | 2020-02-14 18:54 | Progress Note ---
DATE: SUBJECTIVE: Mr. Goff remains in the intensive care unit. No change. He is in the prone position. He has remained on same drip. He is on insulin drip. His vent setting noted. PHYSICAL EXAMINATION: GENERAL: He is currently alert, currently sedated, intubated. HEENT: He is not icteric. NECK: Supple. CHEST: Crackles bilateral. COR: S1, S2. ABDOMEN: Soft, obese. LABORATORY DATA: Reviewed, white count 9.5. IMPRESSION: Respiratory failure, COVID-19 discussed with the medical team. We will follow. Monica Patrick MD [facility]/MODL /[id number]
[2020-02-14] MEDS: LACTULOSE SYRUP 20 GM/30 ML UDC PO PRN (20:15)
[2020-02-14] MEDS: NOREPINEPHRINE 8 MG/D5W 250 ML 250 ML IV SCH (20:29)
--- NOTE | 2020-02-14 23:56 | Progress Note ---
DATE: 02/14/2020 Medicine Progress Note SUBJECTIVE: The patient is still intubated and sedated. Still requiring significant amount of oxygen, but he is improving according to the nursing staff. PHYSICAL EXAMINATION: VITAL SIGNS: Temperature was 98.8, pulse 62, respiratory rate is 30, blood pressure 108/65, and pulse ox 95% on mechanical ventilator, 65% FiO2. GENERAL: He is intubated and sedated. CARDIOVASCULAR: Positive S1 and S2. No murmurs, rubs, or gallops appreciated. ABDOMEN: Soft, nondistended, and nontender to palpation. Bowel sounds present. MUSCULOSKELETAL: Unable to assess. NEUROLOGIC: Unable to assess. SKIN: Intact. Warm to touch. Good cap refill. PSYCHIATRIC: Unable to assess. EXTREMITIES: Still has some evidence of edema. LABORATORY DATA: Show CBC stable. Chemistry reviewed, stable. MICROBIOLOGY: Urine culture showed some yeast. IMPRESSION: 1. Acute respiratory failure secondary to coronavirus pneumonia, intubated and sedated, on mechanical ventilator. 2. Viral pneumonia. 3. Uncontrolled type 2 diabetes. 4. Acute kidney injury-improved. PLAN: At this time, the patient maintains intubated and sedated on a mechanical ventilator. He is still requiring significant amount of oxygen, but seems to be weaning a little bit down. Still the patient is very critically ill. He is on steroids, antibiotics, and vitamins. He is also on insulin for uncontrolled type 2 diabetes. Get labs in the morning. Lovenox for DVT prophylaxis. Followup and recommendations per Pulmonary Critical Care and ID. MD MONICA Luong/MODL /[id number]
[2020-02-15] VITALS (25 sets, daily range): BP systolic 103–147; BP diastolic 51–75
[2020-02-15] MEDS: PROPOFOL IV EMULSION 10MG/ML 100 ML IV PRN ×6 (00:06→23:41)
[2020-02-15] MEDS: MIDAZOLAM HCL 5MG/ML 10ML VIAL 100 ML IV PRN ×2 (00:08→06:17)
[2020-02-15] MEDS: FENTANYL 2000MCG/NS 250 250 ML IV PRN ×2 (00:09→19:32)
--- NOTE | 2020-02-15 04:39 | Diagnostic Imaging Report ---
EXAMINATION: CHEST SINGLE (PORTABLE) INDICATION: ^viral pneumonia ^[id number] ^[id number] COMPARISON: Radiograph dated 02/11/2020 FINDINGS: TUBES and LINES: Endotracheal tube tip at the level of the michael. The tip of the left PICC curls superiorly, possibly within the azygos vein. Enteric tube courses below the diaphragm. LUNGS: Improved aeration of the lungs with residual patchy airspace disease. PLEURA: Probable small left effusion. No pneumothorax. HEART AND MEDIASTINUM: The cardiomediastinal silhouette is unremarkable. BONES AND SOFT TISSUES: No acute osseous lesion. Soft tissues are unremarkable. UPPER ABDOMEN: No free air under the diaphragm. IMPRESSION: 1. Endotracheal tube tip at the level the michael. Retraction is recommended. 2. Tip of the left PICC is directed superiorly, possibly within the azygos vein. 3. Improving aeration of the lungs with residual bibasilar opacities and possible small left effusion. Critical results were discussed with Dr. Farah on 02/15/2020 4:35 AM. Signed by: Talib Franco MD on 02/15/2020 4:36 AM
[2020-02-15 05:04] LABS: BASOPHILS % 0.2 % (0.0-1.0); EOSINOPHILS % 0.4 % (0.0-6.0); HEMATOCRIT 37.9 % (38.2-49.6); HEMOGLOBIN 12.2 g/dL (14.0-18.0); LYMPHOCYTES # (AUTO) 1.2 (1.0-3.2); LYMPHOCYTES % 12.1 % (18.0-39.1); MEAN CORPUSCULAR HEMOGLOBIN 27.4 pg (28-32); MEAN CORPUSCULAR HGB CONC 32.2 g/dL (31-35); MEAN CORPUSCULAR VOLUME 85.2 fL (81-99); MONOCYTES # (AUTO) 0.9 (0.2-0.8); MONOCYTES % 8.7 % (4.4-11.3); NEUTROPHILS # (AUTO) 7.7 (2.1-6.9); NEUTROPHILS % 75.6 % (38.7-80.0); PLATELET COUNT 347 x10e3/uL (140-360); RED BLOOD COUNT 4.45 x10e6/uL (4.3-5.7); RED CELL DISTRIBUTION WIDTH 13.3 % (11.7-14.4)
[2020-02-15 05:26] LABS: ALANINE AMINOTRANSFERASE 14 IU/L (0-55); ALBUMIN 2.4 g/dL (3.5-5.0); ALBUMIN/GLOBULIN RATIO 0.6 (0.8-2.0); ALKALINE PHOSPHATASE 93 IU/L (40-150); ANION GAP 12.2 mmol/L (8-16); BLOOD UREA NITROGEN 14 mg/dL (7-26); BUN/CREATININE RATIO 23 (6-25); CALCIUM 8.1 mg/dL (8.4-10.2); CARBON DIOXIDE 27 mmol/L (22-29); CHLORIDE 98 mmol/L (98-107); CREATININE, SERUM 0.62 mg/dL (0.72-1.25); EST GLOMERULAR FILTRATION RATE > 60 ML/MIN (60-); GLUCOSE 180 mg/dL (74-118); POTASSIUM 4.2 mmol/L (3.5-5.1); SODIUM 133 mmol/L (136-145)
[2020-02-15] MEDS: LACTULOSE SYRUP 20 GM/30 ML UDC PO PRN (05:55)
[2020-02-15 08:14] LABS: ABG HCO3 27 mmol/L (22-26); ABG PCO2 38 mmHg (35-45); ABG PH 7.46 (7.35-7.45); ABG PO2 91 mmHg (80-105); ABG TCO2 28
--- NOTE | 2020-02-15 08:52 | Diagnostic Imaging Report ---
EXAMINATION: CHEST SINGLE (PORTABLE) INDICATION: Hypoxemia COMPARISON: Multiple prior chest radiograph, most recently 02/15/2020 FINDINGS: LINES/TUBES:Endotracheal tube terminates 3 cm above the michael. Enteric tube projects below the diaphragm with tip not visualized. Left PICC line enters the SVC then curls superiorly into the azygos vein. LUNGS:The lungs are moderately inflated. Unchanged bibasilar patchy opacities, improved compared to 02/11/2020 PLEURA:No pleural effusion or pneumothorax. MEDIASTINUM:The cardiomediastinal silhouette appears unchanged in size and shape. BONES/SOFT TISSUES:No acute osseous injury. ABDOMEN:No free air under the diaphragm. IMPRESSION: Left PICC line coils into the azygos vein. Recommend power flushing and/or repositioning. Remaining lines and tubes as above. Bibasilar patchy opacities unchanged from 02/15/2020 but improved from 02/11/2020. Signed by: Anuj Bonilla MD on 02/15/2020 8:49 AM
[2020-02-15] MEDS ORDERED: BALSAM PERU/CASTOR OIL 60 GM OINT...G. TP SCH (09:00)
[2020-02-15] MEDS: DEXAMETHASONE SOD PHOS INJ 4 MG/ML VIAL IV SCH (10:25)
[2020-02-15] MEDS: ENOXAPARIN SOD INJ 40 MG/0.4 ML SYR SC SCH ×2 (10:25→20:11)
[2020-02-15] MEDS: ASCORBIC ACID 500 MG TAB PO SCH ×2 (10:25→16:54)
--- NOTE | 2020-02-15 14:08 | Progress Note ---
DATE: SUBJECTIVE: The patient remains in supine position. He is still on a PRVC mode of ventilation at a rate of 26 with a tidal volume of 400 and a PEEP of 10. His FiO2 is set at 60%. His Versed is down to 8 mg and his fentanyl is at 200 mcg. He is off rocuronium. PHYSICAL EXAMINATION: VITAL SIGNS: The patient is afebrile. The blood pressure is 126/63 and the saturation is 95%. The pulse is 68. HEENT: No facial swelling or erythema. There is an oral endotracheal tube. The patient has a PICC line in place as well as a radial arterial line. CARDIAC: Regular rate and rhythm with normal S1, S2. LUNGS: Auscultation of lungs reveals rhonchorous breath sounds bilaterally. There is no wheezing. ABDOMEN: Soft, nontender. There is no rebound or guarding. EXTREMITIES: No leg edema or calf tenderness. There is no cyanosis or clubbing. SKIN: No rashes. NEUROLOGICAL: No focal abnormalities. LABORATORY DATA: White blood cell count is 10.1 and hemoglobin is 12.2. The platelet count is 347. The BUN to creatinine ratio is normal. The other electrolytes are within normal limits. The albumin is 2.4. IMPRESSION: 1. Acute respiratory failure. 2. Viral pneumonia and coronavirus disease-19 infection. 3. Diabetes. 4. Acute kidney injury. PLAN: 1. Continue current ventilator settings and repeat ABG. 2. Continue to wean Versed and fentanyl. 3. Complete dexamethasone. 4. Complete antibiotics. 5. Continue Lovenox. Greater than 35 minutes in direct critical care time. Deshaun Roberson MD [facility]/MODL /[id number]
--- NOTE | 2020-02-15 15:03 | Progress Note ---
DATE: SUBJECTIVE: This is day #9. He is in supine position. He is still on PRVC mode, rate of 26, tidal volume 400, PEEP of 10, FiO2 of 60. He is on fentanyl and Versed, off rocuronium. OBJECTIVE: VITAL SIGNS: Afebrile. HEENT: Normocephalic. NECK: Supple. CHEST: Crackles. COR: S1, S2. ABDOMEN: Soft. LABORATORY STUDIES: White count is 10.1, hemoglobin 12. BUN within normal limit. Albumin 2.4. IMPRESSION AND PLAN: 1. Respiratory failure. 2. Coronavirus disease-19. 3. Diabetes mellitus. 4. Acute kidney injury. Continue with supportive care as ordered. Discussed with medical team. Lovenox and dexamethasone, to finish dexamethasone for 10 days. Diabetic control. He is currently on fluconazole for UTI. We will give fluconazole for 14 days. We will follow. MD JOSE Torres/MODL /[id number]
[2020-02-15] MEDS: FLUCONAZOLE 200 MG/100 ML 100 ML IV SCH (16:54)
--- NOTE | 2020-02-15 19:35 | Diagnostic Imaging Report ---
Examination: Single AP view of the chest. COMPARISON: 02/15/2020 INDICATION: Endotracheal tube placement DISCUSSION: Lines/tubes: Endotracheal tube approximately 1.5 cm from the michael. Enteric tube with the distal tip not visualized. A left PICC line with tip entering into the azygos. Lungs: Stable groundglass consolidative process bilaterally. Pleura: No pleural effusion or pneumothorax. Heart and mediastinum: The heart and the mediastinum are unremarkable. Bones and soft tissues: No acute bony abnormalities. IMPRESSION: 1. Stable infectious process in the lungs from viral pneumonia. 2. Endotracheal tube 1.5 cm above the michael Signed by: Dr. Franki Sawyer M.D. on 02/15/2020 7:32 PM
[2020-02-16] VITALS (22 sets, daily range): BP systolic 90–151; BP diastolic 40–72
--- NOTE | 2020-02-16 01:10 | Progress Note ---
DATE: 02/15/2020 Medicine Progress Note SUBJECTIVE: The patient is still intubated and sedated. No overnight events. PHYSICAL EXAMINATION: VITAL SIGNS: Temperature is 98.5, pulse 58, respiratory rate is 27, blood pressure 134/58, pulse ox 91%. He is on 65% FiO2 on mechanical ventilator. GENERAL: Intubated and sedated. PULMONARY: Intubated and sedated. CARDIOVASCULAR: Positive S1, S2. No murmurs, rubs, or gallops appreciated. ABDOMEN: Soft, nondistended, nontender to palpation. Bowel sounds present. MUSCULOSKELETAL: Unable to assess. Intubated and sedated. NEUROLOGIC: Sedated. SKIN: Intact. Warm to touch. Good cap refill. EXTREMITIES: No edema appreciated. LABORATORY DATA: White count 10, hemoglobin 12, hematocrit is 37, and platelets of 347. Chemistries reviewed, stable. MICROBIOLOGY: Noted. IMAGING STUDIES: Chest x-ray this morning shows stable infectious process in the lungs from viral pneumonia. ETT of 1.5 cm above the michael. IMPRESSION: 1. Acute respiratory failure secondary to coronavirus pneumonia, intubated and sedated on mechanical ventilator. 2. Viral pneumonia. 3. Uncontrolled type 2 diabetes. 4. Acute kidney injury-improved. PLAN: At this time, he maintains intubated, sedated, requiring significant amount of oxygen. Pulmonary/Critical Care is following accordingly. The patient is very ill. He is on steroids, antibiotics and vitamins. Insulin for uncontrolled type 2 diabetes. Lovenox for DVT prophylaxis. Appreciate recommendations from Pulmonary/Critical Care and ID. MD MONICA Luong/MODL /[id number]
[2020-02-16] MEDS: PROPOFOL IV EMULSION 10MG/ML 100 ML IV PRN ×7 (02:31→23:04)
[2020-02-16 04:46] LABS: BASOPHILS % 0.2 % (0.0-1.0); EOSINOPHILS # (AUTO) 0.1 (0.0-0.4); EOSINOPHILS % 0.8 % (0.0-6.0); HEMATOCRIT 37.8 % (38.2-49.6); HEMOGLOBIN 12.2 g/dL (14.0-18.0); LYMPHOCYTES # (AUTO) 1.3 (1.0-3.2); MEAN CORPUSCULAR HEMOGLOBIN 27.5 pg (28-32); MEAN CORPUSCULAR HGB CONC 32.3 g/dL (31-35); MEAN CORPUSCULAR VOLUME 85.3 fL (81-99); MONOCYTES # (AUTO) 0.8 (0.2-0.8); MONOCYTES % 8.1 % (4.4-11.3); NEUTROPHILS # (AUTO) 6.8 (2.1-6.9); PLATELET COUNT 345 x10e3/uL (140-360); RED BLOOD COUNT 4.43 x10e6/uL (4.3-5.7); RED CELL DISTRIBUTION WIDTH 13.2 % (11.7-14.4)
[2020-02-16] MEDS: FENTANYL 2000MCG/NS 250 250 ML IV PRN ×3 (04:53→19:33)
[2020-02-16 05:20] LABS: ALANINE AMINOTRANSFERASE 15 IU/L (0-55); ALBUMIN 2.5 g/dL (3.5-5.0); ALBUMIN/GLOBULIN RATIO 0.7 (0.8-2.0); ALKALINE PHOSPHATASE 88 IU/L (40-150); BLOOD UREA NITROGEN 12 mg/dL (7-26); BUN/CREATININE RATIO 20 (6-25); CALCIUM 8.3 mg/dL (8.4-10.2); CARBON DIOXIDE 26 mmol/L (22-29); CHLORIDE 100 mmol/L (98-107); EST GLOMERULAR FILTRATION RATE > 60 ML/MIN (60-); GLUCOSE 195 mg/dL (74-118); SODIUM 136 mmol/L (136-145)
--- NOTE | 2020-02-16 08:25 | Diagnostic Imaging Report ---
EXAM: CHEST SINGLE (PORTABLE) DATE: 02/16/2020 5:00 AM INDICATION: Viral pneumonia COMPARISON: 02/15/2020 FINDINGS: Endotracheal tube terminates approximately 1.5 cm above the michael. Enteric tube noted coursing below the diaphragm. Left-sided PICC line identified in stable position. There are stable patchy airspace opacities present bilaterally with a lower lung zone predominance. There is no evidence for pneumothorax or significant volume pleural effusion. The cardiomediastinal silhouette is stable in appearance. No acute osseous abnormality is identified. IMPRESSION: No significant interval change from 02/15/2020. Grossly stable appearing patchy airspace opacities again identified bilaterally. Signed by: Dr. Jong Patel MD on 02/16/2020 8:22 AM
[2020-02-16] MEDS: DEXAMETHASONE SOD PHOS INJ 4 MG/ML VIAL IV SCH (08:49)
[2020-02-16] MEDS: ASCORBIC ACID 500 MG TAB PO SCH ×2 (08:49→16:06)
[2020-02-16] MEDS: ENOXAPARIN SOD INJ 40 MG/0.4 ML SYR SC SCH ×2 (08:49→19:34)
[2020-02-16 09:27] LABS: ABG HCO3 27 mmol/L (22-26); ABG PCO2 41 mmHg (35-45); ABG PH 7.43 (7.35-7.45); ABG PO2 100 mmHg (80-105)
[2020-02-16 09:28] LABS: ABG TCO2 28
--- NOTE | 2020-02-16 09:42 | Progress Note ---
DATE: SUBJECTIVE: The patient feels less, remains in the supine position. He is currently on a PRVC at a rate of 24 with a tidal volume of 400. His FiO2 is set at 55% and his PEEP is set at 10. He is on fentanyl at 200 as well as Versed at 5 mg and propofol at 40. PHYSICAL EXAMINATION: VITAL SIGNS: The blood pressure is 111/56 and the saturation is 96% on the above settings. HEENT: Shows no erythema. There is no facial swelling. There is an oral endotracheal tube. The patient has an arterial line and a PICC line. CARDIAC: Reveals regular rate and rhythm with normal S1, S2. LUNGS: Auscultation of lungs reveals crackles at the bases. There is no wheezing. ABDOMEN: Soft and nontender. There is no rebound or guarding. EXTREMITIES: There is 1+ leg edema. LABORATORY DATA: White blood cell count is 9.2, hemoglobin is 12.2, the platelet count is 345. The BUN to creatinine ratio is normal. The other electrolytes are within normal limits. The blood sugars 180 to 250. Albumin is 2.5. RADIOGRAPHIC DATA: Chest x-ray shows persistent bilateral infiltrates. IMPRESSION: 1. Acute respiratory failure. 2. Viral pneumonia, COVID-19 infection. 3. Diabetes. 4. Acute kidney injury. PLAN: 1. Continue current ventilator settings. 2. Wean fentanyl and Versed and prep ratio for spontaneous breathing trials. 3. Continue insulin drip and close control blood sugars. 4. Complete antibiotics. 5. Continue Lovenox. 6. Continue enteral feedings. Greater than 35 minutes in direct critical care time. Deshaun Roberson MD [facility]/MODL /[id number]
--- NOTE | 2020-02-16 12:00 | NUR ---
Nutrition Intervention Note RD Recommendation(s) for Physician: -In light of Propofol needs, recommend changing TF to Vital HP with goal rate of 40 ml/hr (960 kcal and 84 gm protein). Remaining kcal provided by Propofol. -Water/fluid management per MD -Propofol providing 1016 lipid kcal/day Plan of Care: RD following, monitoring for tolerance and adequacy, tube feed recommendation Nutrition reason for involvement: follow up RD Assessment 02/15: Follow up. Pt remains intubated and sedated with Propofol. Pt on TF at 30 ml/hr, current TF and Propofol providing excess kcal and not meeting protein needs. Plan for SBT. Pt continues on insulin drip. TF rec's provided. Will continue to monitor. 02/13: Follow up. Pt remains intubated and sedated on high dose Propofol. Pt requiring to be placed in prone position. TF of Vital AF infusing at 45 ml/hr- current TF meeting needs. No BM recorded. Chart reviewed. Will continue to monitor. 02/09: Follow up. Pt remains intubated and sedated. Pt was in the prone position overnight per chart. Pts last recorded tube feed rate was 20 mL/hr yesterday morning. Current recommendations remain appropriate. Will continue to monitor. (02/08/20) Pt is a 44 year old male admitted with hypoxia, COVID-19, and viral pneumonia. Pt is currently intubated; therefore, unable to obtain nutrition history from pt at this time. Tube feeding was ordered this morning per chart. Recommendations provided. Will continue to monitor. Principal Problems/Diagnoses: hypoxia, COVID-19, and viral pneumonia PMH: uncontrolled type 2 diabetes GI: LBM 02/14- liquid Skin: DTI R cheek Labs: 02/15: Na 136, K 4, BUN 40, Cr 2.09, Gluc 94, Ca 7.5, Phos 5.3, Mg 1.7, POC Gluc 182-265 02/13: Na 134, K 4.3, BUN 13, Cr 0.64, Gluc 191, POC Gluc 211-232 02/09: Na 146, K 3.5, BUN 17, Cr 0.74, Glu 109, Ca 7.6 (02/07) Na 137, K 4.0, BUN 19, Cr 0.75, Glu 212, Ca 7.6 Meds: zinc sulfate, vitamin C, colace, senokot IVF/Drips: Propofol at 38.5 ml/hr (1016 lipid kcal), Insulin drip at 2 units/hr, Fentanyl drip Ht: 61 in Wt: 206 lb (02/15) 221 lbs (02/08) 219 lbs (02/07) BMI: 41.4 kg/m2 - using wt of 219 lbs IBW: 112 lbs Malnutrition Evaluation (02/08/20) Unable to assess due to isolation precautions.. Will re-evaluate at follow-up as appropriate. Nutrition Prescription (Diet Order): TF: Glucerna 1.2 at 30 ml/hr (864 kcal and 43 gm protein) Estimated Nutritional Needs: 0453-2649 calories/day (22-25 kcal/kg IBW) 76-102 g protein/day (1.5-2 g pro/kg IBW) Diet Adequacy: not meeting calorie needs, not meeting protein needs Tolerance: tolerating TF Diet Education Needs Assessment: Diet education not indicated, patient is intubated Nutrition Care Level: mod Nutrition Diagnosis: Inadequate oral intake related to acute respiratory failure/mechanical ventilation as evidenced by pt requiring enteral nutrition Goal: Patient will meet 75-100% of estimated needs by follow up Progress: goal not met Interventions: -Composition, Rate, Route, Recommended Modifications Monitoring/Evaluation: -Total energy intake, Total protein intake, Formula/Solution, Weight change Signed: Leda Zurita RD, [place], [facility]
[2020-02-16] MEDS ORDERED: ROCURONIUM BROMIDE 10 MG/ML 5ML VIAL IV ONE ×2 (13:30→16:15)
[2020-02-16] MEDS ORDERED: MIDAZOLAM HCL 2 MG/2 ML VIAL IV PRN (15:15)
[2020-02-16] MEDS: FLUCONAZOLE 200 MG/100 ML 100 ML IV SCH (15:54)
[2020-02-16] MEDS: ROCURONIUM BROMIDE 250 MG in SODIUM CHLORIDE 0.9% 250ML 225 ML IV SCH ×2 (16:56→19:33)
--- NOTE | 2020-02-16 17:35 | Progress Note ---
DATE: SUBJECTIVE: Mr. Agosto remains in intensive care unit, but he seems to be getting slightly better. He remains about the same. PHYSICAL EXAMINATION: HEENT: He is not icteric. NECK: Supple. CHEST: Crackles. HEART: S1, S2. No murmurs. ABDOMEN: Soft. Bowel sounds present. EXTREMITIES: No edema. IMPRESSION: Respiratory failure, diabetes mellitus. Day #10, he finished antibiotic. He has finished his Decadron. Continue supportive care. Continue anticoagulation. MD JOSE Torres/FREDDY /[id number]
[2020-02-16 18:19] LABS: ABG HCO3 28 mmol/L (22-26); ABG PCO2 45 mmHg (35-45); ABG PO2 80 mmHg (80-105); ABG TCO2 29
[2020-02-16] MEDS ORDERED: FUROSEMIDE INJ 10 MG/ML 4 ML VIAL IV SCH (18:30)
[2020-02-16] MEDS: MIDAZOLAM HCL 5MG/ML 10ML VIAL 100 ML IV PRN (19:34)
[2020-02-16] MEDS ORDERED: PROPOFOL IV EMULSION 10MG/ML 100 ML IV SCH (20:30)
--- NOTE | 2020-02-16 21:08 | Diagnostic Imaging Report ---
EXAMINATION: CHEST SINGLE (PORTABLE) INDICATION: respiratory failure COMPARISON: Radiograph dated 02/16/2020. FINDINGS: TUBES and LINES: Endotracheal tube is 2 cm above the michael. The tip of the left PICC projects over the confluence of the left brachiocephalic artery in the SVC. Enteric tube courses below the diaphragm. LUNGS: Shallow inspiration. Worsening confluent right basilar opacity. Unchanged left basilar opacity. No pneumothorax. HEART AND MEDIASTINUM: Unchanged. BONES AND SOFT TISSUES: No acute osseous lesion. Soft tissues are unremarkable. IMPRESSION: 1. Confluent bibasilar opacities, worsening on the right. Findings likely represent combination of pleural effusions and pneumonia with increasing right basilar atelectasis. 2. Lines and tubes appropriately positioned as above. Signed by: Talib Franco MD on 02/16/2020 9:05 PM
[2020-02-17] VITALS (23 sets, daily range): BP systolic 94–149; BP diastolic 48–76
--- NOTE | 2020-02-17 00:11 | Progress Note ---
DATE: 02/16/2020 Medicine Progress Note SUBJECTIVE: The patient is still intubated and sedated. He is still very ill. PHYSICAL EXAMINATION: VITAL SIGNS: Temperature is 99.3, pulse 78, respiratory rate is 24, blood pressure was 107/60, and pulse ox 95%. He is on 55% FiO2 mechanical ventilator. GENERAL: Intubated and sedated. CARDIOVASCULAR: Positive S1 and S2. PULMONARY: Intubated and sedated. ABDOMEN: Soft, nondistended, and nontender to palpation. Bowel sounds present. MUSCULOSKELETAL: Unable to assess, sedated. NEUROLOGIC: Unable to assess, sedated. SKIN: Intact. Warm to touch. Good cap refill. EXTREMITIES: No edema appreciated. LABORATORY DATA: Show CBC reviewed, stable. Chemistry reviewed, stable. MICROBIOLOGY: Noted. IMAGING STUDIES: Chest x-ray shows confluent bibasilar opacity, worsening on the right. Findings likely represent pleural effusions and pneumonia with increasing right basilar atelectasis. IMPRESSION: 1. Acute respiratory failure secondary to coronavirus pneumonia, intubated and sedated on mechanical ventilator. 2. Viral pneumonia. 3. Uncontrolled type 2 diabetes. 4. Acute kidney injury-improved. PLAN: At this time, the patient is still intubated. He is still on significant amount of oxygenation. Continue with steroids, antibiotics, and vitamins. Insulin for his type 2 diabetes. Follow up Pulmonary Critical Care and ID recommendations. Appreciate their assistance on this case. Lovenox for DVT prophylaxis. MD MONICA Luong/MODJorgito /[id number]
[2020-02-17] MEDS ORDERED: FUROSEMIDE INJ 10 MG/ML 2 ML VIAL ONE (01:09)
[2020-02-17] MEDS: PROPOFOL IV EMULSION 10MG/ML 100 ML IV PRN ×7 (01:56→22:43)
[2020-02-17] MEDS: ROCURONIUM BROMIDE 250 MG in SODIUM CHLORIDE 0.9% 250ML 225 ML IV SCH ×4 (03:38→05:41)
[2020-02-17 04:41] LABS: BASOPHILS % 0.1 % (0.0-1.0); EOSINOPHILS # (AUTO) 0.1 (0.0-0.4); EOSINOPHILS % 0.8 % (0.0-6.0); HEMATOCRIT 35.8 % (38.2-49.6); HEMOGLOBIN 11.5 g/dL (14.0-18.0); LYMPHOCYTES # (AUTO) 1.6 (1.0-3.2); LYMPHOCYTES % 18.5 % (18.0-39.1); MEAN CORPUSCULAR HEMOGLOBIN 27.4 pg (28-32); MEAN CORPUSCULAR HGB CONC 32.1 g/dL (31-35); MEAN CORPUSCULAR VOLUME 85.2 fL (81-99); MONOCYTES # (AUTO) 0.9 (0.2-0.8); MONOCYTES % 10.3 % (4.4-11.3); NEUTROPHILS # (AUTO) 5.7 (2.1-6.9); NEUTROPHILS % 67.9 % (38.7-80.0); PLATELET COUNT 348 x10e3/uL (140-360); RED CELL DISTRIBUTION WIDTH 13.2 % (11.7-14.4)
[2020-02-17 05:06] LABS: ALANINE AMINOTRANSFERASE 16 IU/L (0-55); ALBUMIN 2.5 g/dL (3.5-5.0); ALBUMIN/GLOBULIN RATIO 0.7 (0.8-2.0); ALKALINE PHOSPHATASE 75 IU/L (40-150); ANION GAP 12.8 mmol/L (8-16); BLOOD UREA NITROGEN 12 mg/dL (7-26); BUN/CREATININE RATIO 19 (6-25); CALCIUM 8.1 mg/dL (8.4-10.2); CARBON DIOXIDE 26 mmol/L (22-29); CHLORIDE 102 mmol/L (98-107); CREATININE, SERUM 0.63 mg/dL (0.72-1.25); EST GLOMERULAR FILTRATION RATE > 60 ML/MIN (60-); GLUCOSE 170 mg/dL (74-118); POTASSIUM 3.8 mmol/L (3.5-5.1); SODIUM 137 mmol/L (136-145)
[2020-02-17] MEDS: DEXAMETHASONE SOD PHOS INJ 4 MG/ML VIAL IV SCH (08:52)
[2020-02-17] MEDS: ENOXAPARIN SOD INJ 40 MG/0.4 ML SYR SC SCH ×2 (08:52→20:34)
[2020-02-17] MEDS: ASCORBIC ACID 500 MG TAB PO SCH ×2 (08:52→16:43)
[2020-02-17] MEDS: FAMOTIDINE 20 MG/2 ML VIAL IV SCH ×2 (08:52→16:43)
--- NOTE | 2020-02-17 09:00 | Diagnostic Imaging Report ---
EXAMINATION: CHEST SINGLE (PORTABLE) INDICATION: Respiratory failure COMPARISON: Multiple prior chest radiograph, most recently 02/16/2020 FINDINGS: LINES/TUBES:Support lines and tubes unchanged. LUNGS:Lung volumes remain very low. Persistent bibasilar patchy opacities. PLEURA:No pleural effusion or pneumothorax. MEDIASTINUM:The cardiomediastinal silhouette appears normal in size and shape. BONES/SOFT TISSUES:No acute osseous injury. ABDOMEN:No free air under the diaphragm. IMPRESSION: Very low lung volumes. Persistent bibasilar patchy opacities. Signed by: Anuj Bonilla MD on 02/17/2020 8:57 AM
[2020-02-17] MEDS: FUROSEMIDE INJ 10 MG/ML 4 ML VIAL IV SCH ×3 (09:23→20:34)
[2020-02-17] MEDS: ALBUMIN 25% 25GM 100ML 100 ML IV SCH ×2 (09:50→17:21)
[2020-02-17 10:07] LABS: ABG HCO3 23 mmol/L (22-26); ABG PCO2 34 mmHg (35-45); ABG PH 7.43 (7.35-7.45); ABG PO2 87 mmHg (80-105); ABG TCO2 24
[2020-02-17] MEDS: FENTANYL 2000MCG/NS 250 250 ML IV PRN ×2 (10:40→18:39)
[2020-02-17] MEDS: MIDAZOLAM HCL 5MG/ML 10ML VIAL 100 ML IV PRN ×3 (13:03→22:44)
[2020-02-17] MEDS ORDERED: ALBUMIN 25% 25GM 100ML 0.25 GM/ML BTL IV SCH (14:00)
--- NOTE | 2020-02-17 14:20 | Progress Note ---
DATE: 02/17/2020 Medicine Progress Note SUBJECTIVE: The patient is still intubated and sedated. Still requiring significant amount of oxygen. PHYSICAL EXAMINATION: VITAL SIGNS: Temperature is 99.9, pulse 104, respiratory rate is 22, blood pressure 140/75, and pulse ox 91%. He is on FiO2 on a mechanical ventilator. GENERAL: Intubated and sedated. PULMONARY: Intubated and sedated. CARDIOVASCULAR: Positive S1 and S2. No murmurs, rubs, or gallops appreciated. ABDOMEN: Soft, nondistended, and nontender to palpation. Bowel sounds present. MUSCULOSKELETAL: Unable to assess. NEUROLOGIC: Unable to assess. SKIN: Intact. Warm to touch. Good cap refill. EXTREMITIES: He has some trace edema appreciated. LABORATORY DATA: Show white count 8.3, hemoglobin 11.5, hematocrit is 35, and platelets of 348. Chemistry; sodium 137, potassium 3.8, chloride 102, bicarb 26, anion gap of 12, BUN is 12, creatinine is 0.63, and calcium is 8.1. MICROBIOLOGY: Noted. IMAGING STUDIES: Chest x-ray, very low lung volumes. Persistent bibasilar patchy opacity. IMPRESSION: 1. Acute respiratory failure secondary to coronavirus pneumonia, intubated and sedated on mechanical ventilator. 2. Viral pneumonia. 3. Uncontrolled type 2 diabetes. 4. Acute kidney injury-improved. PLAN: At this time, the patient is still intubated. He is still on significant amount of oxygenation. He is on antibiotics and vitamins. He is still on significant amount of sedation. He is still on steroids. Continue with Lovenox 40 mg subcutaneous b.i.d. Continue to following with the rest of the consultants. Pulmonary Critical Care and ID are following. Lovenox for DVT prophylax. MD MONICA Luong/DIONNEL /[id number]
[2020-02-17] MEDS: FLUCONAZOLE 200 MG/100 ML 100 ML IV SCH (16:43)
--- NOTE | 2020-02-17 19:11 | Progress Note ---
DATE: SUBJECTIVE: Mr. Agosto had fever today. Remains on a ventilator, intubated, sedated. LABORATORY DATA: White count 8.9. The patient PHYSICAL EXAMINATION: HEENT: He is not icteric. NECK: Supple. CHEST: Crackles. HEART: S1, S2. No murmurs. ABDOMEN: Soft. IMPRESSION: Fever, day #11. Concern about aspiration pneumonia. We will get blood cultures, urine cultures. We will put him on meropenem until we get the cultures and next followup. MD JOSE Torres/FREDDY /[id number]
[2020-02-17 20:19] LABS: ABG HCO3 31 mmol/L (22-26); ABG PCO2 44 mmHg (35-45); ABG PH 7.46 (7.35-7.45); ABG PO2 136 mmHg (80-105); ABG TCO2 32
[2020-02-17] MEDS: MEROPENEM 1GM 100 ML IV SCH (20:34)
[2020-02-18] VITALS (23 sets, daily range): BP systolic 95–148; BP diastolic 51–84
[2020-02-18] MEDS: ALBUMIN 25% 25GM 100ML 100 ML IV SCH (00:55)
[2020-02-18] MEDS: PROPOFOL IV EMULSION 10MG/ML 100 ML IV PRN ×8 (01:22→22:45)
[2020-02-18 04:29] LABS: BASOPHILS % 0.2 % (0.0-1.0); EOSINOPHILS % 0.4 % (0.0-6.0); HEMATOCRIT 37.1 % (38.2-49.6); HEMOGLOBIN 11.8 g/dL (14.0-18.0); LYMPHOCYTES % 9.7 % (18.0-39.1); MEAN CORPUSCULAR HEMOGLOBIN 27.6 pg (28-32); MEAN CORPUSCULAR HGB CONC 31.8 g/dL (31-35); MEAN CORPUSCULAR VOLUME 86.7 fL (81-99); MONOCYTES # (AUTO) 0.6 (0.2-0.8); MONOCYTES % 6.2 % (4.4-11.3); NEUTROPHILS # (AUTO) 8.1 (2.1-6.9); NEUTROPHILS % 82.4 % (38.7-80.0); PLATELET COUNT 294 x10e3/uL (140-360); RED BLOOD COUNT 4.28 x10e6/uL (4.3-5.7); RED CELL DISTRIBUTION WIDTH 13.1 % (11.7-14.4)
[2020-02-18 04:50] LABS: ALANINE AMINOTRANSFERASE 16 IU/L (0-55); ALBUMIN 3.8 g/dL (3.5-5.0); ALBUMIN/GLOBULIN RATIO 1.1 (0.8-2.0); ALKALINE PHOSPHATASE 75 IU/L (40-150); ANION GAP 15.5 mmol/L (8-16); BLOOD UREA NITROGEN 17 mg/dL (7-26); BUN/CREATININE RATIO 25 (6-25); CALCIUM 9.1 mg/dL (8.4-10.2); CARBON DIOXIDE 28 mmol/L (22-29); CHLORIDE 97 mmol/L (98-107); CREATININE, SERUM 0.68 mg/dL (0.72-1.25); EST GLOMERULAR FILTRATION RATE > 60 ML/MIN (60-); GLUCOSE 244 mg/dL (74-118); POTASSIUM 3.5 mmol/L (3.5-5.1); SODIUM 137 mmol/L (136-145)
[2020-02-18] MEDS: MEROPENEM 1GM 100 ML IV SCH ×3 (05:03→19:41)
[2020-02-18 08:40] LABS: ABG HCO3 31 mmol/L (22-26); ABG PCO2 47 mmHg (35-45); ABG PH 7.43 (7.35-7.45); ABG PO2 102 mmHg (80-105); ABG TCO2 32
[2020-02-18] MEDS: DEXAMETHASONE SOD PHOS INJ 4 MG/ML VIAL IV SCH (08:45)
[2020-02-18] MEDS: FAMOTIDINE 20 MG/2 ML VIAL IV SCH ×2 (08:45→16:07)
[2020-02-18] MEDS: FUROSEMIDE INJ 10 MG/ML 4 ML VIAL IV SCH (08:45)
[2020-02-18] MEDS: ASCORBIC ACID 500 MG TAB PO SCH ×2 (08:45→16:07)
[2020-02-18] MEDS: ENOXAPARIN SOD INJ 40 MG/0.4 ML SYR SC SCH ×2 (08:45→19:41)
[2020-02-18] MEDS: FENTANYL 2000MCG/NS 250 250 ML IV PRN ×2 (08:56→16:25)
[2020-02-18] MEDS: MIDAZOLAM HCL 5MG/ML 10ML VIAL 100 ML IV PRN ×3 (09:50→21:01)
--- NOTE | 2020-02-18 09:58 | Progress Note ---
DATE: SUBJECTIVE: The patient remains on Versed at 10 mg along with fentanyl at 300 and propofol at 50. He is currently on a PRVC mode of ventilation at a rate of 20 with a tidal volume of 400. His PEEP is set at 8 and his FiO2 is set at 50%. His spontaneous respiratory rate is 26 to 27. PHYSICAL EXAMINATION: VITAL SIGNS: Blood pressure is 120/55, saturation is 98%, pulse is 85, and T-max is 99.5. HEENT: Shows no facial swelling. There is an oral endotracheal tube. There is a PICC line in place as well as an arterial line. CARDIAC: Reveals regular rate and rhythm with normal S1 and S2. LUNGS: Auscultation of lungs reveals crackles at the bases. There is no wheezing. ABDOMEN: Soft and nontender. There is no rebound or guarding. EXTREMITIES: Show no leg edema or calf tenderness. There is no cyanosis or clubbing. SKIN: Shows no rashes. NEUROLOGICAL: Shows the patient to be sedated. LABORATORY DATA: White blood cell count is 9.8, hemoglobin is 11.8, and platelet count is 294. The BUN to creatinine ratio is 17 and 0.68. The other electrolytes within normal limits. Blood sugars 217 to 300. ABGs; 7.43, 47, 102, and 31. IMPRESSION: 1. Acute respiratory failure. 2. Viral pneumonia and coronavirus disease 2019 infection. 3. Diabetes. 4. Acute kidney injury. PLAN: 1. Wean fentanyl and Versed as tolerated. Continue propofol in hopes of beginning spontaneous breathing trials. 2. Continue current ventilator settings and repeat ABG later this afternoon. 3. Elevate head of bed and pay close attention to oral care to prevent any ventilator associated pneumonia. 4. Complete antibiotics. 5. Lovenox. 6. Continue enteral feedings. 7. Monitor and control blood sugars. 8. Continue to give Lasix as needed. 9. Replace potassium. Greater than 35 minutes in direct critical care time. Deshaun Roberson MD [facility]/MODL /[id number]
[2020-02-18] MEDS: POTASSIUM CHLORIDE 10MEQ/100ML 100 ML IV SCH ×2 (10:44→11:07)
[2020-02-18] MEDS: FLUCONAZOLE 200 MG/100 ML 100 ML IV SCH (16:05)
--- NOTE | 2020-02-18 16:22 | NUR ---
this is infectious disease person with patient was examined chart reviewed Ms. intensive care unit to make shortness of breath events noted discuss medical team. He is currently on. The patient remains on Versed at 10 mg along with fentanyl at 300 and propofol at 50. He is currently on a PRVC mode of ventilation at a rate of 20 with a tidal volume of 400. His PEEP is set at 8 and his FiO2 is set at 50%. His spontaneous respiratory rate is 26 to 27. PHYSICAL EXAMINATION:patient is intubated sedated VITAL SIGNS: Blood pressure is 120/55, saturation is 98%, pulse is 85, and T-max is 99.5. HEENT: Shows no facial swelling. There is an oral endotracheal tube. There is a PICC line in place as well as an arterial line. CARDIAC: Reveals regular rate and rhythm with normal S1 and S2. LUNGS: Auscultation of lungs reveals crackles at the bases. There is no wheezing. ABDOMEN: Soft and nontender. There is no rebound or guarding. EXTREMITIES: Show no leg edema or calf tenderness. There is no cyanosis or clubbing. SKIN: Shows no rashes. NEUROLOGICAL: Shows the patient to be sedated. LABORATORY DATA: White blood cell count is 9.8, hemoglobin is 11.8, and platelet count is 294. The BUN to creatinine ratio is 17 and 0.68. The other electrolytes within normal limits. Blood sugars 217 to 300. ABGs; 7.43, 47, 102, and 31. IMPRESSION: 1. Acute respiratory failure. 2. Viral pneumonia and coronavirus disease 2019 infection. 3. Diabetes. 4. Acute kidney injury. continue with treatment disorders continue surveillance for pneumonia respirations continue to assess him daily we will keep him on the dry side recheck CBC check in panel
[2020-02-18 16:39] LABS: ABG HCO3 30 mmol/L (22-26); ABG PCO2 48 mmHg (35-45); ABG PO2 71 mmHg (80-105); ABG TCO2 31
[2020-02-18] MEDS ORDERED: POTASSIUM CHLORIDE 20MEQ/100ML 100 ML IV ONE (20:00)
[2020-02-18] MEDS ORDERED: FUROSEMIDE INJ 10 MG/ML 4 ML VIAL IV ONE (20:00)
[2020-02-18 20:28] LABS: ABG HCO3 32 mmol/L (22-26); ABG PCO2 52 mmHg (35-45); ABG PO2 88 mmHg (80-105); ABG TCO2 34
[2020-02-19] VITALS (24 sets, daily range): BP systolic 101–165; BP diastolic 56–86
--- NOTE | 2020-02-19 00:27 | Progress Note ---
DATE: 02/18/2020 Medicine Progress Note. SUBJECTIVE: The patient is still intubated and sedated. No change. PHYSICAL EXAMINATION: VITAL SIGNS: Temperature is 100, pulse 102, respiratory rate 24, blood pressure was 123/75, pulse ox 92% on mechanical ventilation, FiO2 of 55%. GENERAL: Intubated and sedated. CARDIOVASCULAR: Positive S1 and S2. No murmurs, rubs, or gallops. ABDOMEN: Soft, nondistended and nontender to palpation. Bowel sounds present. MUSCULOSKELETAL: Unable to assess. NEUROLOGIC: Unable to assess. SKIN: Intact. Warm to touch. Good cap refill. EXTREMITIES: Trace edema appreciated. LABORATORY DATA: CBC reviewed, stable. Chemistry reviewed, stable. IMPRESSION: 1. Acute respiratory failure secondary to dorantes virus pneumonia, intubated and sedated on mechanical ventilator. 2. Viral pneumonia. 3. Uncontrolled type 2 diabetes. 4. Acute kidney injury-improved. PLAN: At this time, the patient maintains intubated and sedated. Still requires significant amount of oxygen. On antibiotics and vitamins. ID and Pulmonary Critical Care following. Lovenox b.i.d. for prophylaxis. Continue same plan of care and monitor closely. MD MONICA Luong/FREDDY /[id number]
[2020-02-19] MEDS: PROPOFOL IV EMULSION 10MG/ML 100 ML IV PRN ×2 (00:57→03:50)
[2020-02-19 04:36] LABS: BASOPHILS % 0.2 % (0.0-1.0); EOSINOPHILS % 0.1 % (0.0-6.0); HEMATOCRIT 41.7 % (38.2-49.6); HEMOGLOBIN 13.3 g/dL (14.0-18.0); LYMPHOCYTES # (AUTO) 0.9 (1.0-3.2); LYMPHOCYTES % 7.3 % (18.0-39.1); MEAN CORPUSCULAR HEMOGLOBIN 28.1 pg (28-32); MEAN CORPUSCULAR HGB CONC 31.9 g/dL (31-35); NEUTROPHILS % 83.5 % (38.7-80.0); PLATELET COUNT 241 x10e3/uL (140-360); RED BLOOD COUNT 4.74 x10e6/uL (4.3-5.7); RED CELL DISTRIBUTION WIDTH 13.1 % (11.7-14.4)
[2020-02-19 04:51] LABS: ALANINE AMINOTRANSFERASE 16 IU/L (0-55); ALBUMIN 3.3 g/dL (3.5-5.0); ALBUMIN/GLOBULIN RATIO 0.9 (0.8-2.0); ALKALINE PHOSPHATASE 80 IU/L (40-150); ANION GAP 13.7 mmol/L (8-16); BLOOD UREA NITROGEN 17 mg/dL (7-26); BUN/CREATININE RATIO 27 (6-25); CALCIUM 8.2 mg/dL (8.4-10.2); CARBON DIOXIDE 25 mmol/L (22-29); CHLORIDE 100 mmol/L (98-107); CREATININE, SERUM 0.63 mg/dL (0.72-1.25); EST GLOMERULAR FILTRATION RATE > 60 ML/MIN (60-); GLUCOSE 171 mg/dL (74-118); POTASSIUM 3.7 mmol/L (3.5-5.1); SODIUM 135 mmol/L (136-145)
[2020-02-19] MEDS: MEROPENEM 1GM 100 ML IV SCH ×3 (05:10→19:51)
--- NOTE | 2020-02-19 07:49 | Diagnostic Imaging Report ---
EXAMINATION: CHEST SINGLE (PORTABLE) COMPARISON: Chest x-ray 02/15/2020 INDICATION: ^resp failure ^[id number] ^0520 DISCUSSION: HEART AND MEDIASTINUM: The cardiomediastinal silhouette is prominent, possibly due to low lung volumes LINES: Endotracheal tube terminates 2 to 3 cm above the michael. Enteric tube extends past the diaphragm. Right PICC line remains looped at the SVC, possibly within the azygos vein. LUNGS/PLEURA: Low lung volumes. Increasing bibasilar airspace opacities. No interstitial edema. No large effusions or pneumothorax. BONES AND SOFT TISSUES: Unremarkable. IMPRESSION: Increasing bibasilar airspace opacities. Stable support devices. Signed by: Dr. Stoney Mendez MD on 02/19/2020 7:45 AM
[2020-02-19] MEDS: FAMOTIDINE 20 MG/2 ML VIAL IV SCH ×2 (08:40→17:00)
[2020-02-19] MEDS: ENOXAPARIN SOD INJ 40 MG/0.4 ML SYR SC SCH ×2 (08:40→19:51)
[2020-02-19] MEDS: ASCORBIC ACID 500 MG TAB PO SCH ×2 (08:40→17:00)
[2020-02-19] MEDS: POTASSIUM CHLORIDE 20MEQ/100ML 100 ML IV SCH ×2 (08:40→19:51)
[2020-02-19] MEDS: FUROSEMIDE INJ 10 MG/ML 4 ML VIAL IV SCH ×2 (09:00→19:50)
--- NOTE | 2020-02-19 10:09 | NUR ---
infectious disease problems note patient remains intensive. Patient seen and examined and chart reviewed events noted e patient is still intubated and sedated. No change. PHYSICAL EXAMINATION: VITAL SIGNS: Temperature is 100, pulse 102, respiratory rate 24, blood pressure was 123/75, pulse ox 92% on mechanical ventilation, FiO2 of 55%. GENERAL: Intubated and sedated. CARDIOVASCULAR: Positive S1 and S2. No murmurs, rubs, or gallops. ABDOMEN: Soft, nondistended and nontender to palpation. Bowel sounds present. MUSCULOSKELETAL: Unable to assess. NEUROLOGIC: Unable to assess. SKIN: Intact. Warm to touch. Good cap refill. EXTREMITIES: Trace edema appreciated. LABORATORY DATA: CBC reviewed, stable. Chemistry reviewed, stable. IMPRESSION: 1. Acute respiratory failure secondary to dorantes virus pneumonia, intubated and sedated on mechanical ventilator. 2. Viral pneumonia. 3. Uncontrolled type 2 diabetes. 4. Acute kidney injury-improved.
--- NOTE | 2020-02-19 10:22 | Progress Note ---
DATE: Pulmonary Critical Care Progress Note SUBJECTIVE: The patient's Versed and fentanyl were weaned during the night and he was maintained more on propofol. His sedation was held early this morning and he was placed on a spontaneous breathing trial with a pressure support of 8 and a CPAP of 5. He was breathing from 22 to 30 times a minute. His tidal volumes were 400 to 450 mL. His oxygen saturations were maintained. Repeat ABG was within normal limits on the spontaneous breathing trial and the patient was extubated. He is now on a Vapotherm. PHYSICAL EXAMINATION: VITAL SIGNS: The blood pressure is 155/84 and saturation is 100% on a Vapotherm at 40 L and 100%. HEENT: Shows no facial swelling or erythema. He has a nasogastric tube in place. LYMPHATIC: Shows no submandibular, cervical, or supraclavicular adenopathy. CARDIAC: Reveals a regular rate and rhythm with normal S1 and S2. LUNGS: Auscultation of lungs reveals crackles at the bases. There is no wheezing. ABDOMEN: Soft and nontender. There is no rebound or guarding. EXTREMITIES: Shows no leg edema or calf tenderness. There is no cyanosis or clubbing. SKIN: Shows no rashes. NEUROLOGICAL: Shows the patient still be groggy, although he is awake. LABORATORY DATA: White blood cell count is 12 and the hemoglobin is 13.3. The platelet count is 241. The BUN to creatinine ratio is 17 to 0.63 and the other electrolytes are within normal limits. The blood sugar is 180. IMPRESSION: 1. Acute respiratory failure. 2. Viral pneumonia and COVID-19 infection. 3. Diabetes. 4. Acute kidney injury. PLAN: 1. Continue Vapotherm and repeat ABG later this afternoon. 2. Continue intermittent Lasix. 3. NG tube to suction with head of bed elevated. 4. Continue Lovenox. 5. Continue insulin drip and monitor blood sugars. 6. Complete antibiotics. 7. Replace potassium. 8. Case discussed with nursing, Respiratory, Infectious Disease, and Internal Medicine. Greater than 35 minutes in direct critical care time. MD CASSY Zendejas/FREDDY /[id number]
[2020-02-19 10:30] LABS: ABG HCO3 31 mmol/L (22-26); ABG PCO2 43 mmHg (35-45); ABG PH 7.47 (7.35-7.45); ABG PO2 100 mmHg (80-105); ABG TCO2 32
--- NOTE | 2020-02-19 14:43 | Progress Note ---
DATE: 02/19/2020 Medicine Progress Note SUBJECTIVE: The patient was extubated this morning. He is currently on high-flow oxygen. He is very lethargic. He was awake during my evaluation. PHYSICAL EXAMINATION: VITAL SIGNS: Temperature is 99.5, pulse 124, respiratory rate is 18, blood pressure 122/72, and pulse ox 100%. He is on Vapotherm, FiO2 60%. GENERAL: He is awake. He is alert. He is still confused after his extubation. He is on high-flow Vapotherm. PULMONARY: High-flow Vapotherm. He does have some crackles. He has no rhonchi appreciated. CARDIOVASCULAR: Positive S1 and S2. No murmurs, rubs, or gallops appreciated. ABDOMEN: Soft, nondistended, and nontender to palpation. Bowel sounds present. MUSCULOSKELETAL: He is very weak at this time. Unable to assess. NEUROLOGIC: He is alert and awake. He is confused after extubation. SKIN: Intact. Warm to touch. Good cap refill. PSYCHIATRIC: Very lethargic and confused at this time. EXTREMITIES: Good range of motion throughout. LABORATORY FINDINGS: Show white count 12, hemoglobin 13, hematocrit is 41, and platelets of 241. Chemistry reviewed, stable. MICROBIOLOGY: Noted. IMAGING STUDIES: Chest x-ray shows increased bibasilar airspace opacity. IMPRESSION: 1. Acute respiratory failure secondary to coronavirus pneumonia, now extubated on 02/19/2020 on high-flow oxygen. 2. Viral pneumonia. 3. Uncontrolled type 2 diabetes. 4. Acute kidney injury. 5. Morbidly obese. PLAN: At this time, the patient is extubated now. He is on high-flow oxygen with Vapotherm. Pulmonary Critical Care is following very closely. He is on antibiotics and vitamins. Continue with full-dose anticoagulation. ID is following as well. MD MONICA Luong/MODL /[id number]
[2020-02-19 16:12] LABS: ABG HCO3 34 mmol/L (22-26); ABG PCO2 47 mmHg (35-45); ABG PH 7.46 (7.35-7.45); ABG PO2 189 mmHg (80-105); ABG TCO2 35
[2020-02-19] MEDS: FLUCONAZOLE 200 MG/100 ML 100 ML IV SCH (16:30)
[2020-02-20] VITALS (24 sets, daily range): BP systolic 116–137; BP diastolic 66–80
[2020-02-20 03:31] LABS: BASOPHILS % 0.3 % (0.0-1.0); HEMATOCRIT 46.2 % (38.2-49.6); LYMPHOCYTES # (AUTO) 1.1 (1.0-3.2); LYMPHOCYTES % 9.7 % (18.0-39.1); MEAN CORPUSCULAR HEMOGLOBIN 27.7 pg (28-32); MEAN CORPUSCULAR HGB CONC 32.5 g/dL (31-35); MEAN CORPUSCULAR VOLUME 85.4 fL (81-99); MONOCYTES # (AUTO) 1.3 (0.2-0.8); MONOCYTES % 11.6 % (4.4-11.3); NEUTROPHILS # (AUTO) 8.8 (2.1-6.9); NEUTROPHILS % 77.6 % (38.7-80.0); PLATELET COUNT 336 x10e3/uL (140-360); RED BLOOD COUNT 5.41 x10e6/uL (4.3-5.7); RED CELL DISTRIBUTION WIDTH 13.3 % (11.7-14.4)
[2020-02-20 03:52] LABS: ALANINE AMINOTRANSFERASE 33 IU/L (0-55); ALBUMIN 3.5 g/dL (3.5-5.0); ALBUMIN/GLOBULIN RATIO 0.8 (0.8-2.0); ALKALINE PHOSPHATASE 109 IU/L (40-150); ANION GAP 18.5 mmol/L (8-16); BLOOD UREA NITROGEN 24 mg/dL (7-26); BUN/CREATININE RATIO 36 (6-25); CARBON DIOXIDE 28 mmol/L (22-29); CHLORIDE 96 mmol/L (98-107); CREATININE, SERUM 0.66 mg/dL (0.72-1.25); EST GLOMERULAR FILTRATION RATE > 60 ML/MIN (60-); GLUCOSE 198 mg/dL (74-118); POTASSIUM 3.5 mmol/L (3.5-5.1); SODIUM 139 mmol/L (136-145)
[2020-02-20 03:54] LABS: CALCIUM 9.6 mg/dL (8.4-10.2)
[2020-02-20] MEDS: MEROPENEM 1GM 100 ML IV SCH ×3 (05:11→21:06)
[2020-02-20] MEDS: ASCORBIC ACID 500 MG TAB PO SCH ×2 (08:41→16:25)
[2020-02-20] MEDS: ENOXAPARIN SOD INJ 40 MG/0.4 ML SYR SC SCH ×2 (08:41→19:41)
[2020-02-20] MEDS: FAMOTIDINE 20 MG/2 ML VIAL IV SCH ×2 (08:41→16:25)
[2020-02-20 09:59] LABS: ABG PCO2 41 mmHg (35-45); ABG PH 7.47 (7.35-7.45)
[2020-02-20 10:00] LABS: ABG HCO3 30 mmol/L (22-26); ABG PO2 87 mmHg (80-105); ABG TCO2 31
--- NOTE | 2020-02-20 11:48 | Progress Note ---
DATE: Pulmonary Critical Care Progress Note SUBJECTIVE: The patient was extubated yesterday. He is more awake. He still has an NG tube in place to suction. He complains of being thirsty. He has not been evaluated by speech therapy yet. PHYSICAL EXAMINATION: VITAL SIGNS: The patient is on Vapotherm at 40 with 60%. He is saturating 100%. His heart rate is 110 to 120. His respiratory rate is 22. His temperature is 100.1. HEENT: Shows no facial swelling or erythema. LYMPHATIC: Shows no submandibular, cervical, or supraclavicular adenopathy. CARDIAC: Reveals regular rate and rhythm with normal S1 and S2. LUNGS: Auscultation of lungs reveals rhonchorous breath sounds bilaterally. There is no wheezing. ABDOMEN: Soft and nontender. There is no rebound or guarding. EXTREMITIES: Shows no leg edema or calf tenderness. There is no cyanosis or clubbing. SKIN: Shows no rashes. NEUROLOGICAL: Shows no focal abnormalities. LABORATORY DATA: White blood cell count 11.4 and the hemoglobin is 15. The platelet count is 336. The BUN to creatinine ratio is normal. The other electrolytes are within normal limits. The albumin is 3.5. IMPRESSION: 1. Acute respiratory failure. 2. Viral pneumonia and COVID-19 infection. 3. Diabetes. 4. Acute kidney injury. PLAN: 1. Continue Vapotherm and wean as tolerated. 2. Physical therapy evaluation. 3. Speech therapy evaluation. 4. Continue Lovenox. 5. Wean off insulin drip and begin subcutaneous insulin. 6. Complete antibiotics. Deshaun Roberson MD [facility]/MODL /[id number]
--- NOTE | 2020-02-20 11:58 | Diagnostic Imaging Report ---
EXAMINATION: CHEST SINGLE (PORTABLE) INDICATION: Respiratory failure COMPARISON: Multiple prior chest radiograph, most recently 02/17/2020 FINDINGS: LINES/TUBES:NG tube unchanged. Endotracheal tube has been removed. LUNGS:The lung volumes remain low. Unchanged right basilar opacity. PLEURA:No pleural effusion or pneumothorax. MEDIASTINUM:The cardiomediastinal silhouette appears unchanged in size and shape. BONES/SOFT TISSUES:No acute osseous injury. ABDOMEN:No free air under the diaphragm. IMPRESSION: Interval extubation. Low lung volumes with unchanged right basilar opacity. Signed by: Anuj Bonilla MD on 02/20/2020 11:54 AM
--- NOTE | 2020-02-20 12:15 | NUR ---
infectious disease progress note Patient seen and examined chart reviewed events noted medication list reviewed and discussed with medical team
--- NOTE | 2020-02-20 12:15 | NUR ---
Infectious disease service note Patient seen and examined chart reviewed Medication list reviewed Discussed with medical team The patient was extubated yesterday. He is more awake. He still has an NG tube in place to suction. He complains of being thirsty. He has not been evaluated by speech therapy yet. PHYSICAL EXAMINATION: VITAL SIGNS: The patient is on Vapotherm at 40 with 60%. He is saturating 100%. His heart rate is 110 to 120. His respiratory rate is 22. His temperature is 100.1. HEENT: Shows no facial swelling or erythema. LYMPHATIC: Shows no submandibular, cervical, or supraclavicular adenopathy. CARDIAC: Reveals regular rate and rhythm with normal S1 and S2. LUNGS: Auscultation of lungs reveals rhonchorous breath sounds bilaterally. There is no wheezing. ABDOMEN: Soft and nontender. There is no rebound or guarding. EXTREMITIES: Shows no leg edema or calf tenderness. There is no cyanosis or clubbing. SKIN: Shows no rashes. NEUROLOGICAL: Shows no focal abnormalities. LABORATORY DATA: White blood cell count 11.4 and the hemoglobin is 15. The platelet count is 336. The BUN to creatinine ratio is normal. The other electrolytes are within normal limits. The albumin is 3.5. IMPRESSION: 1. Acute respiratory failure. 2. Viral pneumonia and COVID-19 infection. 3. Diabetes. 4. Acute kidney injury. continue plan of care as ordered Continue with PT OT This day #14
[2020-02-20] MEDS ORDERED: DEXTROSE 50% SYRINGE 50 ML IV PRN (16:00)
[2020-02-20] MEDS: FLUCONAZOLE 200 MG/100 ML 100 ML IV SCH (16:18)
[2020-02-20] MEDS: INSULIN REGULAR, HUMAN 100 UNIT/1 ML 3ML VIAL SQ SCH ×2 (16:23→19:57)
[2020-02-20] MEDS ORDERED: LACTATED RINGER'S 1,000 ML INJ ONE (18:50)
[2020-02-20] MEDS ORDERED: INSULIN GLARGINE 100 UNITS/ML VIAL SQ SCH (21:00)
[2020-02-21] VITALS (24 sets, daily range): BP systolic 121–151; BP diastolic 65–80
--- NOTE | 2020-02-21 03:06 | Progress Note ---
DATE: 02/20/2020 Medicine Progress Note SUBJECTIVE: The patient was seen earlier this afternoon with the nursing staff. I rounded with the nursing staff in fact with this patient. The patient is doing well considering he is extubated, but he is very confused according to the nursing staff. We had a financial developer as well. LABORATORY DATA: Labs show white count 11, hemoglobin 15, hematocrit 46, platelets of 336. Chemistries, sodium 139, potassium 3.5, chloride 96, bicarb 28, anion gap of 18. BUN is 24, creatinine is 0.66, glucose is 198. MICROBIOLOGY: Urine culture shows Mandy, being managed by ID. IMAGING STUDIES: Chest x-ray this morning still shows unchanged right basilar opacity with low lung volumes. PHYSICAL EXAMINATION: VITAL SIGNS: Temperature 99, pulse 99, respiratory rate is 18, blood pressure 120/69, pulse ox is 97%, nasal cannula, Vapotherm, FiO2 60%. GENERAL: Not in acute distress. He is on a high-flow oxygen. He is alert, but very confused. PULMONARY: High-flow oxygen. Rhonchi, crackles appreciated. CARDIOVASCULAR: Positive S1, S2. No murmurs, rubs, or gallops. GI: Abdomen is soft, nondistended, and nontender to palpation. Bowel sounds present. MUSCULOSKELETAL: The patient is very weak at this time, unable to assess. NEUROLOGIC: Unable to assess. He is confused. SKIN: Intact. Warm to touch. Good cap refill. EXTREMITIES: Trace edema appreciated. IMPRESSION: 1. Acute respiratory failure, secondary to coronavirus pneumonia, extubated on 02/19/2020, on high-flow oxygen. 2. Viral pneumonia. 3. Uncontrolled type 2 diabetes. 4. Acute kidney injury. 5. Morbidly obese. PLAN: At this time, the patient is extubated. He is on high-flow oxygen. He will require a face mask. He is improving tremendously. Get morning labs. Continue with antibiotics, his vitamins being managed by ID. Pulmonary Critical Care is following. Full-dose anticoagulation. The patient is not ready for discharge at this time. He does need aggressive physical therapy and occupational therapy. MD MONICA Luong/MODL /[id number]
[2020-02-21 04:11] LABS: BASOPHILS % 0.3 % (0.0-1.0); EOSINOPHILS % 0.2 % (0.0-6.0); HEMATOCRIT 43.1 % (38.2-49.6); HEMOGLOBIN 13.8 g/dL (14.0-18.0); LYMPHOCYTES # (AUTO) 1.3 (1.0-3.2); LYMPHOCYTES % 14.3 % (18.0-39.1); MEAN CORPUSCULAR HEMOGLOBIN 28.3 pg (28-32); MEAN CORPUSCULAR VOLUME 88.3 fL (81-99); MONOCYTES # (AUTO) 1.2 (0.2-0.8); MONOCYTES % 13.3 % (4.4-11.3); NEUTROPHILS # (AUTO) 6.4 (2.1-6.9); NEUTROPHILS % 71.5 % (38.7-80.0); PLATELET COUNT 288 x10e3/uL (140-360); RED BLOOD COUNT 4.88 x10e6/uL (4.3-5.7); RED CELL DISTRIBUTION WIDTH 13.2 % (11.7-14.4)
[2020-02-21 04:34] LABS: ALANINE AMINOTRANSFERASE 27 IU/L (0-55); ALBUMIN 3.1 g/dL (3.5-5.0); ALBUMIN/GLOBULIN RATIO 0.8 (0.8-2.0); ALKALINE PHOSPHATASE 86 IU/L (40-150); BLOOD UREA NITROGEN 27 mg/dL (7-26); BUN/CREATININE RATIO 40 (6-25); CALCIUM 9.3 mg/dL (8.4-10.2); CARBON DIOXIDE 29 mmol/L (22-29); CHLORIDE 100 mmol/L (98-107); CREATININE, SERUM 0.67 mg/dL (0.72-1.25); EST GLOMERULAR FILTRATION RATE > 60 ML/MIN (60-); GLUCOSE 266 mg/dL (74-118); SODIUM 141 mmol/L (136-145)
[2020-02-21] MEDS: MEROPENEM 1GM 100 ML IV SCH ×3 (05:26→20:14)
[2020-02-21] MEDS: INSULIN REGULAR, HUMAN 100 UNIT/1 ML 3ML VIAL SQ SCH ×4 (07:44→20:13)
[2020-02-21] MEDS: ASCORBIC ACID 500 MG TAB PO SCH ×2 (08:32→16:23)
[2020-02-21] MEDS: FAMOTIDINE 20 MG/2 ML VIAL IV SCH ×2 (08:32→16:23)
[2020-02-21] MEDS: ENOXAPARIN SOD INJ 40 MG/0.4 ML SYR SC SCH ×2 (08:32→20:12)
[2020-02-21 09:53] LABS: ABG PCO2 45 mmHg (35-45); ABG PH 7.48 (7.35-7.45); ABG PO2 82 mmHg (80-105)
[2020-02-21 09:54] LABS: ABG HCO3 33 mmol/L (22-26); ABG TCO2 35
--- NOTE | 2020-02-21 11:02 | Progress Note ---
DATE: SUBJECTIVE: The patient is afebrile. He is now more alert and interacting. He is asking for water. He is awaiting re-evaluation by speech therapy. He remains on Vapotherm at 28 L with 45% oxygen. PHYSICAL EXAMINATION: VITAL SIGNS: The blood pressure is 127/70 and pulse is 100 to 105. HEENT: Shows no facial swelling or erythema. LYMPHATIC: Shows no submandibular, cervical, or supraclavicular adenopathy. CARDIAC: Reveals a regular rate and rhythm with a normal S1 and S2. LUNGS: Auscultation of lungs reveals rhonchorous breath sounds bilaterally. There is no wheezing. ABDOMEN: Soft and nontender. There is no rebound or guarding. EXTREMITIES: Shows no leg edema or calf tenderness. There is no cyanosis or clubbing. SKIN: Shows no rashes. LABORATORY DATA: BUN to creatinine ratio is 27 to 0.67. The other electrolytes are within normal limits. Blood sugar is 230 to 266. Hemoglobin is 13.8 and white blood cell count is 9. The platelet count is 288. RADIOGRAPHIC DATA: Chest x-ray shows low lung volumes with right basilar opacity. IMPRESSION: 1. Acute respiratory failure. 2. Viral pneumonia and COVID-19 infection. 3. Diabetes. 4. Acute kidney injury. PLAN: 1. Continue to wean Vapotherm and transition to high-flow oxygen. 2. Complete speech therapy evaluation. 3. Continue physical therapy. 4. Lovenox. 5. Lantus at night with subcutaneous insulin during the day. 6. Await speech therapy evaluation. 7. Judicious use of IV fluids. Deshaun Roberson MD [facility]/MODL /[id number]
[2020-02-21] MEDS ORDERED: SODIUM CHLORIDE 0.45% 500 ML IV ONE (11:15)
--- NOTE | 2020-02-21 12:12 | NUR ---
Nutrition Intervention Note RD Recommendation(s) for Physician: - Pending LOGGING SUPERVISOR evaluation, if safe for PO recommend 1800 ADA restriction and texture per LOGGING SUPERVISOR - If pt not safe for PO, resume TF with Glucerna 1.2 with goal rate of 50 ml/hr (1440 kcal and 72 gm protein). Give 1 packet Beneprotein with TF daily. - If TF resumed, water flushes and fluid management per MD. - BG and insulin management per MD. Plan of Care: RD following, monitoring for tolerance and adequacy, tube feed recommendation, diet rec's Nutrition reason for involvement: follow up RD Assessment 02/20: Follow up. Pt extubated 02/18, currently on Hi-flow O2. TF off post extubation. Pt more alert per MD notes and pending LOGGING SUPERVISOR evaluation. Diet and TF rec's provided pending po/diet safety. Noted BG trend remains elevated. Chart reviewed. Will continue to monitor. 02/15: Follow up. Pt remains intubated and sedated with Propofol. Pt on TF at 30 ml/hr, current TF and Propofol providing excess kcal and not meeting protein needs. Plan for SBT. Pt continues on insulin drip. TF rec's provided. Will continue to monitor. 02/13: Follow up. Pt remains intubated and sedated on high dose Propofol. Pt requiring to be placed in prone position. TF of Vital AF infusing at 45 ml/hr- current TF meeting needs. No BM recorded. Chart reviewed. Will continue to monitor. 02/09: Follow up. Pt remains intubated and sedated. Pt was in the prone position overnight per chart. Pts last recorded tube feed rate was 20 mL/hr yesterday morning. Current recommendations remain appropriate. Will continue to monitor. (02/08/20) Pt is a 44 year old male admitted with hypoxia, COVID-19, and viral pneumonia. Pt is currently intubated; therefore, unable to obtain nutrition history from pt at this time. Tube feeding was ordered this morning per chart. Recommendations provided. Will continue to monitor. Principal Problems/Diagnoses: hypoxia, COVID-19, and viral pneumonia PMH: uncontrolled type 2 diabetes GI: LBM 02/20 Skin: DTI R cheek Labs: 02/20: Na 141, K 4, BUN 27, Cr 0.67, Gluc 266, Ca 9.3 02/15: Na 136, K 4, BUN 40, Cr 2.09, Gluc 94, Ca 7.5, Phos 5.3, Mg 1.7, POC Gluc 182-265 02/13: Na 134, K 4.3, BUN 13, Cr 0.64, Gluc 191, POC Gluc 211-232 02/09: Na 146, K 3.5, BUN 17, Cr 0.74, Glu 109, Ca 7.6 (02/07) Na 137, K 4.0, BUN 19, Cr 0.75, Glu 212, Ca 7.6 Meds: vitamin C, colace, abx, zofran, pepcid, regular insulin, lantus Ht: 61 in Wt: 223 lb (02/20) 206 lb (02/15) 221 lbs (02/08) 219 lbs (02/07) BMI: 41.4 kg/m2 - using wt of 219 lbs IBW: 112 lbs Malnutrition Evaluation (02/08/20) Unable to assess due to isolation precautions.. Will re-evaluate at follow-up as appropriate. Nutrition Prescription (Diet Order): TF: Glucerna 1.2 at 30 ml/hr- TF off post extubation Estimated Nutritional Needs: 1279-9515 calories/day (22-25 kcal/kg IBW) 76-102 g protein/day (1.5-2 g pro/kg IBW) Diet Adequacy: not meeting calorie needs, not meeting protein needs- NPO after extubation Tolerance: tolerating TF- previously Diet Education Needs Assessment: Diet education not indicated at this time. Nutrition Care Level: mod Nutrition Diagnosis: Inadequate oral intake related to acute respiratory failure/mechanical ventilation as evidenced by pt requiring enteral nutrition (resolved) Goal: Patient will meet 75-100% of estimated needs by follow up Progress: goal not met Interventions: -Composition, Rate, Route, Recommended Modifications, CHO and texture per LOGGING SUPERVISOR- modified diet Monitoring/Evaluation: -Total energy intake, Total protein intake, Formula/Solution, Modified diet, Weight change Signed: Leda Zurita RD, LD, [facility]
--- NOTE | 2020-02-21 14:05 | NUR ---
this infectious disease progress note Patient seen and examined today date is February 21, 2020 Patient remains intensive care unit he patient is afebrile. He is now more alert and interacting. He is asking for water. He is awaiting re-evaluation by speech therapy. He remains on Vapotherm at 28 L with 45% oxygen. PHYSICAL EXAMINATION: VITAL SIGNS: The blood pressure is 127/70 and pulse is 100 to 105. HEENT: Shows no facial swelling or erythema. LYMPHATIC: Shows no submandibular, cervical, or supraclavicular adenopathy. CARDIAC: Reveals a regular rate and rhythm with a normal S1 and S2. LUNGS: Auscultation of lungs reveals rhonchorous breath sounds bilaterally. There is no wheezing. ABDOMEN: Soft and nontender. There is no rebound or guarding. EXTREMITIES: Shows no leg edema or calf tenderness. There is no cyanosis or clubbing. SKIN: Shows no rashes. LABORATORY DATA: BUN to creatinine ratio is 27 to 0.67. The other electrolytes are within normal limits. Blood sugar is 230 to 266. Hemoglobin is 13.8 and white blood cell count is 9. The platelet count is 288. RADIOGRAPHIC DATA: Chest x-ray shows low lung volumes with right basilar opacity. IMPRESSION: 1. Acute respiratory failure. 2. Viral pneumonia and COVID-19 infection. 3. Diabetes. 4. Acute kidney injury. patient currently on meropenem and fluconazole Cultures remains
[2020-02-21] MEDS: FLUCONAZOLE 200 MG/100 ML 100 ML IV SCH (16:12)
[2020-02-21] MEDS: INSULIN GLARGINE 100 UNITS/ML VIAL SQ SCH (20:13)
--- NOTE | 2020-02-21 22:30 | Progress Note ---
DATE: 02/21/2020 Medicine Progress Note SUBJECTIVE: The patient is improving daily. No overnight events. He is on high-flow, but much improved. He is working with Physical Therapy. PHYSICAL EXAMINATION: VITAL SIGNS: Temperature is 99.4, pulse 79, respiratory rate is 26, blood pressure 142/74, and pulse ox 97%. He is on Vapotherm and nasal cannula high-flow. GENERAL: In no acute distress. Alert and oriented x2. He is a bit confused on examination. HEENT: Head is normocephalic and atraumatic. Eyes; pupils are equal, round, and reactive to light bilaterally. Extraocular movements are intact bilaterally. Throat, no evidence of any erythema or exudates in the posterior pharynx. Has poor dentition. NECK: Supple. Good range of motion throughout. PULMONARY: Clear to auscultation bilaterally. No wheezing, rales, or rhonchi. No crackles appreciated. CARDIOVASCULAR: Positive S1 and S2. No murmurs, rubs, no gallops appreciated. GI: Abdomen is soft, nondistended, and nontender to palpation. Bowel sounds present. MUSCULOSKELETAL: He is weak at this time, confused. NEUROLOGIC: He is confused on exam. SKIN: Intact. Warm to touch. Good capillary refill. LABORATORY DATA: CBC reviewed stable. Chemistry reviewed and stable. IMAGING STUDIES: None. IMPRESSION: 1. Acute respiratory failure secondary Coronavirus pneumonia extubated on 02/19/2020, now on high-flow and non-rebreather. 2. Viral pneumonia. 3. Uncontrolled type 2 diabetes. 4. Acute kidney injury. 5. Morbid obesity. PLAN: At this time, the patient is on high-flow non-rebreather. He is improving daily. We will monitor him very closely. His working with Physical Therapy. Get a.m. labs. He is on vitamins and antibiotics, being managed by ID. Pulmonary Critical Care is following. Full-dose anticoagulation. He is not ready for discharge at this time. Monitor closely. MD MONICA Luong/MODJorgito /[id number]
[2020-02-22] VITALS (21 sets, daily range): BP systolic 113–151; BP diastolic 40–84
[2020-02-22 04:59] LABS: BASOPHILS % 0.3 % (0.0-1.0); EOSINOPHILS # (AUTO) 0.1 (0.0-0.4); EOSINOPHILS % 1.1 % (0.0-6.0); HEMATOCRIT 38.5 % (38.2-49.6); HEMOGLOBIN 12.2 g/dL (14.0-18.0); LYMPHOCYTES # (AUTO) 1.4 (1.0-3.2); LYMPHOCYTES % 21.6 % (18.0-39.1); MEAN CORPUSCULAR HEMOGLOBIN 27.8 pg (28-32); MEAN CORPUSCULAR HGB CONC 31.7 g/dL (31-35); MEAN CORPUSCULAR VOLUME 87.7 fL (81-99); MONOCYTES # (AUTO) 0.8 (0.2-0.8); NEUTROPHILS # (AUTO) 4.3 (2.1-6.9); NEUTROPHILS % 64.7 % (38.7-80.0); PLATELET COUNT 256 x10e3/uL (140-360); RED BLOOD COUNT 4.39 x10e6/uL (4.3-5.7); RED CELL DISTRIBUTION WIDTH 13.2 % (11.7-14.4)
[2020-02-22] MEDS: MEROPENEM 1GM 100 ML IV SCH ×3 (05:05→21:22)
[2020-02-22 05:57] LABS: ALANINE AMINOTRANSFERASE 24 IU/L (0-55); ALBUMIN 2.9 g/dL (3.5-5.0); ALBUMIN/GLOBULIN RATIO 0.8 (0.8-2.0); ALKALINE PHOSPHATASE 75 IU/L (40-150); ANION GAP 12.7 mmol/L (8-16); BLOOD UREA NITROGEN 21 mg/dL (7-26); BUN/CREATININE RATIO 38 (6-25); CALCIUM 8.9 mg/dL (8.4-10.2); CARBON DIOXIDE 30 mmol/L (22-29); CHLORIDE 101 mmol/L (98-107); CREATININE, SERUM 0.55 mg/dL (0.72-1.25); EST GLOMERULAR FILTRATION RATE > 60 ML/MIN (60-); GLUCOSE 128 mg/dL (74-118); POTASSIUM 3.7 mmol/L (3.5-5.1); SODIUM 140 mmol/L (136-145)
[2020-02-22] MEDS: INSULIN REGULAR, HUMAN 100 UNIT/1 ML 3ML VIAL SQ SCH ×4 (07:41→20:43)
[2020-02-22] MEDS: ACETAMINOPHEN 325 MG TAB PO PRN ×2 (07:42→23:39)
[2020-02-22] MEDS: FAMOTIDINE 20 MG/2 ML VIAL IV SCH ×2 (08:12→16:35)
[2020-02-22] MEDS: ASCORBIC ACID 500 MG TAB PO SCH ×2 (08:12→16:35)
[2020-02-22] MEDS: ENOXAPARIN SOD INJ 40 MG/0.4 ML SYR SC SCH ×2 (08:12→21:21)
--- NOTE | 2020-02-22 09:57 | Progress Note ---
DATE: SUBJECTIVE: The patient is now on a high-flow nasal cannula. He was evaluated by speech pathology yesterday. He was cleared for mechanical soft diet. PHYSICAL EXAMINATION: VITAL SIGNS: The blood pressure is 131/70 and saturation is 99% on high-flow 11 L. His T-max is 100.4. HEENT: Shows no facial swelling or erythema. LYMPHATIC: Shows no submandibular, cervical, or supraclavicular adenopathy. CARDIAC: Reveals a regular rate and rhythm with normal S1 and S2. LUNGS: Auscultation of lungs reveals crackles and rhonchi bilaterally. There is no wheezing. ABDOMEN: Soft and nontender. There is no rebound or guarding. EXTREMITIES: Shows no leg edema or calf tenderness. There is no cyanosis or clubbing. LABORATORY DATA: White blood cell count is 6.6 and the hemoglobin is 12.2. The platelet count is 256. BUN to creatinine ratio is normal. The other electrolytes are within normal limits. The albumin is 2.9. IMPRESSION: 1. Acute respiratory failure. 2. Viral pneumonia and COVID-19 infection. 3. Diabetes. 4. Acute kidney injury. PLAN: 1. Continue to wean oxygen. 2. Physical therapy. 3. Continue mechanical soft diet and speech therapy. 4. Continue Lovenox. 5. Continue to monitor and control blood sugars. 6. Possible transfer out of intensive care unit today. Deshaun Roberson MD [facility]/MODL /[id number]
--- NOTE | 2020-02-22 15:11 | NUR ---
The patient is now on a high-flow nasal cannula. He was evaluated by speech pathology yesterday. He was cleared for mechanical soft diet. PHYSICAL EXAMINATION: VITAL SIGNS: The blood pressure is 131/70 and saturation is 99% on high-flow 11 L. His T-max is 100.4. HEENT: Shows no facial swelling or erythema. LYMPHATIC: Shows no submandibular, cervical, or supraclavicular adenopathy. CARDIAC: Reveals a regular rate and rhythm with normal S1 and S2. LUNGS: Auscultation of lungs reveals crackles and rhonchi bilaterally. There is no wheezing. ABDOMEN: Soft and nontender. There is no rebound or guarding. EXTREMITIES: Shows no leg edema or calf tenderness. There is no cyanosis or clubbing. LABORATORY DATA: White blood cell count is 6.6 and the hemoglobin is 12.2. The platelet count is 256. BUN to creatinine ratio is normal. The other electrolytes are within normal limits. The albumin is 2.9. IMPRESSION: 1. Acute respiratory failure. 2. Viral pneumonia and COVID-19 infection. 3. Diabetes. 4. Acute kidney injury.
--- NOTE | 2020-02-22 16:19 | Progress Note ---
DATE: SUBJECTIVE: Iván Agosto remains in intensive care unit. This is day #16. Off the ventilator, on high oxygen remains. No new complaints. He remains on high-flow. The patient can have a mechanical soft diet. PHYSICAL EXAMINATION: GENERAL: Currently alert. VITAL SIGNS: Stable, afebrile. HEENT: Not icteric. NECK: Supple. CHEST: Crackles. HEART: S1 and S2. ABDOMEN: Soft, obese. IMPRESSION: Respiratory failure, COVID-19, and diabetes mellitus. Continue with supportive care. Continue PT/OT. To wean down oxygen as tolerated. Discussed with medical team. MD JOSE Torres/MODL /[id number]
[2020-02-22] MEDS: FLUCONAZOLE 200 MG/100 ML 100 ML IV SCH (16:26)
--- NOTE | 2020-02-22 18:31 | NUR ---
patient transferred to obs room 175. patient alert. complaining of pain to ramirez cath. 98% on 5L nasal cannula. ramirez discontinued. urinal given.
[2020-02-22] MEDS: INSULIN GLARGINE 100 UNITS/ML VIAL SQ SCH (20:43)
[2020-02-22] MEDS ORDERED: SODIUM CHLORIDE 0.9% 250ML 250 ML ONE (20:53)
--- NOTE | 2020-02-22 21:52 | NUR ---
Patient voided without complain of pain.
--- NOTE | 2020-02-22 22:16 | Progress Note ---
DATE: 02/22/2020 Medicine Progress Note SUBJECTIVE: The patient is talking to me today. He is alert, awake, and oriented. Occasionally, he is confused according to the nursing staff. Otherwise, he looks great. He is very weak according to the staff and physical therapy. PHYSICAL EXAMINATION: VITAL SIGNS: Temperature is 98.9, pulse 88, respiratory rate is 16, blood pressure is 130/60, and pulse ox 98% on nasal cannula. GENERAL: Not in acute distress. Alert and oriented x2. Occasionally confused. PULMONARY: Clear to auscultation bilaterally. No wheezing, no rales, no rhonchi, no crackles appreciated. CARDIOVASCULAR: Positive S1 and S2. No murmurs, rubs, or gallops appreciated. ABDOMEN: Soft, nondistended, and nontender to palpation. Bowel sounds present. MUSCULOSKELETAL: He is very weak, 4/5 throughout. SKIN: Intact. Warm to touch. Good cap refill. PSYCHIATRIC: Occasionally confused, but alert and awake. EXTREMITIES: No edema appreciated. LABORATORY DATA: Show white count 6.6, hemoglobin 12, hematocrit is 38, and platelets of 256. Chemistry; sodium 140, potassium 3.7, chloride 101, bicarb 30, anion gap of 12, BUN is 21, creatinine is 0.55, and glucose is 128. MICROBIOLOGY: Nothing new. IMAGING STUDIES: Nothing new. IMPRESSION: 1. Acute respiratory failure secondary to coronavirus pneumonia, extubated on 02/19/2020, now on nasal cannula. 2. Viral pneumonia. 3. Type 2 diabetes. 4. Acute kidney injury. 5. Morbid obesity. PLAN: At this time, the patient is on nasal cannula. He is improving respiratory garcia with no issues. He is very weak and needs aggressive physical therapy. Continue with full-dose anticoagulation. Pulmonary Critical Care and ID are following. Continue same plan of care and monitor closely. Shantal Vieyra MD [facility]/MODL /[id number]
[2020-02-23] VITALS (9 sets, daily range): BP systolic 122–148; BP diastolic 81–101
[2020-02-23] MEDS: ACETAMINOPHEN/CODEINE 300MG - 30MG TAB PO PRN ×4 (03:42→21:39)
[2020-02-23] MEDS: MEROPENEM 1GM 100 ML IV SCH ×3 (05:57→21:05)
[2020-02-23 06:27] LABS: BASOPHILS % 0.4 % (0.0-1.0); EOSINOPHILS # (AUTO) 0.1 (0.0-0.4); EOSINOPHILS % 1.3 % (0.0-6.0); HEMATOCRIT 38.3 % (38.2-49.6); HEMOGLOBIN 12.2 g/dL (14.0-18.0); LYMPHOCYTES # (AUTO) 1.4 (1.0-3.2); MEAN CORPUSCULAR HEMOGLOBIN 27.5 pg (28-32); MEAN CORPUSCULAR HGB CONC 31.9 g/dL (31-35); MEAN CORPUSCULAR VOLUME 86.3 fL (81-99); MONOCYTES # (AUTO) 0.7 (0.2-0.8); MONOCYTES % 12.9 % (4.4-11.3); NEUTROPHILS # (AUTO) 3.3 (2.1-6.9); PLATELET COUNT 223 x10e3/uL (140-360); RED BLOOD COUNT 4.44 x10e6/uL (4.3-5.7); RED CELL DISTRIBUTION WIDTH 12.8 % (11.7-14.4)
[2020-02-23 06:50] LABS: ALANINE AMINOTRANSFERASE 22 IU/L (0-55); ALBUMIN 2.9 g/dL (3.5-5.0); ALBUMIN/GLOBULIN RATIO 0.8 (0.8-2.0); ALKALINE PHOSPHATASE 77 IU/L (40-150); ANION GAP 14.6 mmol/L (8-16); BLOOD UREA NITROGEN 13 mg/dL (7-26); BUN/CREATININE RATIO 24 (6-25); CALCIUM 8.5 mg/dL (8.4-10.2); CARBON DIOXIDE 28 mmol/L (22-29); CHLORIDE 100 mmol/L (98-107); CREATININE, SERUM 0.55 mg/dL (0.72-1.25); EST GLOMERULAR FILTRATION RATE > 60 ML/MIN (60-); GLUCOSE 141 mg/dL (74-118); POTASSIUM 3.6 mmol/L (3.5-5.1); SODIUM 139 mmol/L (136-145)
--- NOTE | 2020-02-23 07:00 | NUR ---
REPORT RECEIVED FROM FREDRICK READ. PATIENT RECEIVED RESTING IN BED IN NO ACUTE DISTRESS, HOB ELEVATED 30 DEGREES. HI FLOW NASAL CANNULA IN PLACE AT 5L. PATIENT WAS EDUCATED ON FALL RISK PRECAUTIONS, BED ALARM IS ON. PATIENT VOICED UNDERSTANDING. CALL LIGHT AND BELONGINGS NEARBY. WILL CONTINUE TO MONITOR.
[2020-02-23] MEDS: INSULIN REGULAR, HUMAN 100 UNIT/1 ML 3ML VIAL SQ SCH ×4 (07:30→21:00)
[2020-02-23] MEDS: FAMOTIDINE 20 MG/2 ML VIAL IV SCH ×2 (08:32→16:51)
[2020-02-23] MEDS: ASCORBIC ACID 500 MG TAB PO SCH ×2 (08:32→16:51)
[2020-02-23] MEDS: ENOXAPARIN SOD INJ 40 MG/0.4 ML SYR SC SCH ×2 (08:32→21:04)
--- NOTE | 2020-02-23 08:53 | Diagnostic Imaging Report ---
EXAMINATION: CHEST SINGLE (PORTABLE), ABDOMEN 2 VIEW INDICATION: Respiratory failure, abdominal pain COMPARISON: Chest radiograph of 02/20/2020 FINDINGS: LINES/TUBES:EKG leads overlie the chest. LUNGS:The lungs are moderately inflated. Unchanged right basilar opacity. PLEURA:No pleural effusion or pneumothorax. MEDIASTINUM:The cardiomediastinal silhouette appears unchanged in size and shape. BONES/SOFT TISSUES:No acute osseous injury. ABDOMEN:Nonobstructive bowel gas pattern. No free air. IMPRESSION: Unchanged right basilar opacity. Nonobstructive bowel gas pattern. No free air. Signed by: Anuj Bonilla MD on 02/23/2020 8:49 AM
--- NOTE | 2020-02-23 11:45 | NUR ---
PATIENT SITTING UP ON SIDE OF BED EATING LUNCH IN NO ACUTE DISTRESS. HI FLOW NASAL CANNULA AT 5L IN PLACE
--- NOTE | 2020-02-23 13:08 | NUR ---
infectious disease progress note Patient seen and examined chart review discussed with medical team. Today's date is February 23, 2020. Part of the patient is out of ICU. Patient with no new complaint except he is weak and short of breath SUBJECTIVE: The patient is talking to me today. He is alert, awake, and oriented. Occasionally, he is confused according to the nursing staff. Otherwise, he looks great. He is very weak according to the staff and physical therapy. PHYSICAL EXAMINATION: VITAL SIGNS: Temperature is 98.9, pulse 88, respiratory rate is 16, blood pressure is 130/60, and pulse ox 98% on nasal cannula. GENERAL: Not in acute distress. Alert and oriented x2. Occasionally confused. PULMONARY: Clear to auscultation bilaterally. No wheezing, no rales, no rhonchi, no crackles appreciated. CARDIOVASCULAR: Positive S1 and S2. No murmurs, rubs, or gallops appreciated. ABDOMEN: Soft, nondistended, and nontender to palpation. Bowel sounds present. MUSCULOSKELETAL: He is very weak, 4/5 throughout. SKIN: Intact. Warm to touch. Good cap refill. PSYCHIATRIC: Occasionally confused, but alert and awake. EXTREMITIES: No edema appreciated. LABORATORY DATA: Show white count 6.6, hemoglobin 12, hematocrit is 38, and platelets of 256. Chemistry; sodium 140, potassium 3.7, chloride 101, bicarb 30, anion gap of 12, BUN is 21, creatinine is 0.55, and glucose is 128. MICROBIOLOGY: Nothing new. IMAGING STUDIES: Nothing new. IMPRESSION: 1. Acute respiratory failure secondary to coronavirus pneumonia, extubated on 02/19/2020, now on nasal cannula. 2. Viral pneumonia. 3. Type 2 diabetes. 4. Acute kidney injury. 5. Morbid obesity. see orders
--- NOTE | 2020-02-23 15:00 | NUR ---
Discontinued the following peripheral IV catheters: #22RFA due to leaking and #20 LFA due to infiltration. catheter tips intact without resistance. Pt tolerated well IV start #20 gauge to RAC with good blood return and flushes well. pt tolerated well. Clean dry dressing applied and labeled.
--- NOTE | 2020-02-23 17:16 | Progress Note ---
DATE: SUBJECTIVE: The patient is afebrile. He is on 5 L nasal cannula. He has less cough and less complaints. PHYSICAL EXAMINATION: VITAL SIGNS: The patient is afebrile. The blood pressure is 148/101, and saturation is 99% on 5 L. HEENT: Shows no facial swelling or erythema. The oropharynx is normal. LYMPHATIC: Shows no submandibular, cervical, or supraclavicular adenopathy. CARDIAC: Reveals a regular rate and rhythm with normal S1, S2. LUNGS: Auscultation of lungs reveals rhonchorous breath sounds bilaterally. There is no wheezing. ABDOMEN: Soft, nontender. There is no rebound or guarding. EXTREMITIES: Shows no leg edema or calf tenderness. IMPRESSION: 1. Viral pneumonia and COVID-19 infection. 2. Diabetes. 3. Acute kidney injury. PLAN: 1. Continue physical therapy. 2. Continue to wean oxygen. 3. Lovenox. 4. Monitor and control blood sugars. Deshaun Roberson MD [facility]/MODL /[id number]
[2020-02-23] MEDS: INSULIN GLARGINE 100 UNITS/ML VIAL SQ SCH (21:05)
--- NOTE | 2020-02-23 23:46 | Progress Note ---
DATE: 02/23/2020 Medicine Progress Note SUBJECTIVE: The patient is improving. He is on nasal cannula. He is working with physical therapy. PHYSICAL EXAMINATION: VITAL SIGNS: He is afebrile, normotensive, 94% on 5 L nasal cannula. GENERAL: In no acute distress. Alert and oriented x3. Cooperative on examination. HEENT: Head is normocephalic and atraumatic. Eyes; pupils are equal, round, and reactive to light bilaterally. Extraocular movements are intact bilaterally. NECK: Supple. Good range of motion. PULMONARY: Clear to auscultation bilaterally. No wheezing, rales, or rhonchi. No crackles appreciated. CARDIOVASCULAR: Positive S1 and S2. No murmurs, rubs, or gallops. ABDOMEN: Soft, nondistended, nontender to palpation. Bowel sounds are present. LABORATORY DATA: Labs reviewed and stable IMPRESSION: 1. Acute respiratory failure secondary to coronavirus disease 2019 pneumonia, extubated on 02/19/2020, now on nasal cannula. 2. Viral pneumonia. 3. Type 2 diabetes. 4. Acute kidney injury. 5. Morbid obesity. PLAN: The patient is on 5 L nasal cannula. He has improved tremendously. Aggressive physical therapy and occupational therapy. Still on full-dose anticoagulation. He will be discharged on oral anticoagulation. Pulmonary Critical Care and ID are following. Plan to discharge home several days from now once he is improved. MD MONICA Luong/MODL /[id number]
[2020-02-24] MEDS: ACETAMINOPHEN/CODEINE 300MG - 30MG TAB PO PRN (04:01)
[2020-02-24 04:02] VITALS: BP 120/69
[2020-02-24] MEDS: MEROPENEM 1GM 100 ML IV SCH (05:57)
--- NOTE | 2020-02-24 07:05 | NUR ---
Report received from PM shift nurse, Connie READ. Patient found resting in bed with 5L high flow nasal cannula in no acute distress. Patient was instructed on fall risk precautions and to call with needs. Patient voiced understanding. Call light and belongings were placed nearby. Will continue to monitor.
[2020-02-24 07:53] VITALS: BP 150/76
[2020-02-24 08:00] VITALS: BP 130/76
[2020-02-24] MEDS: INSULIN REGULAR, HUMAN 100 UNIT/1 ML 3ML VIAL SQ SCH ×2 (08:11→11:59)
[2020-02-24] MEDS: ENOXAPARIN SOD INJ 40 MG/0.4 ML SYR SC SCH (08:11)
[2020-02-24] MEDS: FAMOTIDINE 20 MG/2 ML VIAL IV SCH (08:11)
[2020-02-24] MEDS: ASCORBIC ACID 500 MG TAB PO SCH (08:11)
[2020-02-24 09:00] VITALS: BP 150/76
--- NOTE | 2020-02-24 09:30 | NUR ---
Patient [id number]=691% on 5L oxygen via high flow nasal cannula. Titrated patient to 4L oxygen via high flow nasal cannula. Patient O2 sat= 99% at rest and 98% with exertion (ambulated to room door and back to bed). Addendum: 02/24/20 at 1252 by Brenda Woody RN OMIT high flow nasal cannula INSERT Patient on supplemental oxygen per nasal cannula
[2020-02-24 11:59] VITALS: BP 120/70
--- NOTE | 2020-02-24 12:11 | NUR ---
ORDERS FOR HOME 0XYGEN CM SPOKE WITH PT WHO STATES HIS MOTHER HAS A CREDIT CARD TO PAY FOR 02 CM CALLED MOTHER FAUSTO ROMAN AT [phone] SHE CONFIRMS THAT SHE WILL PAY FOR 02 WITH CREDIT CARD 02 SATS ON ROOM AIR WITH EXERTION 86% CHOICE LETTER FOR [facility] PH: [phone] FAX: [phone] CALLED AND SPOKE WITH CRISTOBAL AT [facility] AND ASKED HER TO CALL ME WHEN CREDIT CARD INFORMATION CONFIRMED SO I CAN DELIVER PORTABLE TANKS CONFIRMED ADDRESS AND PHONE NUMBERS CORRECT ON FACE SHEET PROVIDED PT WITH [employer] DISCOUNT CARD PLAN DC HOME TODAY
--- NOTE | 2020-02-24 12:38 | NUR ---
REC'D PHONE CALL FROM [facility] 02 HAS BEEN PAID FOR BY PT'S MOTHER DELIVERED 2 PORTABLE TANKS TO PT'S NURSE FOR DISCHARGE
--- NOTE | 2020-02-24 13:49 | NUR ---
Patient with no new complaint except he is weak and short of breath SUBJECTIVE: The patient is talking to me today. He is alert, awake, and oriented. Occasionally, he is confused according to the nursing staff. Otherwise, he looks great. He is very weak according to the staff and physical therapy. PHYSICAL EXAMINATION: VITAL SIGNS: Temperature is 98.9, pulse 88, respiratory rate is 16, blood pressure is 130/60, and pulse ox 98% on nasal cannula. GENERAL: Not in acute distress. Alert and oriented x2. Occasionally confused. PULMONARY: Clear to auscultation bilaterally. No wheezing, no rales, no rhonchi, no crackles appreciated. CARDIOVASCULAR: Positive S1 and S2. No murmurs, rubs, or gallops appreciated. ABDOMEN: Soft, nondistended, and nontender to palpation. Bowel sounds present. MUSCULOSKELETAL: He is very weak, 4/5 throughout. SKIN: Intact. Warm to touch. Good cap refill. PSYCHIATRIC: Occasionally confused, but alert and awake. EXTREMITIES: No edema appreciated. LABORATORY DATA: Show white count 6.6, hemoglobin 12, hematocrit is 38, and platelets of 256. Chemistry; sodium 140, potassium 3.7, chloride 101, bicarb 30, anion gap of 12, BUN is 21, creatinine is 0.55, and glucose is 128. MICROBIOLOGY: Nothing new. IMAGING STUDIES: Nothing new. IMPRESSION: 1. Acute respiratory failure secondary to coronavirus pneumonia, extubated on 02/19/2020, now on nasal cannula. 2. Viral pneumonia. 3. Type 2 diabetes. 4. Acute kidney injury. 5. Morbid obesity. to ar home today
--- NOTE | 2020-02-24 14:00 | NUR ---
PERIPHERAL IV DISCONTINUED, CATHETER TIP INTACT WITHOUT RESISTANCE. DRY DRESSING APPLIED. PATIENT DISCHARGED TO HOME OF COUSIN NAMED [facility]IA PRIVATE VEHICLE. PATIENT WAS PROVIDED WITH D/C SUMMARY, F/U APPTS TO BE SCHEDULED BY FAMILY AND 2 HOME OXYGEN TANKS. PATIENT AND COUSIN VERBALIZED UNDERSTANDING.
--- NOTE | 2020-02-25 04:43 | Discharge Summary ---
FINAL DISCHARGE DIAGNOSES: 1. Acute respiratory failure, secondary to Coronavirus pneumonia, extubated on 02/29/2020-now on 2 to 3 L nasal cannula, improved tremendously, now at baseline. 2. Viral pneumonia. 3. Acute kidney injury-resolved. 4. Type 2 diabetes. 5. Morbidly obese. CONSULTANTS: Pulmonary Critical Care, ID. PHYSICAL EXAMINATION: VITAL SIGNS: Temperature is 98.9, pulse 78, respiratory rate is 20, blood pressure 120/70, and pulse ox 100%. He is on room air. LABORATORY FINDINGS: Show white count 5.4, hemoglobin 12, hematocrit 38, and platelets of 323. Chemistry; sodium 139, potassium 3.6, chloride 100, bicarb 28, anion gap of 14, BUN , glucose 141, total bilirubin was AST 17, ALT 22, alkaline phosphatase 77. Troponins were all negative. Albumin was 2.9. Urinalysis; negative. Serology; Coronavirus was positive. MICROBIOLOGY: He did have urine cultures positive for Mandy albicans treated accordingly. Blood cultures were negative. IMAGING STUDIES: Chest x-ray on admission shows multifocal patchy airspace opacity throughout the lungs. He has had several other imaging studies. The last chest x-ray on 02/23/2020, shows some right basilar opacity. KUB on 02/23/2020, nonobstructive bowel gas pattern. No free air. HOSPITAL COURSE: This is a 44-year-old male, came in short of breath, cough, congestion, fever, found to have Coronavirus and was immediately intubated. The patient was intubated and stayed in the ICU for significant period of time. He maintained on IV antibiotics, steroids, vitamins, and was on a mechanical ventilator. Pulmonary Critical Care and ID were consulted. Blood cultures were negative. Initial urine culture was negative, but repeat urine culture shows Mandy albicans and was treated accordingly antifungal therapy. The patient maintained, intubated for significant period of time, then gradually began to improve throughout the hospital course. On 02/19/2020, the patient was extubated. He did tremendously well. Initially, he was very weak and altered and confused, but then he improved and was back to normal baseline. He was alert, awake, and oriented. He was discharged on nasal cannula oxygen approximately 2 L. In fact, he was on room air prior to being discharged. The patient worked with physical therapy and occupational therapy. He was able to ambulate with no issues. The patient was back to normal baseline. Plan of care was discussed with the patient, he verbalized understanding. The patient was cleared for discharge by all consultants. On the day of discharge, vital signs were stable. Labs reviewed and stable. The patient is seen and evaluated, examined thoroughly and there was no other complaints. The patient verbalized understanding and agrees to plan of care to follow up as an outpatient with the primary care physician in 1 week and ID in 2 weeks' time. MEDICATIONS: See med reconciliation form. DISPOSITION: Home. CONDITION: Stable. DIET: Heart healthy. In the event of any worsening symptoms, the patient was advised to come back to the ED for further evaluation. Discharge summary took greater than 35 minutes. MD MONICA Luong/FREDDY /[id number]
== END 2020-02-24 14:56 | disposition home or self-care (01) | DRG 207 ==
LOC: ER 19:45 → ERHOLD 22:08 → COVIDICU 02-07 15:33 → IMCU 02-22 18:42
PROVIDERS: ADMIT Internal Medicine; ATTEND Internal Medicine
PROC: 0BH17EZ Insertion of Endotracheal Airway into Trachea, Via Natural or Artificial Opening (ICD-10-PCS; principal; 2020-02-07)
PROC: 5A1955Z Respiratory Ventilation, Greater than 96 Consecutive Hours (ICD-10-PCS; 2020-02-07)
PROC: 02HV33Z Insertion of Infusion Device into Superior Vena Cava, Percutaneous Approach (ICD-10-PCS; 2020-02-07)
PROC: B548ZZA Ultrasonography of Superior Vena Cava, Guidance (ICD-10-PCS; 2020-02-07)
PROC: 3E043XZ Introduction of Vasopressor into Central Vein, Percutaneous Approach (ICD-10-PCS; 2020-02-07)
DX: U07.1 COVID-19 (principal); J12.89 Other viral pneumonia; E11.10 Type 2 diabetes mellitus with ketoacidosis without coma; J96.01 Acute respiratory failure with hypoxia; J15.9 Unspecified bacterial pneumonia; N17.9 Acute kidney failure, unspecified; Z68.41 Body mass index [BMI] 40.0-44.9, adult; B37.49 Other urogenital candidiasis; D64.9 Anemia, unspecified; E66.01 Morbid (severe) obesity due to excess calories; Z87.01 Personal history of pneumonia (recurrent); I10 Essential (primary) hypertension; Z83.3 Family history of diabetes mellitus; Z82.49 Family history of ischemic heart disease and other diseases of the circulatory system
CPT/HCPCS: 31500; 36415; 36569; 36600; 71045; 74018; 74019; 80048; 80053; 81001; 82550; 82553; 82805; 82948; 83036; 84484; 85025; 87040; 87086; 93005; 94002; 94003; 94660; 96372; 97139; 99285; J0330; J0456; J0696; J1100; J1450; J1650; J1815; J1817; J1940; J2250; J2405; J2543; J2560; J3370; J3480; J7030; J7040; J7050; J7121; J7799; P9047; U0002

== ENCOUNTER 2020-04-09 21:45 | Emergency (ER) | payer SELFPAY ==
[~2020-04-09] VITALS: Ht 154.9 cm; Wt 101.2 kg
--- NOTE | 2020-04-10 00:40 | Emergency Department Note ---
History of Present Illnes History of Present Illness Chief Complaint: Respiratory History of Present Illness This is a 44 year old male PRESENTS TO ED C/O INTERMITTENT COUGH AND SOB >1 MONTH, WAS TX FOR COVID-19 AND WALKING PNA AT THIS FACILITY; STATES WORESENED 3 DAYS AGO WHEN HE GOT WET AT WORK, FURTHER STATES "I'M OUT OF MY MEDS AND I'M HARD HEADED CAUSE I TOOK OFF MY O2 TODAY AND THAT MADE THINGS WORSE"; PT APPEARS IN NAD, RESP E/U, . Historian: Patient Arrival Mode: Car Onset (how long ago): day(s) (3) Location: CHEST Quality: COUGH, SOB Radiation: Reports non-radiation Severity: mild Onset quality: gradual Duration (how long): day(s) (3) Timing of current episode: constant Progression: worsening Context: Reports recent illness (COVID IN JANUARY 2020, PNEUMONIA IN FEBRUARY 2020); Denies recent surgery Relieving factors: none Exacerbating factors: none Associated symptoms: Reports denies other symptoms Past Medical/Family History Physician Review I have reviewed the patient's past medical and family history. Any updates have been documented here. Past Medical History Recent Fever: No Clinical Suspicion of Infectio: No New/Unexplained Change in Ment: No Past Medical History: Hypertension, Diabetes, Depression Other Medical History: Narcolepsy, Neuropathy, COVID-19 Past Surgical History: None Social History Smoking Cessation: Never Smoker Alcohol Use: None Any Illegal Drug Use: No Family History Family history of heart diseas: No Other Last Tetanus: unknown Review of Systems Review of Systems Constitutional: Reports no symptoms EENTM: Reports no symptoms Cardiovascular: Reports no symptoms Respiratory: Reports as per HPI Gastrointestinal: Reports no symptoms Genitourinary: Reports no symptoms Musculoskeletal: Reports no symptoms Integumentary: Reports no symptoms Neurological: Reports no symptoms Psychological: Reports no symptoms Endocrine: Reports no symptoms Hematological/Lymphatic: Reports no symptoms Physical Exam Related Data Allergies: Coded Allergies: No Known Allergies (Unverified , 08/31/14) Triage Vital Signs Vital Signs Date Time Temp Pulse Resp B/P (MAP) Pulse Ox O2 Delivery O2 Flow Rate FiO2 04/09/20 22:33 98.4 101 20 161/109 95 Room Air Vital signs reviewed: Yes Physical Exam CONSTITUTIONAL Constitutional: Present well-developed, Present well-nourished HENT HENT: Present normocephalic, Present atraumatic, Present oropharynx clear/moist, Present nose normal HENT L/R: Present left ext ear normal, Present right ext ear normal EYES Eyes: Reports PERRL, Reports conjunctivae normal NECK Neck: Present ROM normal PULMONARY Pulmonary: Present effort normal, Present other (MILD DECREASED BREATH SOUNDS RLL) CARDIOVASCULAR Cardiovascular: Present regular rhythm, Present heart sounds normal, Present capillary refill normal, Present tachycardia (101) GASTROINTESTINAL Abdominal: Present soft, Present nontender, Present bowel sounds normal GENITOURINARY Genitourinary: Present exam deferred SKIN Skin: Present warm, Present dry MUSCULOSKELETAL Musculoskeletal: Present ROM normal NEUROLOGICAL Neurological: Present alert, Present oriented x 3, Present no gross motor or sensory deficits PSYCHOLOGICAL Psychological: Present mood/affect normal, Present judgement normal Results Imaging Imaging results reviewed: Yes Impressions EXAMINATION: CHEST 2 VIEWS INDICATION: SOB, R/O PNA, HX COVID-19 ^[id number] ^2300 ^Y COMPARISON: Chest x-ray 02/23/2020 FINDINGS: TUBES and LINES: None. LUNGS: Normal lung volumes. Mild residual right inferomedial lung haziness. Mild bronchial wall thickening. PLEURA: No pleural effusion or pneumothorax. HEART AND MEDIASTINUM: The cardiomediastinal silhouette is unremarkable. BONES AND SOFT TISSUES: No acute osseous lesion. Soft tissues are unremarkable. UPPER ABDOMEN: No free air under the diaphragm. IMPRESSION: Findings of bronchitis. Mild right inferomedial lung haziness, improved compared to 02/23/2020, can be due to atelectasis or residual/recurrent pneumonia. Signed by: Emanuel Arredondo DO on 04/10/2020 12:37 AM Dictated By: EMANUEL ARREDONDO DO Transcribed By: ALEXSANDER on 04/10/2036 COPY TO: FIDENCIO CINTRON MD~ Assessment & Plan Medical Decision Making MDM PT WITH COUGH AND SOB CXR ORDERED TO EVAL FOR PNEUMONIA Assessment & Plan Final Impression: (1) Bronchitis Depart Disposition: HOME, SELF-CARE Last Vital Signs Date Time Temp Pulse Resp B/P (MAP) Pulse Ox O2 Delivery O2 Flow Rate FiO2 04/09/20 22:33 98.4 101 20 161/109 95 Room Air Home Meds No Active Prescriptions or Reported Meds FIDENCIO CINTRON MD Apr 10, 2020 00:40
== END 2020-04-10 00:43 | disposition home or self-care (01) ==
LOC: ER 23:19
DX: J40 Bronchitis, not specified as acute or chronic (principal); R05 Cough; R06.02 Shortness of breath; I10 Essential (primary) hypertension; E11.40 Type 2 diabetes mellitus with diabetic neuropathy, unspecified; F32.9 Major depressive disorder, single episode, unspecified; G47.419 Narcolepsy without cataplexy
CPT/HCPCS: 71046; 99283